=== PATIENT | female | born 1960 | race Caucasian/White ===

== ENCOUNTER 2018-08-12 13:17 | Inpatient (IN) | payer MEDICARE, MEDICAID, SELFPAY ==
[2018-08-12] VITALS (50 sets, daily range): BP systolic 110–150; BP diastolic 60–82; PULSE 66–74; RESP 9–27; TEMP 37.1–37.6; O2SAT 91–96
--- NOTE | 2018-08-12 13:58 | W.ED.GENAD ---
Discharge Plan Disposition Patient Disposition: [facility] INPATIENT Condition: Serious Discharge Details Chief Complaint: AMS/LOC Clinical Impression: Acute UTI, Acute confusion, Pneumonia Reason For Visit: NASIM Primary Care Provider: Shaunna Bonilla ED Provider: Garret Melendez Home Meds and New Rx's Prescriptions: No Action oxycodone 5 mg Tablet 5 - 10 mg PO Q4H PRNRF: 0 acetaminophen 500 mg Tablet 1,000 mg PO Q8H RF: 0 amlodipine 10 mg Tablet 10 mg PO DAILY RF: 0 aspirin [Aspir-81] 81 mg Tablet,Delayed Release (Dr/Ec) 81 mg PO DAILY RF: 0 atorvastatin 80 mg Tablet 80 mg PO HS RF: 0 bupropion HCl 150 mg Tablet Extended Release 24 Hr 150 mg PO DAILY RF: 0 carvedilol 25 mg Tablet 25 mg PO BID RF: 0 clopidogrel 75 mg Tablet 75 mg PO DAILY RF: 0 cyclobenzaprine 10 mg Tablet 10 mg PO Q8H RF: 0 bisacodyl [Dulcolax (bisacodyl)] 10 mg Suppository 10 mg SD PRN PRNRF: 0 fluticasone propionate 50 mcg/actuation [place],Suspension 1 spray Intranasal QAM RF: 0 furosemide 40 mg Tablet 40 mg PO BID RF: 0 insulin glargine 100 unit/mL (3 mL) Insulin Pen 35 unit subcut HS RF: 0 insulin lispro 100 unit/mL Insulin Pen 0 - 4 unit subcut DIRECTED RF: 0 levothyroxine 100 mcg Tablet 200 mcg PO DAILY RF: 0 Lyrica 200 mg Capsule 200 mg PO DAILY RF: 0 magnesium oxide 400 mg magnesium Tablet 400 mg PO QAM RF: 0 melatonin 10 mg Tablet 10 mg PO HS RF: 0 metformin 1,000 mg Tablet 2,000 mg PO QAM RF: 0 polyethylene glycol 3350 [Miralax] 17 gram/dose Powder 17 g PO Q12H PRNRF: 0 magnesium hydroxide [Milk of Magnesia] 400 mg/5 mL Suspension 30 ml PO HS PRNRF: 0 pramipexole [Mirapex] 0.5 mg Tablet 0.5 mg PO TID RF: 0 oxybutynin chloride 5 mg Tablet 5 mg PO BID RF: 0 paroxetine HCl 40 mg Tablet 40 mg PO DAILY RF: 0 potassium chloride 20 mEq Tablet Extended Release 20 meq PO QAM RF: 0 Medical Decision Making 14:00 --57-year-old female with multiple medical problems including recent cervical spine surgery, sent from nursing rehab facility with concern for altered mental status, increased confusion, abdominal distention and discomfort. Patient is altered. Unclear of baseline. Concern for delirium versus infectious etiology plan to perform screening labs as well as CT head, cxr and CT abdomen pelvis to assess for acute surgical pathology. -- I attempted to contact patient's daughter to establish baseline mentation and no one answer. --ECG reviewed and interpreted by me: Sinus rhythm 69 bpm, normal axis, T wave inversions are noted lead V1 to V4 (no old for comparison). --CT head interpreted by radiology: No acute intracranial hemorrhage. --Urinalysis reviewed and concerning for UTI: Positive nitrite and greater than [address] of the abdomen and pelvis interpreted by radiology: Consolidation of the left lower lobe may represent atelectasis or pneumonia. Broad-based X bulge at L4-L5 and L5-L1, recommend MRI if clinically indicated. Will give levauin 750mg IV. Labs reviewed and leukocytosis noted. Will add blood cultures and lactate. 16:50-- Spoke with Dr. Mendez who will admit the patient. Care transitioned to Dr. Mendez. Cxr interpretation pending at time of admission. HPI General Mode of arrival: ambulatory. Date/Time Provider Initiated Documentation: 08/12/18 13:58. Limitations to Documentation: no limitations. Information obtained by: patient. HPI Narrative: 57-year-old female with history of cervical myelopathy status post posterior cervical laminectomy and arthrodesis, 08/07/2018, coronary artery disease, CHF, COPD, diabetes type 2, presents today from nursing rehab facility with concern from skilled nursing that she has had increased confusion. History and review of systems limited secondary to altered mental status. Unclear baseline. [facility] is unclear of patient's baseline mentation. [facility] staff also concerned with abdominal distention. They note last bowel movement was on 08/07. Patient denies focal pain. Related Data Home Medications Medication Instructions Recorded Confirmed acetaminophen 1,000 mg PO Q8H 08/12/18 08/12/18 amlodipine 10 mg PO DAILY 08/12/18 08/12/18 aspirin [Aspir-81] 81 mg PO DAILY 08/12/18 08/12/18 atorvastatin 80 mg PO HS 08/12/18 08/12/18 bisacodyl [Dulcolax (bisacodyl)] 10 mg SD PRN PRN 08/12/18 08/12/18 bupropion HCl 150 mg PO DAILY 08/12/18 08/12/18 carvedilol 25 mg PO BID 08/12/18 08/12/18 clopidogrel 75 mg PO DAILY 08/12/18 08/12/18 cyclobenzaprine 10 mg PO Q8H 08/12/18 08/12/18 fluticasone propionate 1 spray INTRANASAL QAM 08/12/18 08/12/18 furosemide 40 mg PO BID 08/12/18 08/12/18 insulin glargine 35 unit SUBCUT HS 08/12/18 08/12/18 insulin lispro 0 - 4 unit SUBCUT DIRECTED 08/12/18 08/12/18 levothyroxine 200 mcg PO DAILY 08/12/18 08/12/18 magnesium hydroxide [Milk of 30 ml PO HS PRN 08/12/18 08/12/18 Magnesia] magnesium oxide 400 mg PO QAM 08/12/18 08/12/18 melatonin 10 mg PO HS 08/12/18 08/12/18 metformin 2,000 mg PO QAM 08/12/18 08/12/18 oxybutynin chloride 5 mg PO BID 08/12/18 08/12/18 oxycodone 5 - 10 mg PO Q4H PRN 08/12/18 08/12/18 paroxetine HCl 40 mg PO DAILY 08/12/18 08/12/18 polyethylene glycol 3350 [Miralax] 17 g PO Q12H PRN 08/12/18 08/12/18 potassium chloride 20 meq PO QAM 08/12/18 08/12/18 pramipexole [Mirapex] 0.5 mg PO TID 08/12/18 08/12/18 pregabalin [Lyrica] 200 mg PO DAILY 08/12/18 08/12/18 General Stated Complaint: AMS/LOC GABBY: 2 Review of Systems Review of Systems Unobtainable due to mental status PFSH Medical History Acute on chronic diastolic (congestive) heart failure (Acute) Acute pancreatitis (Acute) Adult hypothyroidism (Acute) Atherosclerotic heart disease of [place] coronary artery with angina pectoris (Acute) Benign neoplasm (Acute) History of non-ST elevation myocardial infarction (NSTEMI) (Acute) Hx of laminectomy (Acute) Localized edema (Acute) Mixed incontinence (Acute) Morbid obesity due to excess calories (Acute) Nicotine dependence (Acute) Spondylosis of cervical spine (Acute) Type 2 diabetes mellitus (Acute) Urinary tract infection (Acute) NSTEMI (non-ST elevated myocardial infarction) (Acute) CAD (coronary artery disease) (Chronic) COPD (chronic obstructive pulmonary disease) (Chronic) Social History Smoking/Tobacco Use Status: Current every day Tobacco Type: cigarettes Tobacco: How many years used: 48 Exam Const General: cooperative Nutritional Appearance: obese Orientation: awake and confused Limitations: altered mental status HENMT Head: normocephalic and atraumatic Mouth: moist mucous membranes Eyes Conjunctivae: normal conjunctivae Sclera: normal sclerae Pupils: PERRL and pupil size bilaterally 3 EOM: EOM intact bilaterally Neck Lymphatic: other (collar intact) Resp Auscultation: clear to auscultation bilaterally, no rales, no rhonchi and no wheezes Cardio Jugular venous pressure: no JVD Rate: regular rate and not tachycardic Rhythm: regular rhythm GI Palpation: soft, not firm, no guarding, no masses, not rigid and tender (diffuse) Neuro General: awake, oriented Patient Orientation: Person and Confused, tone normal and moves all extremities Extrem General: edema Laterality: bilateral Course Vital Signs Temperature 37.1 C 08/12/18 13:23 Pulse 68 08/12/18 13:23 Respiratory Rate 16 08/12/18 13:23 Blood Pressure 119/60 08/12/18 13:23 Temperature 37.1 C 08/12/18 13:23 Temperature Source Skin 08/12/18 13:23 Pulse 68 08/12/18 13:23 Respiratory Rate 18 08/12/18 13:33 Respiratory Effort 08/12/18 13:33 Respiratory Depth Normal 08/12/18 13:33 Blood Pressure 119/60 08/12/18 13:23 Blood Pressure Position Supine 08/12/18 13:23 Oxygen Delivery Method Room Air 08/12/18 13:23 Oxygen Flow Rate 0 08/12/18 13:23
--- NOTE | 2018-08-12 14:09 | ED.GENADUL_ITS ---
Discharge Plan Disposition Patient Disposition: [facility] INPATIENT Condition: Serious Discharge Details Chief Complaint: AMS/LOC Clinical Impression: Acute UTI, Acute confusion, Pneumonia Reason For Visit: NASIM Primary Care Provider: Shaunna Bonilla ED Provider: Garret Melendez Home Meds and New Rx's Prescriptions: No Action oxycodone 5 mg Tablet 5 - 10 mg PO Q4H PRNRF: 0 acetaminophen 500 mg Tablet 1,000 mg PO Q8H RF: 0 amlodipine 10 mg Tablet 10 mg PO DAILY RF: 0 aspirin [Aspir-81] 81 mg Tablet,Delayed Release (Dr/Ec) 81 mg PO DAILY RF: 0 atorvastatin 80 mg Tablet 80 mg PO HS RF: 0 bupropion HCl 150 mg Tablet Extended Release 24 Hr 150 mg PO DAILY RF: 0 carvedilol 25 mg Tablet 25 mg PO BID RF: 0 clopidogrel 75 mg Tablet 75 mg PO DAILY RF: 0 cyclobenzaprine 10 mg Tablet 10 mg PO Q8H RF: 0 bisacodyl [Dulcolax (bisacodyl)] 10 mg Suppository 10 mg MD PRN PRNRF: 0 fluticasone propionate 50 mcg/actuation [place],Suspension 1 spray Intranasal QAM RF: 0 furosemide 40 mg Tablet 40 mg PO BID RF: 0 insulin glargine 100 unit/mL (3 mL) Insulin Pen 35 unit subcut HS RF: 0 insulin lispro 100 unit/mL Insulin Pen 0 - 4 unit subcut DIRECTED RF: 0 levothyroxine 100 mcg Tablet 200 mcg PO DAILY RF: 0 Lyrica 200 mg Capsule 200 mg PO DAILY RF: 0 magnesium oxide 400 mg magnesium Tablet 400 mg PO QAM RF: 0 melatonin 10 mg Tablet 10 mg PO HS RF: 0 metformin 1,000 mg Tablet 2,000 mg PO QAM RF: 0 polyethylene glycol 3350 [Miralax] 17 gram/dose Powder 17 g PO Q12H PRNRF: 0 magnesium hydroxide [Milk of Magnesia] 400 mg/5 mL Suspension 30 ml PO HS PRNRF: 0 pramipexole [Mirapex] 0.5 mg Tablet 0.5 mg PO TID RF: 0 oxybutynin chloride 5 mg Tablet 5 mg PO BID RF: 0 paroxetine HCl 40 mg Tablet 40 mg PO DAILY RF: 0 potassium chloride 20 mEq Tablet Extended Release 20 meq PO QAM RF: 0 Medical Decision Making 14:00 --57-year-old female with multiple medical problems including recent cervical spine surgery, sent from nursing rehab facility with concern for altered mental status, increased confusion, abdominal distention and discomfort. Patient is altered. Unclear of baseline. Concern for delirium versus infectious etiology plan to perform screening labs as well as CT head, cxr and CT abdomen pelvis to assess for acute surgical pathology. -- I attempted to contact patient's daughter to establish baseline mentation and no one answer. --ECG reviewed and interpreted by me: Sinus rhythm 69 bpm, normal axis, T wave inversions are noted lead V1 to V4 (no old for comparison). --CT head interpreted by radiology: No acute intracranial hemorrhage. --Urinalysis reviewed and concerning for UTI: Positive nitrite and greater than [address] of the abdomen and pelvis interpreted by radiology: Consolidation of the left lower lobe may represent atelectasis or pneumonia. Broad-based X bulge at L4- L5 and L5-L1, recommend MRI if clinically indicated. Will give levauin 750mg IV. Labs reviewed and leukocytosis noted. Will add blood cultures and lactate. 16:50-- Spoke with Dr. Mendez who will admit the patient. Care transitioned to Dr. Mendez. Cxr interpretation pending at time of admission. HPI General Mode of arrival: ambulatory . Date/Time Provider Initiated Documentation: 08/12/18 13:58 . Limitations to Documentation: no limitations . Information obtained by: patient . HPI Narrative: 57-year-old female with history of cervical myelopathy status post posterior cervical laminectomy and arthrodesis, 08/07/2018, coronary artery disease, CHF, COPD, diabetes type 2, presents today from nursing rehab facility with concern from halfway that she has had increased confusion. History and review of systems limited secondary to altered mental status. Unclear baseline. [facility] is unclear of patient's baseline mentation. [facility] staff also concerned with abdominal distention. They note last bowel movement was on 08/07. Patient denies focal pain. Related Data Home Medications Medication Instructions Recorded Confirmed acetaminophen 1,000 mg PO Q8H 08/12/18 08/12/18 amlodipine 10 mg PO DAILY 08/12/18 08/12/18 aspirin [Aspir-81] 81 mg PO DAILY 08/12/18 08/12/18 atorvastatin 80 mg PO HS 08/12/18 08/12/18 bisacodyl [Dulcolax (bisacodyl)] 10 mg MD PRN PRN 08/12/18 08/12/18 bupropion HCl 150 mg PO DAILY 08/12/18 08/12/18 carvedilol 25 mg PO BID 08/12/18 08/12/18 clopidogrel 75 mg PO DAILY 08/12/18 08/12/18 cyclobenzaprine 10 mg PO Q8H 08/12/18 08/12/18 fluticasone propionate 1 spray INTRANASAL QAM 08/12/18 08/12/18 furosemide 40 mg PO BID 08/12/18 08/12/18 insulin glargine 35 unit SUBCUT HS 08/12/18 08/12/18 insulin lispro 0 - 4 unit SUBCUT DIRECTED 08/12/18 08/12/18 levothyroxine 200 mcg PO DAILY 08/12/18 08/12/18 magnesium hydroxide [Milk of 30 ml PO HS PRN 08/12/18 08/12/18 Magnesia] magnesium oxide 400 mg PO QAM 08/12/18 08/12/18 melatonin 10 mg PO HS 08/12/18 08/12/18 metformin 2,000 mg PO QAM 08/12/18 08/12/18 oxybutynin chloride 5 mg PO BID 08/12/18 08/12/18 oxycodone 5 - 10 mg PO Q4H PRN 08/12/18 08/12/18 paroxetine HCl 40 mg PO DAILY 08/12/18 08/12/18 polyethylene glycol 3350 [Miralax] 17 g PO Q12H PRN 08/12/18 08/12/18 potassium chloride 20 meq PO QAM 08/12/18 08/12/18 pramipexole [Mirapex] 0.5 mg PO TID 08/12/18 08/12/18 pregabalin [Lyrica] 200 mg PO DAILY 08/12/18 08/12/18 General Stated Complaint: AMS/LOC GABBY: 2 Review of Systems Review of Systems Unobtainable due to mental status PFSH Medical History Acute on chronic diastolic (congestive) heart failure (Acute) Acute pancreatitis (Acute) Adult hypothyroidism (Acute) Atherosclerotic heart disease of [place] coronary artery with angina pectoris (Acute) Benign neoplasm (Acute) History of non-ST elevation myocardial infarction (NSTEMI) (Acute) Hx of laminectomy (Acute) Localized edema (Acute) Mixed incontinence (Acute) Morbid obesity due to excess calories (Acute) Nicotine dependence (Acute) Spondylosis of cervical spine (Acute) Type 2 diabetes mellitus (Acute) Urinary tract infection (Acute) NSTEMI (non-ST elevated myocardial infarction) (Acute) CAD (coronary artery disease) (Chronic) COPD (chronic obstructive pulmonary disease) (Chronic) Social History Smoking/Tobacco Use Status: Current every day Tobacco Type: cigarettes Tobacco: How many years used: 48 Exam Const General: cooperative Nutritional Appearance: obese Orientation: awake and confused Limitations: altered mental status HENMT Head: normocephalic and atraumatic Mouth: moist mucous membranes Eyes Conjunctivae: normal conjunctivae Sclera: normal sclerae Pupils: PERRL and pupil size bilaterally 3 EOM: EOM intact bilaterally Neck Lymphatic: other (collar intact) Resp Auscultation: clear to auscultation bilaterally, no rales, no rhonchi and no wheezes Cardio Jugular venous pressure: no JVD Rate: regular rate and not tachycardic Rhythm: regular rhythm GI Palpation: soft, not firm, no guarding, no masses, not rigid and tender (diffuse) Neuro General: awake, oriented Patient Orientation: Person and Confused, tone normal and moves all extremities Extrem General: edema Laterality: bilateral Course Vital Signs Temperature 37.1 C 08/12/18 13:23 Pulse 68 08/12/18 13:23 Respiratory Rate 16 08/12/18 13:23 Blood Pressure 119/60 08/12/18 13:23 Temperature 37.1 C 08/12/18 13:23 Temperature Source Skin 08/12/18 13:23 Pulse 68 08/12/18 13:23 Respiratory Rate 18 08/12/18 13:33 Respiratory Effort 08/12/18 13:33 Respiratory Depth Normal 08/12/18 13:33 Blood Pressure 119/60 08/12/18 13:23 Blood Pressure Position Supine 08/12/18 13:23 Oxygen Delivery Method Room Air 08/12/18 13:23 Oxygen Flow Rate 0 08/12/18 13:23
[2018-08-12 14:13] LABS: Abs Immature Grans 0.03 k/cumm (0.0-0.09); Absolute Basophil Count 0.02 k/cumm (0.0-0.2); Absolute Eosinophil Count 0.01 k/cumm (0.0-0.7); Absolute Lymphocyte Count 0.88 k/cumm (1.2-3.4); Absolute Monocyte Count 1.11 k/cumm (0.11-0.7); Absolute Neutrophil Count 9.77 k/cumm (1.2-6.7); Basophils % 0.2; Eosinophils % 0.1; HCT 34.1 % (36.0-46.0); HGB 10.8 g/dL (12.0-15.5); Immature Grans % 0.3; Lymphocytes % 7.4; Mean Corp. HGB Concentration 31.7 g/dL (32.0-36.0); Mean Corpuscular Hemoglobin 25.2 pg (27.0-33.0); Mean Corpuscular Volume 79.5 fL (80-95); Mean Platelet Volume 9.5 fL (8.0-11.0); Monocytes % 9.4; Neutrophils % 82.6; RBC 4.29 m/cumm (4.00-5.20); RBC Distribution Width 18.7 % (11.7-14.6); White Blood Cell Count 11.83 k/cumm (4.4-10.8)
[2018-08-12 14:26] LABS: Platelet Count 269 x1000/uL (130-400)
[2018-08-12 14:27] LABS: Anisocytosis 2+; Diff Comment RBC Morph Reviewed; Microcytosis 1+; Polychromasia Present
[2018-08-12 14:28] LABS: Poikilocytes 1+
[2018-08-12 14:31] LABS: ALT 23 U/L (12-78); AST 26 U/L (15-37); Albumin 2.6 g/dL (3.4-5.0); Alkaline Phosphatase 87 U/L (46-116); Anion Gap 5.8 mmol/L (3-11); BUN 19 mg/dL (7-18); Bilirubin, Total 0.8 mg/dL (0.2-1.0); CO2 32.2 mmol/L (21.0-32.0); Calcium 9.2 mg/dL (8.5-10.1); Chloride 98 mmol/L (98-107); Glucose 144 mg/dL (70-100); Magnesium 1.9 mg/dL (1.8-2.4); Potassium 3.8 mmol/L (3.5-5.1); Sodium 136 mmol/L (136-145); Total Protein 7.8 g/dL (6.4-8.2)
[2018-08-12 14:34] LABS: Troponin I < 0.02 ng/mL (0.00-0.06)
[2018-08-12 14:43] LABS: Bilirubin Negative (Negative); Blood Trace-intact (Negative); Clarity Sl Cloudy; Glucose Negative (Negative); Ketones Negative (Negative); Leukocyte Esterase Moderate (Negative); Nitrite Positive (Negative); Urobilinogen 0.2 EU/dL (Up TO 0.2)
[2018-08-12 14:51] LABS: Bacteria Moderate HPF (Negative); C & S Indicated? Yes; Casts Negative LPF (Negative); Crystals Negative HPF (Negative); Epithelial Cells Moderate HPF (Negative); Mucus Negative (Negative); WBC >50 HPF (0-5)
[2018-08-12] MEDS: Omnipaque 350 MG/ML 100 ML BTL IJ (15:31)
[2018-08-12] MEDS: Normal Saline Flush 10 ML SYR IVP (15:33)
--- NOTE | 2018-08-12 15:33 | DI.CT_ITS ---
SYMPTOMS/DIAGNOSIS: DISTENDED ABDOMEN, ABDOMINAL PAIN; ALTERED MENTATION CT BRAIN, NONCONTRAST: No priors. The ventricles and sulci are consistent with the patient's age. No acute intracranial hemorrhage, infarct, midline shift or mass effect is identified. The ventricles are intact. The basilar cisterns are patent. The visualized paranasal sinuses are clear. The mastoid air cells appear well pneumatized. The calvarium is intact. IMPRESSION: No acute intracranial process. CT SCAN OF THE ABDOMEN AND PELVIS: CT scan of the abdomen and pelvis was performed following the uneventful administration of intravenous contrast material. There is patient motion artifact, which limits the evaluation of the examination. There is a large area of consolidation involving the left lower lobe. There is a small left pleural effusion present. The liver is normal in size. No suspicious hepatic mass is seen. The portal, superior mesenteric and splenic veins are patent. The patient is status post cholecystectomy. No biliary ductal dilatation is present. The pancreas, spleen and adrenal glands are unremarkable. The kidneys show normal and symmetric enhancement. No evidence of a solid renal mass or obstruction. The urinary bladder is intact. There is a Montgomery catheter in place. The reproductive organs are unremarkable. The bowel shows no evidence of obstruction or inflammation. No findings to suggest an acute appendicitis are present. There is a fat- containing anterior abdominal wall hernia. There is atherosclerosis of the abdominal aorta, but no significant aneurysmal dilatation is seen. No significant abdominal or pelvic adenopathy, ascites or pneumoperitoneum is present. Degenerative changes are seen throughout the spine. IMPRESSION: Left lower lobe infiltrate, which may represent atelectasis or pneumonia. Small left pleural effusion.
--- NOTE | 2018-08-12 15:43 | DI.VRAD_ITS ---
EXAM: CT Head Without Contrast EXAM DATE/TIME: 08/12/2018 2:01 PM CLINICAL HISTORY: 57 years old, female; Signs and symptoms; Altered mental status/memory loss; Confusion or disorientation; Patient HX: Altered mentation; Additional info: S/P spinal fusion. PT unable to hold still TECHNIQUE: Axial computed tomography images of the head/brain without contrast. All CT scans at this facility use at least one of these dose optimization techniques: automated exposure control; mA and/or kV adjustment per patient size (includes targeted exams where dose is matched to clinical indication); or iterative reconstruction. Coronal and sagittal reformatted images were created and reviewed. COMPARISON: No relevant prior studies available. FINDINGS: Brain: No acute intracranial hemorrhage. There is mild diffuse heterogeneity of the white matter attenuation, consistent with chronic white matter ischemic changes. Mild cerebral atrophy Ventricles: Normal. No ventriculomegaly. Bones/joints: Unremarkable. No acute fracture. Sinuses: Visualized sinuses are unremarkable. No acute sinusitis. Mastoid air cells: Visualized mastoid air cells are unremarkable. No mastoid effusion. Soft tissues: Unremarkable. IMPRESSION: No acute intracranial hemorrhage. Dictated and Authenticated by: Bruce Mitchell MD. Ordering:SHEILA Combs MD
--- NOTE | 2018-08-12 15:49 | DI.VRAD_ITS ---
EXAM: CT Abdomen and Pelvis With Contrast EXAM DATE/TIME: 08/12/2018 2:01 PM CLINICAL HISTORY: 57 years old, female; Pain and signs and symptoms; Other: Altered mentation; Abdominal pain; Generalized; Patient HX: Distended, abd pain, altered; Additional info: S/P spinal fusion. PT unable to hold still or hold breath TECHNIQUE: Axial computed tomography images of the abdomen and pelvis with intravenous contrast. All CT scans at this facility use at least one of these dose optimization techniques: automated exposure control; mA and/or kV adjustment per patient size (includes targeted exams where dose is matched to clinical indication); or iterative reconstruction. Coronal and sagittal reformatted images were created and reviewed. CONTRAST: Contrast Material: 100 ml of omni 350; Contrast Route: iv COMPARISON: No relevant prior studies available. FINDINGS: Lower thorax: Consolidation in the left lower lobe may represent atelectasis or pneumonia. Right basilar atelectasis Mild left pleural effusion. ABDOMEN: Liver: Normal. No mass. Gallbladder and bile ducts: Cholecystectomy Pancreas: Normal. No ductal dilation. Spleen: Normal. No splenomegaly. Adrenals: Normal. No mass. Kidneys and ureters: Mild left perirenal fluid. Unknown etiology . No hydronephrosis. No mass Stomach and bowel: Findings consistent with constipation. Appendix: No evidence of appendicitis. PELVIS: Bladder: Montgomery catheter in the bladder Reproductive: Unremarkable as visualized. ABDOMEN and PELVIS: Intraperitoneal space: Normal. No free air. No significant fluid collection. Bones/joints: Broad-based disc bulge at L4/L5 and L5/S1. Soft tissues: Umbilical hernia contains fat Vasculature: Normal. No abdominal aortic aneurysm. Lymph nodes: Normal. No enlarged lymph nodes. Other findings: Motion artifact degrades images IMPRESSION: 1. Consolidation in the left lower lobe may represent atelectasis or pneumonia. 2. Broad-based disc bulge at L4/L5 and L5/S1. Recommend MRI if clinically indicated Dictated and Authenticated by: Bruce Mitchell MD. Ordering:SHEILA Combs MD
--- NOTE | 2018-08-12 16:26 | DI.RAD_ITS ---
SYMPTOM/DIAGNOSIS: ALTERED MENTAL STATUS PORTABLE AP CHEST: There is cardiomegaly. Pulmonary vasculature is within normal limits. No definite focal consolidating infiltrate is seen on this chest xray. The left lower lobe infiltrate is best appreciated on the CT scan of the abdomen and pelvis. No gross effusions or pneumothoraces are identified. IMPRESSION: No acute pulmonary process. Please refer to the CT scan of the abdomen and pelvis from earlier in the day.
[2018-08-12 16:31] LABS: Lactate-non-spesis 0.7 mmol/l (0.6-1.4)
--- NOTE | 2018-08-12 16:54 | W.PM.HP.N ---
Date of service: 08/12/18 Time of Service: 17:22 Assessment and Plan (1) Altered mental status: Start date: 08/12/18 Start time: 17:06 Current visit: Yes Status: Acute Recent cervical spine surgery on 08/07 at [facility] [place], transferred to [facility], admitted for confusion that has been progressive over last couple days per daughter. Pt was on flexiril and oxycodone, which has been dcd at this time to r/o for confusion. Head CT with no abnormality, pt is AAO to time and place but not person. IV tylenol for pain (2) HCAP (healthcare-associated pneumonia): Start date: 08/12/18 Start time: 17:07 Current visit: Yes Status: Acute CT revealing for Consolidation in the left lower lobe may represent atelectasis or pneumonia. Right basilar atelectasis Mild left pleural effusion. Treatment for HCAP because she was hospitalized 3 days ago at [facility] following Cervical surgery. Will cover with Vanco and Cefepime. Updraft, patient does have COPD not in exacerbation at this time. (3) Diabetes: Start date: 08/12/18 Start time: 17:11 Current visit: Yes Status: Chronic Takes lantus and metformin at home. Metformin on hold while in the hospital on SSI with a decrease in Lantus until we know if she will tolerate PO intake (4) H/O cervical spine surgery: Start date: 08/12/18 Start time: 17:12 Current visit: Yes Status: Acute Recent Posterior cervical laminectomy and athrodesis. PERRLA, support services tech equal with +4 reflexes to bilateral upper and lower extremities. Surgery at [facility] and dcd to [facility]. Currently with [place] J cervical collar with instructions to wear at all times . PT/OT for rehab, (5) Urinary tract infection: Start date: 08/12/18 Start time: 17:15 Current visit: Yes Status: Acute Huang in place from rehab with positive nitrates and Leukos, current treatment for HCAP and will monitor C/S for sensitivity. (6) Leukocytosis: Start date: 08/12/18 Start time: 17:17 Current visit: Yes Status: Acute HCAP and UTI WBC 11.83 will continue to monitor. Afebrile at this time (7) CAD (coronary artery disease): Start date: 08/12/18 Start time: 17:17 Current visit: Yes Status: Chronic Hx of NSTEMI with Stent placement. Currently on atorvastatin 80 continue dose (8) Tobacco abuse: Start date: 08/12/18 Start time: 17:18 Current visit: Yes Status: Acute Hx smoking, unable to discuss cessation at this time as patient is Altered (9) DVT prophylaxis: Start date: 08/12/18 Start time: 17:18 Current visit: Yes Status: Acute Lovenox subcu (10) Spondylitis, cervical: Start date: 08/12/18 Start time: 17:19 Current visit: Yes Status: Acute surgical repair on 08/07 at [facility], see above (11) HTN (hypertension): Start date: 08/12/18 Start time: 17:21 Current visit: Yes Status: Chronic Controlled at this time. continue coreg, amlodipine. (12) Dehydration: Start date: 08/12/18 Start time: 17: Current visit: Yes Status: Acute Bun 19 with Carbon Dioxide 32.2 with a dry cracking tongue pt will receive hydration of NS @ 125 in presence of dehydration History of Present Illness Chief Complaint: Altered Mental Status, UTI, DM Narrative: Mrs. Cary is a 57 y.o F with Hx of Cervical Spine surgery on 08/07 at [facility] [place]. She was admitted to [facility]; she was brought to [facility] emergency Department today for AMS. She has been altered worsening over last three days. Our service has been asked to admit. She will be admitted to M/S. Mrs. Cary has a PMH of COPD, NSTEMI with Stent, DM, COPD, Spondylitis, HTN, CAD, sent here for AMS, increased confusion, abdominal discomfort and distention. Mrs. Cary is AAO x 2, oriented to time and date with periods of confusion. Per her daughter she has had increased confusion over the last couple of days. A CT was done in the emergency department showing no abnormalities. CT of abdomen revealing consolidation in LLL which could be atelectasis or pneumonia, Right basilar atelectasis with mild left pleural effusion. She will be treated for HCAP given recent [facility] hospitalization started on vanco and cefepime. Blood cultures pending. She does have a hx of COPD that is not exacerbated at this time. A [place] J collar is in place and will need to stay at all times from cervical surgery on 08/07, able to move all extremities, no numbness tingling, PERRLA, continue to monitor Neuros. She was on flexeril and oxycodone that have been discontinued to to r/o underlying cause of confusion. IV tylenol for pain. PT/OT ordered. Her urine was positive for leukocytes and nitrates. She is on coverage for HCAP that will cover urine, will monitor C/S for sensitivities. DM will be treated with SSI and lantus, a lower dose then her home dose until we are sure she is eating. HTn is controlled at this time continue home medications. Review of Systems Constitutional Reports as per HPI Eyes Reports system reviewed and no additional complaints, except as docu ENT Reports system reviewed and no additional complaints, except as docu Cardiovascular Reports system reviewed and no additional complaints, except as docu Respiratory Reports as per HPI Gastrointestinal Reports as per HPI Musculoskeletal Reports as per HPI Neurologic Reports as per HPI and Reports confusion Psychiatric Reports confusion Endocrine Reports as per HPI Hematologic/Lymphatic Reports system reviewed and no additional complaints, except as docu Allergic/Immunologic Reports system reviewed and no additional complaints, except as docu PFSH Medical History Acute on chronic diastolic (congestive) heart failure (Acute) Acute pancreatitis (Acute) Adult hypothyroidism (Acute) Atherosclerotic heart disease of [place] coronary artery with angina pectoris (Acute) Benign neoplasm (Acute) History of non-ST elevation myocardial infarction (NSTEMI) (Acute) Hx of laminectomy (Acute) Localized edema (Acute) Mixed incontinence (Acute) Morbid obesity due to excess calories (Acute) Nicotine dependence (Acute) Spondylosis of cervical spine (Acute) Type 2 diabetes mellitus (Acute) Urinary tract infection (Acute) NSTEMI (non-ST elevated myocardial infarction) (Acute) CAD (coronary artery disease) (Chronic) COPD (chronic obstructive pulmonary disease) (Chronic) Social History Smoking/Tobacco Use Status: Current every day Tobacco Type: cigarettes Tobacco: How many years used: 48 Meds Home Medications Medication Instructions Recorded Confirmed Type acetaminophen 1,000 mg PO Q8H 08/12/18 08/12/18 History amlodipine 10 mg PO DAILY 08/12/18 08/12/18 History aspirin [Aspir-81] 81 mg PO DAILY 08/12/18 08/12/18 History atorvastatin 80 mg PO HS 08/12/18 08/12/18 History bisacodyl [Dulcolax (bisacodyl)] 10 mg HI PRN PRN 08/12/18 08/12/18 History bupropion HCl 150 mg PO DAILY 08/12/18 08/12/18 History calcium carbonate [Tums E-X] 750 mg PO PRN PRN 08/12/18 08/12/18 History carvedilol 25 mg PO BID 08/12/18 08/12/18 History cholecalciferol (vitamin D3) 50,000 unit PO QAM 08/12/18 08/12/18 History clopidogrel 75 mg PO DAILY 08/12/18 08/12/18 History cyclobenzaprine 10 mg PO Q8H 08/12/18 08/12/18 History fluticasone propionate 1 spray INTRANASAL QAM 08/12/18 08/12/18 History furosemide 40 mg PO BID 08/12/18 08/12/18 History insulin glargine 35 unit SUBCUT HS 08/12/18 08/12/18 History insulin lispro 0 - 4 unit SUBCUT DIRECTED 08/12/18 08/12/18 History levothyroxine 200 mcg PO DAILY 08/12/18 08/12/18 History magnesium hydroxide [Milk of 30 ml PO HS PRN 08/12/18 08/12/18 History Magnesia] magnesium oxide 400 mg PO QAM 08/12/18 08/12/18 History melatonin 10 mg PO HS 08/12/18 08/12/18 History metformin 2,000 mg PO QAM 08/12/18 08/12/18 History oxybutynin chloride 5 mg PO BID 08/12/18 08/12/18 History oxycodone 5 - 10 mg PO Q4H PRN 08/12/18 08/12/18 History paroxetine HCl 40 mg PO DAILY 08/12/18 08/12/18 History polyethylene glycol 3350 [Miralax] 17 g PO Q12H PRN 08/12/18 08/12/18 History potassium chloride 20 meq PO QAM 08/12/18 08/12/18 History pramipexole [Mirapex] 0.5 mg PO TID 08/12/18 08/12/18 History pregabalin [Lyrica] 200 mg PO DAILY 08/12/18 08/12/18 History ropinirole 1 mg PO TID 08/12/18 08/12/18 History sennosides-docusate sodium [Senna 2 tab PO Q12H PRN 08/12/18 08/12/18 History Plus] sitagliptin 100 mg PO DAILY 08/12/18 08/12/18 History triamcinolone acetonide 1 applic TOPICAL TID 08/12/18 08/12/18 History Allergies Allergy/AdvReac Type Severity Reaction Status Date / Time bee venom protein (honey bee) AdvReac Unknown Unverified 08/12/18 17:40 celecoxib AdvReac Unknown Unverified 08/12/18 17:40 coconut AdvReac Unknown Unverified 08/12/18 17:40 latex AdvReac Unknown Unverified 08/12/18 17:40 Exam Const General: cooperative Nutritional Appearance: obese Orientation: alert, awake, oriented to person and oriented to time Limitations: altered mental status [facility] Head: normal to inspection Face and sinus: normal facial exam Eyes General: appearance normal, both eyes and all related structures Pupils: PERRL Neck Lymphatic: no lymphadenopathy noted and no lymphedema noted Other: [place] collar on and posterior cervical incision Chest Chest: normal inspection of the chest Resp Effort & Inspection: normal respiratory effort and able to speak in complete sentences Auscultation: diminished lung sounds Cardio Rate: regular rate Rhythm: regular rhythm Heart Sounds: S1 normal and S2 normal GI Inspection: distended Palpation: no hepatosplenomegaly and other Auscultation: hypoactive bowel sounds Other: huang Back/Spine/Pelvis Back: no CVA tenderness Cervical Spine: cervical ROM abnormal and other (in [place] collar following surgical procedure) Skin Other: surgical incision to posterior cervical spin Neuro General: alert, awake and oriented Patient Orientation: Person, Time and Confused DTR's: Rt Triceps: 4+, Lt Triceps: 4+, Rt Patellar: 4+ and Lt Patellar: 4+ Other: CMST+, PPPx2, denies numbness Extrem General: full ROM Left upper extremity: full ROM Right lower extremity: full ROM Left lower extremity: full ROM Results Labs : 08/12/18 13:25 08/12/18 13:25 Laboratory Results - last 24 hr 08/12/18 08/12/18 08/12/18 13:25 13:25 14:30 WBC 11.83 H RBC 4.29 Hgb 10.8 L Hct 34.1 L MCV 79.5 L MCH 25.2 L MCHC 31.7 L RDW 18.7 H Plt Count 269 MPV 9.5 Immature Gran % 0.3 Neutrophils % 82.6 Lymphocytes % 7.4 Monocytes % 9.4 Eosinophils % 0.1 Basophils % 0.2 Absolute Neutrophils 9.77 H Absolute Lymphocytes 0.88 L Absolute Monocytes 1.11 H Absolute Eosinophils 0.01 Absolute Basophils 0.02 Differential Comment Rbc morph reviewed RBC Morphology See below Polychromasia Present Poikilocytosis 1+ Anisocytosis 2+ Microcytosis 1+ Sodium 136 Potassium 3.8 Chloride 98 Carbon Dioxide 32.2 H Anion Gap 5.8 BUN 19 H Creatinine 0.80 Estimated GFR/1.73 m2 >= 60.00 Glucose 144 H Lactate Calcium 9.2 Magnesium 1.9 Total Bilirubin 0.8 AST 26 ALT 23 Alkaline Phosphatase 87 Troponin I < 0.02 Total Protein 7.8 Albumin 2.6 L Urine Color Yellow Urine Clarity Sl cloudy Urine pH 6.0 Ur Specific [place] 1.020 Urine Protein Negative Urine Ketones Negative Urine Blood Trace-intact H Urine Nitrite Positive H Urine Bilirubin Negative Urine Urobilinogen 0.2 Ur Leukocyte Esterase Moderate H Urine RBC 3-5 H Urine WBC >50 Ur Epithelial Cells Moderate Urine Crystals Negative Urine Bacteria Moderate Urine Casts Negative Urine Mucus Negative Ur Culture Indicated? Yes Urine Glucose Negative 08/12/18 16:25 WBC RBC Hgb Hct MCV MCH MCHC RDW Plt Count MPV Immature Gran % Neutrophils % Lymphocytes % Monocytes % Eosinophils % Basophils % Absolute Neutrophils Absolute Lymphocytes Absolute Monocytes Absolute Eosinophils Absolute Basophils Differential Comment RBC Morphology Polychromasia Poikilocytosis Anisocytosis Microcytosis Sodium Potassium Chloride Carbon Dioxide Anion Gap BUN Creatinine Estimated GFR/1.73 m2 Glucose Lactate 0.7 Calcium Magnesium Total Bilirubin AST ALT Alkaline Phosphatase Troponin I Total Protein Albumin Urine Color Urine Clarity Urine pH Ur Specific [place] Urine Protein Urine Ketones Urine Blood Urine Nitrite Urine Bilirubin Urine Urobilinogen Ur Leukocyte Esterase Urine RBC Urine WBC Ur Epithelial Cells Urine Crystals Urine Bacteria Urine Casts Urine Mucus Ur Culture Indicated? Urine Glucose Last Vital Signs Temp 37.3 C 08/12/18 16:11 Pulse 68 08/12/18 16:11 Resp 17 08/12/18 16:11 BP 138/76 08/12/18 16:11 Pulse Ox 93 L 08/12/18 16:11
--- NOTE | 2018-08-12 17:02 | DI.VRAD_ITS ---
EXAM: XR Chest, 1 View EXAM DATE/TIME: 08/12/2018 4:27 PM CLINICAL HISTORY: 57 years old, female; Signs and symptoms; Other: Altered TECHNIQUE: XR of the chest, 1 view. COMPARISON: No relevant prior studies available. FINDINGS: Lungs: No focal consolidation. Pleural space: Unremarkable. No pleural effusion. No pneumothorax. Heart/Mediastinum: Cardiomegaly Bones/joints: Internal fixation device in the cervical spine IMPRESSION: No focal consolidation. Dictated and Authenticated by: Bruce Mitchell MD. Ordering:SHEILA Combs MD
--- NOTE | 2018-08-12 17:22 | HPE_ITS ---
Date of service: 08/12/18 Time of Service: 17:22 Assessment and Plan (1) Altered mental status: Start date: 08/12/18 Start time: 17:06 Current visit: Yes Status: Acute Recent cervical spine surgery on 08/07 at [facility] [place], transferred to [facility], admitted for confusion that has been progressive over last couple days per daughter. Pt was on flexiril and oxycodone, which has been dcd at this time to r/o for confusion. Head CT with no abnormality, pt is AAO to time and place but not person. IV tylenol for pain (2) HCAP (healthcare-associated pneumonia): Start date: 08/12/18 Start time: 17:07 Current visit: Yes Status: Acute CT revealing for Consolidation in the left lower lobe may represent atelectasis or pneumonia. Right basilar atelectasis Mild left pleural effusion. Treatment for HCAP because she was hospitalized 3 days ago at [facility] following Cervical surgery. Will cover with Vanco and Cefepime. Updraft, patient does have COPD not in exacerbation at this time. (3) Diabetes: Start date: 08/12/18 Start time: 17:11 Current visit: Yes Status: Chronic Takes lantus and metformin at home. Metformin on hold while in the hospital on SSI with a decrease in Lantus until we know if she will tolerate PO intake (4) H/O cervical spine surgery: Start date: 08/12/18 Start time: 17:12 Current visit: Yes Status: Acute Recent Posterior cervical laminectomy and athrodesis. PERRLA, efficiency manager equal with +4 reflexes to bilateral upper and lower extremities. Surgery at [facility] and dcd to [facility]. Currently with [place] J cervical collar with instructions to wear at all times . PT/OT for rehab, (5) Urinary tract infection: Start date: 08/12/18 Start time: 17:15 Current visit: Yes Status: Acute Huang in place from rehab with positive nitrates and Leukos, current treatment for HCAP and will monitor C/S for sensitivity. (6) Leukocytosis: Start date: 08/12/18 Start time: 17:17 Current visit: Yes Status: Acute HCAP and UTI WBC 11.83 will continue to monitor. Afebrile at this time (7) CAD (coronary artery disease): Start date: 08/12/18 Start time: 17:17 Current visit: Yes Status: Chronic Hx of NSTEMI with Stent placement. Currently on atorvastatin 80 continue dose (8) Tobacco abuse: Start date: 08/12/18 Start time: 17:18 Current visit: Yes Status: Acute Hx smoking, unable to discuss cessation at this time as patient is Altered (9) DVT prophylaxis: Start date: 08/12/18 Start time: 17:18 Current visit: Yes Status: Acute Lovenox subcu (10) Spondylitis, cervical: Start date: 08/12/18 Start time: 17:19 Current visit: Yes Status: Acute surgical repair on 08/07 at [facility], see above (11) HTN (hypertension): Start date: 08/12/18 Start time: 17:21 Current visit: Yes Status: Chronic Controlled at this time. continue coreg, amlodipine. (12) Dehydration: Start date: 08/12/18 Start time: 17: Current visit: Yes Status: Acute Bun 19 with Carbon Dioxide 32.2 with a dry cracking tongue pt will receive hydration of NS @ 125 in presence of dehydration History of Present Illness Chief Complaint: Altered Mental Status, UTI, DM Narrative: Mrs. Cary is a 57 y.o F with Hx of Cervical Spine surgery on 08/07 at [facility] [place]. She was admitted to [facility]; she was brought to [facility] emergency Department today for AMS. She has been altered worsening over last three days. Our service has been asked to admit. She will be admitted to M/S. Mrs. Cary has a PMH of COPD, NSTEMI with Stent, DM, COPD, Spondylitis, HTN, CAD, sent here for AMS, increased confusion, abdominal discomfort and distention. Mrs. Cary is AAO x 2, oriented to time and date with periods of confusion. Per her daughter she has had increased confusion over the last couple of days. A CT was done in the emergency department showing no abnormalities. CT of abdomen revealing consolidation in LLL which could be atelectasis or pneumonia, Right basilar atelectasis with mild left pleural effusion. She will be treated for HCAP given recent [facility] hospitalization started on vanco and cefepime. Blood cultures pending. She does have a hx of COPD that is not exacerbated at this time. A confederated coos J collar is in place and will need to stay at all times from cervical surgery on 08/07, able to move all extremities, no numbness tingling, PERRLA, continue to monitor Neuros. She was on flexeril and oxycodone that have been discontinued to to r/o unde rlying cause of confusion. IV tylenol for pain. PT/OT ordered. Her urine was positive for leukocytes and nitrates. She is on coverage for HCAP that will cover urine, will monitor C/S for sensitivities. DM will be treated with SSI and lantus, a lower dose then her home dose until we are sure she is eating. HTn is controlled at this time continue home medications. Review of Systems Constitutional Reports as per HPI Eyes Reports system reviewed and no additional complaints, except as docu ENT Reports system reviewed and no additional complaints, except as docu Cardiovascular Reports system reviewed and no additional complaints, except as docu Respiratory Reports as per HPI Gastrointestinal Reports as per HPI Musculoskeletal Reports as per HPI Neurologic Reports as per HPI and Reports confusion Psychiatric Reports confusion Endocrine Reports as per HPI Hematologic/Lymphatic Reports system reviewed and no additional complaints, except as docu Allergic/Immunologic Reports system reviewed and no additional complaints, except as docu PFSH Medical History Acute on chronic diastolic (congestive) heart failure (Acute) Acute pancreatitis (Acute) Adult hypothyroidism (Acute) Atherosclerotic heart disease of [place] coronary artery with angina pectoris (Acute) Benign neoplasm (Acute) History of non-ST elevation myocardial infarction (NSTEMI) (Acute) Hx of laminectomy (Acute) Localized edema (Acute) Mixed incontinence (Acute) Morbid obesity due to excess calories (Acute) Nicotine dependence (Acute) Spondylosis of cervical spine (Acute) Type 2 diabetes mellitus (Acute) Urinary tract infection (Acute) NSTEMI (non-ST elevated myocardial infarction) (Acute) CAD (coronary artery disease) (Chronic) COPD (chronic obstructive pulmonary disease) (Chronic) Social History Smoking/Tobacco Use Status: Current every day Tobacco Type: cigarettes Tobacco: How many years used: 48 Meds Home Medications Medication Instructions Recorded Confirmed Type acetaminophen 1,000 mg PO Q8H 08/12/18 08/12/18 History amlodipine 10 mg PO DAILY 08/12/18 08/12/18 History aspirin [Aspir-81] 81 mg PO DAILY 08/12/18 08/12/18 History atorvastatin 80 mg PO HS 08/12/18 08/12/18 History bisacodyl [Dulcolax (bisacodyl)] 10 mg VA PRN PRN 08/12/18 08/12/18 History bupropion HCl 150 mg PO DAILY 08/12/18 08/12/18 History calcium carbonate [Tums E-X] 750 mg PO PRN PRN 08/12/18 08/12/18 History carvedilol 25 mg PO BID 08/12/18 08/12/18 History cholecalciferol (vitamin D3) 50,000 unit PO QAM 08/12/18 08/12/18 History clopidogrel 75 mg PO DAILY 08/12/18 08/12/18 History cyclobenzaprine 10 mg PO Q8H 08/12/18 08/12/18 History fluticasone propionate 1 spray INTRANASAL QAM 08/12/18 08/12/18 History furosemide 40 mg PO BID 08/12/18 08/12/18 History insulin glargine 35 unit SUBCUT HS 08/12/18 08/12/18 History insulin lispro 0 - 4 unit SUBCUT DIRECTED 08/12/18 08/12/18 History levothyroxine 200 mcg PO DAILY 08/12/18 08/12/18 History magnesium hydroxide [Milk of 30 ml PO HS PRN 08/12/18 08/12/18 History Magnesia] magnesium oxide 400 mg PO QAM 08/12/18 08/12/18 History melatonin 10 mg PO HS 08/12/18 08/12/18 History metformin 2,000 mg PO QAM 08/12/18 08/12/18 History oxybutynin chloride 5 mg PO BID 08/12/18 08/12/18 History oxycodone 5 - 10 mg PO Q4H PRN 08/12/18 08/12/18 History paroxetine HCl 40 mg PO DAILY 08/12/18 08/12/18 History polyethylene glycol 3350 [Miralax] 17 g PO Q12H PRN 08/12/18 08/12/18 History potassium chloride 20 meq PO QAM 08/12/18 08/12/18 History pramipexole [Mirapex] 0.5 mg PO TID 08/12/18 08/12/18 History pregabalin [Lyrica] 200 mg PO DAILY 08/12/18 08/12/18 History ropinirole 1 mg PO TID 08/12/18 08/12/18 History sennosides-docusate sodium [Senna 2 tab PO Q12H PRN 08/12/18 08/12/18 History Plus] sitagliptin 100 mg PO DAILY 08/12/18 08/12/18 History triamcinolone acetonide 1 applic TOPICAL TID 08/12/18 08/12/18 History Allergies Allergy/AdvReac Type Severity Reaction Status Date / Time bee venom protein (honey bee) AdvReac Unknown Unverified 08/12/18 17:40 celecoxib AdvReac Unknown Unverified 08/12/18 17:40 coconut AdvReac Unknown Unverified 08/12/18 17:40 latex AdvReac Unknown Unverified 08/12/18 17:40 Exam Const General: cooperative Nutritional Appearance: obese Orientation: alert, awake, oriented to person and oriented to time Limitations: altered mental status HENIL Head: normal to inspection Face and sinus: normal facial exam Eyes General: appearance normal, both eyes and all related structures Pupils: PERRL Neck Lymphatic: no lymphadenopathy noted and no lymphedema noted Other: confederated coos j collar on and posterior cervical incision Chest Chest: normal inspection of the chest Resp Effort & Inspection: normal respiratory effort and able to speak in complete sentences Auscultation: diminished lung sounds Cardio Rate: regular rate Rhythm: regular rhythm Heart Sounds: S1 normal and S2 normal GI Inspection: distended Palpation: no hepatosplenomegaly and other Auscultation: hypoactive bowel sounds Other: huang Back/Spine/Pelvis Back: no CVA tenderness Cervical Spine: cervical ROM abnormal and other (in confederated coos j collar following surgical procedure) Skin Other: surgical incision to posterior cervical spin Neuro General: alert, awake and oriented Patient Orientation: Person, Time and Confused DTR's: Rt Triceps: 4+, Lt Triceps: 4+, Rt Patellar: 4+ and Lt Patellar: 4+ Other: CMST+, PPPx2, denies numbness Extrem General: full ROM Left upper extremity: full ROM Right lower extremity: full ROM Left lower extremity: full ROM Results Labs : 08/12/18 13:25 08/12/18 13:25 Laboratory Results - last 24 hr 08/12/18 08/12/18 08/12/18 13:25 13:25 14:30 WBC 11.83 H RBC 4.29 Hgb 10.8 L Hct 34.1 L MCV 79.5 L MCH 25.2 L MCHC 31.7 L RDW 18.7 H Plt Count 269 MPV 9.5 Immature Gran % 0.3 Neutrophils % 82.6 Lymphocytes % 7.4 Monocytes % 9.4 Eosinophils % 0.1 Basophils % 0.2 Absolute Neutrophils 9.77 H Absolute Lymphocytes 0.88 L Absolute Monocytes 1.11 H Absolute Eosinophils 0.01 Absolute Basophils 0.02 Differential Comment Rbc morph reviewed RBC Morphology See below Polychromasia Present Poikilocytosis 1+ Anisocytosis 2+ Microcytosis 1+ Sodium 136 Potassium 3.8 Chloride 98 Carbon Dioxide 32.2 H Anion Gap 5.8 BUN 19 H Creatinine 0.80 Estimated GFR/1.73 m2 >= 60.00 Glucose 144 H Lactate Calcium 9.2 Magnesium 1.9 Total Bilirubin 0.8 AST 26 ALT 23 Alkaline Phosphatase 87 Troponin I < 0.02 Total Protein 7.8 Albumin 2.6 L Urine Color Yellow Urine Clarity Sl cloudy Urine pH 6.0 Ur Specific [place] 1.020 Urine Protein Negative Urine Ketones Negative Urine Blood Trace-intact H Urine Nitrite Positive H Urine Bilirubin Negative Urine Urobilinogen 0.2 Ur Leukocyte Esterase Moderate H Urine RBC 3-5 H Urine WBC >50 Ur Epithelial Cells Moderate Urine Crystals Negative Urine Bacteria Moderate Urine Casts Negative Urine Mucus Negative Ur Culture Indicated? Yes Urine Glucose Negative 08/12/18 16:25 WBC RBC Hgb Hct MCV MCH MCHC RDW Plt Count MPV Immature Gran % Neutrophils % Lymphocytes % Monocytes % Eosinophils % Basophils % Absolute Neutrophils Absolute Lymphocytes Absolute Monocytes Absolute Eosinophils Absolute Basophils Differential Comment RBC Morphology Polychromasia Poikilocytosis Anisocytosis Microcytosis Sodium Potassium Chloride Carbon Dioxide Anion Gap BUN Creatinine Estimated GFR/1.73 m2 Glucose Lactate 0.7 Calcium Magnesium Total Bilirubin AST ALT Alkaline Phosphatase Troponin I Total Protein Albumin Urine Color Urine Clarity Urine pH Ur Specific [place] Urine Protein Urine Ketones Urine Blood Urine Nitrite Urine Bilirubin Urine Urobilinogen Ur Leukocyte Esterase Urine RBC Urine WBC Ur Epithelial Cells Urine Crystals Urine Bacteria Urine Casts Urine Mucus Ur Culture Indicated? Urine Glucose Last Vital Signs Temp 37.3 C 08/12/18 16:11 Pulse 68 08/12/18 16:11 Resp 17 08/12/18 16:11 BP 138/76 08/12/18 16:11 Pulse Ox 93 L 08/12/18 16:11
[2018-08-12] MEDS: Normal Saline 1,000 ML 125 ML IV (18:25)
[2018-08-12] MEDS: ACETAMINOPHEN 1,000 MG/100 ML BTL 400 MG IVPB (20:24)
[2018-08-12 20:36] LABS: Troponin I < 0.02 ng/mL (0.00-0.06)
[2018-08-12] MEDS: LEVOFLOXACIN 750 MG/150 ML BAG 100 MG IVPB (20:59)
[2018-08-12] MEDS: CEFEPIME 2 GM in Normal Saline 100 ML IVPB (22:50)
[2018-08-12] MEDS: Insulin Glargine 300 UNITS/3 ML PEN 15 UNITS SC (22:55)
[2018-08-13 00:15] VITALS: BP 155/83; PULSE 66; RESP 18; TEMP 36.5; O2SAT 94
[2018-08-13] MEDS: ACETAMINOPHEN 1,000 MG/100 ML BTL 400 MG IVPB ×3 (03:29→19:59)
[2018-08-13] MEDS: CEFEPIME 2 GM in Normal Saline 100 ML IVPB ×3 (05:49→22:49)
[2018-08-13] MEDS: Normal Saline 1,000 ML 125 ML IV ×2 (07:02→16:58)
[2018-08-13 08:03] VITALS: BP 172/83; PULSE 58; RESP 22; TEMP 36.5; O2SAT 93
[2018-08-13 08:05] LABS: Abs Immature Grans 0.03 k/cumm (0.0-0.09); Absolute Basophil Count 0.01 k/cumm (0.0-0.2); Absolute Eosinophil Count 0.06 k/cumm (0.0-0.7); Absolute Lymphocyte Count 0.94 k/cumm (1.2-3.4); Absolute Monocyte Count 1.03 k/cumm (0.11-0.7); Basophils % 0.1; Eosinophils % 0.6; HCT 33.7 % (36.0-46.0); HGB 10.6 g/dL (12.0-15.5); Immature Grans % 0.3; Lymphocytes % 8.8; Mean Corp. HGB Concentration 31.5 g/dL (32.0-36.0); Mean Corpuscular Volume 79.5 fL (80-95); Mean Platelet Volume 9.6 fL (8.0-11.0); Monocytes % 9.7; Neutrophils % 80.5; Platelet Count 263 x1000/uL (130-400); RBC 4.24 m/cumm (4.00-5.20); RBC Distribution Width 18.7 % (11.7-14.6); White Blood Cell Count 10.67 k/cumm (4.4-10.8)
--- NOTE | 2018-08-13 08:09 | PDOC.CMIN ---
- If Service Date Differs Date of service: 08/13/18 Time of Service: 08:09 Care Management Initial Assess REASON FOR HOSPITALIZATION:: Altered mental status, HCAP PAST MEDICAL HISTORY/PAST SURGICAL HISTORY:: Acute on chronic diastolic (congestive) heart failure (Acute). Acute pancreatitis (Acute). Adult hypothyroidism (Acute). Atherosclerotic heart disease of [place] coronary artery with angina pectoris (Acute). Benign neoplasm (Acute). History of non-ST elevation myocardial infarction (NSTEMI) (Acute). Hx of laminectomy (Acute). Localized edema (Acute). Mixed incontinence (Acute). Morbid obesity due to excess calories (Acute). Nicotine dependence (Acute). Spondylosis of cervical spine (Acute). Type 2 diabetes mellitus (Acute). Urinary tract infection (Acute). NSTEMI (non-ST elevated myocardial infarction) (Acute). CAD (coronary artery disease) (Chronic). COPD (chronic obstructive pulmonary disease) (Chronic) PREVIOUS FUNCTIONAL STATUS/SOCIAL/FAMILY SUPPORTS:: Bailey is a resident at [facility]. She has two children, a daughter and son whom reside in [place]. CURRENT FUNCTIONAL STATUS:: Currently Bailey is lying in bed this morning. ADVANCE DIRECTIVES:: None on file Has patient been provided with information about the portal?: No Did the patient sign up for the portal?: No CODE STATUS:: Full Code INSURANCE COVERAGE / FINANCIAL ISSUES:: Medicare CURRENT HOME/COMMUNITY SERVICES/EQUIPMENT:: Currently Bailey receives all care and medical equipment needs through [facility] PRIMARY CARE PHYSICIAN:: Shaunna Bonilla POTENTIAL DISCHARGE NEEDS:: Return to [facility] PATIENT/FAMILY EDUCATION NEEDS:: Review DC instructions, any limitations, and ongoing DC planning discussion. Discuss 'Ask Me Three' ANTICIPATED BARRIERS TO DISCHARGE:: None identified at this time. TRANSPORTATION:: Via [facility] w/c [employer]. PLAN:: Bailey will return to [facility] when medically cleared. She will be transported via w/c van.
--- NOTE | 2018-08-13 08:12 | INITIAL_ITS ---
- If Service Date Differs Date of service: 08/13/18 Time of Service: 08:09 Care Management Initial Assess REASON FOR HOSPITALIZATION:: Altered mental status, HCAP PAST MEDICAL HISTORY/PAST SURGICAL HISTORY:: Acute on chronic diastolic (congestive) heart failure (Acute). Acute pancreatitis (Acute). Adult hypothyroidism (Acute). Atherosclerotic heart disease of [place] coronary artery with angina pectoris (Acute). Benign neoplasm (Acute). History of non-ST elevation myocardial infarction (NSTEMI) (Acute). Hx of laminectomy (Acute). Localized edema (Acute). Mixed incontinence (Acute). Morbid obesity due to excess calories (Acute). Nicotine dependence (Acute). Spondylosis of cervical spine (Acute). Type 2 diabetes mellitus (Acute). Urinary tract infection (Acute). NSTEMI (non-ST elevated myocardial infarction) (Acute). CAD (coronary artery disease) (Chronic). COPD (chronic obstructive pulmonary disease) (Chronic) PREVIOUS FUNCTIONAL STATUS/SOCIAL/FAMILY SUPPORTS:: Bailey is a resident at [facility]. She has two children, a daughter and son whom reside in [place]. CURRENT FUNCTIONAL STATUS:: Currently Bailey is lying in bed this morning. ADVANCE DIRECTIVES:: None on file Has patient been provided with information about the portal?: No Did the patient sign up for the portal?: No CODE STATUS:: Full Code INSURANCE COVERAGE / FINANCIAL ISSUES:: Medicare CURRENT HOME/COMMUNITY SERVICES/EQUIPMENT:: Currently Bailey receives all care and medical equipment needs through [facility] PRIMARY CARE PHYSICIAN:: Shaunna Bonilla POTENTIAL DISCHARGE NEEDS:: Return to [facility] PATIENT/FAMILY EDUCATION NEEDS:: Review DC instructions, any limitations, and ongoing DC planning discussion. Discuss 'Ask Me Three' ANTICIPATED BARRIERS TO DISCHARGE:: None identified at this time. TRANSPORTATION:: Via [facility] w/c [employer]. PLAN:: Bailey will return to [facility] when medically cleared. She will be transported via w/c van.
[2018-08-13 08:23] LABS: Anion Gap 8.6 mmol/L (3-11); BUN 19 mg/dL (7-18); CO2 29.4 mmol/L (21.0-32.0); CREATININE 0.74 mg/dL (0.55-1.02); Calcium 9.5 mg/dL (8.5-10.1); Chloride 101 mmol/L (98-107); Glucose 108 mg/dL (70-100); Potassium 3.7 mmol/L (3.5-5.1); Sodium 139 mmol/L (136-145)
[2018-08-13 08:29] LABS: Troponin I < 0.02 ng/mL (0.00-0.06)
[2018-08-13 08:32] LABS: Anisocytosis 2+; Diff Comment RBC Morph Reviewed
[2018-08-13 08:33] LABS: Hypochromasia 1+; Microcytosis 1+; Polychromasia Present
[2018-08-13] MEDS: Enoxaparin 40 MG/0.4 ML SYR SC (08:48)
[2018-08-13] MEDS: Pramipexole 0.5 MG TAB PO ×3 (08:49→20:00)
[2018-08-13] MEDS: Levothyroxine 100 MCG TAB 200 MCG PO (08:49)
[2018-08-13] MEDS: Omeprazole 20 MG CAPCR PO (08:49)
[2018-08-13] MEDS: Oxybutynin 5 MG TAB 10 MG PO ×2 (08:49→20:00)
[2018-08-13] MEDS: Pregabalin 100 MG CAP 200 MG PO ×2 (08:49→20:00)
[2018-08-13] MEDS: Aspirin E.C. 81 MG TABEC PO (08:50)
[2018-08-13] MEDS: Magnesium Oxide 400 MG TAB PO (08:50)
[2018-08-13] MEDS: Clopidogrel 75 MG TAB PO (08:50)
[2018-08-13] MEDS: Carvedilol 25 MG TAB PO ×2 (08:50→20:00)
[2018-08-13] MEDS: buPROPion-XL 150 MG TABCR PO (08:50)
[2018-08-13] MEDS: rOPINIRole 0.5 MG TAB 1 MG PO ×3 (08:50→20:00)
[2018-08-13] MEDS: Furosemide 40 MG TAB PO ×2 (08:50→16:58)
[2018-08-13] MEDS: PARoxetine 20 MG TAB 40 MG PO (08:50)
[2018-08-13] MEDS: amLODIPine 10 MG TAB PO (08:50)
[2018-08-13] MEDS: Fluticasone NASAL SPRAY 16 GM BTL NS (08:51)
[2018-08-13] MEDS: POTASSIUM CHLORIDE 20 MEQ, POTASSIUM CHLORIDE 10 MEQ 30 MEQ PO (10:04)
--- NOTE | 2018-08-13 10:21 | IN_ITS ---
Date of service: 08/13/18 Time of Service: 07:50 PT Notes Inpatient Physical Therapy Evaluation Date: 08/13/2018 Referring Doctor: Radhika Herrera NP PT Orders: PT CONSULT: deconditioning Precautions: fall, standard Patient Profile/Admitting Diagnosis: Patient admitted 08/12/2018 from [facility] and rehab due to altered mental status. She has been rehabilitating at [facility] re[facility] after undergoing cervical laminectomy and fusion 08/07/2018 at [facility]. She was admitted to [facility] with healthcare acquired pneumonia and UTI. PMHX: Acute on chronic diastolic (congestive) heart failure (Acute). Acute panc reatitis (Acute). Adult hypothyroidism (Acute). Atherosclerotic heart disease of [place] coronary artery with angina pectoris (Acute). Benign neoplasm (Acute). History of non-ST elevation myocardial infarction (NSTEMI) (Acute). Hx of laminectomy (Acute). Localized edema (Acute). Mixed incontinence (Acute). Morbid obesity due to excess calories (Acute). Nicotine dependence (Acute). Spondylosis of cervical spine (Acute). Type 2 diabetes mellitus (Acute). Urinary tract infection (Acute). NSTEMI (non-ST elevated myocardial infarction) (Acute). CAD (coronary artery disease) (Chronic). COPD (chronic obstructive pulmonary disease) (Chronic) Social History/Home Situation: Patient has resided at [facility] for the past 2 years. She hopes to return there once she is ambulatory. She plans to return to health and rehab following discharge from acute care. Current Functional Limitations: Patient reports that she utilizes a FW W at baseline. Reports that she has not walked since surgery. Equipment Owned/DME: [employer] W, resides in assisted living Subjective: Patient states that she is in a great deal of pain. She reports that she has been unable to eat due to being unable to sit up. She reports weakness in her right arm prior to surgery, and states that it continues to be painful and feel heavy currently. She is extremely nervous about getting up out of bed. Objective: General Observation: Patient resting in bed with Hud[place] J cervical collar in place. She has a Montgomery catheter, and a drain at the base of her surgical dressing. Her dressing extends to the mid thoracic spine. Mental Status: A&Ox3 Pain: Patient reports severe pain in neck and right shoulder, pain extending down right arm in non-specific pattern (all of it) ROM: Right Upper Extremity: PROM allows shoulder flexion to 90 degrees, limited by pain. Elbow and wrist motion full passively. Left Upper Extremity: PROM allows flexion to 100 degrees, limited by pain. Elbow and wrist motion full passively. Right Lower Extremity: WFL Left Lower Extremity: WFL Strength: Right Upper Extremity: Shoulder flexion 2/5. Biceps 2/5. Triceps 3/5. Clinical Pharmacy Specialist is full, but weak compared to left. Wrist extension 3-/5. No atrophy noted throughout the RUE, although this is difficulty to assess due to body habitus. Left Upper Extremity: Shoulder flexion 3-/5. Biceps 3/5. Triceps 3+/5. Wrist extension 3+/5. Right Lower Extremity: Functionally, patient is able to perform a limited SLR w ith slight extension lag. In seated position she demonstrates 3/5 quad strength. Ankle dorsiflexion is 3/5 or greater. Hamstrings 3/5. Hip abduction 2/5. Left Lower Extremity: Functionally, patient is able to perform a limited SLR with slight extension lag. In seated position she demonstrates 3/5 quad strength. Ankle dorsiflexion is 3/5 or greater. Hamstrings 3/5. Hip abduction 2/5. Sensation: intact distally Bed Mobility/Transfers: Supine to sit: Mod assist of 2 and significantly increased time to perform, with patient requiring max cues and encouragement throughout Sit to stand: Mod assist of 2 with bed elevated, and assistance to right upper extremity for placement to FW W Stand to sit mod assist of 2, with max cues Gait: Patient is able to take side steps with use of FW W and mod assist of 2 Balance: Static Sitting: Good Dynamic Sitting: Fair Static Standing: Poor Dynamic Standing: Poor Special Tests: Mobility Limitations Standardized Measure [facility] AM-PAC 6 clicks Basic Mobility Inpatient Short Form: Raw Score: 11 CMS Score: 73% Informed Consent/Education: Patient instructed in purpose of PT consult and plan of care. Today's session consisted of evaluation, followed by extensive transfer training and initiation of gait training. Patient requires significant cues and education regarding technique, as well as a great deal physical assistance with all mobilty. Assessment: Patient is a 57 year old female referred to physical therapy services with the diagnosis of deconditioning. Patient presents with clinical signs and symptoms consistent with diagnosis, with complicated medical history leading up to her admission. Patient has baseline mobility deficits, and resides in an assisted living facility. Her mobility has significantly declined after a recent cervical laminectomy and fusion, and she is extremely apprehensive about increasing her functional mobility. She has now been admitted in acute care due to health care acquired pneumonia and UTI, further impacting her mobility limitations. She was able to initiate sitting at edge of bed and even transitioning to standing for brief. Today, although requires significant cues and encouragement for completion. She requires skilled PT intervention to maximize her mobility and encourage activity to reduce risk for further decline. She currently demonstrates the following impairment level findings: 1. Decreased strength right upper extremity 2. Decreased range of motion bilateral upper extremities 3. Decreased activity tolerance 4. Poorly controlled pain 5. Decreased lower extremity strength 6. Decreased balance Impairments are contributing to the following functional limitations: 1. Unable to perform independent bed mobility 2. Unable to independently transfer 3. Unable to ambulate 4. High fall risk Patient is assessed as High [id number] complexity based on the following: History: 57-year-old female admitted from [facility] re[facility] with healthcare acquired pneumonia and UTI, 6 days status post cervical laminectomy and fusion. She is a complicated medical history, including Type 2 diabetes mellitus, h/o NSTEMI, CAD and COPD, all negatively impacting prognosis Examination: Functional limitations as noted above Presentation: Unstable Decision Making: high complexity Goals: Goals X1 week 1. Supine-Sit : mod A x 1 2. Sit-Supine: mod A x 1 3. Sit-Stand : mod A x 1 4. Stand-Sit : mod A x 1 5. Bed-Chair: mod A x 1 with FWW 6. Chair-Bed: mod A x 1 with FWW 7. Gait: mod A x 1 with FWW x 20' Plan of Care/Treatment Plan: 1-2x/day, 7 days/week x 1 week. Plan of care has been reviewed with the BUSINESS LAW TEACHER providing the service under Physical Therapy direction. Initiate Physical Therapy intervention for strengthening, bed mobility, transfers, gait, stairs, balance training, use of assistive device. DISCHARGE RECOMMENDATIONS: Return to [facility] & for ongoing rehabilitation. No equipment needs anticipated TREATMENT CODE/TIME: 7:50 - 9:00 ([id number]) Briana Loaiza, PT, DPT [facility]
--- NOTE | 2018-08-13 11:42 | OT.INIE ---
Occupational Therapy Notes Inpatient Occupational Therapy Evaluation Date: 08/13/18 Referring Doctor:Radhika Herrera NP OT Orders: Deconditioning Precautions: Fall, Standard PATIENT PROFILE/ADMITTING DIAGNOSIS: Pt is a 57 year old female admitted 08/12/18 from [facility] and rehab for altered mental status. He recently had a cervical fusion from C1-T1 and was at rehab for this condition. She was admitted to [facility] with HCAP and UTI. Past Medical History: Acute on chronic diastolic (congestive) heart failure (Acute). Acute pancreatitis (Acute). Adult hypothyroidism (Acute). Atherosclerotic heart disease of [place] coronary artery with angina pectoris (Acute). Benign neoplasm (Acute). History of non-ST elevation myocardial infarction (NSTEMI) (Acute). Hx of laminectomy (Acute). Localized edema (Acute). Mixed incontinence (Acute). Morbid obesity due to excess calories (Acute). Nicotine dependence (Acute). Spondylosis of cervical spine (Acute). Type 2 diabetes mellitus (Acute). Urinary tract infection (Acute). NSTEMI (non-ST elevated myocardial infarction) (Acute). CAD (coronary artery disease) (Chronic). COPD (chronic obstructive pulmonary disease) (Chronic) Social History/Home Situation: Pt reports that prior to stay at [facility] and rehab that she lived in [place] in a assisted home. She would like to return when medically cleared per MD. She reports that prior to admission she had numbness and tingling in (B) hands and feet [id number] and reports that for the most part she was (I) in her ADL/IADL routine. Equipment owned/DME: [facility], resides in assisted living SUBJECTIVE: Pt was lying in bed when OT arrived. She reports that she is taking Tylenol for pain and this is not helping. She states that her whole body is hurting that she has been moving around this morning which has caused her a great deal of pain. OBJECTIVE: General Observation: O2 nasal cannula, IV (R) UE Mental Status: Alert to name and place Pain: pt c/o 10/10 pain throughout full body ROM: RUE AROM shoulder to 30*, pt denies PROM stating her shoulders are too painful, hand able to flex and extend digits. L UE AROM shoulder to 30*, pt denies PROM stating her shoulders are too painful, hand able to flex and extend digits. STRENGTH: RUE Unable to test shoulder flexion d/t pain, elbow 2/5, [employer] is weak LUE shoulder flexion 3-/5, bicep 3/5, [employer] is weak but stronger than (R) SENSATION: Pt intact to sensation to (L) UE, she was unable to feel OT touching digits on (R) UE. FUNCTIONAL MOBILITY/ADLS: Unable to test due to pts pain and pt denied at todays session. BALANCE: Unable to test SPECIAL TESTS: Daily Activity Limitations Standardized Measure [facility] AM -PAC ?6 clicks? Daily Activity Inpatient Short Form: Raw score: 10 Standardized score: 27.31 CMS score: 74.70% INFORMED CONSENT/EDUCATION: Pt instructed in purpose of OT Consult and plan of care. ASSESSMENT: Patient is a 57-year-old female referred to occupational therapy services with diagnosis of HCAP and UTI s/p cervical fusion and short stay at [facility]. Patient presents with clinical signs and symptoms consistent with dx, as demonstrated by the following impairment level findings: Decreased functional use of (B) UE, decreased strength (B) UE, decreased functional activity tolerance, increased pain rating 10/10 at rest. Impairments are contributing to the following functional limitations: Decreased ability to perform functional mobility, decreased functional activity tolerance, decreased ability to use (R) UE for ADL routines, decreased ability to perform bed mobility. Pt is presenting in a great deal of pain during OT consult. She is not functionally able to perform ADls (I) at this time. OT recommends, based on pts level of function to return to [facility] for continued rehabilitation. AMPAC score 10, CMS score 74.70% Patient is assessed as a high [id number] complexity based on the following: History: See Above Examination: See Above Presentation: unstable Decision Making: AMPAC score 10, CMS score 74.70% GOALS Goals x1 week 1. Transfers Mod (A), FWW 2. Dressing Min (A) sitting in chair for UE/LE dressing routine. 3. Bathing Mod (A) sitting in chair for UE/LE bathing routine 4. Toileting Mod (A) toileting on toilet 5. Eating Min (A) eating sitting on side of bed 6. Sitting in chair with max (A) set up min (A) brushing teeth. PLAN OF CARE/TREATMENT PLAN: 1x/day, 5 days/ week x 1week Initiate Occupational Therapy Services for bathing, dressing, grooming, toileting, eating, transfer training. DISCHARGE RECOMMENDATIONS Return to [facility], no equipment needed. TREATMENT TIME/MINUTES/CODES 24972, 15 minutes (09:35) OSMIN Sheets/[facility]
--- NOTE | 2018-08-13 12:00 | OTIE_ITS ---
Occupational Therapy Notes Inpatient Occupational Therapy Evaluation Date: 08/13/18 Referring Doctor:Radhika Herrera NP OT Orders: Deconditioning Precautions: Fall, Standard PATIENT PROFILE/ADMITTING DIAGNOSIS: Pt is a 57 year old female admitted 08/12/18 from [facility] rehab for altered mental status. He recently had a cervical fusion from C1-T1 and was at rehab for this condition. She was admitted to [facility] with HCAP and UTI. Past Medical History: Acute on chronic diastolic (congestive) heart failure (Acute). Acute pancreatitis (Acute). Adult hypothyroidism (Acute). Atherosclerotic heart disease of [place] coronary artery with angina pectoris (Acute). Benign neoplasm (Acute). History of non-ST elevation myocardial infarction (NSTEMI) (Acute). Hx of laminectomy (Acute). Localized edema (Acute). Mixed incontinence (Acute). Morbid obesity due to excess calories (Acute). Nicotine dependence (Acute). Spondylosis of cervical spine (Acute). Type 2 diabetes mellitus (Acute). Urinary tract infection (Acute). NSTEMI (non-ST elevated myocardial infarction) (Acute). CAD (coronary artery disease) (Chronic). COPD (chronic obstructive pulmonary disease) (Chronic) Social History/Home Situation: Pt reports that prior to stay at [facility] rehab that she lived in [place] in a assisted home. She would like to return when medically cleared per MD. She reports that prior to admission she had numbness and tingling in (B) hands and feet [id number] and reports that for the most part she was (I) in her ADL/IADL routine. Equipment owned/DME: [facility], resides in assisted living SUBJECTIVE: Pt was lying in bed when OT arrived. She reports that she is taking Tylenol for pain and this is not helping. She states that her whole body is hurting that she has been moving around this morning which has caused her a great deal of pain. OBJECTIVE: General Observation: O2 nasal cannula, IV (R) UE Mental Status: Alert to name and place Pain: pt c/o 10/10 pain throughout full body ROM: RUE AROM shoulder to 30*, pt denies PROM stating her shoulders are too painful, hand able to flex and extend digits. L UE AROM shoulder to 30*, pt denies PROM stating her shoulders are too painful, hand able to flex and extend digits. STRENGTH: RUE Unable to test shoulder flexion d/t pain, elbow 2/5, fish drier is weak LUE shoulder flexion 3-/5, bicep 3/5, fish drier is weak but stronger than (R) SENSATION: Pt intact to sensation to (L) UE, she was unable to feel OT touching digits on (R) UE. FUNCTIONAL MOBILITY/ADLS: Unable to test due to pts pain and pt denied at todays session. BALANCE: Unable to test SPECIAL TESTS: Daily Activity Limitations Standardized Measure [facility] AM -PAC ?6 clicks? Daily Activity Inpatient Short Form: Raw score: 10 Standardized score: 27.31 CMS score: 74 .70% INFORMED CONSENT/EDUCATION: Pt instructed in purpose of OT Consult and plan of care. ASSESSMENT: Patient is a 57-year-old female referred to occupational therapy services with diagnosis of HCAP and UTI s/p cervical fusion and short stay at [facility]. Patient presents with clinical signs and symptoms consistent with dx, as demonstrated by the following impairment level findings: Decreased functional use of (B) UE, decreased strength (B) UE, decreased functional activity tolerance, increased pain rating 10/10 at rest. Impairments are contributing to the following functional limitations: Decreased ability to perform functional mobility, decreased functional activity tolerance, decreased ability to use (R) UE for ADL routines, decreased ability to perform bed mobility. Pt is presenting in a great deal of pain during OT consult. She is not functionally able to perform ADls (I) at this time. OT recommends, based on pts level of function to return to [facility] for continued rehabilitation. AMPAC score 10, CMS score 74.70% Patient is assessed as a high [id number] complexity based on the following: History: See Above Examination: See Above Presentation: unstable Decision Making: AMPAC score 10, CMS score 74.70% GOALS Goals x1 week 1. Transfers Mod (A), FWW 2. Dressing Min (A) sitting in chair for UE/LE dressing routine. 3. Bathing Mod (A) sitting in chair for UE/LE bathing routine 4. Toileting Mod (A) toileting on toilet 5. Eating Min (A) eating sitting on side of bed 6. Sitting in chair with max (A) set up min (A) brushing teeth. PLAN OF CARE/TREATMENT PLAN: 1x/day, 5 days/ week x 1week Initiate Occupational Therapy Services for bathing, dressing, grooming, toileting, eating, transfer training. DISCHARGE RECOMMENDATIONS Return to [facility], no equipment needed. TREATMENT TIME/MINUTES/CODES 11995, 15 minutes (09:35) OSMIN Sheets/[facility]
[2018-08-13] MEDS: Insulin Aspart 300 UNITS/3 ML PEN SC (12:14)
[2018-08-13] MEDS: VANCOMYCIN 2,000 MG in Normal Saline 500 ML 250 ML IV (12:40)
[2018-08-13 12:59] VITALS: BP 132/80; PULSE 63; RESP 20; TEMP 36.4; O2SAT 97
[2018-08-13 13:57] LABS: Troponin I < 0.02 ng/mL (0.00-0.06)
--- NOTE | 2018-08-13 14:16 | W.PM.PROGNOT ---
Date of Service Date of service: 08/13/18 Time of Service: 14:55 Assessment and Plan (1) Altered mental status: Start date: 08/13/18 Start time: 14:19 Current visit: Yes Status: Acute Recent cervical spine surgery on 08/07 at [facility], transferred to [facility] rehab, on flexiril with oxycodone dcd yesterday in setting of acute confusion. Today she is less confused, able to answer all questions appropriately. She does realize she has periods of confusion. She was also found to have a UTI with pneumonia; in which she is being treated for. (2) HCAP (healthcare-associated pneumonia): Start date: 08/13/18 Start time: 14:21 Current visit: Yes Status: Acute Day 2 of vanco and cefepime for HCAP, afebrile, continue to monitor (3) Spondylitis, cervical: Start date: 08/13/18 Start time: 14:18 Current visit: Yes Status: Acute surgical repair on 08/07 at [facility], ely shoshone J collar in place,with ASHLEIGH. Dressing changes per discharge orders (4) Diabetes: Start date: 08/13/18 Start time: 14:25 Current visit: Yes Status: Chronic continue SSI (5) H/O cervical spine surgery: Start date: 08/13/18 Start time: 14:29 Current visit: Yes Status: Acute Recent Posterior cervical laminectomy and athrodesis. PERRLA, rv body mechanic equal with +4 reflexes to bilateral upper and lower extremities. Numbness to right shoulder which has been present prior to surgery, that has not gotten any worse per patient and numbness to left arm that appeared post surgery, but is stable not worse, sensation in tact, rv body mechanic equal but weak. Currently with Daniels J cervical collar with instructions to wear at all times . PT/OT for rehab, (6) Urinary tract infection: Start date: 08/13/18 Start time: 14:41 Current visit: Yes Status: Acute [place] in place from rehab with positive nitrates and Leukos, day 2 of cefepime and vacno (7) Leukocytosis: Start date: 08/13/18 Start time: 14:42 Current visit: Yes Status: Acute resolved continue to monitor in setting of acute infection (8) Chest pain: Start date: 08/13/18 Start time: 14:42 Current visit: Yes Status: Acute When assessing patient she c/o CP with palpation that did not radiate, no rebound tenderness, this seems costochondritis, she does have an extensive Cardiac history with NSTEMI, CAD and stent placement, an EKG was ordered with troponins. EKG was nonischemic normal appearing regular rate and rhythm with a troponin of 0.02, likely costochondritis. (9) CAD (coronary artery disease): Current visit: Yes Status: Chronic Hx of NSTEMI with Stent placement. Currently on atorvastatin 80 continue dose (10) Tobacco abuse: Start date: 08/13/18 Start time: 15:21 Current visit: Yes Status: Acute nicotine replacement patch as needed (11) HTN (hypertension): Start date: 08/13/18 Start time: 15:21 Current visit: Yes Status: Chronic Controlled at this time. continue coreg, amlodipine. (12) Dehydration: Start date: 08/13/18 Start time: 15:22 Current visit: Yes Status: Acute resolving, continue NS@125, as she still appears a little dry her tongue is cracked, labs normalizing. (13) DVT prophylaxis: Start date: 08/13/18 Start time: 15:29 Current visit: Yes Status: Acute Lovenox subcu Subjective Patient reports: other Interval history since last seen: Mrs. Cary is more lucid today. She was able to answer all questions appropriately, AAOx 3 and recalls that she does have periods of confusion. Her flexiril and oxycodone were dcd yesterday in the setting of acute confusion. She was placed on IV tylenol for pain management and will monitor for pain. Giving that she is less confused today this could be from medication. She also has a UTI and pneumonia that has been treated the last 24 hours with cefepime and vanco. When assessing she did have chest pain that she said had been ongoing since last night. Pain was worse with palpation, no rebound tenderness and it did not radiate. Given her extensive cardiac history with NSTEMI, stent placement and CAD an EKG was ordered with serial troponins. Her EKG was nonischemic normal appearing, normal rate and rhythm with a troponin of less than 0.02. This appears to be more of costochondritis in nature. Continue to monitor. Exam Const General: cooperative Nutritional Appearance: obese Orientation: alert, awake, oriented x3 and confused (she does have periods of confusion) [facility] Head: normal to inspection Face and sinus: normal facial exam Eyes General: appearance normal, both eyes and all related structures Pupils: PERRL Neck Lymphatic: no lymphadenopathy noted and no lymphedema noted Chest Chest: normal inspection of the chest Resp Effort & Inspection: normal respiratory effort and able to speak in complete sentences Auscultation: diminished lung sounds Cardio Rate: regular rate Rhythm: regular rhythm Heart Sounds: S1 normal and S2 normal Other: CP to palpation GI Inspection: distended Palpation: no hepatosplenomegaly and other Auscultation: hypoactive bowel sounds Back/Spine/Pelvis Back: no CVA tenderness Cervical Spine: cervical ROM abnormal and other (in ely shoshone j collar following surgical procedure) Neuro General: alert, awake and oriented Patient Orientation: Person, Time and Confused DTR's: Rt Triceps: 4+, Lt Triceps: 4+, Rt Patellar: 4+ and Lt Patellar: 4+ Other: Daniels J collar on Extrem General: full ROM Left upper extremity: full ROM Right lower extremity: full ROM Left lower extremity: full ROM Other: numbness to left and right upper extremities, not new to patient, not worsening, rv body mechanic equal bilaterally but weak. Objective Objective Clinical Data: Abnormal lab results 08/12/18 08/12/18 08/12/18 Range/Units 13:25 13:25 14:30 WBC 11.83 H (4.4-10.8) k/cumm Hgb 10.8 L (12.0-15.5) g/dL Hct 34.1 L (36.0-46.0) % MCV 79.5 L (80-95) fL MCH 25.2 L (27.0-33.0) pg MCHC 31.7 L (32.0-36.0) g/dL RDW 18.7 H (11.7-14.6) % Absolute Neutrophils 9.77 H (1.2-6.7) k/cumm Absolute Lymphocytes 0.88 L (1.2-3.4) k/cumm Absolute Monocytes 1.11 H (0.11-0.7) k/cumm Carbon Dioxide 32.2 H (21.0-32.0) mmol/L BUN 19 H (7-18) mg/dL Glucose 144 H (70-100) mg/dL Albumin 2.6 L (3.4-5.0) g/dL Urine Blood Trace-intact H (Negative) Urine Nitrite Positive H (Negative) Ur Leukocyte Esterase Moderate H (Negative) Urine RBC 3-5 H (0-2) 08/13/18 08/13/18 Range/Units 07:13 07:13 WBC (4.4-10.8) k/cumm Hgb 10.6 L (12.0-15.5) g/dL Hct 33.7 L (36.0-46.0) % MCV 79.5 L (80-95) fL MCH 25.0 L (27.0-33.0) pg MCHC 31.5 L (32.0-36.0) g/dL RDW 18.7 H (11.7-14.6) % Absolute Neutrophils 8.60 H (1.2-6.7) k/cumm Absolute Lymphocytes 0.94 L (1.2-3.4) k/cumm Absolute Monocytes 1.03 H (0.11-0.7) k/cumm Carbon Dioxide (21.0-32.0) mmol/L BUN 19 H (7-18) mg/dL Glucose 108 H (70-100) mg/dL Albumin (3.4-5.0) g/dL Urine Blood (Negative) Urine Nitrite (Negative) Ur Leukocyte Esterase (Negative) Urine RBC (0-2) Vital Signs Temperature 36.4 C L 08/13/18 12:59 Temperature Source Tympanic 08/13/18 12:59 Pulse 63 08/13/18 12:59 Pulse Rhythm Regular 08/13/18 08:10 Pulse 71 08/12/18 17:40 Respiratory Rate 20 08/13/18 12:59 Respiratory Effort 08/13/18 08:10 Respiratory Depth Normal 08/13/18 08:10 Respiratory Pattern Normal 08/13/18 08:10 Blood Pressure 132/80 08/13/18 12:59 Blood Pressure Mean 92 08/12/18 17:30 Blood Pressure Position Supine 08/12/18 13:23 Pulse Oximetry 97 08/13/18 12:59 Oxygen Delivery Method Nasal Cannula 08/13/18 12:59 Oxygen Flow Rate 2 08/13/18 12:59 Pain Level 10 03/18/19 12:18 Intake & Output 08/12/18 08/13/18 08/13/18 23:59 11:59 23:59 Intake Total 200 / 200 1497.917 / 1497.917 Output Total 725 / 725 300 / 600 300 / 600 Balance -525 / -525 1197.917 / 897.917 -300 / 897.917 Weight 131.6 kg Intake: IV 200 / 200 1497.917 / 1497.917 Output: Urine 725 / 725 300 / 600 300 / 600 Other: Urine Color Light Sharon Light Sharon Light Sharon Urine Appearance Clear Clear Cloudy Laboratory Results WBC 10.67 k/cumm (4.4-10.8) 08/13/18 07:13 RBC 4.24 m/cumm (4.00-5.20) 08/13/18 07:13 Hgb 10.6 g/dL (12.0-15.5) L 08/13/18 07:13 Hct 33.7 % (36.0-46.0) L 08/13/18 07:13 MCV 79.5 fL (80-95) L 08/13/18 07:13 MCH 25.0 pg (27.0-33.0) L 08/13/18 07:13 MCHC 31.5 g/dL (32.0-36.0) L 08/13/18 07:13 RDW 18.7 % (11.7-14.6) H 08/13/18 07:13 Plt Count 263 x1000/uL (130-400) 08/13/18 07:13 MPV 9.6 fL (8.0-11.0) 08/13/18 07:13 Immature Gran % 0.3 08/13/18 07:13 Neutrophils % 80.5 08/13/18 07:13 Lymphocytes % 8.8 08/13/18 07:13 Monocytes % 9.7 08/13/18 07:13 Eosinophils % 0.6 08/13/18 07:13 Basophils % 0.1 08/13/18 07:13 Absolute Neutrophils 8.60 k/cumm (1.2-6.7) H 08/13/18 07:13 Absolute Lymphocytes 0.94 k/cumm (1.2-3.4) L 08/13/18 07:13 Absolute Monocytes 1.03 k/cumm (0.11-0.7) H 08/13/18 07:13 Absolute Eosinophils 0.06 k/cumm (0.0-0.7) 08/13/18 07:13 Absolute Basophils 0.01 k/cumm (0.0-0.2) 08/13/18 07:13 Differential Comment Rbc morph reviewed 08/13/18 07:13 RBC Morphology See below 08/13/18 07:13 Polychromasia Present 08/13/18 07:13 Hypochromasia 1+ 08/13/18 07:13 Poikilocytosis 1+ 08/12/18 13:25 Anisocytosis 2+ 08/13/18 07:13 Microcytosis 1+ 08/13/18 07:13 Sodium 139 mmol/L (136-145) 08/13/18 07:13 Potassium 3.7 mmol/L (3.5-5.1) 08/13/18 07:13 Chloride 101 mmol/L (98-107) 08/13/18 07:13 Carbon Dioxide 29.4 mmol/L (21.0-32.0) 08/13/18 07:13 Anion Gap 8.6 mmol/L (3-11) 08/13/18 07:13 BUN 19 mg/dL (7-18) H 08/13/18 07:13 Creatinine 0.74 mg/dL (0.55-1.02) 08/13/18 07:13 Estimated GFR/1.73 m2 >= 60.00 (mL/min/1.73m2) 08/13/18 07:13 Glucose 108 mg/dL (70-100) H 08/13/18 07:13 Lactate 0.7 mmol/l (0.6-1.4) 08/12/18 16:25 Calcium 9.5 mg/dL (8.5-10.1) 08/13/18 07:13 Magnesium 2.0 mg/dL (1.8-2.4) 08/13/18 07:13 Total Bilirubin 0.8 mg/dL (0.2-1.0) 08/12/18 13:25 AST 26 U/L (15-37) 08/12/18 13:25 ALT 23 U/L (12-78) 08/12/18 13:25 Alkaline Phosphatase 87 U/L (46-116) 08/12/18 13:25 Troponin I < 0.02 ng/mL (0.00-0.06) 08/13/18 13:30 Total Protein 7.8 g/dL (6.4-8.2) 08/12/18 13:25 Albumin 2.6 g/dL (3.4-5.0) L 08/12/18 13:25 Urine Color Yellow (Yellow) 08/12/18 14:30 Urine Clarity Sl cloudy 08/12/18 14:30 Urine pH 6.0 (5-8) 08/12/18 14:30 Ur Specific [place] 1.020 (1.005-1.025) 08/12/18 14:30 Urine Protein Negative mg/dL (Negative) 08/12/18 14:30 Urine Ketones Negative mg/dL (Negative) 08/12/18 14:30 Urine Blood Trace-intact (Negative) H 08/12/18 14:30 Urine Nitrite Positive (Negative) H 08/12/18 14:30 Urine Bilirubin Negative (Negative) 08/12/18 14:30 Urine Urobilinogen 0.2 EU/dL (Up TO 0.2) 08/12/18 14:30 Ur Leukocyte Esterase Moderate (Negative) H 08/12/18 14:30 Urine RBC 3-5 (0-2) H 08/12/18 14:30 Urine WBC >50 HPF (0-5) 08/12/18 14:30 Ur Epithelial Cells Moderate HPF (Negative) 08/12/18 14:30 Urine Crystals Negative HPF (Negative) 08/12/18 14:30 Urine Bacteria Moderate HPF (Negative) 08/12/18 14:30 Urine Casts Negative LPF (Negative) 08/12/18 14:30 Urine Mucus Negative (Negative) 08/12/18 14:30 Ur Culture Indicated? Yes 08/12/18 14:30 Urine Glucose Negative mg/dL (Negative) 08/12/18 14:30
--- NOTE | 2018-08-13 14:24 | PGE_ITS ---
Date of Service Date of service: 08/13/18 Time of Service: 14:55 Assessment and Plan (1) Altered mental status: Start date: 08/13/18 Start time: 14:19 Current visit: Yes Status: Acute Recent cervical spine surgery on 08/07 at [facility] [place], transferred to [facility] rehab, on flexiril with oxycodone dcd yesterday in setting of acute confusion. Today she is less confused, able to answer all questions appropriately. She does realize she has periods of confusion. She was also found to have a UTI with pneumonia; in which she is being treated for. (2) HCAP (healthcare-associated pneumonia): Start date: 08/13/18 Start time: 14:21 Current visit: Yes Status: Acute Day 2 of vanco and cefepime for HCAP, afebrile, continue to monitor (3) Spondylitis, cervical: Start date: 08/13/18 Start time: 14:18 Current visit: Yes Status: Acute surgical repair on 08/[address] [facility], circle J collar in place,with ASHLEIGH. Dressing changes per discharge orders (4) Diabetes: Start date: 08/13/18 Start time: 14:25 Current visit: Yes Status: Chronic continue SSI (5) H/O cervical spine surgery: Start date: 08/13/18 Start time: 14:29 Current visit: Yes Status: Acute Recent Posterior cervical laminectomy and athrodesis. PERRLA, product marketing consultant equal with +4 reflexes to bilateral upper and lower extremities. Numbness to right shoulder which has been present prior to surgery, that has not gotten any worse per patient and numbness to left arm that appeared post surgery, but is stable not worse, sensation in tact, product marketing consultant equal but weak. Currently with Denali J cervical collar with instructions to wear at all times . PT/OT for rehab, (6) Urinary tract infection: Start date: 08/13/18 Start time: 14:41 Current visit: Yes Status: Acute [place] in place from rehab with positive nitrates and Leukos, day 2 of cefepime and vacno (7) Leukocytosis: Start date: 08/13/18 Start time: 14:42 Current visit: Yes Status: Acute resolved continue to monitor in setting of acute infection (8) Chest pain: Start date: 08/13/18 Start time: 14:42 Current visit: Yes Status: Acute When assessing patient she c/o CP with palpation that did not radiate, no rebound tenderness, this seems costochondritis, she does have an extensive Cardiac history with NSTEMI, CAD and stent placement, an EKG was ordered with troponins. EKG was nonischemic normal appearing regular rate and rhythm with a troponin of 0.02, likely costochondritis. (9) CAD (coronary artery disease): Current visit: Yes Status: Chronic Hx of NSTEMI with Stent placement. Currently on atorvastatin 80 continue dose (10) Tobacco abuse: Start date: 08/13/18 Start time: 15:21 Current visit: Yes Status: Acute nicotine replacement patch as needed (11) HTN (hypertension): Start date: 08/13/18 Start time: 15:21 Current visit: Yes Status: Chronic Controlled at this time. continue coreg, amlodipine. (12) Dehydration: Start date: 08/13/18 Start time: 15:22 Current visit: Yes Status: Acute resolving, continue NS@125, as she still appears a little dry her tongue is cracked, labs normalizing. (13) DVT prophylaxis: Start date: 08/13/18 Start time: 15:29 Current visit: Yes Status: Acute Lovenox subcu Subjective Patient reports: other Interval history since last seen: Mrs. Cary is more lucid today. She was able to answer all questions appropriately, AAOx 3 and recalls that she does have periods of confusion. Her flexiril and oxycodone were dcd yesterday in the setting of acute confusion. She was placed on IV tylenol for pain management and will monitor for pain. Giving that she is less confused today this could be from medication. She also has a UTI and pneumonia that has been treated the last 24 hours with cefepime and vanco. When assessing she did have chest pain that she said had been ongoing since last night. Pain was worse with palpation, no rebound tenderness and it did not radiate. Given her extensive cardiac history with NSTEMI, stent placement and CAD an EKG was ordered with serial troponins. Her EKG was nonischemic normal appearing, normal rate and rhythm with a troponin of less than 0.02. This appears to be more of costochondritis in nature. Continue to monitor. Exam Const General: cooperative Nutritional Appearance: obese Orientation: alert, awake, oriented x3 and confused (she does have periods of confusion) [facility] Head: normal to inspection Face and sinus: normal facial exam Eyes General: appearance normal, both eyes and all related structures Pupils: PERRL Neck Lymphatic: no lymphadenopathy noted and no lymphedema noted Chest Chest: normal inspection of the chest Resp Effort & Inspection: normal respiratory effort and able to speak in complete sentences Auscultation: diminished lung sounds Cardio Rate: regular rate Rhythm: regular rhythm Heart Sounds: S1 normal and S2 normal Other: CP to palpation GI Inspection: distended Palpation: no hepatosplenomegaly and other Auscultation: hypoactive bowel sounds Back/Spine/Pelvis Back: no CVA tenderness Cervical Spine: cervical ROM abnormal and other (in circle j collar following surgical procedure) Neuro General: alert, awake and oriented Patient Orientation: Person, Time and Confused DTR's: Rt Triceps: 4+, Lt Triceps: 4+, Rt Patellar: 4+ and Lt Patellar: 4+ Other: Denali J collar on Extrem General: full ROM Left upper extremity: full ROM Right lower extremity: full ROM Left lower extremity: full ROM Other: numbness to left and right upper extremities, not new to patient, not worsening, product marketing consultant equal bilaterally but weak. Objective Objective Clinical Data: Abnormal lab results 08/12/18 08/12/18 08/12/18 Range/Units 13:25 13:25 14:30 WBC 11.83 H (4.4-10.8) k/cumm Hgb 10.8 L (12.0-15.5) g/dL Hct 34.1 L (36.0-46.0) % MCV 79.5 L (80-95) fL MCH 25.2 L (27.0-33.0) pg MCHC 31.7 L (32.0-36.0) g/dL RDW 18.7 H (11.7-14.6) % Absolute Neutrophils 9.77 H (1.2-6.7) k/cumm Absolute Lymphocytes 0.88 L (1.2-3.4) k/cumm Absolute Monocytes 1.11 H (0.11-0.7) k/cumm Carbon Dioxide 32.2 H (21.0-32.0) mmol/L BUN 19 H (7-18) mg/dL Glucose 144 H (70-100) mg/dL Albumin 2.6 L (3.4-5.0) g/dL Urine Blood Trace-intact H (Negative) Urine Nitrite Positive H (Negative) Ur Leukocyte Esterase Moderate H (Negative) Urine RBC 3-5 H (0-2) 08/13/18 08/13/18 Range/Units 07:13 07:13 WBC (4.4-10.8) k/cumm Hgb 10.6 L (12.0-15.5) g/dL Hct 33.7 L (36.0-46.0) % MCV 79.5 L (80-95) fL MCH 25.0 L (27.0-33.0) pg MCHC 31.5 L (32.0-36.0) g/dL RDW 18.7 H (11.7-14.6) % Absolute Neutrophils 8.60 H (1.2-6.7) k/cumm Absolute Lymphocytes 0.94 L (1.2-3.4) k/cumm Absolute Monocytes 1.03 H (0.11-0.7) k/cumm Carbon Dioxide (21.0-32.0) mmol/L BUN 19 H (7-18) mg/dL Glucose 108 H (70-100) mg/dL Albumin (3.4-5.0) g/dL Urine Blood (Negative) Urine Nitrite (Negative) Ur Leukocyte Esterase (Negative) Urine RBC (0-2) Vital Signs Temperature 36.4 C L 08/13/18 12:59 Temperature Source Tympanic 08/13/18 12:59 Pulse 63 08/13/18 12:59 Pulse Rhythm Regular 08/13/18 08:10 Pulse 71 08/12/18 17:40 Respiratory Rate 20 08/13/18 12:59 Respiratory Effort 08/13/18 08:10 Respiratory Depth Normal 08/13/18 08:10 Respiratory Pattern Normal 08/13/18 08:10 Blood Pressure 132/80 08/13/18 12:59 Blood Pressure Mean 92 08/12/18 17:30 Blood Pressure Position Supine 08/12/18 13:23 Pulse Oximetry 97 08/13/18 12:59 Oxygen Delivery Method Nasal Cannula 08/13/18 12:59 Oxygen Flow Rate 2 08/13/18 12:59 Pain Level 10 03/18/19 12:18 Intake & Output 08/12/18 08/13/18 08/13/18 23:59 11:59 23:59 Intake Total 200 / 200 1497.917 / 1497.917 Output Total 725 / 725 300 / 600 300 / 600 Balance -525 / -525 1197.917 / 897.917 -300 / 897.917 Weight 131.6 kg Intake: IV 200 / 200 1497.917 / 1497.917 Output: Urine 725 / 725 300 / 600 300 / 600 Other: Urine Color Light Sharon Light Sharon Light Sharon Urine Appearance Clear Clear Cloudy Laboratory Results WBC 10.67 k/cumm (4.4-10.8) 08/13/18 07:13 RBC 4.24 m/cumm (4.00-5.20) 08/13/18 07:13 Hgb 10.6 g/dL (12.0-15.5) L 08/13/18 07:13 Hct 33.7 % (36.0-46.0) L 08/13/18 07:13 MCV 79.5 fL (80-95) L 08/13/18 07:13 MCH 25.0 pg (27.0-33.0) L 08/13/18 07:13 MCHC 31.5 g/dL (32.0-36.0) L 08/13/18 07:13 RDW 18.7 % (11.7-14.6) H 08/13/18 07:13 Plt Count 263 x1000/uL (130-400) 08/13/18 07:13 MPV 9.6 fL (8.0-11.0) 08/13/18 07:13 Immature Gran % 0.3 08/13/18 07:13 Neutrophils % 80.5 08/13/18 07:13 Lymphocytes % 8.8 08/13/18 07:13 Monocytes % 9.7 08/13/18 07:13 Eosinophils % 0.6 08/13/18 07:13 Basophils % 0.1 08/13/18 07:13 Absolute Neutrophils 8.60 k/cumm (1.2-6.7) H 08/13/18 07:13 Absolute Lymphocytes 0.94 k/cumm (1.2-3.4) L 08/13/18 07:13 Absolute Monocytes 1.03 k/cumm (0.11-0.7) H 08/13/18 07:13 Absolute Eosinophils 0.06 k/cumm (0.0-0.7) 08/13/18 07:13 Absolute Basophils 0.01 k/cumm (0.0-0.2) 08/13/18 07:13 Differential Comment Rbc morph reviewed 08/13/18 07:13 RBC Morphology See below 08/13/18 07:13 Polychromasia Present 08/13/18 07:13 Hypochromasia 1+ 08/13/18 07:13 Poikilocytosis 1+ 08/12/18 13:25 Anisocytosis 2+ 08/13/18 07:13 Microcytosis 1+ 08/13/18 07:13 Sodium 139 mmol/L (136-145) 08/13/18 07:13 Potassium 3.7 mmol/L (3.5-5.1) 08/13/18 07:13 Chloride 101 mmol/L (98-107) 08/13/18 07:13 Carbon Dioxide 29.4 mmol/L (21.0-32.0) 08/13/18 07:13 Anion Gap 8.6 mmol/L (3-11) 08/13/18 07:13 BUN 19 mg/dL (7-18) H 08/13/18 07:13 Creatinine 0.74 mg/dL (0.55-1.02) 08/13/18 07:13 Estimated GFR/1.73 m2 >= 60.00 (mL/min/1.73m2) 08/13/18 07:13 Glucose 108 mg/dL (70-100) H 08/13/18 07:13 Lactate 0.7 mmol/l (0.6-1.4) 08/12/18 16:25 Calcium 9.5 mg/dL (8.5-10.1) 08/13/18 07:13 Magnesium 2.0 mg/dL (1.8-2.4) 08/13/18 07:13 Total Bilirubin 0.8 mg/dL (0.2-1.0) 08/12/18 13:25 AST 26 U/L (15-37) 08/12/18 13:25 ALT 23 U/L (12-78) 08/12/18 13:25 Alkaline Phosphatase 87 U/L (46-116) 08/12/18 13:25 Troponin I < 0.02 ng/mL (0.00-0.06) 08/13/18 13:30 Total Protein 7.8 g/dL (6.4-8.2) 08/12/18 13:25 Albumin 2.6 g/dL (3.4-5.0) L 08/12/18 13:25 Urine Color Yellow (Yellow) 08/12/18 14:30 Urine Clarity Sl cloudy 08/12/18 14:30 Urine pH 6.0 (5-8) 08/12/18 14:30 Ur Specific [place] 1.020 (1.005-1.025) 08/12/18 14:30 Urine Protein Negative mg/dL (Negative) 08/12/18 14:30 Urine Ketones Negative mg/dL (Negative) 08/12/18 14:30 Urine Blood Trace-intact (Negative) H 08/12/18 14:30 Urine Nitrite Positive (Negative) H 08/12/18 14:30 Urine Bilirubin Negative (Negative) 08/12/18 14:30 Urine Urobilinogen 0.2 EU/dL (Up TO 0.2) 08/12/18 14:30 Ur Leukocyte Esterase Moderate (Negative) H 08/12/18 14:30 Urine RBC 3-5 (0-2) H 08/12/18 14:30 Urine WBC >50 HPF (0-5) 08/12/18 14:30 Ur Epithelial Cells Moderate HPF (Negative) 08/12/18 14:30 Urine Crystals Negative HPF (Negative) 08/12/18 14:30 Urine Bacteria Moderate HPF (Negative) 08/12/18 14:30 Urine Casts Negative LPF (Negative) 08/12/18 14:30 Urine Mucus Negative (Negative) 08/12/18 14:30 Ur Culture Indicated? Yes 08/12/18 14:30 Urine Glucose Negative mg/dL (Negative) 08/12/18 14:30
--- NOTE | 2018-08-13 15:11 | PT.INTREAT ---
Date of service: 08/13/18 Time of Service: 15:11 PT Notes Inpatient Physical Therapy Treatment Note [facility] Date: 08/13/18 PRECAUTIONS: SUBJECTIVE: Bailey states that she is having pain in her neck with sitting at EOB and B shoulders to touch. OBJECTIVE: PAIN: Please see subjective portion of this note BED MOBILITY/TRANSFERS Sit-supine: Max A x2 Sit-stand: Mod A Stand-sit: Min A GAIT Assistive Device: FWW Weight bearing: Full Assist: CGA Distance: 2 sides steps to R Deviation: Cueing for movement initiation Static standing x3 minutes with CGA Static sitting at EOB x10 minutes ASSESSMENT: Patient tolerated session with c/o neck pain while seated at EOB and with c/o B shoulder pain to touch. She requires significant encouragement for participation. She would benefit from continued gait and transfer training for improved mobility and activity tolerance. PLAN: Continue with PT's POC TREATMENT CODE/TIME: 20 minutes; [id number]
[2018-08-13 16:24] VITALS: BP 156/87; PULSE 66; RESP 19; TEMP 36.5; O2SAT 94
[2018-08-13] MEDS: Acetaminophen 325 MG TAB PO (18:31)
[2018-08-13] MEDS: Atorvastatin 40 MG TAB 80 MG PO (20:00)
[2018-08-13] MEDS: Insulin Glargine 300 UNITS/3 ML PEN 15 UNITS SC (22:49)
[2018-08-13] MEDS: Melatonin 3 MG TAB 9 MG PO (22:49)
[2018-08-13 23:59] VITALS: BP 146/80; PULSE 57; RESP 19; TEMP 36.6; O2SAT 94
[2018-08-14] MEDS: Normal Saline 1,000 ML 125 ML IV ×2 (02:10→11:30)
[2018-08-14] MEDS: ACETAMINOPHEN 1,000 MG/100 ML BTL 400 MG IVPB ×2 (03:49→11:56)
[2018-08-14] MEDS: Levothyroxine 100 MCG TAB 200 MCG PO (05:36)
[2018-08-14] MEDS: CEFEPIME 2 GM in Normal Saline 100 ML IVPB (05:36)
[2018-08-14 07:52] LABS: Abs Immature Grans 0.03 k/cumm (0.0-0.09); Absolute Basophil Count 0.03 k/cumm (0.0-0.2); Absolute Lymphocyte Count 1.06 k/cumm (1.2-3.4); Absolute Neutrophil Count 6.55 k/cumm (1.2-6.7); Basophils % 0.4; Eosinophils % 1.2; HGB 9.9 g/dL (12.0-15.5); Immature Grans % 0.4; Lymphocytes % 12.4; Mean Corp. HGB Concentration 30.9 g/dL (32.0-36.0); Mean Corpuscular Hemoglobin 24.5 pg (27.0-33.0); Mean Corpuscular Volume 79.2 fL (80-95); Monocytes % 9.3; Neutrophils % 76.3; Platelet Count 294 x1000/uL (130-400); RBC 4.04 m/cumm (4.00-5.20); RBC Distribution Width 18.5 % (11.7-14.6); White Blood Cell Count 8.57 k/cumm (4.4-10.8)
[2018-08-14 07:55] VITALS: BP 152/83; PULSE 73; RESP 23; TEMP 36.4; O2SAT 94
[2018-08-14 07:59] LABS: Anion Gap 8.9 mmol/L (3-11); BUN 16 mg/dL (7-18); CO2 26.1 mmol/L (21.0-32.0); CREATININE 0.68 mg/dL (0.55-1.02); Calcium 8.7 mg/dL (8.5-10.1); Chloride 104 mmol/L (98-107); Glucose 133 mg/dL (70-100); Magnesium 1.9 mg/dL (1.8-2.4); Potassium 3.5 mmol/L (3.5-5.1); Sodium 139 mmol/L (136-145)
[2018-08-14] MEDS: PARoxetine 20 MG TAB 40 MG PO (09:10)
[2018-08-14] MEDS: Magnesium Oxide 400 MG TAB PO ×2 (09:10→11:11)
[2018-08-14] MEDS: rOPINIRole 0.5 MG TAB 1 MG PO ×2 (09:10→14:20)
[2018-08-14] MEDS: Clopidogrel 75 MG TAB PO (09:11)
[2018-08-14] MEDS: Pregabalin 100 MG CAP 200 MG PO (09:11)
[2018-08-14] MEDS: Oxybutynin 5 MG TAB 10 MG PO (09:11)
[2018-08-14] MEDS: amLODIPine 10 MG TAB PO (09:11)
[2018-08-14] MEDS: Pramipexole 0.5 MG TAB PO ×2 (09:11→14:20)
[2018-08-14] MEDS: Carvedilol 25 MG TAB PO (09:11)
[2018-08-14] MEDS: buPROPion-XL 150 MG TABCR PO (09:11)
[2018-08-14] MEDS: Aspirin E.C. 81 MG TABEC PO (09:11)
[2018-08-14] MEDS: Omeprazole 20 MG CAPCR PO (09:12)
[2018-08-14] MEDS: Furosemide 40 MG TAB PO ×2 (09:12→15:07)
[2018-08-14] MEDS: Enoxaparin 40 MG/0.4 ML SYR SC (09:12)
[2018-08-14] MEDS: Fluticasone NASAL SPRAY 16 GM BTL NS (09:13)
[2018-08-14] MEDS: Polyethylene Glycol 3350 17 GM PACKET PO (09:13)
[2018-08-14] MEDS: Insulin Aspart 300 UNITS/3 ML PEN SC ×3 (09:32→17:00)
--- NOTE | 2018-08-14 09:37 | CMPROGNOTE_ITS ---
- If Service Date Differs Date of service: 08/14/18 Time of Service: 09:37 Care Management Progress Note S/O: Bailey is lying in bed resting this morning. She has been accepted at [facility] and is awaiting bed availability. A: 57 y/o female admitted 08/12/18 for altered mental status. P: Bailey will transfer to [facility] once a bed becomes available. She will transport via EMS at time of DC.
--- NOTE | 2018-08-14 09:37 | PDOC.CMPRO ---
- If Service Date Differs Date of service: 08/14/18 Time of Service: 09:37 Care Management Progress Note S/O: Bailey is lying in bed resting this morning. She [place] been [place] [facility] and is [place] bed availability. A: 57 y/o female admitted 08/12/18 for altered mental status. P: Bailey will transfer to [facility] once a bed becomes [place]. She will transport via EMS at time of DC.
[2018-08-14 09:45] VITALS: O2SAT 94
[2018-08-14] MEDS: MEROPENEM 1 GM in Normal Saline 100 ML IVPB ×2 (11:00→18:15)
[2018-08-14] MEDS: Potassium Chloride 20 MEQ TABCR 40 MEQ PO (11:11)
[2018-08-14 11:55] LABS: Vancomycin, Trough 18.1 ug/mL (10.0-20.0)
--- NOTE | 2018-08-14 12:13 | PT.INTREAT ---
Date of service: 08/14/18 Time of Service: 12:13 PT Notes Inpatient Physical Therapy Treatment Note [facility] Date: 08/14/18 PRECAUTIONS: Spinal, BLT precautions SUBJECTIVE: Bailey states that she is feeling a little more comfortable today. She is agreeable to participating in PT. OBJECTIVE: PAIN: Patient complained of B shoulder pain with sitting at EOB BED MOBILITY/TRANSFERS Supine-sit: Mod A in a.m.; Min A in p.m. Sit-supine: Max A x2 Sit-stand: CGA x2 in a.m.; CGA in p.m. Stand-sit: CGA GAIT Assistive Device: FWW Weight bearing: Full Assist: CGA Distance: 5 sidesteps to R in a.m.; 5 steps x2 in p.m. Deviation: Patient refused any/backward walking in a.m. Static standing x2 minutes with CGA in both a.m. and p.m. Static sitting at EOB x10 minutes with SBA in a.m.; static sitting on commode x10 minutes with S in p.m. THEREX: Patient completed a lower extremity strengthening exercise program, in both seated and supine positions, as per flow sheet. TOILETING: Patient toileted with assist ASSESSMENT: Patient tolerated session with c/o B shoulder pain with sitting at EOB and standing with FWW. She was able to tolerate a progression in steps taken, as well as with level of assist required for transfers. She was also able to tolerate a progression in her ther ex program today. She would benefit from continued gait and transfer training as well as strengthening for improved mobility as well as activity tolerance. PLAN: Continue with PT's POC TREATMENT CODE/TIME: Session 1: 45 minutes; 82531 x2, [id number] Session 2: 40 minutes; [id number] x2, [id number]
[2018-08-14] MEDS: VANCOMYCIN 2,000 MG in Normal Saline 500 ML 250 ML IV ×2 (12:54)
[2018-08-14 15:56] VITALS: BP 131/75; PULSE 59; RESP 20; TEMP 37; O2SAT 91
--- NOTE | 2018-08-14 16:29 | W.INDIABCONS ---
Date of service: 08/14/18 Time of Service: 16:29 Diabetes Inpatient Consult DESCRIPTION/ASSESSMENT: Appreciate diabetes consult for Bailey Mandujano who is hospitalized with altered mentation secondary to medication and recent surgery. BMI 41 No current A1c available Ms. Mandujano has blood sugars 122-193 taking moderate insulin correction and 15u Lantus. She is eating 25% of her meals when she eats. Her usual medication regimen includes Lantus 35units, Lispro insulin correction, metformin and sitagliptin. INTERVENTION: Will follow blood sugars and assess her desire for more intensive glycemic management. A1c would be helpful in assessing her usual diabetes management. PLAN: Will follow up when she is able to eat better Suggest A1c Time Spent in Nutritional Counseling and Treatment: 0 minutes face to face inpatient
--- NOTE | 2018-08-14 16:51 | W.PM.DS.N ---
Date of service: 08/14/18 Time of Service: 16:52 DS: Diagnosis Discharge Diagnosis (1) Altered mental status: Status: Acute (2) HCAP (healthcare-associated pneumonia): Status: Acute (3) Spondylitis, cervical: Status: Acute (4) Diabetes: Status: Chronic (5) H/O cervical spine surgery: Status: Acute (6) Urinary tract infection: Status: Acute (7) Leukocytosis: Status: Acute (8) Chest pain: Status: Acute (9) CAD (coronary artery disease): Status: Chronic (10) Tobacco abuse: Status: Acute (11) HTN (hypertension): Status: Chronic (12) Dehydration: Status: Acute (13) DVT prophylaxis: Status: Acute Discharge Plan Disposition Patient Disposition: [facility] Condition: Serious Discharge Details Reason For Visit: ALTERED MENTAL STATUS,PNA,UTI Admit Date/Time: 08/12/18 16:42 Admit Provider: Ferny Mendez Attending Provider: Ferny Mendez Primary Care Provider: Shaunna Bonilla Hospital Course Hospital Course: Mrs. Cary is a 57 year old female with a past medical history significant for COPD, CAD, previous NSTEMI with Stent, DM, HTN and Spondylitis with [place] [facility] [place] from [facility] to rehab at [facility] and then transferred to the ED here at [facility] on 08/12/18 for altered mental status that was progressively worsening. In the ED, she had a CT head that did not show an acute process. CT abdomen and pelvis showed Left lower lobe infiltrate, possibly representing atelectasis or pneumonia and a small left pleural effusion. She was initiated on antibiotic for HCAP with Vancomycin and Cefepime. Flexeril and oxycodone were discontinued for concern that they could possibly be contributing to her confusion. Her urine was positive for leukocytes and nitrites, she was initially thought to be covered with Vanco and cefepime, however, her urine grew Enterobacter Cloacae Complex, multi-drug resistant. The Cefepime was changed to meropenem. Her mental status did not improve. She continued to be intermittently confused. She has intermittent dizziness and nausea. New catheter was placed in the ED. Her altered mental status appears to be out of proportion to her medical issues which is concerning in the setting of recent cervical spine surgery. She remains oriented x1-2 after 2 days of hospitalization. Unfortunately, we do not have access to MRI (as our machine is down), EEG or Neurologist to fully work her up. This prompted a call to [facility] neurology, who has accepted her back in transfer. She will transfer back to [facility] via ambulance today for a higher level of care where they have specialists including Neurology and imaging including MRI and EEG available. She has had a [place] J collar in place and it needs to remain in place at all times per Neurology. Home Meds and New Rx's Prescriptions: No Action oxycodone 5 mg Tablet 5 - 10 mg PO Q4H PRNRF: 0 acetaminophen 500 mg Tablet 1,000 mg PO Q8H RF: 0 amlodipine 10 mg Tablet 10 mg PO DAILY RF: 0 aspirin [Aspir-81] 81 mg Tablet,Delayed Release (Dr/Ec) 81 mg PO DAILY RF: 0 atorvastatin 80 mg Tablet 80 mg PO HS RF: 0 bupropion HCl 150 mg Tablet Extended Release 24 Hr 150 mg PO DAILY RF: 0 carvedilol 25 mg Tablet 25 mg PO BID RF: 0 clopidogrel 75 mg Tablet 75 mg PO DAILY RF: 0 cyclobenzaprine 10 mg Tablet 10 mg PO Q8H RF: 0 bisacodyl [Dulcolax (bisacodyl)] 10 mg Suppository 10 mg [place] PRN PRNRF: 0 fluticasone propionate 50 mcg/actuation [facility],Suspension 1 spray Intranasal QAM RF: 0 furosemide 40 mg Tablet 40 mg PO BID RF: 0 insulin glargine 100 unit/mL (3 mL) Insulin Pen 35 unit subcut HS RF: 0 insulin lispro 100 unit/mL Insulin Pen 0 - 4 unit subcut DIRECTED RF: 0 levothyroxine 100 mcg Tablet 200 mcg PO DAILY RF: 0 Lyrica 200 mg Capsule 200 mg PO DAILY RF: 0 magnesium oxide 400 mg magnesium Tablet 400 mg PO QAM RF: 0 melatonin 10 mg Tablet 10 mg PO HS RF: 0 metformin 1,000 mg Tablet 2,000 mg PO QAM RF: 0 polyethylene glycol 3350 [Miralax] 17 gram/dose Powder 17 g PO Q12H PRNRF: 0 magnesium hydroxide [Milk of Magnesia] 400 mg/5 mL Suspension 30 ml PO HS PRNRF: 0 pramipexole [Mirapex] 0.5 mg Tablet 0.5 mg PO TID RF: 0 oxybutynin chloride 5 mg Tablet 5 mg PO BID RF: 0 paroxetine HCl 40 mg Tablet 40 mg PO DAILY RF: 0 potassium chloride 20 mEq Tablet Extended Release 20 meq PO QAM RF: 0 ropinirole 1 mg Tablet 1 mg PO TID RF: 0 sennosides-docusate sodium [Senna Plus] 8.6-50 mg Tablet 2 tab PO Q12H PRNRF: 0 sitagliptin 100 mg Tablet 100 mg PO DAILY RF: 0 triamcinolone acetonide 0.5 % Ointment 1 applic topical TID RF: 0 calcium carbonate [Tums E-X] 300 mg (750 mg) Tablet,Chewable 750 mg PO PRN PRNRF: 0 cholecalciferol (vitamin D3) 50,000 unit Capsule 50,000 unit PO QAM RF: 0 Discharge Instructions Activity:: Per Neurology Diet:: Heart healthy Exam Narrative Exam Narrative: General: laying in bed with HOB elevated, [place] J collar in place, oriented to self and place, not time. HEENT: PERRLA, mucous membranes slightly dry. Neck: Collar in place at all times. Respiratory: respirations even and unlabored, lung sounds diminished throughout, no rales or wheezing. Cardiovascular: Heart has regular rate and rhythm, no murmur appreciated. GI: abdomen soft, nontender, normoactive bowel sounds. Extremities: right arm more weak than left, moves left arm freely. Right hand grasp weak. Moves bilateral lower extremities equally. Neurological: Intermittent confusion, Pupils equal round and reactive to light, tongue protrudes midline, right arm weak, right hand grasp weak as above (reports this is her baseline). Sensation intact. DS: Data Vitals/I&O Vitals and I&O: Vital Signs Temperature 37 C 08/14/18 15:56 Temperature Source Tympanic 08/14/18 15:56 Pulse 59 L 08/14/18 15:56 Pulse Rhythm Regular 08/14/18 08:00 Pulse 71 08/12/18 17:40 Respiratory Rate 20 08/14/18 15:56 Respiratory Effort 08/14/18 08:00 Respiratory Depth Normal 08/14/18 08:00 Respiratory Pattern Normal 08/14/18 08:00 Blood Pressure 131/75 08/14/18 15:56 Blood Pressure Mean 92 08/12/18 17:30 Blood Pressure Position Supine 08/12/18 13:23 Pulse Oximetry 91 L 08/14/18 15:56 Oxygen Delivery Method Room Air 08/14/18 15:56 Oxygen Flow Rate 0 08/14/18 15:56 Pain Level 8 08/14/18 11:56 Intake & Output 08/13/18 08/14/18 08/14/18 23:59 11:59 23:59 Intake Total 1704.167 / 3202.084 2740.833 / 3480.833 740 / 3480.833 Output Total 2100 / 2400 500 / 2200 1700 / 2200 Balance -395.833 / 351.916 6532.833 / 1280.833 -960 / 1280.833 Weight 129.6 kg Intake: IV 1704.167 / 3202.084 2620.833 / 3120.833 500 / 3120.833 Oral 120 / 360 240 / 360 Output: Urine 2100 / 2400 500 / 2200 1700 / 2200 Other: Urine Color Yellow Pale Yellow Straw Urine Appearance Clear Clear Clear Stool Size Large Stool Characteristics Soft Formed Completed studies during hospitalization [Text1]: 08/12/18: CT BRAIN, NONCONTRAST: No priors. The ventricles and sulci are consistent with the patient's age. No acute intracranial hemorrhage, infarct, midline shift or mass effect is identified. The ventricles are intact. The basilar cisterns are patent. The visualized paranasal sinuses are clear. The mastoid air cells appear well pneumatized. The calvarium is intact. IMPRESSION: No acute intracranial process. CT SCAN OF THE ABDOMEN AND PELVIS: CT scan of the abdomen and pelvis was performed following the uneventful administration of intravenous contrast material. There is patient motion artifact, which limits the evaluation of the examination. There is a large area of consolidation involving the left lower lobe. There is a small left pleural effusion present. The liver is normal in size. No suspicious hepatic mass is seen. The portal, superior mesenteric and splenic veins are patent. The patient is status post cholecystectomy. No biliary ductal dilatation is present. The pancreas, spleen and adrenal glands are unremarkable. The kidneys show normal and symmetric enhancement. No evidence of a solid renal mass or obstruction. The urinary bladder is intact. There is a Montgomery catheter in place. The reproductive organs are unremarkable. The bowel shows no evidence of obstruction or inflammation. No findings to suggest an acute appendicitis are present. There is a fat-containing anterior abdominal wall hernia. There is atherosclerosis of the abdominal aorta, but no significant aneurysmal dilatation is seen. No significant abdominal or pelvic adenopathy, ascites or pneumoperitoneum is present. Degenerative changes are seen throughout the spine. IMPRESSION: Left lower lobe infiltrate, which may represent atelectasis or pneumonia. Small left pleural effusion. PORTABLE AP CHEST: There is cardiomegaly. Pulmonary vasculature is within normal limits. No definite focal consolidating infiltrate is seen on this chest xray. The left lower lobe infiltrate is best appreciated on the CT scan of the abdomen and pelvis. No gross effusions or pneumothoraces are identified. IMPRESSION: No acute pulmonary process. Please refer to the CT scan of the abdomen and pelvis from earlier in the day. Labs on day of discharge: Labs from last 24 hours 08/14/18 08/14/18 08/14/18 10:55 07:30 07:30 WBC 8.57 RBC 4.04 Hgb 9.9 L Hct 32.0 L MCV 79.2 L MCH 24.5 L MCHC 30.9 L RDW 18.5 H Plt Count 294 MPV 9.0 Immature Gran % 0.4 Neutrophils % 76.3 Lymphocytes % 12.4 Monocytes % 9.3 Eosinophils % 1.2 Basophils % 0.4 Absolute Neutrophils 6.55 Absolute Lymphocytes 1.06 L Absolute Monocytes 0.80 H Absolute Eosinophils 0.10 Absolute Basophils 0.03 Sodium 139 Potassium 3.5 Chloride 104 Carbon Dioxide 26.1 Anion Gap 8.9 BUN 16 Creatinine 0.68 Estimated GFR/1.73 m2 >= 60.00 Glucose 133 H Calcium 8.7 Magnesium 1.9 Urine Color Urine Clarity Urine pH Ur Specific [place] Urine Protein Urine Ketones Urine Blood Urine Nitrite Urine Bilirubin Urine Urobilinogen Ur Leukocyte Esterase Urine RBC Urine WBC Ur Epithelial Cells Urine Crystals Urine Bacteria Urine Casts Urine Mucus Ur Culture Indicated? Urine Glucose Vancomycin Trough 18.1 08/12/18 14:30 WBC RBC Hgb Hct MCV MCH MCHC RDW Plt Count MPV Immature Gran % Neutrophils % Lymphocytes % Monocytes % Eosinophils % Basophils % Absolute Neutrophils Absolute Lymphocytes Absolute Monocytes Absolute Eosinophils Absolute Basophils Sodium Potassium Chloride Carbon Dioxide Anion Gap BUN Creatinine Estimated GFR/1.73 m2 Glucose Calcium Magnesium Urine Color Yellow Urine Clarity Sl cloudy Urine pH 6.0 Ur Specific [place] 1.020 Urine Protein Negative Urine Ketones Negative Urine Blood Trace-intact H Urine Nitrite Positive H Urine Bilirubin Negative Urine Urobilinogen 0.2 Ur Leukocyte Esterase Moderate H Urine RBC 3-5 H Urine WBC >50 Ur Epithelial Cells Moderate Urine Crystals Negative Urine Bacteria Moderate Urine Casts Negative Urine Mucus Negative Ur Culture Indicated? Yes Urine Glucose Negative Vancomycin Trough Preliminary micro results at discharge 08/12/18 16:35 Blood Culture - Preliminary Blood NO GROWTH 24 HOURS 08/12/18 16:25 Blood Culture - Preliminary Blood NO GROWTH 24 HOURS [facility] Medical History Acute on chronic diastolic (congestive) heart failure (Acute) Acute pancreatitis (Acute) Adult hypothyroidism (Acute) Atherosclerotic heart disease of [place] coronary artery with angina pectoris (Acute) Benign neoplasm (Acute) History of non-ST elevation myocardial infarction (NSTEMI) (Acute) Localized edema (Acute) Mixed incontinence (Acute) Morbid (severe) obesity due to excess calories (Acute) Nicotine dependence (Acute) Spondylosis of cervical spine (Acute) Type 2 diabetes mellitus (Acute) Urinary tract infection (Acute) NSTEMI (non-ST elevated myocardial infarction) (Acute) CAD (coronary artery disease) (Chronic) COPD (chronic obstructive pulmonary disease) (Chronic) Surgical History Hx of laminectomy (Acute) Social History Smoking/Tobacco Use Status: Current every day Tobacco Type: cigarettes Tobacco: How many years used: 48
--- NOTE | 2018-08-14 17:04 | DSE_ITS ---
Date of service: 08/14/18 Time of Service: 16:52 DS: Diagnosis Discharge Diagnosis (1) Altered mental status: Status: Acute (2) HCAP (healthcare-associated pneumonia): Status: Acute (3) Spondylitis, cervical: Status: Acute (4) Diabetes: Status: Chronic (5) H/O cervical spine surgery: Status: Acute (6) Urinary tract infection: Status: Acute (7) Leukocytosis: Status: Acute (8) Chest pain: Status: Acute (9) CAD (coronary artery disease): Status: Chronic (10) Tobacco abuse: Status: Acute (11) HTN (hypertension): Status: Chronic (12) Dehydration: Status: Acute (13) DVT prophylaxis: Status: Acute Discharge Plan Disposition Patient Disposition: [facility] Condition: Serious Discharge Details Reason For Visit: ALTERED MENTAL STATUS,PNA,UTI Admit Date/Time: 08/12/18 16:42 Admit Provider: Ferny Mendez Attending Provider: Ferny Mendez Primary Care Provider: Shaunna Bonilla Hospital Course Hospital Course: Mrs. Cary is a 57 year old female with a past medical history significant for COPD, CAD, previous NSTEMI with Stent, DM, HTN and Spondylitis with recent Cervical Spine surgery on 08/07 at [facility] [place] who [place] [facility] [place]hab at [facility] and then transferred to the ED here at [facility] on 08/12/18 for altered mental status that was progressively worsening. In the ED, she had a CT head that did not show an acute process. CT abdomen and pelvis showed Left lower lobe infiltrate, possibly representing atelectasis or pneumonia and a small left pleural effusion. She was initiated on antibiotic for HCAP with Vancomycin and Cefepime. Flexeril and oxycodone were discontinued for concern that they could possibly be contributing to her confusion. Her urine was positive for leukocytes and nitrites, she was initially thought to be covered with Vanco and cefepime, however, her urine grew Enterobacter Cloacae Complex, multi-drug resistant. The Cefepime was changed to meropenem. Her mental status did not improve. She continued to be intermittently confused. She has intermittent dizziness and nausea. New catheter was placed in the ED. Her altered mental status appears to be out of proportion to her medical issues which is concerning in the setting of recent cervical spine surgery. She remains oriented x1-2 after 2 days of hospitalization. Unfortunately, we do not have access to MRI (as our machine is down), EEG or Neurologist to fully work her up. This prompted a call to [facility] neurology, who has accepted her back in transfer. She will transfer back to [facility] via ambulance today for a higher level of care where they have specialists including Neurology and imaging including MRI and EEG available. She has had a [place] J collar in place and it needs to remain in place at all times per Neurology. Home Meds and New Rx's Prescriptions: No Action oxycodone 5 mg Tablet 5 - 10 mg PO Q4H PRNRF: 0 acetaminophen 500 mg Tablet 1,000 mg PO Q8H RF: 0 amlodipine 10 mg Tablet 10 mg PO DAILY RF: 0 aspirin [Aspir-81] 81 mg Tablet,Delayed Release (Dr/Ec) 81 mg PO DAILY RF: 0 atorvastatin 80 mg Tablet 80 mg PO HS RF: 0 bupropion HCl 150 mg Tablet Extended Release 24 Hr 150 mg PO DAILY RF: 0 carvedilol 25 mg Tablet 25 mg PO BID RF: 0 clopidogrel 75 mg Tablet 75 mg PO DAILY RF: 0 cyclobenzaprine 10 mg Tablet 10 mg PO Q8H RF: 0 bisacodyl [Dulcolax (bisacodyl)] 10 mg Suppository 10 mg [place] PRN PRNRF: 0 fluticasone propionate 50 mcg/actuation [place],Suspension 1 spray Intranasal QAM RF: 0 furosemide 40 mg Tablet 40 mg PO BID RF: 0 insulin glargine 100 unit/mL (3 mL) Insulin Pen 35 unit subcut HS RF: 0 insulin lispro 100 unit/mL Insulin Pen 0 - 4 unit subcut DIRECTED RF: 0 levothyroxine 100 mcg Tablet 200 mcg PO DAILY RF: 0 Lyrica 200 mg Capsule 200 mg PO DAILY RF: 0 magnesium oxide 400 mg magnesium Tablet 400 mg PO QAM RF: 0 melatonin 10 mg Tablet 10 mg PO HS RF: 0 metformin 1,000 mg Tablet 2,000 mg PO QAM RF: 0 polyethylene glycol 3350 [Miralax] 17 gram/dose Powder 17 g PO Q12H PRNRF: 0 magnesium hydroxide [Milk of Magnesia] 400 mg/5 mL Suspension 30 ml PO HS PRNRF: 0 pramipexole [Mirapex] 0.5 mg Tablet 0.5 mg PO TID RF: 0 oxybutynin chloride 5 mg Tablet 5 mg PO BID RF: 0 paroxetine HCl 40 mg Tablet 40 mg PO DAILY RF: 0 potassium chloride 20 mEq Tablet Extended Release 20 meq PO QAM RF: 0 ropinirole 1 mg Tablet 1 mg PO TID RF: 0 sennosides-docusate sodium [Senna Plus] 8.6-50 mg Tablet 2 tab PO Q12H PRNRF: 0 sitagliptin 100 mg Tablet 100 mg PO DAILY RF: 0 triamcinolone acetonide 0.5 % Ointment 1 applic topical TID RF: 0 calcium carbonate [Tums E-X] 300 mg (750 mg) Tablet,Chewable 750 mg PO PRN PRNRF: 0 cholecalciferol (vitamin D3) 50,000 unit Capsule 50,000 unit PO QAM RF: 0 Discharge Instructions Activity:: Per Neurology Diet:: Heart healthy Exam Narrative Exam Narrative: General: laying in bed with HOB elevated, [place] J collar in place, oriented to self and place, not time. HEENT: PERRLA, mucous membranes slightly dry. Neck: Collar in place at all times. Respiratory: respirations even and unlabored, lung sounds diminished throughout, no rales or wheezing. Cardiovascular: Heart has regular rate and rhythm, no murmur appreciated. GI: abdomen soft, nontender, normoactive bowel sounds. Extremities: right arm more weak than left, moves left arm freely. Right hand grasp weak. Moves bilateral lower extremities equally. Neurological: Intermittent confusion, Pupils equal round and reactive to light, tongue protrudes midline, right arm weak, right hand grasp weak as above (reports this is her baseline). Sensation intact. DS: Data Vitals/I&O Vitals and I&O: Vital Signs Temperature 37 C 08/14/18 15:56 Temperature Source Tympanic 08/14/18 15:56 Pulse 59 L 08/14/18 15:56 Pulse Rhythm Regular 08/14/18 08:00 Pulse 71 08/12/18 17:40 Respiratory Rate 20 08/14/18 15:56 Respiratory Effort 08/14/18 08:00 Respiratory Depth Normal 08/14/18 08:00 Respiratory Pattern Normal 08/14/18 08:00 Blood Pressure 131/75 08/14/18 15:56 Blood Pressure Mean 92 08/12/18 17:30 Blood Pressure Position Supine 08/12/18 13:23 Pulse Oximetry 91 L 08/14/18 15:56 Oxygen Delivery Method Room Air 08/14/18 15:56 Oxygen Flow Rate 0 08/14/18 15:56 Pain Level 8 08/14/18 11:56 Intake & Output 08/13/18 08/14/18 08/14/18 23:59 11:59 23:59 Intake Total 1704.167 / 3202.084 2740.833 / 3480.833 740 / 3480.833 Output Total 2100 / 2400 500 / 2200 1700 / 2200 Balance -395.833 / 862.797 6970.833 / 1280.833 -960 / 1280.833 Weight 129.6 kg Intake: IV 1704.167 / 3202.084 2620.833 / 3120.833 500 / 3120.833 Oral 120 / 360 240 / 360 Output: Urine 2100 / 2400 500 / 2200 1700 / 2200 Other: Urine Color Yellow Pale Yellow Straw Urine Appearance Clear Clear Clear Stool Size Large Stool Characteristics Soft Formed Completed studies during hospitalization [Text1]: 08/12/18: CT BRAIN, NONCONTRAST: No priors. The ventricles and sulci are consistent with the patient's age. No acute intracranial hemorrhage, infarct, midline shift or mass effect is identified. The ventricles are intact. The basilar cisterns are patent. The visualized paranasal sinuses are clear. The mastoid air cells appear well pneumatized. The calvarium is intact. IMPRESSION: No acute intracranial process. CT SCAN OF THE ABDOMEN AND PELVIS: CT scan of the abdomen and pelvis was performed following the uneventful administration of intravenous contrast material. There is patient motion artifact, which limits the evaluation of the examination. There is a large area of consolidation involving the left lower lobe. There is a small left pleural effusion present. The liver is normal in size. No suspicious hepatic mass is seen. The portal, superior mesenteric and splenic veins are patent. The patient is status post cholecystectomy. No biliary ductal dilatation is present. The pancreas, spleen and adrenal glands are unremarkable. The kidneys show normal and symmetric enhancement. No evidence of a solid renal mass or obstruction. The urinary bladder is intact. There is a [place] catheter in place. The reproductive organs are unremarkable. The bowel shows no evidence of obstruction or inflammation. No findings to suggest an acute appendicitis are present. There is a fat- containing anterior abdominal wall hernia. There is atherosclerosis of the abdominal aorta, but no significant aneurysmal dilatation is seen. No significant abdominal or pelvic adenopathy, ascites or pneumoperitoneum is present. Degenerative changes are seen throughout the spine. IMPRESSION: Left lower lobe infiltrate, which may represent atelectasis or pneumonia. Small left pleural effusion. PORTABLE AP CHEST: There is cardiomegaly. Pulmonary vasculature is within normal limits. No definite focal consolidating infiltrate is seen on this chest xray. The left lower lobe infiltrate is best appreciated on the CT scan of the abdomen and pelvis. No gross effusions or pneumothoraces are identified. IMPRESSION: No acute pulmonary process. Please refer to the CT scan of the abdomen and pelvis from earlier in the day. Labs on day of discharge: Labs from last 24 hours 08/14/18 08/14/18 08/14/18 10:55 07:30 07:30 WBC 8.57 RBC 4.04 Hgb 9.9 L Hct 32.0 L MCV 79.2 L MCH 24.5 L MCHC 30.9 L RDW 18.5 H Plt Count 294 MPV 9.0 Immature Gran % 0.4 Neutrophils % 76.3 Lymphocytes % 12.4 Monocytes % 9.3 Eosinophils % 1.2 Basophils % 0.4 Absolute Neutrophils 6.55 Absolute Lymphocytes 1.06 L Absolute Monocytes 0.80 H Absolute Eosinophils 0.10 Absolute Basophils 0.03 Sodium 139 Potassium 3.5 Chloride 104 Carbon Dioxide 26.1 Anion Gap 8.9 BUN 16 Creatinine 0.68 Estimated GFR/1.73 m2 >= 60.00 Glucose 133 H Calcium 8.7 Magnesium 1.9 Urine Color Urine Clarity Urine pH Ur Specific [place] Urine Protein Urine Ketones Urine Blood Urine Nitrite Urine Bilirubin Urine Urobilinogen Ur Leukocyte Esterase Urine RBC Urine WBC Ur Epithelial Cells Urine Crystals Urine Bacteria Urine Casts Urine Mucus Ur Culture Indicated? Urine Glucose Vancomycin Trough 18.1 08/12/18 14:30 WBC RBC Hgb Hct MCV MCH MCHC RDW Plt Count MPV Immature Gran % Neutrophils % Lymphocytes % Monocytes % Eosinophils % Basophils % Absolute Neutrophils Absolute Lymphocytes Absolute Monocytes Absolute Eosinophils Absolute Basophils Sodium Potassium Chloride Carbon Dioxide Anion Gap BUN Creatinine Estimated GFR/1.73 m2 Glucose Calcium Magnesium Urine Color Yellow Urine Clarity Sl cloudy Urine pH 6.0 Ur Specific [place] 1.020 Urine Protein Negative Urine Ketones Negative Urine Blood Trace-intact H Urine Nitrite Positive H Urine Bilirubin Negative Urine Urobilinogen 0.2 Ur Leukocyte Esterase Moderate H Urine RBC 3-5 H Urine WBC >50 Ur Epithelial Cells Moderate Urine Crystals Negative Urine Bacteria Moderate Urine Casts Negative Urine Mucus Negative Ur Culture Indicated? Yes Urine Glucose Negative Vancomycin Trough Preliminary micro results at discharge 08/12/18 16:35 Blood Culture - Preliminary Blood NO GROWTH 24 HOURS 08/12/18 16:25 Blood Culture - Preliminary Blood NO GROWTH 24 HOURS [facility] Medical History Acute on chronic diastolic (congestive) heart failure (Acute) Acute pancreatitis (Acute) Adult hypothyroidism (Acute) Atherosclerotic heart disease of [place] coronary artery with angina pectoris (Acute) Benign neoplasm (Acute) History of non-ST elevation myocardial infarction (NSTEMI) (Acute) Localized edema (Acute) Mixed incontinence (Acute) Morbid (severe) obesity due to excess calories (Acute) Nicotine dependence (Acute) Spondylosis of cervical spine (Acute) Type 2 diabetes mellitus (Acute) Urinary tract infection (Acute) NSTEMI (non-ST elevated myocardial infarction) (Acute) CAD (coronary artery disease) (Chronic) COPD (chronic obstructive pulmonary disease) (Chronic) Surgical History Hx of laminectomy (Acute) Social History Smoking/Tobacco Use Status: Current every day Tobacco Type: cigarettes Tobacco: How many years used: 48
--- NOTE | 2018-08-15 08:16 | OT.INDS ---
Date of service: 08/15/18 Time of Service: 08:16 Occupational Therapy Notes Occupational Therapy Inpatient Discharge Summary Dates of Service: 08/13/18-08/15/18 Date: 08/15/18 for 08/14/18 Referring Doctor:Radhika Herrera NP OT Orders: Deconditioning Precautions: Fall, Standard PATIENT PROFILE/ADMITTING DIAGNOSIS: Pt is a 57 year old female admitted 08/12/18 from [facility] and rehab for altered mental status. He recently had a cervical fusion from C1-T1 and was at rehab for this condition. She was admitted to [facility] with HCAP and UTI. Past Medical History: Acute on chronic diastolic (congestive) heart failure (Acute). Acute pancreatitis (Acute). Adult hypothyroidism (Acute). Atherosclerotic heart disease of [place] coronary artery with angina pectoris (Acute). Benign neoplasm (Acute). History of non-ST elevation myocardial infarction (NSTEMI) (Acute). Hx of laminectomy (Acute). Localized edema (Acute). Mixed incontinence (Acute). Morbid obesity due to excess calories (Acute). Nicotine dependence (Acute). Spondylosis of cervical spine (Acute). Type 2 diabetes mellitus (Acute). Urinary tract infection (Acute). NSTEMI (non-ST elevated myocardial infarction) (Acute). CAD (coronary artery disease) (Chronic). COPD (chronic obstructive pulmonary disease) (Chronic) Social History/Home Situation: Pt lived at [facility] prior to admission and in [place] in a assisted home prior to that. She would like to return when medically cleared per MD. Prior to admission she had numbness and tingling in (B) hands and feet [id number] and reports that for the most part she was (I) in her ADL/IADL routine. Equipment owned/DME: FWW, resides in assisted living THIS DOCUMENT SERVES A SUMMARY OF CARE NO SKILLED OT SERVICES PROVIDED FOR THIS DOCUMENTATION SUBJECTIVE: NT OBJECTIVE: General Observation: O2 nasal cannula, IV (R) UE Mental Status: Alert to name and place Pain: pt c/o 10/10 pain throughout full body at initial evaluation ROM: Taken at Initial Evaluation RUE AROM shoulder to 30*, pt denied PROM stating her shoulders are too painful, hand able to flex and extend digits. L UE AROM shoulder to 30*, pt denied PROM stating her shoulders are too painful, hand able to flex and extend digits. STRENGTH:Taken at initial evaluation RUE Unable to test shoulder flexion d/t pain, elbow 2/5, supervisor meter repair shop is weak LUE shoulder flexion 3-/5, bicep 3/5, supervisor meter repair shop is weak but stronger than (R) SENSATION: Pt intact to sensation to (L) UE, she was unable to feel OT touching digits on (R) UE. FUNCTIONAL MOBILITY/ADLS: NT BALANCE: Unable to test ASSESSMENT: Patient is a 57-year-old female referred to occupational therapy services with diagnosis of HCAP and UTI s/p cervical fusion and short stay at [facility]. Pt was seen for OT eval only. Due to this pt was unable to meet OT goals set for pt at initial evaluation. Pt was transferred on 08/14/18 to [facility] for increased medical needs. GOALS NOT MET, pt was seen for OT initial evaluation only. 1. Transfers Mod (A), FWW 2. Dressing Min (A) sitting in chair for UE/LE dressing routine. 3. Bathing Mod (A) sitting in chair for UE/LE bathing routine 4. Toileting Mod (A) toileting on toilet 5. Eating Min (A) eating sitting on side of bed 6. Sitting in chair with max (A) set up min (A) brushing teeth. PLAN OF CARE/TREATMENT PLAN: Pt was transferred to [facility] for continued care d/t increased medical needs. DISCHARGE RECOMMENDATIONS Transferred to [facility] for increased medical needs. TREATMENT TIME/MINUTES/CODES N/A Sarika Mendez, OTR/L [facility]
--- NOTE | 2018-08-15 11:28 | INDS_ITS ---
Date of service: 08/14/18 PT Notes Inpatient Physical Therapy Discharge Summary Dates: 08/14/18 Dates of Service: 08/13/18-08/14/18 Referring Doctor: Radhika Herrera NP PT Orders: PT CONSULT: deconditioning Precautions: fall, standard Patient Profile/Admitting Diagnosis: Patient admitted 08/12/2018 from [facility] and rehab due to altered mental status. She has been rehabilitating at [facility] after undergoing cervical laminectomy and fusion 08/07/2018 at [facility]. She was admitted to [facility] with healthcare acquired pneumonia and UTI. PMHX: Acute on chronic diastolic (congestive) heart failure (Acute). Acute pancreatitis (Acute). Adult hypothyroidism (Acute). Atherosclerotic heart disease of [place] coronary artery with angina pectoris (Acute). Benign neoplasm (Acute). History of non-ST elevation myocardial infarction (NSTEMI) (Acute). Hx of laminectomy (Acute). Localized edema (Acute). Mixed incontinence (Acute). Morbid obesity due to excess calories (Acute). Nicotine dependence (Acute). Spondylosis of cervical spine (Acute). Type 2 diabetes mellitus (Acute). Urinary tract infection (Acute). NSTEMI (non-ST elevated myocardial infarction) (Acute). CAD (coronary artery disease) (Chronic). COPD (chronic obstructive pulmonary disease) (Chronic) Social History/Home Situation: Patient has resided at [facility] for the past 2 years. She hopes to return there once she is ambulatory. She plans to return to health and rehab following discharge from acute care. Current Functional Limitations: Patient reports that she utilizes a FW W at baseline. Reports that she has not walked since surgery. Equipment Owned/DME: [employer], resides in assisted living Subjective: patient complains of B shoulder pain when sitting at EOB with her shoulders hanging and with palpation. Objective: General Observation: Patient resting in bed with [place] J cervical collar in place. She has a Montgomery catheter, and a drain at the base of her surgical dressing. Her dressing extends to the mid thoracic spine. Mental Status: A&Ox3 Pain: Patient reports severe pain in neck and right shoulder, pain extending down right arm in non-specific pattern (all of it) ROM: Right Upper Extremity: PROM allows shoulder flexion to 90 degrees, limited by pain. Elbow and wrist motion full passively. Left Upper Extremity: PROM allows flexion to 100 degrees, limited by pain. Elbow and wrist motion full passively. Right Lower Extremity: WFL Left Lower Extremity: WFL Strength: Right Upper Extremity: Shoulder flexion 2/5. Biceps 2/5. Triceps 3/5. Steam Clean Machine Operator is full, but weak compared to left. Wrist extension 3-/5. No atrophy noted throughout the RUE, although this is difficulty to assess due to body habitus. Left Upper Extremity: Shoulder flexion 3-/5. Biceps 3/5. Triceps 3+/5. Wrist extension 3+/5. Right Lower Extremity: Functionally, patient is able to perform a limited SLR w ith slight extension lag. In seated position she demonstrates 3/5 quad strength. Ankle dorsiflexion is 3/5 or greater. Hamstrings 3/5. Hip abduction 2/5. Left Lower Extremity: Functionally, patient is able to perform a limited SLR with slight extension lag. In seated position she demonstrates 3/5 quad strength. Ankle dorsiflexion is 3/5 or greater. Hamstrings 3/5. Hip abduction 2/5. Sensation: intact distally Bed Mobility/Transfers: Supine to sit: Mod assist of 2 and significantly increased time to perform, with patient requiring max cues and encouragement throughout Sit to stand: Mod assist of 2 with bed elevated, and assistance to right upper extremity for placement to FW W Stand to sit mod assist of 2, with max cues Gait: BUSINESS DEVELOPMENT AGENT documentation on 0n 08/14/18, patient is able to do 5 steps using FWW with CGA without compliants of pain. Balance: Static Sitting: Good Dynamic Sitting: Fair Static Standing: Fair Dynamic Standing: Fair Special Tests: Mobility Limitations Standardized Measure [facility] AM-PAC 6 clicks Basic Mobility Inpatient Short Form: Raw Score: 17 CMS Score: 51% deficit Assessment: Patient is a 57 year old female referred to physical therapy services with the diagnosis of deconditioning. Patient presents with clinical signs and symptoms consistent with diagnosis, with complicated medical history leading up to her admission. Patient has baseline mobility deficits, and resides in an assisted living facility. Her mobility has significantly declined after a recent cervical laminectomy and fusion, and she is extremely apprehensive about increasing her functional mobility. She has now been admitted in acute care due to health care acquired pneumonia and UTI, further impacting her mobility limitations. She requires skilled PT intervention to maximize her mobility and encourage activity to reduce risk for further decline. She currently demonstrates the following impairment level findings: 1. Decreased strength right upper extremity 2. Decreased range of motion bilateral upper extremities 3. Decreased activity tolerance 4. Poorly controlled pain 5. Decreased lower extremity strength 6. Decreased balance Impairments are contributing to the following functional limitations: 1. Unable to perform independent bed mobility 2. Unable to independently transfer 3. Unable to ambulate without assist 4. High fall risk Per MD notes, patient is discharged to [facility] via ambulance today for a higher level of care where they have specialists including Neurology and imaging including MRI and EEG available. Goals: Goals X1 week 1. Supine-Sit : mod A x 1 MET 2. Sit-Supine: mod A x 1 NOT MET 3. Sit-Stand : mod A x 1 MET 4. Stand-Sit : mod A x 1 MET 5. Bed-Chair: mod A x 1 with FWW MET 6. Chair-Bed: mod A x 1 with FWW MET 7. Gait: mod A x 1 with FWW x 20' NOT MET DISCHARGE RECOMMENDATIONS: Will return to [facility] once appropriate. Has a FWW. No other equipment needs anticipated. TREATMENT CODE/TIME: N/A Billie Pendleton, PT, DPT, CLT [facility]
== END 2018-08-14 18:59 | disposition short-term general hospital (02) | DRG 190 ==
LOC: ER 17:53 → MS 18:01
PROVIDERS: Nurse Practitioner Family; Admitting Provider Internal Medicine; Emergency Provider Student in an Organized Health Care Education/Training Program; Visit Provider Internal Medicine
DX: J18.9 Pneumonia, unspecified organism; N39.0 Urinary tract infection, site not specified; J98.11 Atelectasis; Y95 Nosocomial condition; B95.2 Enterococcus as the cause of diseases classified elsewhere; R11.0 Nausea; E86.0 Dehydration; M94.0 Chondrocostal junction syndrome [Tietze]; E11.9 Type 2 diabetes mellitus without complications; M46.92 Unspecified inflammatory spondylopathy, cervical region; A49.02 Methicillin resistant Staphylococcus aureus infection, unspecified site; I10 Essential (primary) hypertension; J44.0 Chronic obstructive pulmonary disease with (acute) lower respiratory infection; F17.210 Nicotine dependence, cigarettes, uncomplicated; Z71.3 Dietary counseling and surveillance; Z96.0 Presence of urogenital implants; Z79.4 Long term (current) use of insulin; Z95.5 Presence of coronary angioplasty implant and graft; Z98.890 Other specified postprocedural states
CPT/HCPCS: 36410; 36415; 51702; 80048; 80053; 87040; 87077; 87081; 93005; 97110; 97163; 97167; 97530; 99223; 99233; 99239; 99285; J1650; 70450; 71045; 74177; 80202; 81003; 81015; 83605; 83735; 84484; 85025; 87086; 87186; 93010; J0131; J1956; J3370; J3490

== ENCOUNTER 2019-11-22 20:17 | Inpatient (IN) | payer MEDICARE, MEDICAID, SELFPAY ==
[2019-11-22] VITALS (7 sets, daily range): BP systolic 125–152; BP diastolic 68–79; PULSE 0–101; RESP 14–35; TEMP 37.7–39.3; O2SAT 92–97
[2019-11-22] MEDS: Normal Saline 1,000 ML 1000 ML IV (20:30)
--- NOTE | 2019-11-22 20:37 | ED.GENADUL_ITS ---
Discharge Plan Disposition Patient Disposition: [facility] INPATIENT Condition: Stable Discharge Details Chief Complaint: Fever Clinical Impression: CAP (community acquired pneumonia) Primary Care Provider: Unknown,Unknown ED Provider: Jan Giraldo Medical Decision Making 59 yo female with hx of prior CAD per pt, emphysema with continued smoking, who comes in with shortness of breath starting tonight and had fever with ems and arrives still febrile. She arrives HD stable with RR of 22 on my exam with o2 saturation of 88%. She is able to speakin full sentences during exam, does note general weakness nothing focal on exam. She denies chest pain or travel. Did move here from [facility] July. She has diminished breath sound at the bases bilaterally otherwise no wheezing noted. Given her symptoms concern for pna vs possible covid19, will obtain lab work and also cxr and monitor. labs show creatinine of 1.2 unclear if this is new or not, mag 1.4, lactate mildly elevated at 1.8. HAd 1.2 liters in bladder with huang placed by nursing and has had retention issues in the past per pt. Xray shows likely infiltrate, denies admission to hospitals in the last 3 months so CAP coverage ordered. Given o2 requirement will admit, spoke with Dr. Nails who accepts Differential Diagnosis Differential Diagnosis: pna, covid19, uti Imaging Data Radiologic Study: Attestation: I personally reviewed and interpreted this imaging study as follows: Imaging: X-Ray Radiologist's impression: IMPRESSION: 1. Cardiomegaly and pulmonary vascular congestion. 2. Bibasilar atelectasis or infiltrate. Lab Data Lab results reviewed: Yes I reviewed the patient's lab results. ECG Data Attestation: I personally reviewed and interpreted this ECG (s) as follows: Prior ECG tracings: not available for review Interpretation: sinus rhythm, rate of 97, pr 162, qtc 450 HPI General Mode of arrival: EMS . Date/Time Provider Initiated Documentation: 11/22/19 20:18 . Limitations to Documentation: no limitations . Information obtained by: patient . History of Present Illness 59 year old F presents to the emergency department with the chief complaint of short of breath, described as moderate, and it has been constant. No relieving fac tors improve symptom(s), No exacerbating factors reported . Patient did receive the following treatments prior to arrival, none General Stated Complaint: Fever GABBY: 2 Review of Systems All systems reviewed & are unremarkable except as noted in HPI and below Constitutional Constitutional: Denies chills and Denies weakness Cardiovascular Cardiovascular: Denies chest pain Gastrointestinal Gastrointestinal: Denies abdominal pain, Denies nausea and Denies vomiting Genitourinary Genitourinary: Denies dysuria Integumentary/Breasts Skin/Breast: Denies rash Neurologic Neurologic: Denies weakness Psychiatric Psychiatric: Denies depression Endocrine Endocrine: Denies heat intolerance [facility] Social History Smoking/Tobacco Use Status: Current every day Tobacco Type: cigarettes Alcohol Intake: never Drug use: Occasionally Substance use type: marijuana Do you feel safe at home: Yes Do you feel safe in your relationship?: Yes Exam Const General: no acute distress Orientation: alert HENMT Head: normal to inspection Ears: external ears normal General nose exam: external nose normal Mouth: moist mucous membranes Eyes General: appearance normal, both eyes and all related structures Neck Neck: normal visual inspection Resp Effort & Inspection: normal respiratory effort Cardio Rate: regular rate Skin General skin exam: no rashes or lesions noted Neuro General: patient alert and patient oriented x3 Extrem General: normal to inspection Psych Mental Status: mental status grossly normal Course Vital Signs Vital signs: Vital Signs Temperature 39.3 C H 11/22/19 20:23 Pulse 97 H 11/22/19 20:23 Respiratory Rate 35 H 11/22/19 20:23 Blood Pressure 152/79 H 11/22/19 20:23 Pulse Oximetry 95 11/22/19 20:23 Temperature 39.3 C H 11/22/19 20:23 Temperature Source Oral 11/22/19 20:23 Pulse 97 H 11/22/19 20:23 Respiratory Rate 35 H 11/22/19 20:23 Respiratory Effort 11/22/19 20:27 Blood Pressure 152/79 H 11/22/19 20:23 Blood Pressure Position Supine 11/22/19 20:23 Pulse Oximetry 95 11/22/19 20:23 Oxygen Delivery Method Room Air 11/22/19 20:23 Oxygen Flow Rate 0 11/22/19 20:23 End Tidal Co2 86 11/22/19 20:23 Lab/Test Results Lab/Test Results: 11/22/19 20:19 Blood Blood Culture - Pending 11/22/19 20:19 Blood Blood Culture - Pending
[2019-11-22 20:49] LABS: BE (Venous) 4.5 mmol/L (-3-3); HCO3 (Venous) 29 mmol/L (22-28); O2 Sat (Venous) 55 % (70-80); TCO2 (Venous) 27 mmol/L (22-29); pCO2 (Venous) 48 mm/Hg (34-47); pH (Venous) 7.39 (7.35-7.45); pO2 (Venous) 29 mm/Hg (28-44)
[2019-11-22 20:50] LABS: Abs Immature Grans 0.01 k/cumm (0.0-0.09); Absolute Eosinophil Count 0.05 k/cumm (0.0-0.7); Absolute Lymphocyte Count 0.29 k/cumm (1.2-3.4); Absolute Monocyte Count 0.02 k/cumm (0.11-0.7); Absolute Neutrophil Count 3.96 k/cumm (1.2-6.7); Eosinophils % 1.2; HCT 41.3 % (36.0-46.0); HGB 13.1 g/dL (12.0-15.5); Immature Grans % 0.2 %; Lymphocytes % 6.7; Mean Corp. HGB Concentration 31.7 g/dL (32.0-36.0); Mean Corpuscular Hemoglobin 25.8 pg (27.0-33.0); Mean Corpuscular Volume 81.3 fL (80-95); Mean Platelet Volume 10.2 fL (8.0-11.0); Monocytes % 0.5; Neutrophils % 91.4; Platelet Count 185 x1000/uL (130-400); RBC 5.08 m/cumm (4.00-5.20); White Blood Cell Count 4.33 k/cumm (4.4-10.8)
--- NOTE | 2019-11-22 20:51 | DI.RAD_ITS ---
EXAM: XR PORTABLE CHEST AP CLINICAL HISTORY: short of breath, fever TECHNIQUE: 2D digital imaging was performed. COMPARISON: No exams were available for comparison FINDINGS: The heart is mildly enlarged. The pulmonary vasculature is mildly prominent. No focal consolidating infiltrates or effusions are seen. There is no pneumothorax. The bones are intact. Postsurgical c hanges are seen in the lower cervical spine. IMPRESSION: Mild cardiomegaly and pulmonary venous congestion. DATA REPOSITORY: RADIATION DOSE DELIVERED:
[2019-11-22 20:52] LABS: Lactate 2.1 mmol/L (0.6-1.4)
--- NOTE | 2019-11-22 21:12 | DI.VRAD_ITS ---
PROCEDURE INFORMATION: Exam: XR Chest, 1 View Exam date and time: 11/22/2019 8:52 PM Age: 59 years old Clinical indication: Fever and shortness of breath TECHNIQUE: Imaging protocol: XR of the chest Views: 1 view. COMPARISON: No relevant prior studies available. FINDINGS: Lungs: There is prominence of the interstitial markings. Mild bibasilar opacities. There is peribronchial thickening. Pleural space: No pleural effusion. No pneumothorax. Heart/Mediastinum: The heart is enlarged. Diaphragm: There is elevation of the right hemidiaphragm. Bones/joints: Postsurgical changes are seen within the cervical spine. IMPRESSION: 1. Cardiomegaly and pulmonary vascular congestion. 2. Bibasilar atelectasis or infiltrate. Dictated and Authenticated by: Oscar Burgos MD. Ordering:HUDSON Montoya MD
[2019-11-22 21:13] LABS: ALT 20 U/L (14-59); AST 20 U/L (15-37); Albumin 3.8 g/dL (3.4-5.0); Alkaline Phosphatase 96 U/L (46-116); Anion Gap 8.1 mmol/L (3-11); BUN 16 mg/dL (7-18); CO2 28.9 mmol/L (21.0-32.0); CREATININE 1.29 mg/dL (0.55-1.02); Calcium 9.4 mg/dL (8.5-10.1); Chloride 101 mmol/L (98-107); Glucose 128 mg/dL (74-106); INR 1.1 (0.9-1.1); Magnesium 1.4 mg/dL (1.8-2.4); PTT Activated 24.1 sec (21.0-31.4); Potassium 4.3 mmol/L (3.5-5.1); Sodium 138 mmol/L (136-145); Total Protein 8.8 g/dL (6.4-8.2)
[2019-11-22 21:31] LABS: Bilirubin Negative (Negative); Blood Small (Negative); Clarity Sl Cloudy (Clear); Glucose Negative (Negative); Ketones Negative (Negative); Leukocyte Esterase Small (Negative); Nitrite Positive (Negative); Urobilinogen 0.2 EU/dL (Up TO 0.2)
[2019-11-22 21:40] LABS: Bacteria Few HPF (Negative); C & S Indicated? C&S Done As Ordered; Casts Negative LPF (Negative); Crystals Negative HPF (Negative); Epithelial Cells Rare HPF (Negative); Mucus Negative (Negative); Other Cells Negative (Negative)
--- NOTE | 2019-11-22 21:48 | HPE_ITS ---
Date of service: 11/22/19 Time of Service: 21:48 Assessment and Plan Assessment and plan (1) CAP (community acquired pneumonia): Start date: 11/22/19 Status: Acute Assessment and plan: This is a 59-year-old lady with acute respiratory illness who is a smoker on no chronic respiratory treatments. She is acutely hypoxic with a cough and high fever. Chest x-ray does reveal possible bilateral lower lobe infiltrates. And also suggest possible pulmonary congestion and cardiomegaly with the patient appearing dry acutely with poor intake with her acute illness. We will start on IV antibiotic therapy for community acquired pneumonia with Rocephin and Zithromax along with O2 supplementation and IV steroid treatment because of her history of smoking and acute hypoxemia. She also will be gently IV hydrated with her Lasix and potassium being held. Steroids will cover probable COPD exacerbation and may also be beneficial if she does have COVID-19. We will need to manage steroid-induced hyperglycemia with a history of diabetes and medications being held with mealtime and at bedtime short acting insulin sliding scale coverage for now. Patient is a full code. Qualifiers: Laterality: unspecified laterality Qualified Code(s): J18.9 - Pneumonia, unspecified organism (2) Acute UTI: Start date: 11/22/19 Status: Acute Assessment and plan: Associated with urinary retention with patient not having a Montgomery catheter placed to drain her bladder and IV antibiotic therapy for her pneumonia will cover this with urine culture pending. She also had blood cultures which will be followed up. (3) Urinary retention: Start date: 11/22/19 Status: Acute Assessment and plan: Continue Montgomery catheter for decompression. This will be removed soon as possible with patient having a UTI. Temporarily the Montgomery will help monitor her intake and output while we gently IV hydrate with a question of whether she has cardiomyopathy chronically. Her Lasix is being held. (4) Diabetes type 2, controlled: Status: Chronic Assessment and plan: Watch for hyperglycemia with the patient on IV steroids and hold her usual diabetes treatment with sliding scale of short- acting insulin for mealtime and nighttime coverage at least during her first 24 to 40 hours of hospital care. 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 She does continue to smoke tobacco and on the day of admission presented to the ED with shortness of breath, hypoxemia and fever. She was transferred via EMS to the ED. She states that she has had no travel and no one has been visiting the facilities where she lives who has traveled. He has not been hospitalized recently. She is on no respiratory treatments and never has required oxygen. She does have a history of CAD status post PTCA and stenting but denies any history of CHF though she does have chronic Lasix therapy for peripheral edema. She is obese and quite sedentary. She is a poor historian and there were no documentation of medical care or history available when she was admitted through the ED. In the ED she responded to O2 supplementation and was found to have urinary retention with greater than 1000 cc in her bladder with a Montgomery catheter placed. Imaging did reveal probable bilateral infiltrates but a question of pulmonary congestion and cardiomegaly with patient not aware of overt CHF though she is on a medical regimen which would indicate cardiomyopathy. She also was found to have a UTI with her urinary retention. She was started on IV antibiotic therapy and continued on O2 supplementation with Montgomery catheter for bladder drainage with the patient possibly slightly dehydrated though her chest x-ray revealed pulmonary congestion. She was placed on IV hydration for that she had not been eating or drinking well for last couple days on her usual regimen of Lasix with potassium supplement. She was found to have a low magnesium and IV magnesium was given in the ED. When I visited the patient she was still slightly lethargic and dry appearing but able to have some conversation. She denies any chest pain and at the time I saw her she was not dyspneic at rest. She did have a cough which was slightly moist. She has PUI with her presentation of an upper respiratory infection with hypoxemia and infiltrates as well as fever but lab revealing a low procalcitonin and WBC. COVID-19 testing was performed upon admission. She will be an respiratory isolation until confirmation of this test is received. She was given IV steroids in the ED and this will be continued with bronchodilators be given with an HFA as needed. Review of Systems Narrative: 13 point review of systems otherwise unrevealing or unobtainable with the patient being a poor historian. [facility] Medical History (Updated 11/23/19 @ 02:19 by Marvin Rajan) Anemia (Chronic) CAD (coronary artery disease), [place] coronary artery (Acute) Depression (Chronic) Diabetes type 2, controlled (Chronic) Hyperlipidemia (Acute) Hypothyroidism (acquired) (Acute) Insomnia (Acute) Neuropathy (Acute) Restless leg syndrome (Acute) Tobacco dependence due to cigarettes (Acute) Surgical History (Updated 11/23/19 @ 01:57 by Marvin Rajan) History of (Chronic) S/P PTCA (percutaneous transluminal coronary angioplasty) (Acute) S/P spinal surgery (Acute) Social History Smoking/Tobacco Use Status: Current every day Tobacco Type: cigarettes Alcohol Intake: never Drug use: Occasionally Substance use type: marijuana Do you feel safe at home: Yes Do you feel safe in your relationship?: Yes Meds Home Medications and Allergies Home Medications Medication Instructions Recorded Confirmed Type acetaminophen [Tylenol] 650 mg PO TID 11/22/19 11/22/19 History amlodipine 10 mg PO DAILY 11/22/19 11/22/19 History aspirin 81 mg PO DAILY 11/22/19 11/22/19 History atorvastatin 80 mg PO DAILY 11/22/19 11/22/19 History bupropion HCl 150 mg PO BID 11/22/19 11/22/19 History carvedilol 25 mg PO BID 11/22/19 11/22/19 History cetirizine [Zyrtec] 10 mg PO DAILY 11/22/19 11/22/19 History cholecalciferol (vitamin D3) 50,000 mcg PO QWEEK 11/22/19 11/22/19 History [Vitamin D3] clopidogrel 75 mg PO DAILY 11/22/19 11/22/19 History ferrous sulfate 324 mg PO DAILY 11/22/19 11/22/19 History fluticasone propionate 2 spray INTRANASAL DAILY 11/22/19 11/22/19 History furosemide 40 mg PO BID 11/22/19 11/22/19 History insulin NPH isoph U-100 human See Protocol SUBCUT TID 11/22/19 11/22/19 History [Novolin N Flexpen] insulin glargine [Lantus U-100 20 unit SUBCUT HS 11/22/19 11/22/19 History Insulin] levothyroxine 225 mcg PO DAILY 11/22/19 11/22/19 History magnesium oxide 400 mg PO HS 11/22/19 11/22/19 History melatonin 10 mg PO HS 11/22/19 11/22/19 History metformin 1,000 mg PO BID 11/22/19 11/22/19 History nystatin 1 applic TOPICAL PRN PRN 11/22/19 11/22/19 History oxybutynin chloride 10 mg PO BID 11/22/19 11/22/19 History paroxetine HCl 60 mg PO DAILY 11/22/19 11/22/19 History potassium chloride 20 meq PO TID 11/22/19 11/22/19 History pregabalin 200 mg PO TID 11/22/19 11/22/19 History quetiapine 25 mg PO HS 11/22/19 11/22/19 History ropinirole 1 mg PO HS 11/22/19 11/22/19 History sitagliptin [Januvia] 100 mg PO DAILY 11/22/19 11/22/19 History Allergies Allergy/AdvReac Type Severity Reaction Status Date / Time bee pollen AdvReac Unverified 11/22/19 21:50 coconut AdvReac Unverified 11/22/19 21:50 latex AdvReac Unverified 11/22/19 21:50 Exam Narrative Exam Narrative: General: Patient appears older than stated age, morbidly obese and obtunded with flattened affect and poor eye contact. She has slowed speech and monotonous tone. There is little variation and affect. She is alert and oriented at least to person and place. He appears in moderate distress from her fever and cough. HEENT: Normocephalic with eyes revealing pupils equal and reactive light symmetrically, extraocular movement intact and sclera anicteric. External ears are normal. Oropharynx with dry oral mucosa. Neck: Supple without JVD. Lungs: Bronchovesicular breath sounds diffusely with decreased aeration at the bases especially on the right and better aeration when auscultated over the anterior chest, no focalizing rales or rhonchi with no expiratory wheeze or increased expiratory phase. Heart: Regular rate and rhythm with distant heart sounds and no appreciable murmur or gallop. Breast: Exam deferred. Back: Stooped posture with no CVA tenderness. Abdomen: Obese contour, soft and nontender to palpation with no palpable hepatosplenomegaly. No guarding. No tympany to percussion. Bowel sounds are positive but hypoactive in all quadrants. Genitalia/rectal: Exam deferred. Extremities: Moderate to severe nonpitting edema over both lower extremities with loss of hair, hyperpigmentation over the ankles with no ulceration but shiny atrophic skin. No cyanosis and no clubbing. Peripheral pulses are decreased with fair capillary refill. Skin: Hot and dry with chronic skin changes over lower extremities as mentioned otherwise no rashes noted. Patient does have actinic changes over sun exposed areas, decreased turgor and rough texture to skin. Neuro: Cranial nerves II through XII appear to be grossly intact, no focalizing motor deficits. Psych: Flattened affect with depressed mood patient obtunded from her acute illness. Remote and recent memory appear to be grossly intact with patient being a poor historian and acutely ill not able to give accurate history at times mostly because of obtundation with fever and cough. Results Imaging Imaging Studies: Exam: XR Chest, 1 View Exam date and time: 11/22/2019 8:52 PM Age: 59 years old Clinical indication: Fever and shortness of breath TECHNIQUE: Imaging protocol: XR of the chest Views: 1 view. COMPARISON: No relevant prior studies available. FINDINGS: Lungs: There is prominence of the interstitial markings. Mild bibasilar opacities. There is peribronchial thickening. Pleural space: No pleural effusion. No pneumothorax. Heart/Mediastinum: The heart is enlarged. Diaphragm: There is elevation of the right hemidiaphragm. Bones/joints: Postsurgical changes are seen within the cervical spine. IMPRESSION: 1. Cardiomegaly and pulmonary vascular congestion. 2. Bibasilar atelectasis or infiltrate. Dictated and Authenticated by: Oscar Burgos MD. Labs Result diagrams: 11/22/19 20:35 11/22/19 20:35 Labs: Laboratory Results - last 24 hr 11/22/19 11/22/19 11/22/19 20:35 20:35 20:35 WBC 4.33 L RBC 5.08 Hgb 13.1 Hct 41.3 MCV 81.3 MCH 25.8 L MCHC 31.7 L RDW 17.0 H Plt Count 185 MPV 10.2 Immature Gran % 0.2 Neutrophils % 91.4 Lymphocytes % 6.7 Monocytes % 0.5 Eosinophils % 1.2 Basophils % 0.0 Absolute Neutrophils 3.96 Absolute Lymphocytes 0.29 L Absolute Monocytes 0.02 L Absolute Eosinophils 0.05 Absolute Basophils 0.00 PT INR APTT VBG pH VBG pCO2 VBG pO2 VBG HCO3 VBG Total CO2 VBG O2 Saturation VBG Base Excess Sodium 138 Potassium 4.3 Chloride 101 Carbon Dioxide 28.9 Anion Gap 8.1 BUN 16 Creatinine 1.29 H Estimated GFR/1.73 m2 42.30 Glucose 128 H Lactate 2.1 H* Calcium 9.4 Magnesium 1.4 L Total Bilirubin 1.0 AST 20 ALT 20 Alkaline Phosphatase 96 Total Protein 8.8 H Albumin 3.8 Urine Color Urine Clarity Urine pH Ur Specific Half Way Urine Protein Urine Ketones Urine Blood Urine Nitrite Urine Bilirubin Urine Urobilinogen Ur Leukocyte Esterase Urine RBC Urine WBC Ur Epithelial Cells Urine Crystals Urine Bacteria Urine Casts Urine Mucus Urine Other Ur Culture Indicated? Urine Glucose 11/22/19 11/22/19 11/22/19 20:35 20:35 21:07 WBC RBC Hgb Hct MCV MCH MCHC RDW Plt Count MPV Immature Gran % Neutrophils % Lymphocytes % Monocytes % Eosinophils % Basophils % Absolute Neutrophils Absolute Lymphocytes Absolute Monocytes Absolute Eosinophils Absolute Basophils PT 11.0 INR 1.1 APTT 24.1 VBG pH 7.39 VBG pCO2 48 H VBG pO2 29 VBG HCO3 29 H VBG Total CO2 27 VBG O2 Saturation 55 L VBG Base Excess 4.5 H Sodium Potassium Chloride Carbon Dioxide Anion Gap BUN Creatinine Estimated GFR/1.73 m2 Glucose Lactate Calcium Magnesium Total Bilirubin AST ALT Alkaline Phosphatase Total Protein Albumin Urine Color Yellow Urine Clarity Sl cloudy Urine pH 7.[address] 1.020 Urine Protein 30 H Urine Ketones Negative Urine Blood Small H Urine Nitrite Positive H Urine Bilirubin Negative Urine Urobilinogen 0.2 Ur Leukocyte Esterase Small H Urine RBC 3-5 H Urine WBC 3-5 Ur Epithelial Cells Rare Urine Crystals Negative Urine Bacteria Few Urine Casts Negative Urine Mucus Negative Urine Other Negative Ur Culture Indicated? C&s done as ordered Urine Glucose Negative Last Vital Signs Temp 39.3 C H 11/22/19 20:23 Pulse 97 H 11/22/19 20:23 Resp 35 H 11/22/19 20:23 BP 152/79 H 11/22/19 20:23 Pulse Ox 95 11/22/19 20:23 COVID-19 Screening In the past 14 days, have you traveled outside of [place]?: NO Had IN PERSON contact w/suspected or confirmed C-19 person: No
[2019-11-22 21:49] LABS: Procalcitonin 0.1 ng/mL
[2019-11-22] MEDS: cefTRIAXone 2 GM/50 ML BAG IVPB (21:49)
[2019-11-22 22:10] LABS: TSH (W/Ref FT4) 3.62 uIU/mL (0.36-3.74)
[2019-11-22] MEDS: AZITHROMYCIN 500 MG in Normal Saline 250 ML 250 MG IVPB (22:10)
[2019-11-22] MEDS: Normal Saline 1,000 ML 125 ML IV (23:40)
[2019-11-23] MEDS: MAGNESIUM SULFATE 2 GM/50 ML BAG IVPB (00:13)
[2019-11-23] MEDS: Insulin Aspart 300 UNITS/3 ML PEN SC ×5 (00:14→22:15)
[2019-11-23] MEDS: Atorvastatin 40 MG TAB 80 MG PO ×2 (00:14→20:50)
[2019-11-23] MEDS: methylPREDNISolone SUCC 125 MG VIAL 80 MG IVP ×2 (00:15→08:56)
[2019-11-23] MEDS: Melatonin 3 MG TAB 9 MG PO ×3 (00:15→22:17)
[2019-11-23] MEDS: Magnesium Oxide 400 MG TAB PO ×2 (00:15→22:17)
[2019-11-23] MEDS: Acetaminophen 325 MG TAB PO ×4 (00:15→20:50)
[2019-11-23] MEDS: QUEtiapine 25 MG TAB PO ×2 (00:15→22:17)
[2019-11-23] MEDS: rOPINIRole 1 MG TAB PO ×2 (00:15→22:17)
[2019-11-23] MEDS: Heparin 5,000 UNITS/ML VIAL 5000 UNITS SC ×3 (00:15→17:25)
[2019-11-23 01:15] VITALS: TEMP 37
[2019-11-23 03:21] VITALS: BP 124/68; PULSE 74; RESP 20; TEMP 36.8; O2SAT 92
[2019-11-23] MEDS: Normal Saline 1,000 ML 125 ML IV ×2 (06:26→14:52)
[2019-11-23] MEDS: Levothyroxine 75 MCG TAB 225 MCG PO (06:26)
[2019-11-23 07:03] LABS: HCT 38.3 % (36.0-46.0); HGB 12.1 g/dL (12.0-15.5); Mean Corp. HGB Concentration 31.6 g/dL (32.0-36.0); Mean Corpuscular Hemoglobin 25.6 pg (27.0-33.0); Mean Corpuscular Volume 81.1 fL (80-95); Mean Platelet Volume 10.4 fL (8.0-11.0); Platelet Count 162 x1000/uL (130-400); RBC 4.72 m/cumm (4.00-5.20); RBC Distribution Width 17.2 % (11.7-14.6); White Blood Cell Count 14.24 k/cumm (4.4-10.8)
[2019-11-23 07:24] LABS: ALT 15 U/L (14-59); AST 18 U/L (15-37); Albumin 3.1 g/dL (3.4-5.0); Alkaline Phosphatase 67 U/L (46-116); Anion Gap 7.8 mmol/L (3-11); BUN 14 mg/dL (7-18); Bilirubin, Total 0.7 mg/dL (0.2-1.0); CO2 26.2 mmol/L (21.0-32.0); CREATININE 1.21 mg/dL (0.55-1.02); Calcium 8.7 mg/dL (8.5-10.1); Chloride 105 mmol/L (98-107); Estimated GFR 45.54 (mL/min/1.73m2); Glucose 244 mg/dL (74-106); Sodium 139 mmol/L (136-145); Total Protein 7.6 g/dL (6.4-8.2)
[2019-11-23 08:40] VITALS: BP 132/72; PULSE 76; RESP 22; TEMP 36.3; O2SAT 91
--- NOTE | 2019-11-23 08:42 | PDOC.CMIN ---
- If Service Date Differs Date of service: 11/23/19 Time of Service: 08:42 Care Management Initial Assess REASON FOR HOSPITALIZATION:: Pneumonia rule out COVID PAST MEDICAL HISTORY/PAST SURGICAL HISTORY:: Anemia (Chronic). CAD (coronary artery disease), [place] coronary artery (Acute). Depression (Chronic). Diabetes type 2, controlled (Chronic). Hyperlipidemia (Acute). Hypothyroidism (acquired) (Acute). Insomnia (Acute). Neuropathy (Acute). Restless leg syndrome (Acute). Tobacco dependence due to cigarettes (Acute). Surgical History (Updated 11/23/19 @ 01:57 by Marvin Rajan). History of (Chronic). S/P PTCA (percutaneous transluminal coronary angioplasty) (Acute). S/P spinal surgery (Acute) PREVIOUS FUNCTIONAL STATUS/SOCIAL/FAMILY SUPPORTS:: Bailey lives in an adult half-way through [facility] her rn intensive care unit is [facility]. She is disabled. She was discharged from the [facility] in [place] on 09/27/19 and now resides with Meri and [address] in [place]. She has two children one here in [place] and one in [place]. She does not have oxygen at home she does have a walker and cane. She states she does have a history of falls and uses the walker for safety most of the time. She is dependent for transportation on her home care providers. She does have a new pcp at [facility] she is unsure the name. She has not had an appointment yet. CURRENT FUNCTIONAL STATUS:: Bailey is engaged during assessment. Assessment completed over the phone. She states she is feeling better today and her breathing has improved she is still pending COVID rule out. She states she in new to her home and moved in on September 26. Bailey states she has several community programs in place including adult family care and [facility]. She states it is okay to communicate with them. CM will reach out to home provider to update. Meri's contact number is [phone] and her cell phone is [phone], Bailey gives permission to talk with her home care provider and [facility] as the manging agency. She also has a manager of community relations through [facility] Yolanda Gonzalez. JESSI did discuss the plan with homecare provider and she informed care management that Bailey needs to sleep with her head elevated due to previous neck surgery. CM will communicate this to staff. Verbal HIPPA completed over the phone. ADVANCE DIRECTIVES:: None on file would like to complete Has patient been provided with info about the portal/API?: Yes Did the patient sign up for the portal?: No CODE STATUS:: Full Code INSURANCE COVERAGE / FINANCIAL ISSUES:: Medicare and Medicaid CURRENT HOME/COMMUNITY SERVICES/EQUIPMENT:: snf Medicaid, [facility], Barb Foley, Adult family half-way, [facility] Oxana Gonzalez. DUNIA Gonzalez PRIMARY CARE PHYSICIAN:: None on file she has been referred to [facility] POTENTIAL DISCHARGE NEEDS:: Follow up appointment with [facility] post discharge, and resumption of support services through [facility] PATIENT/FAMILY EDUCATION NEEDS:: Discharge educations, limitations and follow up plan of care ANTICIPATED BARRIERS TO DISCHARGE:: No anticipated barriers TRANSPORTATION:: Via private car with adult care provider Maryann. PLAN:: Bailey will be discharged when medically ready. She will return home to her adult family half-way. Her home provider would like updates on changes and will need to be included in the discharge education. CM will continue to provide support and discharge coordination of services and planning.
[2019-11-23] MEDS: Normal Saline Flush 10 ML SYR IVP ×2 (08:58→17:22)
[2019-11-23] MEDS: Carvedilol 25 MG TAB PO ×2 (09:02→17:24)
[2019-11-23] MEDS: amLODIPine 10 MG TAB PO (09:02)
[2019-11-23] MEDS: Clopidogrel 75 MG TAB PO (09:02)
[2019-11-23] MEDS: Nicotine 21 MG/24 HR PATCH TD (09:02)
[2019-11-23] MEDS: PARoxetine 20 MG TAB 60 MG PO (09:02)
[2019-11-23] MEDS: Pregabalin 100 MG CAP 200 MG PO ×3 (09:02→20:50)
[2019-11-23] MEDS: Aspirin 81 MG CHEW PO (09:02)
[2019-11-23] MEDS: buPROPion-CR 150 MG TABCR PO ×2 (09:03→20:50)
[2019-11-23] MEDS: Ferrous Sulfate 325 MG TAB PO (09:03)
[2019-11-23] MEDS: Oxybutynin 5 MG TAB 10 MG PO ×2 (09:03→20:50)
[2019-11-23] MEDS: Cetirizine 10 MG TAB PO (09:03)
[2019-11-23 09:39] LABS: Lactate 1.7 mmol/L (0.6-1.4)
--- NOTE | 2019-11-23 11:05 | W.PM.PROGNOT ---
Date of Service Date of service: 11/23/19 Time of Service: 11:06 Assessment and Plan Assessment and plan (1) Tobacco dependence due to cigarettes: Status: Chronic Assessment and plan: Nicoderm patch Encourage ongoing cessation (2) Anemia: Status: Chronic Assessment and plan: Hgb 12.1. No records to indicate what her baseline is. No report of melena, hematochezia. (3) Restless leg syndrome: Status: Acute Assessment and plan: Cont Requip (4) Urinary retention: Status: Acute Assessment and plan: Secondary to UTI. [place] placed on admission. Voiding trial today. UTI tx. On Oxybutynin. If fails voiding trial, will hold Oxybutynin. (5) Diabetes type 2, controlled: Status: Chronic Assessment and plan: On basal/bolus insulin at home. AC/HS SS now. Cont home Lantus. Glucose elevations currently at least in part d/t IV steroid. Decreasing IV steroid dose and may be able to change to oral prednisone in AM. Consistent carb diet. 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 Denies h/o CHF. No CP/palpitations on presentation. (7) CAP (community acquired pneumonia): Status: Acute Assessment and plan: Possible bilateral lower lobe infiltrates on CXR. Started on CAP antibiotics on admission; Rocephin and Azithromycin. Supplemental O2 to maintain sats > 92%. IV solu-medrol initiated on admission; decrease dose to 40mg IV Q8H and possible change to oral prednisone in AM. Covid-19 testing pending. Steroid would be helpful in a + Covid situation. Qualifiers: Laterality: unspecified laterality Qualified Code(s): J18.9 - Pneumonia, unspecified organism (8) Acute UTI: Status: Acute Assessment and plan: + UA. On Rocephin. Cx pending. Subjective Subjective Patient reports: no new complaints and feels better Interval history since last seen: States she feels better than last PM. Feels tired. Appetite is good. No F/C since initial fever. Exam Narrative Exam Narrative: She is lying quietly in bed. Const General: cooperative and no acute distress Nutritional Appearance: obese Orientation: alert and oriented x3 Resp Effort & Inspection: normal respiratory effort Auscultation: bronchial breath sounds and diminished lung sounds Cardio Jugular venous pressure: no JVD Rate: regular rate Rhythm: regular rhythm GI Palpation: soft Auscultation: normal bowel sounds Skin Other: Erythema of bilateral ankles w/o drainage or lesions. Neuro General: patient alert and patient oriented x3 Cognition: normal cognition Speech: speech normal Extrem Other: Bilateral Tr pedal edema. Objective Objective Clinical Data: Abnormal lab results 11/22/19 11/22/19 11/22/19 Range/Units 20:35 20:35 20:35 WBC 4.33 L (4.4-10.8) k/cumm MCH 25.8 L (27.0-33.0) pg MCHC 31.7 L (32.0-36.0) g/dL RDW 17.0 H (11.7-14.6) % Absolute Lymphocytes 0.29 L (1.2-3.4) k/cumm Absolute Monocytes 0.02 L (0.11-0.7) k/cumm VBG pCO2 (34-47) mm/Hg VBG HCO3 (22-28) mmol/L VBG O2 Saturation (70-80) % VBG Base Excess (-3-3) mmol/L Creatinine 1.29 H (0.55-1.02) mg/dL Glucose 128 H (74-106) mg/dL Lactate 2.1 H* (0.6-1.4) mmol/L Magnesium 1.4 L (1.8-2.4) mg/dL Total Protein 8.8 H (6.4-8.2) g/dL Albumin (3.4-5.0) g/dL Urine Protein (Negative) mg/dL Urine Blood (Negative) Urine Nitrite (Negative) Ur Leukocyte Esterase (Negative) Urine RBC (0-2) HPF 11/22/19 11/22/19 11/23/19 Range/Units 20:35 21:07 06:50 WBC (4.4-10.8) k/cumm MCH (27.0-33.0) pg MCHC (32.0-36.0) g/dL RDW (11.7-14.6) % Absolute Lymphocytes (1.2-3.4) k/cumm Absolute Monocytes (0.11-0.7) k/cumm VBG pCO2 48 H (34-47) mm/Hg VBG HCO3 29 H (22-28) mmol/L VBG O2 Saturation 55 L (70-80) % VBG Base Excess 4.5 H (-3-3) mmol/L Creatinine 1.21 H (0.55-1.02) mg/dL Glucose 244 H D (74-106) mg/dL Lactate (0.6-1.4) mmol/L Magnesium (1.8-2.4) mg/dL Total Protein (6.4-8.2) g/dL Albumin 3.1 L (3.4-5.0) g/dL Urine Protein 30 H (Negative) mg/dL Urine Blood Small H (Negative) Urine Nitrite Positive H (Negative) Ur Leukocyte Esterase Small H (Negative) Urine RBC 3-5 H (0-2) HPF 11/23/19 11/23/19 Range/Units 06:50 09:30 WBC 14.24 H D (4.4-10.8) k/cumm MCH 25.6 L (27.0-33.0) pg MCHC 31.6 L (32.0-36.0) g/dL RDW 17.2 H (11.7-14.6) % Absolute Lymphocytes (1.2-3.4) k/cumm Absolute Monocytes (0.11-0.7) k/cumm VBG pCO2 (34-47) mm/Hg VBG HCO3 (22-28) mmol/L VBG O2 Saturation (70-80) % VBG Base Excess (-3-3) mmol/L Creatinine (0.55-1.02) mg/dL Glucose (74-106) mg/dL Lactate 1.7 H (0.6-1.4) mmol/L Magnesium (1.8-2.4) mg/dL Total Protein (6.4-8.2) g/dL Albumin (3.4-5.0) g/dL Urine Protein (Negative) mg/dL Urine Blood (Negative) Urine Nitrite (Negative) Ur Leukocyte Esterase (Negative) Urine RBC (0-2) HPF Vital Signs Temperature 36.3 C L 11/23/19 08:40 Temperature Source Tympanic 11/23/19 08:40 Pulse 76 11/23/19 08:40 Pulse Rhythm Regular 11/23/19 04:23 Pulse 84 11/22/19 21:40 Respiratory Rate 22 11/23/19 08:40 Respiratory Effort 11/23/19 04:23 Respiratory Depth Shallow 11/23/19 04:23 Respiratory Pattern Normal 11/23/19 04:23 Blood Pressure 132/72 11/23/19 08:40 Blood Pressure Mean 83 11/22/19 20:31 Blood Pressure Position Supine 11/22/19 20:23 Pulse Oximetry 91 L 11/23/19 08:40 Oxygen Delivery Method Nasal Cannula 11/23/19 08:40 Oxygen Flow Rate 2.5 11/23/19 08:40 End Tidal Co2 86 11/22/19 20:23 Pain Level 7 11/23/19 09:03 Intake & Output 11/22/19 11/22/19 11/23/19 11:59 23:59 11:59 Intake Total 1250 / 1250 895.833 / 895.833 Output Total 1350 / 1350 Balance 1250 / 1250 -454.167 / -454.167 Weight 131.8 kg Intake: IV 1250 / 1250 895.833 / 895.833 Output: Urine 1350 / 1350 Other: Urine Color Yellow Urine Appearance Clear Clear Laboratory Results WBC 14.24 k/cumm (4.4-10.8) H D 11/23/19 06:50 RBC 4.72 m/cumm (4.00-5.20) 11/23/19 06:50 Hgb 12.1 g/dL (12.0-15.5) 11/23/19 06:50 Hct 38.3 % (36.0-46.0) 11/23/19 06:50 MCV 81.1 fL (80-95) 11/23/19 06:50 MCH 25.6 pg (27.0-33.0) L 11/23/19 06:50 MCHC 31.6 g/dL (32.0-36.0) L 11/23/19 06:50 RDW 17.2 % (11.7-14.6) H 11/23/19 06:50 Plt Count 162 x1000/uL (130-400) 11/23/19 06:50 MPV 10.4 fL (8.0-11.0) 11/23/19 06:50 Immature Gran % 0.2 % 11/22/19 20:35 Neutrophils % 91.4 11/22/19 20:35 Lymphocytes % 6.7 11/22/19 20:35 Monocytes % 0.5 11/22/19 20:35 Eosinophils % 1.2 11/22/19 20:35 Basophils % 0.0 11/22/19 20:35 Absolute Neutrophils 3.96 k/cumm (1.2-6.7) 11/22/19 20:35 Absolute Lymphocytes 0.29 k/cumm (1.2-3.4) L 11/22/19 20:35 Absolute Monocytes 0.02 k/cumm (0.11-0.7) L 11/22/19 20:35 Absolute Eosinophils 0.05 k/cumm (0.0-0.7) 11/22/19 20:35 Absolute Basophils 0.00 k/cumm (0.0-0.2) 11/22/19 20:35 PT 11.0 sec (9.3-11.0) 11/22/19 20:35 INR 1.1 (0.9-1.1) 11/22/19 20:35 APTT 24.1 sec (21.0-31.4) 11/22/19 20:35 VBG pH 7.39 (7.35-7.45) 11/22/19 20:35 VBG pCO2 48 mm/Hg (34-47) H 11/22/19 20:35 VBG pO2 29 mm/Hg (28-44) 11/22/19 20:35 VBG HCO3 29 mmol/L (22-28) H 11/22/19 20:35 VBG Total CO2 27 mmol/L (22-29) 11/22/19 20:35 VBG O2 Saturation 55 % (70-80) L 11/22/19 20:35 VBG Base Excess 4.5 mmol/L (-3-3) H 11/22/19 20:35 Sodium 139 mmol/L (136-145) 11/23/19 06:50 Potassium 4.0 mmol/L (3.5-5.1) 11/23/19 06:50 Chloride 105 mmol/L (98-107) 11/23/19 06:50 Carbon Dioxide 26.2 mmol/L (21.0-32.0) 11/23/19 06:50 Anion Gap 7.8 mmol/L (3-11) 11/23/19 06:50 BUN 14 mg/dL (7-18) 11/23/19 06:50 Creatinine 1.21 mg/dL (0.55-1.02) H 11/23/19 06:50 Estimated GFR/1.73 m2 45.54 (mL/min/1.73m2) 11/23/19 06:50 Glucose 244 mg/dL (74-106) H D 11/23/19 06:50 Lactate 1.7 mmol/L (0.6-1.4) H 11/23/19 09:30 Calcium 8.7 mg/dL (8.5-10.1) 11/23/19 06:50 Magnesium 2.0 mg/dL (1.8-2.4) 11/23/19 06:50 Total Bilirubin 0.7 mg/dL (0.2-1.0) 11/23/19 06:50 AST 18 U/L (15-37) 11/23/19 06:50 ALT 15 U/L (14-59) 11/23/19 06:50 Alkaline Phosphatase 67 U/L (46-116) 11/23/19 06:50 Total Protein 7.6 g/dL (6.4-8.2) 11/23/19 06:50 Albumin 3.1 g/dL (3.4-5.0) L 11/23/19 06:50 Procalcitonin 0.1 ng/mL 11/22/19 20:35 TSH 3.62 uIU/mL (0.36-3.74) 11/22/19 21:29 Urine Color Yellow (Yellow) 11/22/19 21:07 Urine Clarity Sl cloudy (Clear) 11/22/19 21:07 Urine pH 7.0 (5-8) 11/22/19 21:07 Ur Specific [place] 1.020 (1.005-1.025) 11/22/19 21:07 Urine Protein 30 mg/dL (Negative) H 11/22/19 21:07 Urine Ketones Negative mg/dL (Negative) 11/22/19 21:07 Urine Blood Small (Negative) H 11/22/19 21:07 Urine Nitrite Positive (Negative) H 11/22/19 21:07 Urine Bilirubin Negative (Negative) 11/22/19 21:07 Urine Urobilinogen 0.2 EU/dL (Up TO 0.2) 11/22/19 21:07 Ur Leukocyte Esterase Small (Negative) H 11/22/19 21:07 Urine RBC 3-5 HPF (0-2) H 11/22/19 21:07 Urine WBC 3-5 HPF (0-5) 11/22/19 21:07 Ur Epithelial Cells Rare HPF (Negative) 11/22/19 21:07 Urine Crystals Negative HPF (Negative) 11/22/19 21:07 Urine Bacteria Few HPF (Negative) 11/22/19 21:07 Urine Casts Negative LPF (Negative) 11/22/19 21:07 Urine Mucus Negative (Negative) 11/22/19 21:07 Urine Other Negative (Negative) 11/22/19 21:07 Ur Culture Indicated? C&s done as ordered 11/22/19 21:07 Urine Glucose Negative mg/dL (Negative) 11/22/19 21:07
--- NOTE | 2019-11-23 11:24 | PHA.REVIEW ---
Pharmacy Admission Review - Admission Clinical Review (Last Updated 11/23/19 @ 01:58 by Marvin Rajan) Urinary retention (Acute) CAP (community acquired pneumonia) (Acute) Acute UTI (Acute) bee pollen Adverse Reaction (Unverified 11/22/19 21:50) coconut Adverse Reaction (Unverified 11/22/19 21:50) latex Adverse Reaction (Unverified 11/22/19 21:50) Height 5 ft 9 in Weight 131.8 kg - Comments Comments/Follow Ups: PATIENT IS NW TO THE AREA. SHE IS A SMOKER WITH Hx OF COPD & CAD-(with stents). On AZITHROMYCIN IV & ROCEPHIN for CAP and UTI. also on IV Solu-Medrol - Renal Dosing Renal Dosing: BUN 14 mg/dL (7-18) 11/23/19 06:50 Creatinine 1.21 mg/dL (0.55-1.02) H 11/23/19 06:50 Medications needing adjustments: Reviewed (est CrCl~ 52.3 mL/min Meds-OK) - Anticoagulation Anticoagulation: Hgb 12.1 g/dL (12.0-15.5) 11/23/19 06:50 Hct 38.3 % (36.0-46.0) 11/23/19 06:50 Plt Count 162 x1000/uL (130-400) 11/23/19 06:50 INR 1.1 (0.9-1.1) 11/22/19 20:35 Creatinine 1.21 mg/dL (0.55-1.02) H 11/23/19 06:50 Medications: Heparin Therapeutic Anticoagulation: Reviewed (On PLAVIX) - Opiate Usage Evaluate Pain Scale/Pains Meds: N/A Scheduled Bowel Reg ordered if on Opiates?: Yes - Relevant Labs Sodium 139 mmol/L (136-145) 11/23/19 06:50 Potassium 4.0 mmol/L (3.5-5.1) 11/23/19 06:50 Chloride 105 mmol/L (98-107) 11/23/19 06:50 Magnesium 2.0 mg/dL (1.8-2.4) 11/23/19 06:50 - DM Control DM Control: Glucose 244 mg/dL (74-106) H D 11/23/19 06:50 Finger Stick Blood Glucose 229 Finger Stick Blood Glucose 229 Insulin Dosing: Reviewed (On ASPART & GLARGINE) - Heart Failure/AR EF%, ELAINE's, B-Blockers, Diuretics: Reviewed (YVONNE AND JOSEY) - BP Control BP Control: Blood Pressure 132/72 Blood Pressure 124/68 If elevated: Reviewed - Qtc Review If Elevated: N/A (NNE CURRENT) - IV to PO Switch IV Medications: Reviewed (IV ABX & IV FLUIDS (Dry) NS @125mL/hr) - Home Meds Home Med List reviewed: Reviewed (Home Seroquel, Sertraline, Wellbutrin-SR, Paxil, Lyrica, Requip, Oxybutinin) - Current meds Current Medication Order Review: Reviewed
[2019-11-23 12:46] VITALS: BP 136/74; PULSE 75; RESP 20; TEMP 36.2; O2SAT 93
[2019-11-23] MEDS: methylPREDNISolone SUCC 40 MG VIAL IVP (17:20)
[2019-11-23 20:05] VITALS: BP 158/79; PULSE 72; RESP 19; TEMP 36.4; O2SAT 92
[2019-11-23] MEDS: AZITHROMYCIN 500 MG in Normal Saline 250 ML 250 MG IVPB (20:52)
[2019-11-23] MEDS: Insulin Glargine 300 UNITS/3 ML PEN 20 UNITS SC (22:16)
[2019-11-23] MEDS: LORazepam 0.5 MG TAB PO (22:17)
[2019-11-23] MEDS: cefTRIAXone 2 GM/50 ML BAG IVPB (22:22)
[2019-11-23 23:07] VITALS: BP 147/71; PULSE 74; RESP 19; TEMP 36.8; O2SAT 92
[2019-11-24] MEDS: Normal Saline 1,000 ML 125 ML IV (00:49)
[2019-11-24] MEDS: Heparin 5,000 UNITS/ML VIAL 5000 UNITS SC ×4 (00:50→23:35)
[2019-11-24] MEDS: Acetaminophen 325 MG TAB PO ×4 (00:50→18:19)
[2019-11-24] MEDS: methylPREDNISolone SUCC 40 MG VIAL IVP (00:50)
[2019-11-24 03:10] VITALS: BP 137/75; PULSE 65; RESP 19; TEMP 36.8; O2SAT 92
[2019-11-24] MEDS: Levothyroxine 75 MCG TAB 225 MCG PO (06:27)
[2019-11-24] MEDS: Insulin Aspart 300 UNITS/3 ML PEN SC ×4 (08:34→21:34)
[2019-11-24] MEDS: Oxybutynin 5 MG TAB 10 MG PO ×2 (08:39→19:52)
[2019-11-24] MEDS: PARoxetine 20 MG TAB 60 MG PO (08:39)
[2019-11-24] MEDS: LORazepam 0.5 MG TAB PO ×2 (08:39→21:25)
[2019-11-24] MEDS: Pregabalin 100 MG CAP 200 MG PO ×3 (08:39→19:51)
[2019-11-24] MEDS: amLODIPine 10 MG TAB PO (08:39)
[2019-11-24] MEDS: Aspirin 81 MG CHEW PO (08:39)
[2019-11-24] MEDS: Ferrous Sulfate 325 MG TAB PO (08:40)
[2019-11-24] MEDS: Cetirizine 10 MG TAB PO (08:40)
[2019-11-24] MEDS: Carvedilol 25 MG TAB PO ×2 (08:40→16:56)
[2019-11-24] MEDS: buPROPion-CR 150 MG TABCR PO ×2 (08:40→19:52)
[2019-11-24] MEDS: Clopidogrel 75 MG TAB PO (08:40)
[2019-11-24 08:41] VITALS: BP 144/87; PULSE 71; RESP 20; TEMP 36; O2SAT 90
[2019-11-24] MEDS: Nicotine 21 MG/24 HR PATCH TD (08:43)
[2019-11-24 08:57] LABS: Abs Immature Grans 0.05 k/cumm (0.0-0.09); Absolute Lymphocyte Count 0.51 k/cumm (1.2-3.4); Absolute Monocyte Count 0.44 k/cumm (0.11-0.7); Absolute Neutrophil Count 12.05 k/cumm (1.2-6.7); HCT 38.8 % (36.0-46.0); HGB 12.3 g/dL (12.0-15.5); Immature Grans % 0.4 %; Lymphocytes % 3.9; Mean Corp. HGB Concentration 31.7 g/dL (32.0-36.0); Mean Corpuscular Hemoglobin 25.5 pg (27.0-33.0); Mean Corpuscular Volume 80.3 fL (80-95); Mean Platelet Volume 10.1 fL (8.0-11.0); Monocytes % 3.4; Neutrophils % 92.3; Platelet Count 195 x1000/uL (130-400); RBC 4.83 m/cumm (4.00-5.20); RBC Distribution Width 17.3 % (11.7-14.6); White Blood Cell Count 13.06 k/cumm (4.4-10.8)
--- NOTE | 2019-11-24 09:19 | CMPROGNOTE_ITS ---
- If Service Date Differs Date of service: 11/24/19 Time of Service: 09:19 Care Management Progress Note S/O: Bailey remains inpatient at this time, she continues to receive IV abx, blood cultures are positive for gram neg rods. WBC is improving today. Length of abx to be determined she will return home to her [facility] home when she is medically ready. A:Bailey is a 59 year old admitted with fever, pneumonia, COVID pending. She is disabled, lives in a family retirement here in [facility] and has supports through [facility] and [facility] who provides case management. P:Bailey will be discharged home when medically ready to her adult family retirement. Meri (home care provider) will provide her transportation home at time of discharge. Bailey has a referral to [facility] for new primary care she will need a scheduled appointment prior to discharge. CM to continue to assess for ongoing discharge needs.
[2019-11-24] MEDS: Nicotine 14 MG/24 HR PATCH TD (11:03)
[2019-11-24] MEDS: Polyethylene Glycol 3350 17 GM PACKET PO (11:42)
[2019-11-24] MEDS: Dexamethasone 4 MG TAB 6 MG PO (11:42)
[2019-11-24 12:08] VITALS: BP 140/81; PULSE 65; RESP 18; TEMP 36.1; O2SAT 91
[2019-11-24 12:11] LABS: COVID-19 RT-PCR UVMMC Result Negative (Negative)
--- NOTE | 2019-11-24 12:54 | PGE_ITS ---
Date of Service Date of service: 11/24/19 Time of Service: 13:11 Assessment and Plan Assessment and plan (1) Tobacco dependence due to cigarettes: Status: Chronic Assessment and plan: Nicoderm patch Encourage ongoing cessation (2) Anemia: Status: Chronic Assessment and plan: Hgb 12.3. No records to indicate what her baseline is. No report of melena, hematochezia. (3) Restless leg syndrome: Status: Acute Assessment and plan: Cont Requip (4) Urinary retention: Status: Acute Assessment and plan: Secondary to UTI. Huang placed on admission. Left huang in yesterday. Voiding trial today. UTI tx. On Oxybutynin. If fails voiding trial, will hold Oxybutynin. (5) Diabetes type 2, controlled: Status: Chronic Assessment and plan: On basal/bolus insulin at home. AC/HS SS now / increase level of SS insuline. Cont Lantus; increase dosage. Glucose elevations currently at least in part d/t IV steroid. Stop IV steroid and give one dose of dexamethasone then d/c steroids. Consistent carb diet. 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 Denies h/o CHF. No CP/palpitations on presentation. (7) CAP (community acquired pneumonia): Status: Acute Assessment and plan: Possible bilateral lower lobe infiltrates on CXR. Started on CAP antibiotics on admission; Rocephin and Azithromycin. Supplemental O2 to maintain sats > 92%. IV solu-medrol initiated on admission; decreased dose to 40mg IV Q8H and will now stop. Dexamethasone po x 1. Covid-19 testing negative. Qualifiers: Laterality: unspecified laterality Qualified Code(s): J18.9 - Pneumonia, unspecified organism (8) Acute UTI: Status: Acute Assessment and plan: + UA. On Rocephin. Cx growing gram neg rods. (9) Bacteremia due to Gram-negative bacteria: Status: Acute Assessment and plan: One blood cx bottle growing gram neg rods / urine also growing gram neg rods. Anaerobic bottle growing gram + cocci as well. Cont Rocephin. Give dose of Vanc. Await final cx results to possibly adjust antibiotics and to decide on length of treatment Subjective Subjective Patient reports: no new complaints and feels better Interval history since last seen: States she feels better than last PM. Feels tired. Appetite is good. No F/C since initial fever. Exam Narrative Exam Narrative: Pt states she is feeling much better today. No F/C. Minimal cough Const General: cooperative and no acute distress Nutritional Appearance: obese Orientation: alert and oriented x3 Resp Effort & Inspection: normal respiratory effort Auscultation: bronchial breath sounds and diminished lung sounds Cardio Jugular venous pressure: no JVD Rate: regular rate Rhythm: regular rhythm GI Palpation: soft Auscultation: normal bowel sounds Neuro General: patient alert and patient oriented x3 Cognition: normal cognition Speech: speech normal Objective Objective Clinical Data: Abnormal lab results 11/24/19 Range/Units 08:30 WBC 13.06 H (4.4-10.8) k/cumm MCH 25.5 L (27.0-33.0) pg MCHC 31.7 L (32.0-36.0) g/dL RDW 17.3 H (11.7-14.6) % Absolute Neutrophils 12.05 H (1.2-6.7) k/cumm Absolute Lymphocytes 0.51 L (1.2-3.4) k/cumm Vital Signs Temperature 36.1 C L 11/24/19 12:08 Temperature Source Tympanic 11/24/19 12:08 Pulse 65 11/24/19 12:08 Pulse Rhythm Regular 11/24/19 11:21 Pulse 84 11/22/19 21:40 Respiratory Rate 18 11/24/19 12:08 Respiratory Effort 11/24/19 11:21 Respiratory Depth Shallow 11/24/19 11:21 Respiratory Pattern Tachypnea 11/24/19 11:21 Blood Pressure 140/81 11/24/19 12:08 Blood Pressure Mean 83 11/22/19 20:31 Blood Pressure Position Supine 11/22/19 20:23 Pulse Oximetry 91 L 11/24/19 12:08 Oxygen Delivery Method Nasal Cannula 11/24/19 12:08 Oxygen Flow Rate 1.5 11/24/19 12:08 End Tidal Co2 86 11/22/19 20:23 Pain Level 0 11/24/19 12:08 Intake & Output 11/23/19 11/24/19 11/24/19 23:59 11:59 23:59 Intake Total 3055.833 / 4431.666 1204.167 / 1204.167 Output Total 2150 / 3500 1000 / 1000 Balance 905.833 / 931.666 204.167 / 204.167 Intake: IV 2095.833 / 2991.666 1204.167 / 1204.167 Oral 960 / 1440 Output: Urine 2150 / 3500 1000 / 1000 Other: Urine Color Yellow Yellow Urine Appearance Clear Clear Urine Odor None Voiding Methods Indwelling Catheter Laboratory Results WBC 13.06 k/cumm (4.4-10.8) H 11/24/19 08:30 RBC 4.83 m/cumm (4.00-5.20) 11/24/19 08:30 Hgb 12.3 g/dL (12.0-15.5) 11/24/19 08:30 Hct 38.8 % (36.0-46.0) 11/24/19 08:30 MCV 80.3 fL (80-95) 11/24/19 08:30 MCH 25.5 pg (27.0-33.0) L 11/24/19 08:30 MCHC 31.7 g/dL (32.0-36.0) L 11/24/19 08:30 RDW 17.3 % (11.7-14.6) H 11/24/19 08:30 Plt Count 195 x1000/uL (130-400) 11/24/19 08:30 MPV 10.1 fL (8.0-11.0) 11/24/19 08:30 Immature Gran % 0.4 % 11/24/19 08:30 Neutrophils % 92.3 11/24/19 08:30 Lymphocytes % 3.9 11/24/19 08:30 Monocytes % 3.4 11/24/19 08:30 Eosinophils % 0.0 11/24/19 08:30 Basophils % 0.0 11/24/19 08:30 Absolute Neutrophils 12.05 k/cumm (1.2-6.7) H 11/24/19 08:30 Absolute Lymphocytes 0.51 k/cumm (1.2-3.4) L 11/24/19 08:30 Absolute Monocytes 0.44 k/cumm (0.11-0.7) 11/24/19 08:30 Absolute Eosinophils 0.00 k/cumm (0.0-0.7) 11/24/19 08:30 Absolute Basophils 0.00 k/cumm (0.0-0.2) 11/24/19 08:30 PT 11.0 sec (9.3-11.0) 11/22/19 20:35 INR 1.1 (0.9-1.1) 11/22/19 20:35 APTT 24.1 sec (21.0-31.4) 11/22/19 20:35 VBG pH 7.39 (7.35-7.45) 11/22/19 20:35 VBG pCO2 48 mm/Hg (34-47) H 11/22/19 20:35 VBG pO2 29 mm/Hg (28-44) 11/22/19 20:35 VBG HCO3 29 mmol/L (22-28) H 11/22/19 20:35 VBG Total CO2 27 mmol/L (22-29) 11/22/19 20:35 VBG O2 Saturation 55 % (70-80) L 11/22/19 20:35 VBG Base Excess 4.5 mmol/L (-3-3) H 11/22/19 20:35 Sodium 139 mmol/L (136-145) 11/23/19 06:50 Potassium 4.0 mmol/L (3.5-5.1) 11/23/19 06:50 Chloride 105 mmol/L (98-107) 11/23/19 06:50 Carbon Dioxide 26.2 mmol/L (21.0-32.0) 11/23/19 06:50 Anion Gap 7.8 mmol/L (3-11) 11/23/19 06:50 BUN 14 mg/dL (7-18) 11/23/19 06:50 Creatinine 1.21 mg/dL (0.55-1.02) H 11/23/19 06:50 Estimated GFR/1.73 m2 45.54 (mL/min/1.73m2) 11/23/19 06:50 Glucose 244 mg/dL (74-106) H D 11/23/19 06:50 Lactate 1.7 mmol/L (0.6-1.4) H 11/23/19 09:30 Calcium 8.7 mg/dL (8.5-10.1) 11/23/19 06:50 Magnesium 2.0 mg/dL (1.8-2.4) 11/23/19 06:50 Total Bilirubin 0.7 mg/dL (0.2-1.0) 11/23/19 06:50 AST 18 U/L (15-37) 11/23/19 06:50 ALT 15 U/L (14-59) 11/23/19 06:50 Alkaline Phosphatase 67 U/L (46-116) 11/23/19 06:50 Total Protein 7.6 g/dL (6.4-8.2) 11/23/19 06:50 Albumin 3.1 g/dL (3.4-5.0) L 11/23/19 06:50 Procalcitonin 0.1 ng/mL 11/22/19 20:35 TSH 3.62 uIU/mL (0.36-3.74) 11/22/19 21:29 Urine Color Yellow (Yellow) 11/22/19 21:07 Urine Clarity Sl cloudy (Clear) 11/22/19 21:07 Urine pH 7.0 (5-8) 11/22/19 21:07 Ur Specific [place] 1.020 (1.005-1.025) 11/22/19 21:07 Urine Protein 30 mg/dL (Negative) H 11/22/19 21:07 Urine Ketones Negative mg/dL (Negative) 11/22/19 21:07 Urine Blood Small (Negative) H 11/22/19 21:07 Urine Nitrite Positive (Negative) H 11/22/19 21:07 Urine Bilirubin Negative (Negative) 11/22/19 21:07 Urine Urobilinogen 0.2 EU/dL (Up TO 0.2) 11/22/19 21:07 Ur Leukocyte Esterase Small (Negative) H 11/22/19 21:07 Urine RBC 3-5 HPF (0-2) H 11/22/19 21:07 Urine WBC 3-5 HPF (0-5) 11/22/19 21:07 Ur Epithelial Cells Rare HPF (Negative) 11/22/19 21:07 Urine Crystals Negative HPF (Negative) 11/22/19 21:07 Urine Bacteria Few HPF (Negative) 11/22/19 21:07 Urine Casts Negative LPF (Negative) 11/22/19 21:07 Urine Mucus Negative (Negative) 11/22/19 21:07 Urine Other Negative (Negative) 11/22/19 21:07 Ur Culture Indicated? C&s done as ordered 11/22/19 21:07 Urine Glucose Negative mg/dL (Negative) 11/22/19 21:07 COVID-19 PCR Cancelled 11/24/19 10:30 Nasopharyn COVID-19 PCR Cancelled 11/24/19 10:30 Ref Test Perform Site Cancelled 11/24/19 10:30
[2019-11-24 15:25] VITALS: BP 176/73; PULSE 76; RESP 21; TEMP 36.7; O2SAT 94
[2019-11-24] MEDS: Atorvastatin 40 MG TAB 80 MG PO (19:52)
[2019-11-24] MEDS: AZITHROMYCIN 500 MG in Normal Saline 250 ML 250 MG IVPB (19:52)
[2019-11-24 20:01] VITALS: BP 151/89; PULSE 70; RESP 19; TEMP 36.9; O2SAT 94
[2019-11-24] MEDS: Docusate Sodium 100 MG CAP PO (21:24)
[2019-11-24] MEDS: Magnesium Oxide 400 MG TAB PO (21:24)
[2019-11-24] MEDS: rOPINIRole 1 MG TAB PO (21:25)
[2019-11-24] MEDS: QUEtiapine 25 MG TAB PO (21:25)
[2019-11-24] MEDS: Melatonin 3 MG TAB 9 MG PO (21:25)
[2019-11-24] MEDS: Triamcinolone 0.1% CR 15 GM TUBE TP (21:29)
[2019-11-24] MEDS: cefTRIAXone 2 GM/50 ML BAG IVPB (21:29)
[2019-11-24] MEDS: Insulin Glargine 300 UNITS/3 ML PEN 30 UNITS SC (21:35)
[2019-11-24] MEDS: Normal Saline Flush 10 ML SYR IVP (23:34)
[2019-11-25] VITALS (18 sets, daily range): BP systolic 132–159; BP diastolic 67–95; PULSE 53–68; RESP 2–20; TEMP 36.1–36.9; O2SAT 87–99
[2019-11-25] MEDS: Levothyroxine 75 MCG TAB 225 MCG PO (05:52)
[2019-11-25 06:52] LABS: Abs Immature Grans 0.06 k/cumm (0.0-0.09); Absolute Monocyte Count 0.75 k/cumm (0.11-0.7); Absolute Neutrophil Count 13.09 k/cumm (1.2-6.7); HCT 38.2 % (36.0-46.0); HGB 12.3 g/dL (12.0-15.5); Immature Grans % 0.4 %; Lymphocytes % 4.9; Mean Corp. HGB Concentration 32.2 g/dL (32.0-36.0); Mean Corpuscular Hemoglobin 25.7 pg (27.0-33.0); Mean Corpuscular Volume 79.9 fL (80-95); Mean Platelet Volume 9.9 fL (8.0-11.0); Monocytes % 5.1; Neutrophils % 89.6; Platelet Count 208 x1000/uL (130-400); RBC 4.78 m/cumm (4.00-5.20); White Blood Cell Count 14.61 k/cumm (4.4-10.8)
[2019-11-25 06:58] LABS: Absolute Lymphocyte Count 0.72 k/cumm (1.2-3.4)
[2019-11-25 06:59] LABS: Anion Gap 7.6 mmol/L (3-11); BUN 22 mg/dL (7-18); CO2 24.4 mmol/L (21.0-32.0); Calcium 8.8 mg/dL (8.5-10.1); Chloride 104 mmol/L (98-107); Estimated GFR 50.84 (mL/min/1.73m2); Glucose 202 mg/dL (74-106); Potassium 4.3 mmol/L (3.5-5.1); Sodium 136 mmol/L (136-145)
[2019-11-25] MEDS: Polyethylene Glycol 3350 17 GM PACKET PO (08:12)
[2019-11-25] MEDS: Heparin 5,000 UNITS/ML VIAL 5000 UNITS SC ×3 (08:13→23:34)
[2019-11-25] MEDS: Pregabalin 100 MG CAP 200 MG PO ×3 (08:13→20:09)
[2019-11-25] MEDS: buPROPion-CR 150 MG TABCR PO ×2 (08:14→20:09)
[2019-11-25] MEDS: Cetirizine 10 MG TAB PO (08:14)
[2019-11-25] MEDS: Clopidogrel 75 MG TAB PO (08:14)
[2019-11-25] MEDS: Docusate Sodium 100 MG CAP PO (08:14)
[2019-11-25] MEDS: Aspirin 81 MG CHEW PO (08:14)
[2019-11-25] MEDS: LORazepam 0.5 MG TAB PO (08:14)
[2019-11-25] MEDS: Carvedilol 25 MG TAB PO ×2 (08:14→17:07)
[2019-11-25] MEDS: Oxybutynin 5 MG TAB 10 MG PO ×2 (08:14→20:09)
[2019-11-25] MEDS: PARoxetine 20 MG TAB 60 MG PO (08:14)
[2019-11-25] MEDS: amLODIPine 10 MG TAB PO (08:14)
[2019-11-25] MEDS: Ferrous Sulfate 325 MG TAB PO (08:14)
[2019-11-25] MEDS: Insulin Aspart 300 UNITS/3 ML PEN SC ×4 (08:16→22:11)
[2019-11-25] MEDS: Nicotine 14 MG/24 HR PATCH TD (08:27)
--- NOTE | 2019-11-25 09:03 | PT.INIE ---
Date of service: 11/25/19 Time of Service: 09:03 PT Notes Visit Reasons: PNEUMONIA, COPD EXACERBATION Physical Therapy Inpatient Initial Evaluation Date: 11/25/2019 Referring Doctor: Cayden Chaidez MD PT Orders: PT CONSULT: Limited ability Precautions: Fall. Standard. Activity as tolerated. On 2.5 L of continuous oxygen per RT today. Patient Profile/Admitting Diagnosis: Bailey is a 59-year-old female who presented to the ED on 11/22/2019 with chief complaints of shortness of breath accompanied by fever. Patient is diagnosed with pneumonia, acute urinary tract infection, urinary retention, tobacco dependence, this leg syndrome, and bacteremia due to gram negative bacteria with referral to skilled physical therapy services to address resulting impairments and mobility ADL performance and tolerance. PMHX: Medical History (Updated 11/23/19 @ 02:19 by Marvin Rajan) Anemia (Chronic) CAD (coronary artery disease), [place] coronary artery (Acute) Depression (Chronic) Diabetes type 2, controlled (Chronic) Hyperlipidemia (Acute) Hypothyroidism (acquired) (Acute) Insomnia (Acute) Neuropathy (Acute) Restless leg syndrome (Acute) Tobacco dependence due to cigarettes (Acute) Surgical History (Updated 11/23/19 @ 01:57 by Marvin Rajan) History of (Chronic) S/P PTCA (percutaneous transluminal coronary angioplasty) (Acute) S/P spinal surgery (Acute) Social History/Home Situation: Patient lives in a custodial with 1 step to enter without rails, with 4 steps climb to get into the kitchen with rails on both sides and another 1 step to the living room without rails. She previously came from [facility] and transferred into this custodial on July 28, 2019. She reports that she is able to manage all self-care tasks except for donning her bra. She was independent with all ambulation activities using a front wheeled walker. Milo at the custodial medications and prepares meals for her. She has a daughter and a son were both aware of how she is been doing. 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 Equipment Owned/DME: Front wheeled walker Subjective: Patient is agreeable to PT consult. She reports that she has fallen 4 times since July 27 of this year. She complains of 8/10 pain on her right hallux area with weight bearing which she states she endured during her fall back in July. She states that she has cellulitis but has not received any treatment for it. Objective: General Observation: On telemetry. On 2.5 L of oxygen via NC. Erythema noted to bilateral distal third of legs and on dorsal and ventral aspects of the right hallux. Mental Status: Alert and oriented x4 Pain: 8/10 on the right hallux weight bearing Vital Signs: Oxygen saturation ranged from 93% through 96% on 3 L of oxygen during ambulation activity. ROM: Right Upper Extremity: Shoulder Flexion allows 30 degrees. Shoulder abduction allows 20 degrees. Elbow flexion allows 60 degrees. Wrist flexion WFL. Opening and closing of hand WFL. Left Upper Extremity: Shoulder Flexion WFL. Shoulder abduction WFL. Elbow flexion WFL. Wrist flexion WFL. Opening and closing of hand WFL. Right Lower Extremity: Hip flexion WFL. Hip abduction WFL. Knee flexion WFL. Ankle dorsiflexion WFL. Ankle plantarflexion WFL. Left Lower Extremity: Hip flexion WFL. Hip abduction WFL. Knee flexion WFL. Ankle dorsiflexion WFL. Ankle plantarflexion WFL. Strength: Right Upper Extremity: Shoulder flexors 3-/5. Shoulder abductors 3-/5. Elbow flexors 3-/5. Elbow extensors 3-/5. Success Coach weak but functional. Left Upper Extremity: Shoulder flexors 4-/5. Shoulder abductors 4-/5. Elbow flexors 4-/5. Elbow extensors 4-/5. Success Coach strong. Right Lower Extremity: Hip flexors 4-/5. Hip abductors 4-/5. Knee flexors 4-/5. Knee extensors 4-/5. Ankle dorsiflexors 4-/5. Ankle plantarflexors 4-/5. Left Lower Extremity: Hip flexors 4/5. Hip abductors 4/5. Knee flexors 4/5. Knee extensors 4/5. Ankle dorsiflexors 4/5. Ankle plantarflexors 4/5. Sensation: Intact as to pain and pressure on bilateral lower extremities. Bed Mobility/Transfers: Sit to stand contact-guard assist using both hands for support, needs FWW Stand to sit contact-guard assist using both hands for support, needs FWW Bed to chair contact-guard assist using both hands for support, needs FWW Chair to bed contact-guard assist using both hands for support, needs FWW Gait: 260 feet on level surface walker with oxygen saturation between 93% to 96% on continuous 3 L via NC, contact-guard assist provided with wheelchair follow of nurse Lamonte. Step through gait pattern. Lauryn decreased. Trunk forward flexion increased. Balance: Static Sitting: Normal Dynamic Sitting: Normal Static Standing: Fair Dynamic Standing: Fair Special Tests: Mobility Limitations Standardized Measure [facility] AM-PAC 6 clicks Basic Mobility Inpatient Short Form: Raw Score: 1847% deficit CMS Score: Informed Consent/Education: Patient instructed in purpose of PT consult and plan of care. Assessment: Bailey continues to complain of right hallux pain from the time she fell back in July up to today with 8/10 pain level. She states that that right forefoot/toe have not been x-rayed. Bailey demonstrates functional mobility decline requiring the use of front wheeled for all mobility ADL performance, impairment in strength, limitation in activity tolerance and balance, and difficulty with walking due to pain and shortness of breath resulting from admitting diagnoses. Bailey is a 59-year-old female who presented to the ED on 11/22/2019 with chief complaints of shortness of breath accompanied by fever. Patient is diagnosed with pneumonia, acute urinary tract infection, urinary retention, tobacco dependence, this leg syndrome, and bacteremia due to gram negative bacteria with referral to skilled physical therapy services to address resulting impairments and mobility ADL performance and tolerance. Patient presents with clinical signs and symptoms consistent with current/admitting diagnoses that have resulted to mobility limitations, gait instability, generalized weakness, and impairment of motor control as demonstrated by the following impairment level findings: 1. Decreased strength to B UE/LE major muscle groups 2. Impaired sitting/standing balance 3. Impaired activity tolerance 4. Limitation of joint range of motion in right UE Impairments are contributing to the following functional limitations: 1. Dependent bed mobility skills 2. Increased dependence with transfers 3. Inability to safely ambulate without assistive device and physical assistance 4. Increase completion time for mobility ADL performance 5. Increased fall risk 6. Inability to negotiate steps alone safely Patient is assessed as a 74801 moderate complexity based on the following: History: 59-year-old female with impairment level findings, functional limitations, and past medical history as indicated above Examination: Demonstrable impairment in strength, balance, and mobility level with underlying impairments and functional limitations as documented above Presentation:Evolving Decision Makin moderate complexity Goals: Goals X1 week 1. Supine-Sit independent 2. Sit-Supine independent 3. Sit-Stand independent 4. Stand-Sit independent 5. Bed-Chair independent 6. Chair-Bed independent 7. Independent gait on level surface with use of least restrictive device for at least 300 feet without report of pain nor dyspnea 8. Independent stair negotiation while holding onto bilateral rails for at least 10 steps without report of pain nor dyspnea 9. Independent with home exercise program 10. Good static and dynamic standing balance/tolerance Plan of Care/Treatment Plan: 1-2x/day, 7 days/week x 1 week. Plan of care has been reviewed with the [facility] providing the service under Physical Therapy direction. Initiate Physical Therapy intervention for strengthening, bed mobility, transfers, gait, stairs, balance training, use of assistive device. PT Intervention: Session today consisted of initial physical therapy evaluation as well as education and training on functional mobility performance using a front wheeled walker. DISCHARGE RECOMMENDATIONS: Patient will benefit from home health PT services in order to progress mobility level using least restrictive assistive ambulatory device, assess home safety, identify additional equipment needs, and establish a functional maintenance program that will increase ability of patient to remain at home. TREATMENT CODE/TIME: 36360 x 25 minutes, 98612 x 17 minutes beginning at 9:03 AM. Thank you very much for this referral. Billie Pendleton PT, DPT, CLT [facility] [place], [place]
[2019-11-25] MEDS: Albuterol 2.5 MG/3 ML INH SOLN VIAL UPD (09:50)
--- NOTE | 2019-11-25 12:01 | W.PM.PROGNOT ---
Date of Service Date of service: 11/25/19 Time of Service: 12:07 Assessment and Plan Assessment and plan (1) Tobacco dependence due to cigarettes: Status: Chronic Assessment and plan: Nicoderm patch Encourage ongoing cessation She endorses smoking only 2 cigarettes daily. (2) Anemia: Status: Chronic Assessment and plan: Hgb 12.3. No records to indicate what her baseline is. No report of melena, hematochezia. (3) Restless leg syndrome: Status: Acute Assessment and plan: Cont Requip (4) Urinary retention: Status: Acute Assessment and plan: Secondary to UTI. Montgomery placed on admission. Montgomery now discontinued. (5) Diabetes type 2, controlled: Status: Chronic Assessment and plan: On basal/bolus insulin at home. AC/HS SS now / increase level of SS insuline. Cont Lantus; increased dosage. Now with improved control. Glucose elevations currently at least in part d/t IV steroid. Stop IV steroid and give one dose of dexamethasone then d/c steroids. Consistent carb diet. Monitor Qualifiers: Diabetes mellitus penitentiary insulin use: with intermediate accountant use Diabetes mellitus complication status: with other specified complication Qualified Code(s): E11.69 - Type 2 diabetes mellitus with other specified complication; Z79.4 - correction (current) use of insulin (6) CAD (coronary artery disease), [place] coronary artery: Status: Acute Assessment and plan: H/O stent. Denies h/o CHF. No CP/palpitations on presentation. (7) CAP (community acquired pneumonia): Status: Acute Assessment and plan: Possible bilateral lower lobe infiltrates on CXR. Started on CAP antibiotics on admission; Rocephin and Azithromycin. Supplemental O2 to maintain sats > 92%. IV solu-medrol initiated on admission; decreased dose to 40mg IV Q8H and will now stop. Dexamethasone po x 1. Covid-19 testing negative. Likely componenet of undiagnosed COPD Duonebs [id number] and prn albuterol nebs. Qualifiers: Laterality: unspecified laterality Qualified Code(s): J18.9 - Pneumonia, unspecified organism (8) Acute UTI: Status: Acute Assessment and plan: + UA. On Rocephin. Cx growing pansensitive E.Coli. Change to oral Levaquin in AM (9) Bacteremia due to Gram-negative bacteria: Status: Acute Assessment and plan: Pansensitive E. Coli. On Rocephin. Planning oral Levaquin to begin in AM Subjective Subjective Patient reports: no new complaints and feels better Interval history since last seen: States she feels better than last PM. Feels tired. Appetite is good. No F/C since initial fever. Exam Narrative Exam Narrative: Improved ease of breathing after initiating Duonebs. No F/C. Minimal cough No dysuria. Const General: cooperative and no acute distress Nutritional Appearance: obese Orientation: alert and oriented x3 Resp Effort & Inspection: normal respiratory effort Auscultation: diminished lung sounds Cardio Jugular venous pressure: no JVD Rate: regular rate Rhythm: regular rhythm GI Palpation: soft Auscultation: normal bowel sounds Neuro General: patient alert and patient oriented x3 Cognition: normal cognition Speech: speech normal Objective Objective Clinical Data: Abnormal lab results 11/25/19 11/25/19 Range/Units 06:30 06:30 WBC 14.61 H (4.4-10.8) k/cumm MCV 79.9 L (80-95) fL MCH 25.7 L (27.0-33.0) pg RDW 17.0 H (11.7-14.6) % Absolute Neutrophils 13.09 H (1.2-6.7) k/cumm Absolute Lymphocytes 0.72 L (1.2-3.4) k/cumm Absolute Monocytes 0.75 H (0.11-0.7) k/cumm BUN 22 H D (7-18) mg/dL Creatinine 1.10 H (0.55-1.02) mg/dL Glucose 202 H (74-106) mg/dL Vital Signs Temperature 36.6 C 11/25/19 11:56 Temperature Source Tympanic 11/25/19 11:56 Pulse 53 L 11/25/19 11:56 Pulse Rhythm Regular 11/25/19 04:05 Pulse 84 11/22/19 21:40 Respiratory Rate 19 11/25/19 11:56 Respiratory Effort Incrsd Work of Breathing 11/25/19 08:20 Respiratory Depth Shallow 11/25/19 08:20 Respiratory Pattern Normal 11/25/19 08:20 Blood Pressure 132/76 11/25/19 11:56 Blood Pressure Mean 83 11/22/19 20:31 Blood Pressure Position Supine 11/22/19 20:23 Pulse Oximetry 94 L 11/25/19 11:56 Oxygen Delivery Method Nasal Cannula 11/25/19 11:56 Oxygen Flow Rate 1 11/25/19 11:56 End Tidal Co2 86 11/22/19 20:23 Pain Level 2 11/25/19 11:56 Intake & Output 11/24/19 11/25/19 11/25/19 23:59 11:59 23:59 Intake Total / 2003.167 790 / 790 Output Total 1100 / 2099 1800 / 1800 Balance -300 / -95.833 -1010 / -1010 Weight 131.4 kg Intake: IV 800 / 2003.167 250 / 250 Oral 540 / 540 Output: Urine 1100 / 2099 1800 / 1800 Other: Urine Color Yellow Yellow Urine Appearance Clear Clear Urine Odor None Voiding Methods Indwelling Catheter Toilet Laboratory Results WBC 14.61 k/cumm (4.4-10.8) H 11/25/19 06:30 RBC 4.78 m/cumm (4.00-5.20) 11/25/19 06:30 Hgb 12.3 g/dL (12.0-15.5) 11/25/19 06:30 Hct 38.2 % (36.0-46.0) 11/25/19 06:30 MCV 79.9 fL (80-95) L 11/25/19 06:30 MCH 25.7 pg (27.0-33.0) L 11/25/19 06:30 MCHC 32.2 g/dL (32.0-36.0) 11/25/19 06:30 RDW 17.0 % (11.7-14.6) H 11/25/19 06:30 Plt Count 208 x1000/uL (130-400) 11/25/19 06:30 MPV 9.9 fL (8.0-11.0) 11/25/19 06:30 Immature Gran % 0.4 % 11/25/19 06:30 Neutrophils % 89.6 11/25/19 06:30 Lymphocytes % 4.9 11/25/19 06:30 Monocytes % 5.1 11/25/19 06:30 Eosinophils % 0.0 11/25/19 06:30 Basophils % 0.0 11/25/19 06:30 Absolute Neutrophils 13.09 k/cumm (1.2-6.7) H 11/25/19 06:30 Absolute Lymphocytes 0.72 k/cumm (1.2-3.4) L 11/25/19 06:30 Absolute Monocytes 0.75 k/cumm (0.11-0.7) H 11/25/19 06:30 Absolute Eosinophils 0.00 k/cumm (0.0-0.7) 11/25/19 06:30 Absolute Basophils 0.00 k/cumm (0.0-0.2) 11/25/19 06:30 PT 11.0 sec (9.3-11.0) 11/22/19 20:35 INR 1.1 (0.9-1.1) 11/22/19 20:35 APTT 24.1 sec (21.0-31.4) 11/22/19 20:35 VBG pH 7.39 (7.35-7.45) 11/22/19 20:35 VBG pCO2 48 mm/Hg (34-47) H 11/22/19 20:35 VBG pO2 29 mm/Hg (28-44) 11/22/19 20:35 VBG HCO3 29 mmol/L (22-28) H 11/22/19 20:35 VBG Total CO2 27 mmol/L (22-29) 11/22/19 20:35 VBG O2 Saturation 55 % (70-80) L 11/22/19 20:35 VBG Base Excess 4.5 mmol/L (-3-3) H 11/22/19 20:35 Sodium 136 mmol/L (136-145) 11/25/19 06:30 Potassium 4.3 mmol/L (3.5-5.1) 11/25/19 06:30 Chloride 104 mmol/L (98-107) 11/25/19 06:30 Carbon Dioxide 24.4 mmol/L (21.0-32.0) 11/25/19 06:30 Anion Gap 7.6 mmol/L (3-11) 11/25/19 06:30 BUN 22 mg/dL (7-18) H D 11/25/19 06:30 Creatinine 1.10 mg/dL (0.55-1.02) H 11/25/19 06:30 Estimated GFR/1.73 m2 50.84 (mL/min/1.73m2) 11/25/19 06:30 Glucose 202 mg/dL (74-106) H 11/25/19 06:30 Lactate 1.7 mmol/L (0.6-1.4) H 11/23/19 09:30 Calcium 8.8 mg/dL (8.5-10.1) 11/25/19 06:30 Magnesium 2.0 mg/dL (1.8-2.4) 11/23/19 06:50 Total Bilirubin 0.7 mg/dL (0.2-1.0) 11/23/19 06:50 AST 18 U/L (15-37) 11/23/19 06:50 ALT 15 U/L (14-59) 11/23/19 06:50 Alkaline Phosphatase 67 U/L (46-116) 11/23/19 06:50 Total Protein 7.6 g/dL (6.4-8.2) 11/23/19 06:50 Albumin 3.1 g/dL (3.4-5.0) L 11/23/19 06:50 Procalcitonin 0.1 ng/mL 11/22/19 20:35 TSH 3.62 uIU/mL (0.36-3.74) 11/22/19 21:29 Urine Color Yellow (Yellow) 11/22/19 21:07 Urine Clarity Sl cloudy (Clear) 11/22/19 21:07 Urine pH 7.0 (5-8) 11/22/19 21:07 Ur Specific [place] 1.020 (1.005-1.025) 11/22/19 21:07 Urine Protein 30 mg/dL (Negative) H 11/22/19 21:07 Urine Ketones Negative mg/dL (Negative) 11/22/19 21:07 Urine Blood Small (Negative) H 11/22/19 21:07 Urine Nitrite Positive (Negative) H 11/22/19 21:07 Urine Bilirubin Negative (Negative) 11/22/19 21:07 Urine Urobilinogen 0.2 EU/dL (Up TO 0.2) 11/22/19 21:07 Ur Leukocyte Esterase Small (Negative) H 11/22/19 21:07 Urine RBC 3-5 HPF (0-2) H 11/22/19 21:07 Urine WBC 3-5 HPF (0-5) 11/22/19 21:07 Ur Epithelial Cells Rare HPF (Negative) 11/22/19 21:07 Urine Crystals Negative HPF (Negative) 11/22/19 21:07 Urine Bacteria Few HPF (Negative) 11/22/19 21:07 Urine Casts Negative LPF (Negative) 11/22/19 21:07 Urine Mucus Negative (Negative) 11/22/19 21:07 Urine Other Negative (Negative) 11/22/19 21:07 Ur Culture Indicated? C&s done as ordered 11/22/19 21:07 Urine Glucose Negative mg/dL (Negative) 11/22/19 21:07 COVID-19 PCR Cancelled 11/24/19 10:30 Nasopharyn COVID-19 PCR Cancelled 11/24/19 10:30 Ref Test Perform Site Cancelled 11/24/19 10:30
--- NOTE | 2019-11-25 12:23 | W.INDIABCONS ---
Date of service: 11/25/19 Time of Service: 12:23 Diabetes Inpatient Consult DESCRIPTION/ASSESSMENT: Received Pediatric Speech Language Pathologist Consult for Bailey. Met with Bailey today. She is a 59 year old female admitted with CAP, UTI. PMH: DM 2, hyperlipidemia, anemia, depression. Morbid obesity with BMI 42, lives in assisted living, recently moved from LTC to home share with providers. She is toothless but can tolerate regular texture as long as vegetables are well cooked. She manages her diabetes on her own. She reports taking lantus 20 u HS, novolog SSI, she checks her sugars 3-4 times daily. She reports that her post prandial and fasting sugars are < 150 mg/dl. She has basic diabetes and diet understanding and eats 3 meals daily. She reports limiting her simple carbs. Her ability to exercise is compromised due to poor balance. She does get PT regularly. Overall, Bailey is doing a good job managing her IDDM, would like to see Hem A1C at next blood draw. INTERVENTION: Provided education on DM including Hyper/hypoglycemia s/s with action plan for each scenario. Definition and types of CHO with examples, CHO counting, DASH diet materials, DM meal planning and label reading literature. Provided a blood sugar and food record chart and materials to reiterate CHO counting techniques. Reviewed desirable BG levels with patient with food choices and portions for optimal outcomes. Provided contact information for this RD and encouraged to call with any f/u questions r/t to DM self management. CDM from kitchen has been helping to count CHO's and achieve intake of ~65g/CHO per meal period. PLAN: conitnue diabetic diet follow up with writer editor once discharged if has concerns/questions re: diabetes management Time Spent in Nutritional Counseling and Treatment: 15 min
[2019-11-25] MEDS: Albuterol/Ipratropium 3 ML UPD VIAL UPD ×3 (12:52→23:35)
--- NOTE | 2019-11-25 15:04 | CMPROGNOTE_ITS ---
- If Service Date Differs Date of service: 11/25/19 Time of Service: 15:04 Care Management Progress Note S/O: Bailey was sitting up in her chair when CM met with her. She reported that she was feeling better today than when she arrived. She mentioned that she has a FWW and a 4WW, but they are not in good condition and they are very old. She stated that she has a leather case finisher, Barb at [facility]. Per Bailey's [facility] home care provider, Jazzmine Mazariegos, she has [facility] needs. CM called and left a message for Barb at [facility] regarding Bailey's DME. CM will continue to follow. A: Bailey is a 59 year old admitted with fever, pneumonia, COVID negative. She is disabled, lives in a family senior living here in [facility] and has supports through [facility] and [facility] who provides case management. P:Bailey will be discharged home when medically ready to her adult family senior living. Meri (home care provider) will provide her transportation home at time of discharge. Bailey has a referral to [facility] for new primary care she will need a scheduled appointment prior to discharge. CM to continue to assess for ongoing discharge needs.
--- NOTE | 2019-11-25 15:04 | PDOC.CMPRO ---
- If Service Date Differs Date of service: 11/25/19 Time of Service: 15:04 Care Management Progress Note S/O: Bailey was sitting up in her chair when CM met with her. She reported that she was feeling better today than when she arrived. She mentioned that she has a FWW and a 4WW, but they are not in good condition and they are very old. She stated that she has a disease case manager, Barb at [facility]. Per Bailey's [facility] home care provider, Jazzmine Mazariegos, she has [facility] needs. CM called and left a message for Barb at [facility] regarding Bailey's DME. CM will continue to follow. A: Bailey is a 59 year old admitted with fever, pneumonia, COVID negative. She is disabled, lives in a family longterm here in [facility] and has supports through [facility] and [facility] who provides case management. P:Bailey will be discharged home when medically ready to her adult family longterm. Meri (home care provider) will provide her transportation home at time of discharge. Bailey has a referral to [facility] for new primary care she will need a scheduled appointment prior to discharge. CM to continue to assess for ongoing discharge needs.
--- NOTE | 2019-11-25 16:00 | CHAPLAIN ---
Bailey was sitting up in a chair when I visited. She told me about being admitted this weekend and said she is starting to feel better. We shared some general information. I will continue to visit.
[2019-11-25] MEDS: Normal Saline Flush 10 ML SYR IVP ×2 (20:08→23:35)
[2019-11-25] MEDS: Atorvastatin 40 MG TAB 80 MG PO (20:09)
[2019-11-25] MEDS: AZITHROMYCIN 500 MG in Normal Saline 250 ML 250 MG IVPB (20:10)
[2019-11-25] MEDS: cefTRIAXone 2 GM/50 ML BAG IVPB (22:07)
[2019-11-25] MEDS: rOPINIRole 1 MG TAB PO (22:08)
[2019-11-25] MEDS: Melatonin 3 MG TAB 9 MG PO (22:08)
[2019-11-25] MEDS: QUEtiapine 25 MG TAB PO (22:08)
[2019-11-25] MEDS: Magnesium Oxide 400 MG TAB PO (22:08)
[2019-11-25] MEDS: Insulin Glargine 300 UNITS/3 ML PEN 30 UNITS SC (22:12)
[2019-11-26] VITALS (7 sets, daily range): BP systolic 130–158; BP diastolic 78–85; PULSE 51–62; RESP 8–22; TEMP 36.2–36.6; O2SAT 94–99
[2019-11-26] MEDS: Normal Saline Flush 10 ML SYR IVP (01:53)
[2019-11-26] MEDS: Albuterol/Ipratropium 3 ML UPD VIAL UPD ×2 (06:23→11:41)
[2019-11-26] MEDS: Levothyroxine 75 MCG TAB 225 MCG PO (06:23)
[2019-11-26] MEDS: Nicotine 14 MG/24 HR PATCH TD (07:49)
[2019-11-26] MEDS: PARoxetine 20 MG TAB 60 MG PO (07:50)
[2019-11-26] MEDS: Pregabalin 100 MG CAP 200 MG PO (07:50)
[2019-11-26] MEDS: buPROPion-CR 150 MG TABCR PO (07:55)
[2019-11-26] MEDS: Cetirizine 10 MG TAB PO (07:55)
[2019-11-26] MEDS: Aspirin 81 MG CHEW PO (07:56)
[2019-11-26] MEDS: Oxybutynin 5 MG TAB 10 MG PO (07:56)
[2019-11-26] MEDS: amLODIPine 10 MG TAB PO (07:57)
[2019-11-26] MEDS: Clopidogrel 75 MG TAB PO (07:57)
[2019-11-26] MEDS: Ferrous Sulfate 325 MG TAB PO (07:57)
[2019-11-26] MEDS: Heparin 5,000 UNITS/ML VIAL 5000 UNITS SC (08:01)
[2019-11-26] MEDS: Polyethylene Glycol 3350 17 GM PACKET PO (08:02)
[2019-11-26] MEDS: LORazepam 0.5 MG TAB PO (08:06)
[2019-11-26] MEDS: Insulin Aspart 300 UNITS/3 ML PEN SC ×2 (08:08→12:01)
--- NOTE | 2019-11-26 09:29 | W.PM.DS.N ---
Date of service: 11/26/19 Time of Service: 09:29 DS: Diagnosis Discharge Diagnosis (1) Tobacco dependence due to cigarettes: Status: Chronic (2) Anemia: Status: Chronic (3) Restless leg syndrome: Status: Acute (4) Urinary retention: Status: Acute (5) Diabetes type 2, controlled: Status: Chronic (6) CAD (coronary artery disease), [place] coronary artery: Status: Acute (7) CAP (community acquired pneumonia): Status: Acute (8) Acute UTI: Status: Acute (9) Bacteremia due to Gram-negative bacteria: Status: Acute Discharge Plan Disposition Condition: Stable Discharge Details Chief Complaint: Fever Clinical Impression: CAP (community acquired pneumonia), Acute UTI Reason For Visit: PNEUMONIA, COPD EXACERBATION Admit Date/Time: 11/22/19 21:34 Admit Provider: Marvin Rajan Attending Provider: Marvin Rajan Primary Care Provider: Unknown,Unknown ED Provider: Jan Giraldo Hospital Course Hospital Course: This is a 59 yo female that presented to the ED with c/o cough and fever. Noted to be hypoxic and supplemental oxygen initiated. CXR showed possible bilateral lower lobe infiltrates and/or pulmonary congestion. WBC count was normal. UA was positive. Rocephin and Azithromycin IV were initiated. Her urine and blood cultures grew pansensitive E. Coli. Initially placed on IV solu-medrol with a quick taper off, then a dose of dexamethasone. Her COVID-19 was negative. She continued on Rocephin until the day of discharge, then changed to Cephalexin 750mg TID for 10 days. Her respiratory status, including CARTY, improved with Duonebs. She will d/c on Symbicort and prn albuterol. She smokes 2 cigarettes daily and she was encouraged to stop any smoking. Her HR was consistently in the 50-60's. Consideration was given to changing her carvedilol from 25mg BID to 12.5 mg BID, given her BP was not as controlled as desired on the carvedilol, Amlodipine 10mg daily and lasix. Adding another BP agent to her already lengthy list of medications would not be ideal though an ACEI or an ARB would be beneficial given her DM2. This issue should be monitored and addressed routinely as an outpt. She has her first visit, via telehealth, with a new PCP on 12/20/2019. Home Meds and New Rx's Prescriptions: New cephalexin 750 mg capsule 750 mg PO TID Qty: 30 RF: 0 No Action quetiapine 25 mg Tablet 25 mg PO HS RF: 0 furosemide 40 mg Tablet 40 mg PO BID RF: 0 bupropion HCl 150 mg Tablet Sustained-Release 12 Hr 150 mg PO BID RF: 0 atorvastatin 80 mg Tablet 80 mg PO DAILY RF: 0 carvedilol 25 mg Tablet 25 mg PO BID RF: 0 acetaminophen [Tylenol] 325 mg Tablet 650 mg PO TID RF: 0 ropinirole 1 mg Tablet 1 mg PO HS RF: 0 Lantus U-100 Insulin 100 unit/mL Solution 20 unit SUBCUT HS RF: 0 cetirizine [Zyrtec] 10 mg Tablet 10 mg PO DAILY RF: 0 clopidogrel 75 mg Tablet 75 mg PO DAILY RF: 0 levothyroxine 75 mcg Tablet 225 mcg PO DAILY RF: 0 amlodipine 10 mg Tablet 10 mg PO DAILY RF: 0 paroxetine HCl 20 mg Tablet 60 mg PO DAILY RF: 0 metformin 1,000 mg Tablet 1,000 mg PO BID RF: 0 nystatin 100,000 unit/gram Cream 1 applic TOPICAL PRN PRNRF: 0 aspirin 81 mg Tablet,Chewable 81 mg PO DAILY RF: 0 oxybutynin chloride 5 mg Tablet 10 mg PO BID RF: 0 fluticasone propionate 50 mcg/actuation Ashley,Suspension 2 spray INTRANASAL DAILY RF: 0 Novolin N Flexpen 100 unit/mL (3 mL) Insulin Pen See Protocol unit SUBCUT TID RF: 0 pregabalin 200 mg Capsule 200 mg PO TID RF: 0 Januvia 100 mg Tablet 100 mg PO DAILY RF: 0 ferrous sulfate 324 mg (65 mg iron) Tablet,Delayed Release (Dr/Ec) 324 mg PO DAILY RF: 0 cholecalciferol (vitamin D3) [Vitamin D3] 125 mcg (5,000 unit) Tablet 50,000 mcg PO QWEEK RF: 0 melatonin 10 mg Tablet 10 mg PO HS RF: 0 potassium chloride 20 mEq Tablet Extended Release 20 meq PO TID RF: 0 magnesium oxide 400 mg magnesium Tablet 400 mg PO HS RF: 0 Discharge Instructions Activity:: Activity as Tolerated Activity:: Activity as Tolerated Equipment/Supplies:: No Equipment Needed Diet:: 75 gram carbohydrate Discharge Orders Other Ambulatory Orders: PFT (Jamari/DLCO/Volumes) (Outpt) (ONCE) Location: None Selected Ordered By: Cayden Chaidez DS: Summary Status at Discharge Functional status at discharge: uses cane/walker Overall status at discharge: patient is progressing back to baseline Mental Status: mental status grossly normal Speech and Movement: speech and movement normal Mood: congruent mood Affect: normal affect Exam Const General: cooperative Nutritional Appearance: obese Orientation: alert and oriented x3 Resp Effort & Inspection: normal respiratory effort Auscultation: clear to auscultation bilaterally and diminished lung sounds Cardio Rate: regular rate Rhythm: regular rhythm Heart Sounds: S1 normal and S2 normal Skin General skin exam: no rashes or lesions noted Extrem General: normal to inspection and no pedal edema Psych Appearance: grossly normal Mental Status: mental status grossly normal Speech and Movement: speech and movement normal Mood: congruent mood Affect: normal affect Thought Process: normal Thought Content: normal DS: Data Vitals/I&O Vitals and I&O: Vital Signs Temperature 36.6 C 11/26/19 08:06 Temperature Source Tympanic 11/26/19 08:06 Pulse 56 L 11/26/19 08:06 Pulse Rhythm Regular 11/25/19 23:50 Pulse 84 11/22/19 21:40 Respiratory Rate 19 11/26/19 08:06 Respiratory Effort Non-Labored 11/25/19 23:50 Respiratory Depth Normal 11/25/19 23:50 Respiratory Pattern Normal 11/25/19 23:50 Blood Pressure 157/85 H 11/26/19 08:06 Blood Pressure Mean 83 11/22/19 20:31 Blood Pressure Position Supine 11/22/19 20:23 Pulse Oximetry 95 11/26/19 08:06 Oxygen Delivery Method Room Air 11/26/19 08:06 Oxygen Flow Rate 0 11/26/19 08:06 End Tidal Co2 86 11/22/19 20:23 Pain Level 0 11/26/19 08:06 Comment 11/26/19 01:30 Intake & Output 11/25/19 11/25/19 11/26/19 11:59 23:59 11:59 Intake Total 790 / 2360 1570 / 2360 520 / 520 Output Total 1800 / 2500 700 / 2500 400 / 400 Balance -1010 / -140 870 / -140 120 / 120 Weight 131.4 kg 132.3 kg Intake: IV 250 / 1100 850 / 1100 320 / 320 Oral 540 / 1260 720 / 1260 200 / 200 Output: Urine 1800 / 2500 700 / 2500 400 / 400 Other: Urine Color Yellow Yellow Yellow Urine Appearance Clear Clear Clear Urine Odor Normal Normal Comment pt voided directly in toilet, missing measuring hat. Voiding Methods Toilet Incontinent Toilet Data Completed and Pending Labs on day of discharge: Labs from last 24 hours 11/26/19 11:00 Vancomycin Trough Cancelled Preliminary micro results at discharge 11/22/19 21:29 Blood Culture - Preliminary Blood Escherichia coli [facility] Medical History Anemia (Chronic) CAD (coronary artery disease), [place] coronary artery (Acute) Depression (Chronic) Diabetes type 2, controlled (Chronic) Hyperlipidemia (Acute) Hypothyroidism (acquired) (Acute) Insomnia (Acute) Neuropathy (Acute) Restless leg syndrome (Acute) Tobacco dependence due to cigarettes (Chronic) Surgical History History of (Chronic) S/P PTCA (percutaneous transluminal coronary angioplasty) (Acute) S/P spinal surgery (Acute) Social History Smoking/Tobacco Use Status: Current every day Tobacco Type: cigarettes Alcohol Intake: never Drug use: Occasionally Substance use type: marijuana Do you feel safe at home: Yes Do you feel safe in your relationship?: Yes
[2019-11-26] MEDS: Budesonide/Formoterol 160/4.5 6 GM 60 PUFF INH IH (10:21)
--- NOTE | 2019-11-26 10:51 | PDOC.HHF2F_ITS ---
Home Health Certification Home Health Certification: 1. Encounter Date and Reason I certify that THALIA VILLA was seen by Cayden Chaidez MD on 11/26/19 and that I had a [id number] encounter with this patient that meets the physician face to face encounter requirements. 2. Clinical Findings Supporting Skilled Need and Homebound Status I certify that home health services are medically necessary, include either intermittent correction and/or physical/speech therapy, and that this patie nt is homebound in that absences from the home require considerable and taxing effort and are infrequent or of short duration, or are attributable to the need to receive medical care. [X] (a) Attached documentation from encounter provides clinical findings supporting skilled need and homebound status (including what assistance patient requires to leave the home). The encounter with the patient was in whole, or in part, for the following medical condition, which is the primary reason for home health care: PNEUMONIA, COPD EXACERBATION Mcc: Physical Therapy:PT for strengthening, conditioning and safe ambulation. Speech Therapy: Homebound: 3. Certification and Authentication I certify that I composed the above information based on my clinical judgement relating to this patient's medical condition and, if applicable, clinical findings communicated to me by the NPP or inpatient physician who performed the Home Health Referral. All further orders will be obtained through (Community Based Physician - PCP)
--- NOTE | 2019-11-26 12:43 | PT.INTREAT ---
Date of service: 11/26/19 Time of Service: 12:43 PT Notes Visit Reasons: PNEUMONIA, COPD EXACERBATION Inpatient Physical Therapy Treatment Note [facility] Date: 11/26/19 PRECAUTIONS: Activity as tolerated SUBJECTIVE: Bailey reports that she is feeling well today, she also reports that she is at her functional baseline. She is looking forward to going home later today. OBJECTIVE: PAIN: No complaints of pain BED MOBILITY/TRANSFERS Supine-sit: I with HOB flat Sit-supine: I with HOB flat Sit-stand: S Stand-sit: S Bed-Chair: S Chair-bed: S GAIT Assistive Device: FWW Weight bearing: Full Assist: SBA-S Distance: 100' x2 Deviation: Seated rest x1, no SOB, decreased nathaniel STAIRS: Up/down 3?4 using B rails and a step-over pattern with supervision ASSESSMENT: Patient tolerated session well without complaint. Patient was able to tolerate the addition of stair training today without demonstrating signs or c/o SOB. Patient would benefit from continued gait training for improved activity tolerance, as well as global strengthening. PLAN: As per primary PT TREATMENT CODE/TIME: 25 minutes; [id number] x2
--- NOTE | 2019-11-26 14:32 | PDOC.CMDIS ---
- If Service Date Differs Date of service: 11/26/19 Time of Service: 14:32 LACE Index Scoring Tool - Questions: Length of Stay (in days): 4 - 6 Acuity (Admit via E.D.?): Yes Comorbidities: Diabetes w/o Complication E.D. Visits: 1 - Answers: Total Score: 9 Risk of Readmission: Low Risk Care Management Discharge Reason for Hospitalization: Pneumonia rule out COVID Discharge Plan: Bailey will return home with new orders for HH PT. CM called [facility] to confirm that they will continue to write the orders for HH, as she is just now establishing with them as a pt. CM discussed this with Bailey and Jazzmine, who understand that there may be a gap of services until [facility] agrees to follow. Jazzmine, Bailey's caregiver, was present for discharge instructions and will drive her home via private vehicle. She will follow up with her new PCP and discharge plan of care. CM provided a FWW, as recommended by PT. Patient/Family Education Needs: Review discharge instructions regarding activity levels and medications, discussion of self care needs including ask me three. Services Needed at Discharge: Home Health Care Services ([facility] PT)
--- NOTE | 2019-11-27 08:40 | INDS_ITS ---
Date of service: 11/27/19 PT Notes Visit Reasons: PNEUMONIA, COPD EXACERBATION Inpatient Physical Therapy Discharge Summary Dates: 11/27/2019 Dates of Service: 11/25/2019 through 11/26/2019 Referring Doctor: Cayden Chaidez MD PT Orders: PT CONSULT: Limited ability Precautions: Fall. Standard. Activity as tolerated. On 2.5 L of continuous oxygen per RT today. Patient Profile/Admitting Diagnosis: Bailey is a 59-year-old female who presented to the ED on 11/22/2019 with chief complaints of shortness of breath accompanied by fever. Patient is diagnosed with pneumonia, acute urinary tract infection, urinary retention, tobacco dependence, this leg syndrome, and bacteremia due to gram negative bacteria with referral to skilled physical therapy services to address resulting impairments and mobility ADL performance and tolerance. PMHX: Medical History (Updated 11/23/19 @ 02:19 by Marvin Rajan) Anemia (Chronic) CAD (coronary artery disease), [place] coronary artery (Acute) Depression (Chronic) Diabetes type 2, controlled (Chronic) Hyperlipidemia (Acute) Hypothyroidism (acquired) (Acute) Insomnia (Acute) Neuropathy (Acute) Restless leg syndrome (Acute) Tobacco dependence due to cigarettes (Acute) Surgical History (Updated 11/23/19 @ 01:57 by Marvin Rajan) History of (Chronic) S/P PTCA (percutaneous transluminal coronary angioplasty) (Acute) S/P spinal surgery (Acute) Social History/Home Situation: Patient lives in a snf with 1 step to enter without rails, with 4 steps climb to get into the kitchen with rails on both sides and another 1 step to the living room without rails. She previously came from [facility] and transferred into this snf on July 28, 2019. She reports that she is able to manage all self-care tasks except for donning her bra. She was independent with all ambulation activities using a front wheeled walker. Milo at the snf medications and prepares meals for her. She has a daughter and a son were both aware of how she is been doing. 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 Equipment Owned/DME: Front-wheeled walker Subjective: NT Objective: General Observation: NT Mental Status: NT Pain: NT Vital Signs: NT ROM: Right Upper Extremity: Shoulder Flexion allows 30 degrees. Shoulder abduction allows 20 degrees. Elbow flexion allows 60 degrees. Wrist flexion WFL. Opening and closing of hand WFL. Left Upper Extremity: Shoulder Flexion WFL. Shoulder abduction WFL. Elbow flexion WFL. Wrist flexion WFL. Opening and closing of hand WFL. Right Lower Extremity: Hip flexion WFL. Hip abduction WFL. Knee flexion WFL. Ankle dorsiflexion WFL. Ankle plantarflexion WFL. Left Lower Extremity: Hip flexion WFL. Hip abduction WFL. Knee flexion WFL. Ankle dorsiflexion WFL. Ankle plantarflexion WFL. Strength: Right Upper Extremity: Shoulder flexors 3-/5. Shoulder abductors 3-/5. Elbow flexors 3-/5. Elbow extensors 3-/5. Automatic Presser weak but functional. Left Upper Extremity: Shoulder flexors 4-/5. Shoulder abductors 4-/5. Elbow flexors 4-/5. Elbow extensors 4-/5. Automatic Presser strong. Right Lower Extremity: Hip flexors 4-/5. Hip abductors 4-/5. Knee flexors 4-/5. Knee extensors 4-/5. Ankle dorsiflexors 4-/5. Ankle plantarflexors 4-/5. Left Lower Extremity: Hip flexors 4/5. Hip abductors 4/5. Knee flexors 4/5. Knee extensors 4/5. Ankle dorsiflexors 4/5. Ankle plantarflexors 4/5. Sensation: Intact as to pain and pressure on bilateral lower extremities. Bed Mobility/Transfers: Sit to stand independent with FWW Stand to sit supervision with FWW Bed to chair supervision with FWW Chair to bed supervision with FWW Gait: 100 feet x 2 with 1 seated rest, no SOB. Decreased nathaniel. UP and down three 4-inch steps while holding onto B rails with [id number] pattern with supervision. Balance: Static Sitting: Normal Dynamic Sitting: Normal Static Standing: Fair Dynamic Standing: Fair Assessment: Patient discharged to snf on 11/26/2019 with FWW. Recommendation for PT services given in order to regain prior level of function. Goals: Goals X1 week 1. Supine-Sit independent MET 2. Sit-Supine independent MET 3. Sit-Stand independent MET 4. Stand-Sit independent NOT MET 5. Bed-Chair independent NOT MET 6. Chair-Bed independent NOT MET 7. Independent gait on level surface with use of least restrictive device for at least 300 feet without report of pain nor dyspnea NOT MET 8. Independent stair negotiation while holding onto bilateral rails for at least 10 steps without report of pain nor dyspnea NOT MET 9. Independent with home exercise program NOT MET 10. Good static and dynamic standing balance/tolerance NOT MET DISCHARGE RECOMMENDATIONS: Patient will benefit from home health PT services in order to progress mobility level using least restrictive assistive ambulatory device, assess home safety, identify additional equipment needs, and establish a functional maintenance program that will increase ability of patient to remain at home. TREATMENT CODE/TIME: NC. Thank you very much for this referral. Billie Pendleton PT, DPT, CLT [facility] [place], [place]
== END 2019-11-26 13:18 | disposition home or self-care (01) | DRG 194 ==
LOC: ER 22:21 → MS 22:23
PROVIDERS: Nurse Practitioner Family; Admitting Provider Family Medicine; Emergency Provider Emergency Medicine; Visit Provider Family Medicine
DX: J18.9 Pneumonia, unspecified organism (principal); N39.0 Urinary tract infection, site not specified; R78.81 Bacteremia; Z68.41 Body mass index [BMI] 40.0-44.9, adult; R09.02 Hypoxemia; B96.20 Unspecified Escherichia coli [E. coli] as the cause of diseases classified elsewhere; Z03.818 Encounter for observation for suspected exposure to other biological agents ruled out; Z72.0 Tobacco use; I10 Essential (primary) hypertension; I25.10 Atherosclerotic heart disease of native coronary artery without angina pectoris; E11.42 Type 2 diabetes mellitus with diabetic polyneuropathy; G25.81 Restless legs syndrome; D64.9 Anemia, unspecified; R33.9 Retention of urine, unspecified; R60.0 Localized edema; E66.9 Obesity, unspecified; E83.42 Hypomagnesemia; E03.9 Hypothyroidism, unspecified; E78.5 Hyperlipidemia, unspecified
CPT/HCPCS: 36415; 80048; 80053; 82805; 84145; 85027; 87040; 87077; 87449; 93005; 94640; 96361; 96365; 96375; 97162; 97530; 99223; 99232; 99233; 99239; 99285; U0003; 71045; 80202; 81003; 81015; 83605; 83735; 84443; 85025; 85610; 85730; 87086; 87186; 93010; J0456; J1644; J2930; J3370; J7613; J7620; J8540

== ENCOUNTER 2020-03-20 13:26 | Outpatient (REF) | payer MEDICARE, MEDICAID, SELFPAY ==
[2020-03-20 18:59] LABS: HCT 41.4 % (36.0-46.0); HGB 12.7 g/dL (11.2-15.7); MCHC 30.7 % (32.0-36.0); MCV 84.8 fL (80-95); MPV 11.7 fL (8.0-11.0); Platelet Count 172 10^3/uL (130-400); RBC 4.88 10^6/uL (3.93-5.22); RDW 16.1 % (11.7-14.6); RDW-SD 49.9 fL
[2020-03-20 19:26] LABS: Iron 47 ug/dL (50-170); Total Iron Binding Capacity 358 ug/dL (250-450); Transferrin Sat 13 % (15-50)
[2020-03-20 19:35] LABS: ALT 29 U/L (14-59); AST 27 U/L (15-37); Albumin 3.8 g/dL (3.4-5.0); Alkaline Phosphatase 84 U/L (46-116); Anion Gap 6.6 mmol/L (3-11); BUN 24 mg/dL (7-18); Bilirubin, Total 0.6 mg/dL (0.2-1.0); CO2 29.4 mmol/L (21.0-32.0); CREATININE 1.34 mg/dL (0.55-1.02); Calcium 9.4 mg/dL (8.5-10.1); Calculated LDL 34 mg/dL (<100); Chloride 103 mmol/L (98-107); Cholesterol 97 mg/dL (<200); Estimated GFR 40.48 (mL/min/1.73m2); Ferritin 17 ng/mL (8-252); Glucose 177 mg/dL (74-106); HDL Cholesterol 32 mg/dL (40-60); Potassium 4.3 mmol/L (3.5-5.1); Sodium 139 mmol/L (136-145); TSH (W/Ref FT4) 4.68 uIU/mL (0.36-3.74); Total Protein 8.1 g/dL (6.4-8.2); Triglyceride 157 mg/dL (<150)
[2020-03-20 19:53] LABS: FREE T4 1.19 ng/dL (0.76-1.46)
== END 2020-03-20 13:46 ==
LOC: NCHCN 13:26
PROVIDERS: PCP Nurse Practitioner Family; Visit Provider Nurse Practitioner Family
DX: D50.9 Iron deficiency anemia, unspecified (principal); E03.9 Hypothyroidism, unspecified; E11.9 Type 2 diabetes mellitus without complications; I25.110 Atherosclerotic heart disease of native coronary artery with unstable angina pectoris
CPT/HCPCS: 80053; 80061; 85027; 82728; 83540; 83550; 84439; 84443

== ENCOUNTER 2020-03-30 02:06 | Outpatient (CLI) | payer MEDICARE, MEDICAID, SELFPAY ==
--- NOTE | 2020-03-30 | DI.CT_ITS ---
EXAM: CT ABDOMEN W CLINICAL HISTORY: PANCREATIC CYST,K86.2 TECHNIQUE: Imaging Protocol: Axial computed tomography images with coronal and sagittal reformatted images were created and reviewed CONTRAST MATERIAL: Intravenous: Omnipaque 350 Contrast volume:100 mL Oral: Yes COMPARISON: CT CT PELVIS W/ CNTRST from 02/16/[address] ABDOMEN W/ CNTRST from 10/11/[address] ABD AND PELVIS WITH CONTRAS from 09/22/[address] ABDOMEN PELVIS W from 08/12/2018 FINDINGS: ABDOMEN: Lung Bases: Stable basilar pulmonary nodules. Liver: Diffuse decreased attenuation of the liver consistent with fatty infiltration. The very cauda l tip of the liver is not included on the examination. No measurable mass. Portal, Superior Mesenteric, and Splenic Veins: Unremarkable. Gallbladder and Biliary Tract: Status post cholecystectomy. No biliary ductal dilatation. Pancreas: Normal density, no abnormal calcifications or inflammatory process. No evidence of a pancre atic cystic or solid mass. Spleen: Normal. Adrenals: No masses seen. Kidneys: Normal size, contour and axis. No radiodense stones or obstructive uropathy. Tiny hypodensit ies seen in the right kidney. They are too small for further characterization but likely reflect sma ll cysts. Abdominal Aorta: Abdominal portion non-dilated. Atherosclerosis. Bowel: No obstruction or bowel wall thickening. Appendix is unremarkable. Peritoneal Cavity: No ascites, collection or mesenteric inflammatory response. Lymph Nodes: Within normal limits. Bones: Degenerative changes. Soft Tissues: Unremarkable. IMPRESSION: 1. No CT evidence of a pancreatic mass. 2. Hepatic steatosis. 3. Status post cholecystectomy. No biliary ductal dilatation. RADIATION DOSE DELIVERED: 1,074.91mGy.cm Total DLP DATA REPOSITORY: All CT scans at this facility are submitted to the National Radiology Data Registry (NRDR) Dose Index Registry (DIR) with the [employer] (ACR). RADIATION OPTIMIZATION: All CT scans at this facility use at least one of these dose optimization te chniques: automated exposure control; mA and/or kV adjustment per patient size (includes targeted exa ms where dose is matched to clinical indication); or iterative reconstruction.
[2020-03-30] MEDS: Omnipaque 350 MG/ML 100 ML BTL IJ (11:40)
[2020-03-30] MEDS: Breeza Beverage 473 ML BTL PO (11:40)
[2020-03-30] MEDS: Normal Saline - Diluent 50 ML VIAL IV (11:40)
== END 2020-03-30 02:26 ==
PROVIDERS: PCP Nurse Practitioner Family; Visit Provider Nurse Practitioner Family
DX: K76.0 Fatty (change of) liver, not elsewhere classified
CPT/HCPCS: 74160; J3490

== ENCOUNTER 2020-06-26 14:22 | Emergency (ER) | payer MEDICARE, MEDICAID, SELFPAY ==
[2020-06-26] VITALS (43 sets, daily range): BP systolic 97–150; BP diastolic 44–113; PULSE 69–80; RESP 15–30; TEMP 36.6–36.8; O2SAT 91–97
--- NOTE | 2020-06-26 14:45 | RT.EKG_ITS ---
APPROVED REPORT Exam: Resting ECG Patient Location: E HR:71 bpm ECG Measurements Heart Rate 71 AXIS WV 196 P 47 QRSd 100 QRS -15 QT 410 T 103 QTc 445 Conclusion Sinus rhythm...normal P axis, V-rate 60- 99 I have reviewed and interpreted ECG and agree with software generated interpretation.
--- NOTE | 2020-06-26 14:45 | ED.GENADUL_ITS ---
Discharge Plan Disposition Patient Disposition: HOME Condition: Stable Discharge Details Clinical Impression: Diarrhea, Shortness of breath Primary Care Provider: Radha Fonseca ED Provider: Vel Brock Home Meds and New Rx's Prescriptions: Continued pregabalin [Lyrica] 200 mg Capsule 200 mg PO TID RF: 0 potassium chloride 20 mEq Tablet Extended Release 20 meq PO QAM RF: 0 sitagliptin 100 mg Tablet 100 mg PO DAILY RF: 0 triamcinolone acetonide 0.5 % Ointment 1 applic topical TID RF: 0 cholecalciferol (vitamin D3) 50,000 unit Capsule 50,000 unit PO QAM RF: 0 quetiapine 25 mg Tablet 25 mg PO HS RF: 0 furosemide 40 mg Tablet 40 mg PO BID RF: 0 bupropion HCl 150 mg Tablet Sustained-Release 12 Hr 150 mg PO BID RF: 0 atorvastatin 80 mg Tablet 80 mg PO DAILY RF: 0 carvedilol 25 mg Tablet 25 mg PO BID RF: 0 acetaminophen [Tylenol] 325 mg Tablet 650 mg PO TID RF: 0 ropinirole 1 mg Tablet 1 mg PO HS RF: 0 Lantus U-100 Insulin 100 unit/mL Solution 30 unit SUBCUT HS RF: 0 cetirizine [Zyrtec] 10 mg Tablet 10 mg PO DAILY RF: 0 clopidogrel 75 mg Tablet 75 mg PO DAILY RF: 0 levothyroxine 75 mcg Tablet 225 mcg PO DAILY RF: 0 amlodipine 10 mg Tablet 10 mg PO DAILY RF: 0 paroxetine HCl 20 mg Tablet 60 mg PO DAILY RF: 0 metformin 1,000 mg Tablet 1,000 mg PO BID RF: 0 nystatin 100,000 unit/gram Cream 1 applic TOPICAL PRN PRNRF: 0 aspirin 81 mg Tablet,Chewable 81 mg PO DAILY RF: 0 oxybutynin chloride 5 mg Tablet 10 mg PO BID RF: 0 fluticasone propionate 50 mcg/actuation [place],Suspension 2 spray INTRANASAL DAILY RF: 0 Novolin N Flexpen 100 unit/mL (3 mL) Insulin Pen See Protocol unit SUBCUT TID RF: 0 ferrous sulfate 324 mg (65 mg iron) Tablet,Delayed Release (Dr/Ec) 324 mg PO DAILY RF: 0 cholecalciferol (vitamin D3) [Vitamin D3] 125 mcg (5,000 unit) Tablet 50,000 mcg PO QWEEK RF: 0 melatonin 10 mg Tablet 10 mg PO HS RF: 0 magnesium oxide 400 mg magnesium Tablet 400 mg PO HS RF: 0 omeprazole 40 mg capsule,delayed release(DR/EC) 40 mg PO DAILY RF: 0 budesonide-formoterol [Symbicort] 160-4.5 mcg/actuation HFA aerosol inhaler 1 puff inhalation BID RF: 0 albuterol sulfate 90 mcg/actuation HFA aerosol inhaler 2 puff INHALATION PRN PRNRF: 0 Discharge Instructions Instructions: Acute Diarrhea (ED), Dyspnea (ED) Additional Instructions: At this time your evaluation in the ER does not reveal any obvious emergent process. I recommend [id number] medication for symptomatic control for your diarrhea. Plenty of fluids to avoid dehydration. Please watch for new or worsening symptoms and return to the ER for any concerns. I would like you to contact your primary care provider on Monday for prompt outpatient reevaluation. Repeat laboratory values to assess your renal function will likely be in dicated. Discharge Data Discharge Date/Time-TO BE ENTERED AT DEPARTURE: 06/26/20 17:50 Medical Decision Making <KEREN Martinez - Last Filed: 06/29/20 20:07> Patient is a pleasant 59-year-old female presenting today with chief complaint of chills, diarrhea, cough and shortness of breath. She reports that symptoms began approximately 3 days ago. Reports that initial symptoms were diarrhea and chills. She also reports 1 loose bowel movement today. No blood noted in her stool. She denies any abdominal pain. Is not currently endorsing nausea. Has not had any episodes of vomiting. No abdominal pain. States that she is also been having a cough has been nonproductive. States that she had been short of breath, particular with any type of movement. Patient lives with a home care provider. She does have good support at home. Patient's primary concern at this time, while lying the stretcher, is exacerbation of her restless leg syndrome. On exam, patient appears acute on chronically ill. She is notably morbidly obese. She is slightly tachypneic but otherwise, respiratory exam is normal with clear lung [place]. Normal cardiac exam. Patient is afebrile. Oxygen saturation is normal. Abdomen is benign. She has excoriated, dry skin on her lower extremities but no calf tenderness. Skin color changes consistent with chronic peripheral vascular disease but no evidence of acute DVT. Pulses are equal bilaterally. Oropharynx is very dry with a cracked tongue. Past medical history includes CAD, hypothyroidism, type 2 diabetes, RLS, neuropathy, hyperlipidemia, anemia, NSTEMI, hypertension. History of smoking. I am concerned that the patient may have contracted COVID-19. Based on her comorbidities and acute appearance, if she is Covid positive, I wonder she would benefit from IV therapy with remdesivir.. Plan to run rapid in-house Covid testing. We will also obtain baseline labs, chest x-ray Plan to hydrate patient as she appears quite dehydrated today. Will obtain baseline labs, chest x-ray. Consider potential pulmonary embolism as a source of her shortness of breath and will obtain a D-dimer for further evaluation. At the end of my shift, care transition to Pedro Brock PA-C with labs and imaging pending. <KEREN Kendall - Last Filed: 06/26/20 19:18> This is a 59-year-old female who I assumed care of at shift change from my colleague KEREN Lind. Please see her initial HPI and examination. In short she presented to the ER for chills, diarrhea, cough, shortness of breath. Symptoms been present for 3 days. Past medical history includes CAD, hypothyroidism, diabetes, RLS, neuropathy, hyperlipidemia, anemia, NSTEMI, hypertension. High concern for potential Covid, work-up has been initiated but the complete work-up has not resulted. Upon my evaluation of the patient, she reports that she is feeling improvement symptoms with IV fluid and feels much better than her initial evaluation. Her laboratory values reveal a white blood cell count of 8.01 hemoglobin 12.3 hematocrit 39.0 platelet count 142. D-dimer 873, sodium of 129 however when corrected is either 133 or 135 depending on the equation use. Potassium 4.2, creatinine 1.6 with estimated GFR of 32.99. Her GFR has been decreased since October of last year, today does not look terribly worse than her baseline. She is receiving a liter of IV fluid. Glucose 343. BNP 597, albumin 3. Covid negative, flu negative, RSV negative. Chest x-ray no acute pulmonary findings per radiology. Given the elevated D-dimer, will obtain chest CTA for further evaluation. Patient does meet criteria to be given IV contrast. She is receiving a full liter of IV fluid. Chest CTA read by radiology as no evidence for pulmonary embolism. Repeat glucose of 238. Discussed work-up with patient. She reports feeling dramatically better when compared to her initial presentation. She has remained hemodynamically stable while under my care. After discussing her work-up, we discussed options. Patient reports that she feels well enough to go home with her for that. Clinically she appears well, nontoxic and I believe this to be reasonable but I also believe that she should be evaluated early next week as an outpatient, colten brower repeat laboratory values indicated. Otherwise she was encouraged to return to the ER for new or worsening symptoms. We discussed the importance of adequate hydration. HPI <KEREN Martinez - Last Filed: 06/29/20 20:07> General Mode of arrival: EMS . Date/Time Provider Initiated Documentation: 06/26/20 14:32 . Limitations to Documentation: no limitations . Information obtained by: patient, EMS, RN notes reviewed and old records reviewed . History of Present Illness 59 year old F presents to the emergency department with the chief complaint of general feeling of being unwell, headache, nausea, diarrhea, cough, described as severe, Quality is described as aching, and is localized to the head. Patient reports no radiation. Patient started experiencing this day(s) (3) and it has been constant. No relieving factors improve symptom(s), No exacerbating factors reported . Patient notes cough, headaches, loss of appetite, nausea/vomiting (nausea, no vomiting) and shortness of breath; denies confusion, chest pain, diaphoresis, fever/chills, rash and weakness. Patient did receive the following treatments prior to arrival, none Related Data Home Medications Medication Instructions Recorded Confirmed cholecalciferol (vitamin D3) 50,000 unit PO QAM 08/12/18 08/12/18 potassium chloride 20 meq PO QAM 08/12/18 06/26/20 pregabalin [Lyrica] 200 mg PO TID 08/12/18 06/26/20 sitagliptin 100 mg PO DAILY 08/12/18 06/26/20 triamcinolone acetonide 1 applic TOPICAL TID 08/12/18 06/26/20 Lantus U-100 Insulin 30 unit SUBCUT HS 11/22/19 06/26/20 Novolin N Flexpen See Protocol SUBCUT TID 11/22/19 06/26/20 acetaminophen [Tylenol] 650 mg PO TID 11/22/19 06/26/20 amlodipine 10 mg PO DAILY 11/22/19 06/26/20 aspirin 81 mg PO DAILY 11/22/19 06/26/20 atorvastatin 80 mg PO DAILY 11/22/19 06/26/20 bupropion HCl 150 mg PO BID 11/22/19 06/26/20 carvedilol 25 mg PO BID 11/22/19 06/26/20 cetirizine [Zyrtec] 10 mg PO DAILY 11/22/19 06/26/20 cholecalciferol (vitamin D3) 50,000 mcg PO QWEEK 11/22/19 11/22/19 [Vitamin D3] clopidogrel 75 mg PO DAILY 11/22/19 06/26/20 ferrous sulfate 324 mg PO DAILY 11/22/19 06/26/20 fluticasone propionate 2 spray INTRANASAL DAILY 11/22/19 06/26/20 furosemide 40 mg PO BID 11/22/19 06/26/20 levothyroxine 225 mcg PO DAILY 11/22/19 06/26/20 magnesium oxide 400 mg PO HS 11/22/19 06/26/20 melatonin 10 mg PO HS 11/22/19 06/26/20 metformin 1,000 mg PO BID 11/22/19 06/26/20 nystatin 1 applic TOPICAL PRN PRN 11/22/19 06/26/20 oxybutynin chloride 10 mg PO BID 11/22/19 06/26/20 paroxetine HCl 60 mg PO DAILY 11/22/19 06/26/20 quetiapine 25 mg PO HS 11/22/19 06/26/20 ropinirole 1 mg PO HS 11/22/19 06/26/20 albuterol sulfate 2 puff INHALATION PRN PRN 06/26/20 06/26/20 budesonide-formoterol [Symbicort] 1 puff INHALATION BID 06/26/20 06/26/20 omeprazole 40 mg PO DAILY 06/26/20 06/26/20 Allergies Allergy/AdvReac Type Severity Reaction Status Date / Time bee venom protein (honey bee) AdvReac Unknown Unverified 06/26/20 14:34 celecoxib AdvReac Unknown Unverified 06/26/20 14:34 coconut AdvReac Unknown Unverified 06/26/20 14:34 latex AdvReac Unknown Unverified 06/26/20 14:34 bee pollen AdvReac Unverified 06/26/20 14:34 General Stated Complaint: RespSymp GABBY: 3 Review of Systems <KEREN Martinez - Last Filed: 06/29/20 20:07> Constitutional Constitutional: Reports as per HPI and Denies headache(s) Eyes Eyes: Reports as per HPI, Denies eye discharge and Denies irritation ENT Ears, Nose, Mouth, and Throat: Reports as per HPI and Denies headache(s) Cardiovascular Cardiovascular: Reports as per HPI, Denies chest pain and Denies dyspnea Respiratory Respiratory: Reports as per HPI and Denies dyspnea Gastrointestinal Gastrointestinal: Reports as per HPI, Denies abdominal pain, Denies melena, Denies hematochezia, Reports change in bowel habits, Reports diarrhea (1 loose BM today), Reports nausea and Denies vomiting Genitourinary Genitourinary: Reports system reviewed and no additional complaints, except as documented Integumentary/Breasts Skin/Breast: Reports as per HPI and Denies rash Neurologic Neurologic: Reports as per HPI and Denies headache(s) PFSH <KEREN Martinez - Last Filed: 06/29/20 20:07> Medical History Acute on chronic diastolic (congestive) heart failure Acute pancreatitis Adult hypothyroidism Anemia Atherosclerotic heart disease of [place] coronary artery with angina pectoris Benign neoplasm CAD (coronary artery disease) CAD (coronary artery disease), [place] coronary artery COPD (chronic obstructive pulmonary disease) Depression Diabetes type 2, controlled History of non-ST elevation myocardial infarction (NSTEMI) Hyperlipidemia Hypothyroidism (acquired) Insomnia Localized edema Mixed incontinence Morbid (severe) obesity due to excess calories Neuropathy Nicotine dependence NSTEMI (non-ST elevated myocardial infarction) Restless leg syndrome Spondylosis of cervical spine Tobacco dependence due to cigarettes Type 2 diabetes mellitus Urinary tract infection Surgical History History of Hx of laminectomy S/P PTCA (percutaneous transluminal coronary angioplasty) S/P spinal surgery Social History Smoking/Tobacco Use Status: Current every day Tobacco Type: cigarettes Tobacco: How many years used: 48 Smoking risk assessment performed?: Yes Alcohol Intake: never Drug use: Occasionally Substance use type: marijuana Do you feel safe at home: Yes Do you feel safe in your relationship?: Yes Exam <KEREN Martinez - Last Filed: 06/29/20 20:07> Const General: cooperative, comfortable, no acute distress, well developed, well groomed and ill appearing chronically Nutritional Appearance: well nourished, obese and other (appears dry) Orientation: alert and awake [facility] Head: normal to inspection, normocephalic and atraumatic Ears: hearing grossly normal bilaterally, external ears normal and TM's normal bilaterally General nose exam: external nose normal and nares normal Face and sinus: normal facial exam, sinuses nontender and face symmetric Mouth: oral mucosae normal, lip normal, abnormal tongue (tongue is dry and cracked), oropharynx normal and mucous membranes dry Teeth and gingiva: dentition normal Throat: posterior oropharynx normal, tonsils normal and uvula midline Eyes General: appearance normal, both eyes and all related structures Neck Neck: normal visual inspection, full ROM, no lymphadenopathy and no meningeal signs Resp Effort & Inspection: normal respiratory effort, able to speak in complete sentences and no respiratory distress Auscultation: clear to auscultation bilaterally, no rales, no rhonchi and no wheezes Cardio Rate: regular rate Rhythm: regular rhythm Heart Sounds: S1 normal and S2 normal GI Inspection: obesity Palpation: soft and nontender Percussion: normal to percussion Auscultation: normal bowel sounds Skin General skin exam: no rashes or lesions noted Neuro General: patient alert and patient awake Cognition: normal cognition Speech: speech normal Gait: normal gait Extrem General: normal to inspection, no pedal edema, no calf tenderness and normal gait Psych Appearance: grossly normal and well kempt Mental Status: mental status grossly normal Speech and Movement: speech and movement normal Course <KEREN Martinez - Last Filed: 06/29/20 20:07> Vital Signs Vital signs: Vital Signs Temperature 36.6 C 06/26/20 14:24 Pulse 72 06/26/20 14:24 Respiratory Rate 20 06/26/20 14:24 Blood Pressure 138/113 H 06/26/20 14:24 Pulse Oximetry 96 06/26/20 14:24 Temperature 36.6 C 06/26/20 14:24 Temperature Source Skin 06/26/20 14:24 Pulse 72 06/26/20 14:24 Respiratory Rate 20 06/26/20 14:24 Respiratory Effort 06/26/20 14:36 Respiratory Depth Normal 06/26/20 14:36 Blood Pressure 135/72 06/26/20 14:36 Blood Pressure Position Sitting 06/26/20 14:24 Pulse Oximetry 96 06/26/20 14:24 Oxygen Delivery Method Room Air 06/26/20 14:24 Oxygen Flow Rate 0 06/26/20 14:24 Pain Level 9 06/26/20 14:24 Sign Out <KEREN Martinez - Last Filed: 06/29/20 20:07> Sign Out Data: Sign Out Comment: Care transitioned to Pedro Brock PA-C, with labs pending. Patient is weak, fatigued, has had diarrhea, SOB. Hemodynamically stable. Last updated by Shante Lind PA at 06/26/20 16:43
[2020-06-26 15:32] LABS: Source Nasopharynx
--- NOTE | 2020-06-26 15:34 | DI.RAD_ITS ---
EXAM: XR PORTABLE CHEST AP CLINICAL HISTORY: cough. TECHNIQUE: 2D digital imaging was performed. COMPARISON: Chest x-ray October 1999 FINDINGS: Cardiomegaly noted. The mediastinum is not widened. Lungs are clear. No infiltrates nor obvious pleural effusions. Fusion hardware in the cervical spine noted. IMPRESSION: No acute pulmonary findings on this single AP portable view of the chest.Cardiomegaly again noted, un changed. DATA REPOSITORY: RADIATION DOSE DELIVERED:
[2020-06-26 15:52] LABS: NT-proBNP 597 pg/mL (<300); Troponin I < 0.05 ng/mL (<0.06)
--- NOTE | 2020-06-26 16:11 | NUR.NOTE ---
Nursing Note: Pt presents to the Emergency Room without a current medication list, pt states she is not sure what she takes and requests we get her list from PCP. Medications were reconciled using PCP mediation list @ [facility].
[2020-06-26 16:12] LABS: COVID-19 PCR Negative (Negative); Influenza A PCR Negative (Negative); Influenza B PCR Negative (Negative); RSV PCR Negative (Negative)
[2020-06-26 16:17] LABS: ALT 27 U/L (14-59); AST 25 U/L (15-37); Alkaline Phosphatase 71 U/L (46-116); Anion Gap 11.1 mmol/L (3-11); BUN 18 mg/dL (7-18); CO2 22.9 mmol/L (21.0-32.0); CREATININE 1.6 mg/dL (0.55-1.02); Calcium 9.1 mg/dL (8.5-10.1); Chloride 95 mmol/L (98-107); Estimated GFR 32.99 (mL/min/1.73m2); Glucose 343 mg/dL (74-106); Potassium 4.2 mmol/L (3.5-5.1); Sodium 129 mmol/L (136-145); Total Protein 8.2 g/dL (6.4-8.2)
[2020-06-26 16:31] LABS: Abs Immature Grans 0.05 10^3/uL (0.0-0.06); Absolute Basophil Count 0.02 10^3/uL (0.0-0.2); Absolute Lymphocyte Count 0.83 10^3/uL (1.2-3.4); Absolute Monocyte Count 0.83 10^3/uL (0.1-0.8); Absolute Neutrophil Count 6.28 10^3/uL (1.2-6.7); Basophils % 0.2; HGB 12.3 g/dL (11.2-15.7); Immature Grans % 0.6; Lymphocytes % 10.4; MCH 26.2 pg (27.0-33.0); MCHC 31.5 % (32.0-36.0); Monocytes % 10.4; Neutrophils % 78.4; Nucleated RBC 0 %; Platelet Count 142 10^3/uL (130-400); RDW 15.7 % (11.7-14.6); RDW-SD 47.6 fL; WBC 8.01 10^3/uL (4.4-10.8)
--- NOTE | 2020-06-26 16:45 | DI.CT_ITS ---
EXAM: CT CHEST PE CTA CLINICAL HISTORY: sob, elevated dimer. TECHNIQUE: Imaging Protocol: Axial CT angiography was performed with multi-slice acquisition and mu lti-planar and/or 3D reconstructions. CONTRAST MATERIAL: Intravenous: Omnipaque 350 Contrast volume:100 COMPARISON: CT CT ABDOMEN W from 03/30/2020 CR XR PORTABLE CHEST AP from 06/26/2020 CR XR PORTABLE CHEST AP from 06/26/2020 FINDINGS: The exam is limited by patient motion. Pulmonary Arteries: No evidence of filling defect to suggest pulmonary emboli. Tracheobronchial tree: Patent where visualized. Mediastinum and Yoana: No dominant adenopathy or fluid collection. Pulmonary parenchyma: Not optimally evaluated due to respiratory motion. No consolidation or dominan t measurable mass. Minimal basilar atelectasis.. Pleura: No effusion or pneumothorax. Heart: The heart is not dilated. Moderate coronary artery calcifications are seen. Aorta: Thoracic aorta non-dilated. Minimal calcification. Upper abdomen: Enlarged fatty liver. Status post cholecystectomy. Bones: Degenerative disc changes. No compression fractures. IMPRESSION: No evidence of pulmonary embolism or other acute abnormality.. RADIATION DOSE DELIVERED: 615.73mGy.cm Total DLP DATA REPOSITORY: All CT scans at this facility are submitted to the National Radiology Data Registry (NRDR) Dose Index Registry (DIR) with the [employer] (ACR). RADIATION OPTIMIZATION: All CT scans at this facility use at least one of these dose optimization te chniques: automated exposure control; mA and/or kV adjustment per patient size (includes targeted exa ms where dose is matched to clinical indication); or iterative reconstruction.
[2020-06-26 16:47] LABS: D-Dimer 873 ng/mlFEU (<500)
[2020-06-26] MEDS: Normal Saline 1,000 ML 500 ML IV (16:50)
[2020-06-26] MEDS: Omnipaque 350 MG/ML 100 ML BTL IJ (18:00)
--- NOTE | 2020-06-26 18:19 | DI.VRAD_ITS ---
PROCEDURE INFORMATION: Exam: CT Angiography Chest With Contrast Exam date and time: 06/26/2020 5:43 PM Age: 59 years old Clinical indication: Shortness of breath TECHNIQUE: Imaging protocol: Computed tomographic angiography of the chest with contrast. 3D rendering (Not supervised by radiologist): MIP and/or 3D reconstructed images were created by the technologist. Contrast material: OMNIPAQUE 350; Contrast volume: 100 ml; Contrast route: IV; COMPARISON: CR XR PORTABLE CHEST AP 06/26/2020 3:17 PM FINDINGS: Pulmonary arteries: Normal. No pulmonary emboli. Aorta: Unremarkable. No aortic aneurysm. No aortic dissection. Lungs: Minimal left lower lobe atelectasis. Pleural spaces: Unremarkable. No pneumothorax. No pleural effusion. Heart: Coronary artery calcifications/stents noted. Lymph nodes: Unremarkable. No enlarged lymph nodes. Liver: Fatty liver. Gallbladder and bile ducts: Status post cholecystectomy. Bones/joints: Status post lower cervical fusion. Moderate thoracic spondylosis. Soft tissues: Unremarkable. Other findings: Respiratory motion present. IMPRESSION: No evidence for pulmonary embolus. Dictated and Authenticated by: Marsha Chow MD. Ordering:MAURICE Crowder MD
[2020-06-26] MEDS: Normal Saline Flush 10 ML SYR IVP (20:17)
== END 2020-06-26 17:50 | disposition home or self-care (01) ==
PROVIDERS: Physician Assistant; Emergency Provider Physician Assistant; PCP Nurse Practitioner Family
DX: R06.02 Shortness of breath (principal); R19.7 Diarrhea, unspecified; E86.0 Dehydration; R79.1 Abnormal coagulation profile; F17.210 Nicotine dependence, cigarettes, uncomplicated; J44.9 Chronic obstructive pulmonary disease, unspecified; Z03.818 Encounter for observation for suspected exposure to other biological agents ruled out
CPT/HCPCS: 36415; 36416; 71275; 80053; 82962; 93005; 96360; 96361; 99285; 71045; 83880; 84484; 85025; 85379; 93010; J3490

== ENCOUNTER 2020-07-09 01:39 | Outpatient (CLI) | payer MEDICARE, MEDICAID, SELFPAY ==
--- NOTE | 2020-07-09 | DI.RAD_ITS ---
EXAM: XR TOE LT GREAT CLINICAL HISTORY: LT TOE PAIN, M79.675. TECHNIQUE: 2D digital imaging was performed. COMPARISON: No exams were available for comparison FINDINGS: There is a fracture at the base of the distal phalanx of the great toe medially. There is a question of an underlying area of lucency at the fracture site. There is surrounding soft tissue swelling. No foreign body is seen. There is mild periarticular spurring. The into the joint spaces are well m aintained. There is a rounded area of a lucency at in the distal aspect of the proximal phalanx in a subchondral location. The bones appear osteopenic. IMPRESSION: Intra-articular fracture at the base of the distal phalanx of the great toe. Question of underlying lucent lesion. Clinical correlation is recommended for signs of infection. DATA REPOSITORY: RADIATION DOSE DELIVERED:
== END 2020-07-09 01:40 ==
LOC: DI 01:39
PROVIDERS: PCP Nurse Practitioner Family; Visit Provider Nurse Practitioner Family
DX: S92.422A Displaced fracture of distal phalanx of left great toe, initial encounter for closed fracture (principal)
CPT/HCPCS: 73660

== ENCOUNTER 2020-07-09 02:57 | Outpatient (CLI) | payer MEDICARE, MEDICAID, SELFPAY ==
[2020-07-09 15:30] LABS: Anion Gap 11.3 mmol/L (3-11); BUN 22 mg/dL (7-18); CO2 28.7 mmol/L (21.0-32.0); CREATININE 1.3 mg/dL (0.55-1.02); Calcium 9.8 mg/dL (8.5-10.1); Chloride 100 mmol/L (98-107); Estimated GFR 41.92 (mL/min/1.73m2); Glucose 214 mg/dL (74-106); Potassium 4.5 mmol/L (3.5-5.1); Sodium 140 mmol/L (136-145)
== END 2020-07-09 02:58 | disposition home or self-care (01) ==
LOC: LBO 02:57
PROVIDERS: PCP Nurse Practitioner Family; Visit Provider Nurse Practitioner Family
DX: E11.9 Type 2 diabetes mellitus without complications (principal); S92.422A Displaced fracture of distal phalanx of left great toe, initial encounter for closed fracture
CPT/HCPCS: 36415; 80048; 73660

== ENCOUNTER → 2020-10-12 12:52 | Outpatient (BNVA) | payer MEDICARE, MEDICAID, SELFPAY | PROVIDERS: PCP Nurse Practitioner Family; Referring Provider Nurse Practitioner Family; Visit Provider Nurse Practitioner Gerontology | DX: N39.0 Urinary tract infection, site not specified (principal); N39.46 Mixed incontinence; R30.0 Dysuria | CPT/HCPCS: 81003; 87077; 99215; 87086; 87186 ==

== ENCOUNTER 2020-10-12 15:57 | Outpatient (REF) | payer MEDICARE, MEDICAID, SELFPAY | END 2020-10-12 15:58 | disposition home or self-care (01) | LOC: OP 15:57 | PROVIDERS: PCP Nurse Practitioner Family; Visit Provider Nurse Practitioner Gerontology | DX: N39.0 Urinary tract infection, site not specified (principal) | CPT/HCPCS: 87077; 87086; 87186 ==

== ENCOUNTER → 2021-01-19 15:31 | Outpatient (BNVA) | payer MEDICARE, MEDICAID, SELFPAY | PROVIDERS: PCP Nurse Practitioner Family; Referring Provider Nurse Practitioner Family; Visit Provider Nurse Practitioner Gerontology | DX: R30.0 Dysuria (principal); N39.0 Urinary tract infection, site not specified; E11.9 Type 2 diabetes mellitus without complications | CPT/HCPCS: 81003; 99214 ==

== ENCOUNTER 2021-01-19 19:16 | Outpatient (REF) | payer MEDICARE, MEDICAID, SELFPAY | END 2021-01-19 19:17 | disposition home or self-care (01) | LOC: LBN 19:16 | PROVIDERS: PCP Nurse Practitioner Family; Visit Provider Nurse Practitioner Gerontology | DX: N39.0 Urinary tract infection, site not specified (principal) | CPT/HCPCS: 87077; 87086; 87186 ==

== ENCOUNTER → 2021-03-02 08:25 | Outpatient (BNVA) | payer MEDICARE, MEDICAID, SELFPAY | PROVIDERS: PCP Nurse Practitioner Family; Referring Provider Nurse Practitioner Family; Visit Provider Nurse Practitioner Gerontology | DX: N39.46 Mixed incontinence (principal); N39.0 Urinary tract infection, site not specified; R30.0 Dysuria | CPT/HCPCS: 99214 ==

== ENCOUNTER 2021-03-02 10:14 | Outpatient (REF) | payer MEDICARE, MEDICAID, SELFPAY | END 2021-03-02 10:15 | disposition home or self-care (01) | LOC: LBN 10:14 | PROVIDERS: PCP Nurse Practitioner Family; Visit Provider Nurse Practitioner Gerontology | DX: N39.0 Urinary tract infection, site not specified (principal) | CPT/HCPCS: 87077; 87086; 87186 ==

== ENCOUNTER → 2021-03-22 13:11 | Outpatient (BNVA) | payer MEDICARE, MEDICAID, SELFPAY | PROVIDERS: PCP Nurse Practitioner Family; Referring Provider Nurse Practitioner Family; Visit Provider Nurse Practitioner Gerontology | DX: N39.0 Urinary tract infection, site not specified (principal); R30.0 Dysuria; N39.46 Mixed incontinence; Z79.899 Other long term (current) drug therapy | CPT/HCPCS: 81003; 99214 ==

== ENCOUNTER 2021-03-22 18:15 | Outpatient (REF) | payer MEDICARE, MEDICAID, SELFPAY | END 2021-03-22 18:16 | disposition home or self-care (01) | LOC: LBN 18:15 | PROVIDERS: PCP Nurse Practitioner Family; Visit Provider Nurse Practitioner Gerontology | DX: N39.0 Urinary tract infection, site not specified (principal) | CPT/HCPCS: 87077; 87086; 87186 ==

== ENCOUNTER → 2021-06-23 10:23 | Outpatient (BNVA) | payer MEDICARE, MEDICAID, SELFPAY | PROVIDERS: PCP Nurse Practitioner Family; Visit Provider Nurse Practitioner Gerontology | DX: N39.46 Mixed incontinence (principal); N39.0 Urinary tract infection, site not specified | CPT/HCPCS: 81003; 99214 ==

== ENCOUNTER 2021-06-23 16:30 | Outpatient (REF) | payer MEDICARE, MEDICAID, SELFPAY | END 2021-06-23 16:31 | disposition home or self-care (01) | LOC: LBN 16:30 | PROVIDERS: PCP Nurse Practitioner Family; Visit Provider Nurse Practitioner Gerontology | DX: N39.0 Urinary tract infection, site not specified (principal) | CPT/HCPCS: 87077; 87086; 87186 ==

== ENCOUNTER 2021-07-30 13:50 | Outpatient (REF) | payer MEDICARE, MEDICAID, SELFPAY ==
[2021-07-30 13:33] LABS: Bilirubin Negative (Negative); Blood Trace-lysed (Negative); Clarity Sl Cloudy (Clear); Glucose 250 mg/dL (Negative); Ketones Negative (Negative); Leukocyte Esterase Small (Negative); Nitrite Negative (Negative); Specific Gravity 1.025 (1.005-1.025); Urobilinogen 0.2 EU/dL (Up TO 0.2); pH 5.5 (5-8)
[2021-07-30 14:07] LABS: Bacteria Few HPF (Negative); C & S Indicated? Yes; Casts 3-5 Hyaline LPF (Negative); Crystals Negative HPF (Negative); Epithelial Cells Few HPF (Negative); Mucus Negative (Negative); RBC 0-2 HPF (0-2)
== END 2021-07-30 13:51 | disposition home or self-care (01) ==
LOC: NCHCN 13:50
PROVIDERS: PCP Nurse Practitioner Family; Visit Provider Nurse Practitioner Family
DX: R35.0 Frequency of micturition (principal)
CPT/HCPCS: 87077; 81003; 81015; 87086; 87186

== ENCOUNTER 2021-08-26 16:20 | Outpatient (REF) | payer MEDICARE, MEDICAID, SELFPAY ==
[2021-08-26 15:59] LABS: HCT 40.1 % (36.0-46.0); HGB 12.5 g/dL (11.2-15.7); MCH 26.1 pg (27.0-33.0); MCHC 31.2 % (32.0-36.0); MCV 83.7 fL (80-95); MPV 10.9 fL (8.0-11.0); Platelet Count 215 10^3/uL (130-400); RBC 4.79 10^6/uL (3.93-5.22); RDW 14.7 % (11.7-14.6); RDW-SD 44.7 fL; WBC 6.94 10^3/uL (4.4-10.8)
[2021-08-26 16:19] LABS: Iron 36 ug/dL (50-170); Total Iron Binding Capacity 367 ug/dL (250-450); Transferrin Sat 10 % (15-50)
[2021-08-26 16:25] LABS: Anion Gap 10.6 mmol/L (3-11); BUN 24 mg/dL (7-18); CO2 25.4 mmol/L (21.0-32.0); CREATININE 1.2 mg/dL (0.55-1.02); Calcium 9.2 mg/dL (8.5-10.1); Calculated LDL 17 mg/dL (<100); Chloride 101 mmol/L (98-107); Cholesterol 95 mg/dL (<200); Estimated GFR 45.83 (mL/min/1.73m2); Ferritin 19 ng/mL (8-252); Glucose 191 mg/dL (74-106); HDL Cholesterol 32 mg/dL (40-60); Potassium 4.8 mmol/L (3.5-5.1); Sodium 137 mmol/L (136-145); Triglyceride 230 mg/dL (<150)
== END 2021-08-26 16:21 | disposition home or self-care (01) ==
LOC: NCHCN 16:20
PROVIDERS: PCP Nurse Practitioner Family; Visit Provider Nurse Practitioner Family
DX: N39.0 Urinary tract infection, site not specified (principal); E11.9 Type 2 diabetes mellitus without complications; N18.32 Chronic kidney disease, stage 3b; E03.9 Hypothyroidism, unspecified; I25.110 Atherosclerotic heart disease of native coronary artery with unstable angina pectoris; D50.9 Iron deficiency anemia, unspecified
CPT/HCPCS: 80048; 80061; 85027; 87077; 82728; 83540; 83550; 84443; 87086; 87186

== ENCOUNTER 2021-10-06 14:46 | Emergency (ER) | payer MEDICARE, MEDICAID, SELFPAY ==
[2021-10-06 14:47] VITALS: BP 135/69; PULSE 66; RESP 18; TEMP 36.8; O2SAT 93
--- NOTE | 2021-10-06 15:00 | DI.CT_ITS ---
Exam(s) CT ABDOMEN PELVIS WO EXAM: CT ABDOMEN PELVIS WO CLINICAL HISTORY: RLQ and R hip pain after fall. Lateral hip tender. TECHNIQUE: Imaging Protocol: Axial computed tomography images with coronal and sagittal reformatted images were created and reviewed. Oral: / no COMPARISON: CT CT ABDOMEN W from 03/30/[address] CHEST PE CTA from 06/26/2020 FINDINGS: ABDOMEN: Lung Bases: Mild dependent atelectasis. Heart is enlarged. Coronary artery calcifications seen Liver: Enlarged with severe elongation of the right lobe. With fatty infiltration. No measurable ma ss. Gallbladder and biliary tract: Status post cholecystectomy. No biliary dilatation. Pancreas: Normal density, no abnormal calcifications or inflammatory process. Spleen: Normal. Kidneys: Normal size, contour and axis. No radiodense stones or obstructive uropathy. No masses seen. Adrenal glands: No masses seen. Lymph nodes: Within normal limits. Abdominal Aorta: Abdominal portion non-dilated. Moderate calcification. Soft tissue: Dehiscence of the abdominal wall near the umbilicus with fat fatty hernia at the level of the umbilicus and extending inferiorly. PELVIS: Bladder: Symmetric distention, no gross wall thickening. Bowel: No obstruction or bowel wall thickening. Appendix normal. Peritoneal cavity: No ascites, collection or mesenteric inflammatory response. Reproductive organs: Within normal limits. Bones: Within normal limits. IMPRESSION: Enlarged fatty liver. No acute abnormality. No evidence of hip fracture. Results of this exam have been verbally communicated with emergency department provider. RADIATION DOSE DELIVERED: 1,490.24mGy.cm Total DLP DATA REPOSITORY: All CT scans at this facility are submitted to the National Radiology Data Registry (NRDR) Dose Index Registry (DIR) with the [employer] (ACR). RADIATION OPTIMIZATION: All CT scans at this facility use at least one of these dose optimization te chniques: automated exposure control; mA and/or kV adjustment per patient size (includes targeted exa ms where dose is matched to clinical indication); or iterative reconstruction.
--- NOTE | 2021-10-06 15:16 | W.ED.GENAD ---
Discharge Plan Disposition Patient Disposition: HOME Condition: Improving Discharge Details Clinical Impression: Contusion of hip, right Primary Care Provider: Radha Fonseca ED Provider: Toney Roa Home Meds and New Rx's Prescriptions: New hydrocodone-acetaminophen 5-325 mg tablet 1 tab PO Q6H PRN (Reason: pain) Qty: 7 0RF Continued estradiol 0.01 % (0.1 mg/gram) cream 1 g vaginal DIRECTED Qty: 60 3RF Rx Instructions: Insert a pea sized amount vaginally for 2 weeks, then reduce to 2 times per week omeprazole 40 mg capsule,delayed release(DR/EC) 40 mg PO DAILY 0RF pregabalin 100 mg capsule 100 mg PO TID 0RF Januvia 100 mg tablet 100 mg PO DAILY 0RF potassium chloride 20 mEq Tablet Extended Release 20 meq PO QAM 0RF sitagliptin 100 mg Tablet 100 mg PO DAILY 0RF triamcinolone acetonide 0.5 % Ointment 1 applic topical TID 0RF cholecalciferol (vitamin D3) 50,000 unit Capsule 50,000 unit PO QAM 0RF quetiapine 25 mg Tablet 25 mg PO HS 0RF furosemide 40 mg Tablet 40 mg PO BID 0RF bupropion HCl 150 mg Tablet Sustained-Release 12 Hr 150 mg PO BID 0RF atorvastatin 80 mg Tablet 80 mg PO DAILY 0RF carvedilol 25 mg Tablet 25 mg PO BID 0RF ropinirole 1 mg Tablet 1 mg PO HS 0RF Lantus U-100 Insulin 100 unit/mL Solution 30 unit SUBCUT HS 0RF cetirizine [Zyrtec] 10 mg Tablet 10 mg PO DAILY 0RF levothyroxine 75 mcg Tablet 225 mcg PO DAILY 0RF amlodipine 10 mg Tablet 10 mg PO DAILY 0RF paroxetine HCl 20 mg Tablet 60 mg PO DAILY 0RF metformin 1,000 mg Tablet 1,000 mg PO BID 0RF nystatin 100,000 unit/gram Cream 1 applic TOPICAL PRN PRN0RF aspirin 81 mg Tablet,Chewable 81 mg PO DAILY 0RF oxybutynin chloride 5 mg Tablet 10 mg PO BID 0RF fluticasone propionate 50 mcg/actuation [place] [facility],Suspension 2 spray INTRANASAL DAILY 0RF Novolin N Flexpen 100 unit/mL (3 mL) Insulin Pen See Protocol unit SUBCUT TID 0RF Protocol: Insulin Infusion Condition: Hyperglycemia Protocol Text: a. Independent double checks of all calculations, solution preparations, and pump rates are required. b. Discontinue subcutaneous insulin and any oral anti-hyperglycemic agents while on insulin infusion. c. Use low sorbing tubing (Nitroglycerin tubing) and flush with 20ml insulin infusion solution. d. Inline filters should NOT be used. e. Change insulin infusion bag every 24 hours. Rx Instructions: SLIDING SCALE ferrous sulfate 324 mg (65 mg iron) Tablet,Delayed Release (Dr/Ec) 324 mg PO DAILY 0RF cholecalciferol (vitamin D3) [Vitamin D3] 125 mcg (5,000 unit) Tablet 50,000 mcg PO QWEEK 0RF melatonin 10 mg Tablet 10 mg PO HS 0RF magnesium oxide 400 mg magnesium Tablet 400 mg PO HS 0RF budesonide-formoterol [Symbicort] 160-4.5 mcg/actuation HFA aerosol inhaler 1 puff inhalation BID 0RF albuterol sulfate 90 mcg/actuation HFA aerosol inhaler 2 puff INHALATION PRN PRN0RF Label Comments: INHALE 1 TO 2 PUFFS BY MOUTH EVERY 4 TO 6 HOURS NEEDED FOR WHEEZING OR SHORTNESS OF BREATH Held acetaminophen [Tylenol] 325 mg Tablet 650 mg PO TID 0RF Hold Instructions: Resume on 10/10/21. Hold while taking hydrocodone with acetaminophen Discharge Instructions Instructions: Contusion in Adults (ED) Additional Instructions: May use the provided hydrocodone as needed for pain or severe pain. No Tylenol while taking this medication See enclosed referral for physical therapy. Apply ice to the right hip to reduce discomfort. Continue to use your walker. Return for any acute concerns Stand Alone Forms: Physical Therapy Referral Medical Decision Making 61-year-old female brought by EMS after she had fallen at home 3 days ago. She typically uses a walker and has been able to get in and out of her recliner and use of a walker. The pain is increased and its worse with movement and attempts at weightbearing. She denies other injury. She did not injure her head/neck/chest or back. She is tender in the right lower quadrant but without rebound. Predominant tenderness around the right iliac crest and right hip. Screening labs obtained, patient given parenteral analgesia and referred for imaging. The patient's laboratories: Reassuring CBC. Chemistries with mild chronic elevation of BUN and creatinine CT reveals fatty liver, no bony injury. Patient is improved following analgesia. He consented for the use of a small number of oral analgesics at home. She will continue to use her walker, I will prescribe some physical therapy, and she will be discharged in the company of her caregiver. HPI General Mode of arrival: ambulatory. Date/Time Provider Initiated Documentation: 10/06/21 14:53. Limitations to Documentation: no limitations. Information obtained by: patient and EMS. History of Present Illness 61 year old F presents to the emergency department with the chief complaint of R hip pain after fall, Quality is described as dull, and is localized to the abdomen, right and lower extremity. Patient reports no radiation and abdomen. Patient started experiencing this day(s) and it has been intermittent. improves with Rest improves symptom(s), Movement worsens symptoms . Patient notes denies chest pain, cough, fever/chills, headaches, seizure, shortness of breath, syncope and weakness. Patient did receive the following treatments prior to arrival, none Related Data Home Medications Medication Instructions Recorded Confirmed cholecalciferol (vitamin D3) 1,250 50,000 unit PO QAM 08/12/18 03/22/21 mcg (50,000 unit) capsule potassium chloride 20 mEq 20 meq PO QAM 08/12/18 03/22/21 tablet,extended release sitagliptin 100 mg tablet 100 mg PO DAILY 08/12/18 03/22/21 triamcinolone acetonide 0.5 % 1 applic TOPICAL TID 08/12/18 03/22/21 topical ointment acetaminophen 325 mg tablet 650 mg PO TID 11/22/19 03/22/21 (Tylenol) amlodipine 10 mg tablet 10 mg PO DAILY 11/22/19 03/22/21 aspirin 81 mg chewable tablet 81 mg PO DAILY 11/22/19 03/22/21 atorvastatin 80 mg tablet 80 mg PO DAILY 11/22/19 03/22/21 bupropion HCl 150 mg tablet,12 hr 150 mg PO BID 11/22/19 03/22/21 sustained-release carvedilol 25 mg tablet 25 mg PO BID 11/22/19 03/22/21 cetirizine 10 mg tablet (Zyrtec) 10 mg PO DAILY 11/22/19 03/22/21 cholecalciferol (vitamin D3) 125 50,000 mcg PO QWEEK 11/22/19 03/22/21 mcg (5,000 unit) tablet (Vitamin D3) ferrous sulfate 324 mg (65 mg 324 mg PO DAILY 11/22/19 03/22/21 iron) tablet,delayed release fluticasone propionate 50 2 spray INTRANASAL DAILY 11/22/19 03/22/21 mcg/actuation nasal spray,suspension furosemide 40 mg tablet 40 mg PO BID 11/22/19 03/22/21 insulin NPH isoph U-100 human 100 See Protocol SUBCUT TID 11/22/19 03/22/21 unit/mL (3 mL) subcutaneous pen (Novolin N Flexpen) insulin glargine 100 unit/mL 30 unit SUBCUT HS 11/22/19 03/22/21 subcutaneous solution (Lantus U-100 Insulin) levothyroxine 75 mcg tablet 225 mcg PO DAILY 11/22/19 03/22/21 magnesium oxide 400 mg PO HS 11/22/19 03/22/21 melatonin 10 mg tablet 10 mg PO HS 11/22/19 03/22/21 metformin 1,000 mg tablet 1,000 mg PO BID 11/22/19 03/22/21 nystatin 100,000 unit/gram topical 1 applic TOPICAL PRN PRN 11/22/19 03/22/21 cream oxybutynin chloride 5 mg tablet 10 mg PO BID 11/22/19 03/22/21 paroxetine HCl 20 mg tablet 60 mg PO DAILY 11/22/19 03/22/21 quetiapine 25 mg tablet 25 mg PO HS 11/22/19 03/22/21 ropinirole 1 mg tablet 1 mg PO HS 11/22/19 03/22/21 albuterol sulfate 90 mcg/actuation 2 puff INHALATION PRN PRN 06/26/20 03/22/21 aerosol inhaler budesonide-formoterol HFA 160 1 puff INHALATION BID 06/26/20 03/22/21 mcg-4.5 mcg/actuation aerosol inhaler (Symbicort) estradiol 1 g VAGINAL DIRECTED #60 g 03/02/21 06/23/21 omeprazole 40 mg capsule,delayed 40 mg PO DAILY 09/01/21 release pregabalin 100 mg capsule 100 mg PO TID 09/01/21 sitagliptin 100 mg tablet (Januvia) 100 mg PO DAILY 09/01/21 hydrocodone 5 mg-acetaminophen 325 1 tab PO Q6H PRN #7 tab 10/06/21 mg tablet Previous Rx's Medication Instructions Recorded estradiol 1 g VAGINAL DIRECTED #60 g 03/02/21 hydrocodone 5 mg-acetaminophen 325 1 tab PO Q6H PRN #7 tab 10/06/21 mg tablet Allergies Allergy/AdvReac Type Severity Reaction Status Date / Time bee venom protein (honey bee) AdvReac Unknown Unverified 10/06/21 14:55 celecoxib AdvReac Unknown Unverified 10/06/21 14:55 coconut AdvReac Unknown Unverified 10/06/21 14:55 latex AdvReac Unknown Unverified 10/06/21 14:55 bee pollen AdvReac Unverified 10/06/21 14:55 General Stated Complaint: Orthopedic GABBY: 4 Review of Systems Narrative: uses walker at home w caregiver. No recent illness. immunized against COVID. 8 systems were reviewed and otherwise negative. Pain has been worse with walking but she is unable to use her walker as per routine and get in and out of bed and to the toilet. PFSH All Active Problems (Updated 10/06/21 @ 16:48 by Toney Roa MD) Contusion of hip, right (Acute) Mixed incontinence (Acute) CAP (community acquired pneumonia) (Acute) Acute UTI (Acute) CAD (coronary artery disease), [place] coronary artery (Acute) Hypothyroidism (acquired) (Acute) Diabetes type 2, controlled (Chronic) Urinary retention (Acute) Restless leg syndrome (Acute) Neuropathy (Acute) Depression (Chronic) Hyperlipidemia (Acute) Anemia (Chronic) Insomnia (Acute) Tobacco dependence due to cigarettes (Chronic) Bacteremia due to Gram-negative bacteria (Acute) Chest pain (Acute) Altered mental status (Acute) Diabetes (Chronic) HCAP (healthcare-associated pneumonia) (Acute) H/O cervical spine surgery (Acute) Urinary tract infection (Acute) Leukocytosis (Acute) CAD (coronary artery disease) (Chronic) Tobacco abuse (Acute) DVT prophylaxis (Acute) COPD exacerbation (Acute) Spondylitis, cervical (Acute) NSTEMI (non-ST elevated myocardial infarction) (Acute) Dehydration (Acute) HTN (hypertension) (Chronic) Medical History (Updated 10/06/21 @ 16:48 by Toney Roa MD) Acute on chronic diastolic (congestive) heart failure Acute pancreatitis Adult hypothyroidism Atherosclerotic heart disease of [place] coronary artery with angina pectoris Benign neoplasm CAD (coronary artery disease) COPD (chronic obstructive pulmonary disease) History of non-ST elevation myocardial infarction (NSTEMI) Localized edema Morbid (severe) obesity due to excess calories Nicotine dependence NSTEMI (non-ST elevated myocardial infarction) Spondylosis of cervical spine Type 2 diabetes mellitus Urinary tract infection Surgical History History of Hx of laminectomy S/P PTCA (percutaneous transluminal coronary angioplasty) S/P spinal surgery Social History Smoking/Tobacco Use Status: Current every day Tobacco Type: cigarettes Tobacco: How many years used: 48 Smoking risk assessment performed?: Yes Alcohol Intake: never Drug use: Occasionally Substance use type: marijuana Do you feel safe at home: Yes Do you feel safe in your relationship?: Yes Exam Narrative Exam Narrative: GEN: awake, alert, oriented 3. Pleasant, well groomed, interactive. HEAD: Normocephalic, atraumatic ENT: Mucous membranes moist, oropharynx unremarkable, External ear exam unremarkable EYES: PERRL, EOMI NECK: Full ROM, no KIMBERLI, no menigismus CHEST/RESP: Nontender, clear to auscultation bilateral, no wheeze/rhonchi/rales CARDIOVASCULAR: RRR, no murmur, rub tri. 2+ Rad pulse bilateral ABDOMEN: Soft, right lower quadrant tenderness to palpation but no rebound, no mass. +Bowel sounds EXT: Full ROM, but limited by pain right leg. Distal sensation intact. Palpable pulses. The right hip and pelvis are tender to palpation and with rotation of the joint. Neuro: Grossly normal neurologic exam, conversant, interactive. Psych: Speech fluent, thoughts congruent, affect normal Course Vital Signs Vital signs: Vital Signs Temperature 36.8 C 10/06/21 14:47 Pulse 66 10/06/21 14:47 Respiratory Rate 18 10/06/21 14:47 Blood Pressure 135/69 10/06/21 14:47 Pulse Oximetry 93 10/06/21 14:47 Temperature 36.8 C 10/06/21 14:47 Temperature Source Temporal Artery Scan 10/06/21 14:47 Pulse 66 10/06/21 14:47 Respiratory Rate 18 10/06/21 14:47 Respiratory Effort Non-Labored 10/06/21 14:54 Blood Pressure 135/69 10/06/21 14:47 Blood Pressure Position Sitting 10/06/21 14:47 Pulse Oximetry 93 10/06/21 14:47 Oxygen Delivery Method Room Air 10/06/21 14:47 Oxygen Flow Rate 0 10/06/21 14:47 Pain Level 10 10/06/21 14:47
[2021-10-06] MEDS: HYDROmorphone 2 MG/ML VIAL 0.5 MG IVP (15:30)
[2021-10-06] MEDS: Ondansetron 4 MG/2 ML VIAL IVP (15:31)
[2021-10-06 16:15] LABS: HCT 37.3 % (36.0-46.0); HGB 11.6 g/dL (11.2-15.7); MCH 25.6 pg (27.0-33.0); MCHC 31.1 % (32.0-36.0); MCV 82 fL (80-95); MPV 9.8 fL (8.0-11.0); Platelet Count 209 10^3/uL (130-400); RBC 4.54 10^6/uL (3.93-5.22); RDW 14.5 % (11.7-14.6); RDW-SD 43.3 fL; WBC 6.79 10^3/uL (4.4-10.8)
[2021-10-06 16:26] LABS: Anion Gap 6.8 mmol/L (3-11); BUN 21 mg/dL (7-18); CO2 30.2 mmol/L (21.0-32.0); CREATININE 1.3 mg/dL (0.55-1.02); Calcium 8.6 mg/dL (8.5-10.1); Chloride 99 mmol/L (98-107); Estimated GFR 41.64 (mL/min/1.73m2); Glucose 186 mg/dL (74-106); Potassium 4.5 mmol/L (3.5-5.1); Sodium 136 mmol/L (136-145)
[2021-10-06 17:02] VITALS: BP 120/56; PULSE 63; RESP 18; TEMP 37.1; O2SAT 94
== END 2021-10-06 17:17 | disposition home or self-care (01) ==
LOC: ER 17:10
PROVIDERS: Emergency Provider Emergency Medicine; PCP Nurse Practitioner Family
DX: S70.01XA Contusion of right hip, initial encounter (principal); W18.39XA Other fall on same level, initial encounter; R10.31 Right lower quadrant pain
CPT/HCPCS: 80048; 85027; 96374; 96375; 99284; 74176; J2405

== ENCOUNTER 2021-10-28 08:50 | Outpatient (CLI) | payer MEDICARE, MEDICAID, SELFPAY ==
--- NOTE | 2021-10-28 08:45 | RT.EKG_ITS ---
APPROVED REPORT Exam: Resting ECG Reason for Exam: [place] Patient Location: O HR:51 bpm ECG Measurements Heart Rate 51 AXIS FL 168 P 5 QRSd 109 QRS -19 QT 466 T 57 QTc 430 Conclusion Sinus rhythm...normal P axis, V-rate 50- 99 Borderline left axis deviation...QRS axis (-15,-29) Borderline T abnormalities, anterior leads...T flat or neg, V2-V4 Poor R wave progression
== END 2021-10-28 08:51 | disposition home or self-care (01) ==
LOC: DI.CARD 08:52
PROVIDERS: PCP Nurse Practitioner Family; Visit Provider Internal Medicine Cardiovascular Disease
DX: I21.4 Non-ST elevation (NSTEMI) myocardial infarction (principal); I25.10 Atherosclerotic heart disease of native coronary artery without angina pectoris
CPT/HCPCS: 93010

== ENCOUNTER → 2021-10-28 09:27 | Outpatient (BNVA) | payer MEDICARE, MEDICAID, SELFPAY | PROVIDERS: PCP Nurse Practitioner Family; Referring Provider Nurse Practitioner Family; Visit Provider Internal Medicine Cardiovascular Disease | DX: I25.2 Old myocardial infarction (principal); I25.10 Atherosclerotic heart disease of native coronary artery without angina pectoris; R07.9 Chest pain, unspecified; I10 Essential (primary) hypertension | CPT/HCPCS: 93005; 99203; 99214 ==

== ENCOUNTER → 2021-11-11 01:59 | Outpatient (CLI) | payer MEDICARE, MEDICAID, SELFPAY ==
--- NOTE | 2021-11-11 06:30 | DI.NM_ITS ---
APPROVED REPORT Exam: Pharmacologic Patient Location: Out-Patient Room/Bed: Stress Nurse: Queenie Faulkner RN Ordering Provider:GILBERT ANAYA, Contact Number: BMI: 41.34 Baseline Rhythm: Sinus Bradycardia Indications: Artherosclerotic heart disease of [place] coronary artery without angina pectoris. Medical History Medical History: CAD, Hypothryoidism, DM II, Neuropathy, Depression, HLD, Tobacco abuse, AMS, COPD ex acerbation, NSTEMI, HTN, Acute on chronic CHF, Fibriomyalgia Cardiac Medications: Sitagliptin, Potassium chloride, Omeprazole, Metformin, Carvedilol, Symbicort, A torvastatin, ASA, Amlodipine, Albuterol sulfate, Novolin, Lantus Allergies: Bee venum, coconut, latex, celocoxib Cardiac Risk Factors: CVD, COPD, HTN, Diabetes, Current smoker, HLD, Obesity Pretest Chest Pain Characteristics: none Exercise History: Sedentary Stress Test Details Test: Pharmacologic stress testing performed using 0.4 mg of regadenoson per 5 mL given IV over 10 s econds. Reason for pharmacologic stress test: physical limitation. Nuclear Acquisition: Rest Tc-99m/Stress Tc-99m 1 day Rest Isotope: Tc-99m Sestamibi. Dose: 14.7 Date: 11/11/2021 Injection Time: 0945 Stress Isotope: Tc-99m Sestamibi. Dose: 45.0 Date: 11/11/2021 Injection Time: 1126 HR Resting HR Supine: 53 bpm Max Heart Rate (APMHR): 159.319371 bpm Target HR (85% APMHR): 135.159881 bpm Max HR Achieved: 61 bpm % of APMHR: 38.36 Recovery HR: 61 bpm BP Resting BP Supine: 114/64 mmHg Max BP: 114/64 mmHg Recovery BP: 108/58 mmHg ECG Resting ECG: Sinus Bradycardia Stress ECG: Sinus Rhythm ST Change: No significant ST segment changes noted Arrhythmia: None Recovery ECG: Sinus Rhythm Recovery ST Change: No significant ST segment changes noted Recovery Arrhythmia: None Clinical Stress Symptoms: Dyspnea Rate Pressure Product: [id number] Stress ECG Conclusion 1. Resting electrocardiogram showed sinus rhythm, diffuse nondiagnostic ST-T abnormalities 2. The patient underwent pharmacologic stress with regadenoson 3. Peak heart rate achieved was 47% of predicted 4. Electrocardiographic portion of the test was nondiagnostic due to inadequate heart rate 5. See MPI report Stress Test Summary STAGE HR BP Symptoms NOTES Supine 53 114/64 1 min post Lexiscan injection 61 110/56 3 min post Lexiscan injection 61 106/62 6 min post Lexiscan injection 61 108/58 MPI Conclusion Technically suboptimal Within the limits of the study there is no evidence of myocardial ischemia or prior infarction EF 48%, wall motion appears normal Radiologist Interpretation Radiologist agrees with Grapple Crew Leader's Interpretation. Radiologist Interpretation by: Toney Morocho MD Interpretation Date/Time: 11/12/2021 08:44:58
[2021-11-11] MEDS: Regadenoson 0.4 MG/5 ML SYR IVP (11:22)
== END ==
PROVIDERS: PCP Nurse Practitioner Family; Visit Provider Internal Medicine Cardiovascular Disease
DX: I25.10 Atherosclerotic heart disease of native coronary artery without angina pectoris (principal)
CPT/HCPCS: 78452; 93016; 93018; 93017; J2785

== ENCOUNTER → 2021-12-16 00:21 | Outpatient (CLI) | payer MEDICARE, MEDICAID, SELFPAY ==
--- OUTSIDE RECORDS SUMMARY | 2021-12-16 00:23 | XMS_ITS | Encounter Summary ---
:1960 Author Organization [facility] Address [address] [place] [address] Care Team Providers Name Role Phone Unknown, Provider Primary Care Provider Encounter Details Date Type Department Care Team Description 03/22/2013 Results Only [facility] Igor Dennison, Laboratory Services - [address] [place] [address] [address] [place] [address] [phone] Social History Tobacco Use Types Packs/Day Years Used Date Never Assessed Sex Assigned at Date Recorded Not on file documented as of this encounter Plan of Treatment Not on filedocumented as of this encounter Procedures Procedure Name Priority Date/Time Associated Diagnosis Comme [facility] SURGICAL PATHOLOGY Routine 03/22/2013 9:50 EDT Re sults for this procedure are i n the results section. documented in this encounter Results SURGICAL PATHOLOGY (03/22/2013 9:50 EDT) Pathologist [facility] Pathology SURGICAL PATHOLOGY REPORT MODESTO WONG Report: Reports generated via electronic interface contain mimi ginal data; LAB however they are lacking the format of the original re port. Caution should be taken when reading/interpreting unfo rmatted reports. Name: ? BAILEY CARY ? Accession #: ? [id number] ? : ? 1960 (Age: 52) ??F ? Collect Date: ? 03/22/2013 ? Location: ? [facility] ? Receive Date: ? 03/25/20 13 ? Provider: IGOR DENNISON DO Copy to: REGINA RUBIO DO ? Final Pathologic Diagnosis: A. STOMACH, ANTRUM, BIOPSY: - ??Gastric antral mucosa with reactive gastropathy. S ee comment. - ??Immunostaining for Helicobacter pylori-like organi sms is negative. B. ESOPHAGUS, 45 CM, BIOPSY: - ??Gastric type mucosa with chronic gastritis. See co mment. - ??Immunostaining for Helicobacter pylori-like organi sms is negative. - ??Negative for intestinal metaplasia, negative for d ysplasia. Comment: Immunohistochemical stains were performe d on this case to further characterize the lesion. ANTIBODY(CLONE)(BLOCK):RESULT H pylori (Rabbit Monoclonal (SP48), [place]) (A1): neg ative H pylori (Rabbit Monoclonal (SP48), [place]) (B1): neg ative NOTE: ??One or more of the reagents used in immunohistochemical testing in this case may not have been cleared or approved by the U.S. Food and Drug Administration (FDA). ??The FDA has determined that such clearance or approval is not necessary. ??These tests are used for clinical purposes. ??They should not be regarded as investigational or for research. ??These r eagents' performance characteristics have been determined by [facility]. ??The positive and negative controls worked appropriately. T his laboratory is certified under the Clinical Laboratory Improvement Amendments of 1988 (CLIA-88) as qualified to perform high complexity clinical labor atory testing. Dr. Sutton 03/27/2013 10:03 AM ?? Document reviewed and electronically signed by: DENAE DEL TORO MD Report ??Date: 03/28/2013 11:56 By the signature above, the attending physician certif ies that he/she has personally conducted a gross and/or microscopic examin ation of the described specimens and rendered or confirmed the above diagnosi s. Specimen(s) Received: A. ?Antrum B. ? Esophageal junction 45 cm Clinical History: R/O H. pylori Gross Description: A. ?Received in formalin labelled with proper p atient identification (initials L, T) and antrum is a single pink-solis tissue fragment (0.3 x 0.2 x 0.2 cm). ??Submitted intact in A1. B. ?Received in formalin labelled with proper p atient identification (initials L, T) and esophag eal junction 45 cm are two pink-solis tissues (0.1 x 0.1 x 0.1 cm and 0.2 x 0.2 x 0.2 cm). ??Entirely submi tted in B1. Shae Flores 03/25/2013 10:01 AM End of Report Specimen Performing Organization Address City/State/ZIP Code Phon e Number [facility] [address] [place] [address] SERVICES [facility] [address] [place] [address] documented in this encounter Visit Diagnoses Not on filedocumented in this encounter Care Teams Healthcare Facility Administrator Relationship Specialty Start Date End Date Unknown, Provider, PCP - General 03/25/13 03/28/13 documented as of this encounter
--- OUTSIDE RECORDS SUMMARY | 2021-12-16 00:23 | XMS_ITS | Encounter Summary ---
:[address] [facility] Address [address] [place] [address] Care Team Providers Name Role Phone Shaunna Bonilla MD Primary Care Provider Encounter Details Date Type Department Care Team Description 11/24/2019 Lab Requisition [facility] Outr Resulting Lab, Pathology & Laboratory Provider [facility] [address] [place] [address] Social History Tobacco Use Types Packs/Day Years Used Date Never Assessed Sex Assigned at Date Recorded Not on file documented as of this encounter Plan of Treatment Not on filedocumented as of this encounter Visit Diagnoses Not on filedocumented in this encounter Care Teams Sports Bookmaker Relationship Specialty Start Date End Date Shaunna Bonilla MD PCP - General 03/29/13 [address],[facility] [address] [place] [address] documented as of this encounter
--- OUTSIDE RECORDS SUMMARY | 2021-12-16 00:23 | XMS_ITS | Encounter Summary ---
:1960 Author Organization [facility] Address [address] [place] [address] Care Team Providers Name Role Phone Shaunna Bonilla MD Primary Care Provider Encounter Details Date Type Department Care Team Description 09/26/2016 [facility], [facility] [phone] [place] [address] (Work) [place] [address] Social History Tobacco Use Types Packs/Day Years Used Date Never Assessed Sex Assigned at Date Recorded Not on file documented as of this encounter Discharge Disposition Disposition Code Departure Means Destination Home or Self Longterm documented in this encounter Plan of Treatment Not on filedocumented as of this encounter Visit Diagnoses Not on filedocumented in this encounter Care Teams Peripheral Vascular Tech Relationship Specialty Start Date End Date Shaunna Bonilla MD PCP - General 03/29/13 [facility] [address] [place] [address] documented as of this encounter
--- OUTSIDE RECORDS SUMMARY | 2021-12-16 00:23 | XMS_ITS | Encounter Summary ---
:1960 Author Organization [facility] Address [address] [place] [address] Care Team Providers Name Role Phone Shaunna Bonilla MD Primary Care Provider Encounter Details Date Type Department Care Team Description 09/26/2016 Results Only [facility] Gayatri Ramey MD [phone] [place] [address] [id number] (Wo rk) Social History Tobacco Use Types Packs/Day Years Used Date Never Assessed Sex Assigned at Date Recorded Not on file documented as of this encounter Plan of Treatment Not on filedocumented as of this encounter Procedures Procedure Name Priority Date/Time Associated Diagnosis Comme [facility] SURGICAL PATHOLOGY Routine 09/26/2016 9:18 EDT Re sults for this procedure are i n the results section. documented in this encounter Results SURGICAL PATHOLOGY (09/26/2016 9:18 EDT) Pathology Report: SURGICAL PATHOLOGY REPORT [facility] Reports generated via electronic interface contain mimi ginal data; LABORATORY however they are lacking the format of the original re port. SERVICES Caution should be taken when reading/interpreting unfo rmatted reports. Name: ? BAILEY CARY ? Accession #: ? [id number] ? : ? 1960 (Age: [age]) ??F ? Collect Date: ? 09/26/2016 ? Location: ? [facility] ? Receive Date: ? 09/27/2016 ? Provider: GAYATRI RAMEY MD Copy to: ? Final Pathologic Diagnosis: Anus, wart, excisionAL BIOPSY: - Condyloma acuminatum (AIN I). - Lateral (mucosal) margins negative for dysplasia. Document reviewed and electronically signed by: AUDREY BRITO MD Report ??Date: 09/29/2016 10:50 By the signature above, the attending physician certif ies that he/she has personally conducted a gross and/or microscopic examin ation of the described specimens and rendered or confirmed the above diagnosi s. Specimen(s) Received: Anal wart Clinical History: Not listed Gross Description: ? Received in formalin labelled with proper patient identification (initials L, T) and anal wart is a s ad[place] solis-galan polypoid tissue (1.2 x 0.9 x 0.6 cm). The margin is inked black, the specimen is serially se ctioned and entirely submitted in 1 and 2. KEREN Savage (ASCP) 09/27/2016 9:47 AM End of Report Specimen Performing Organization Address City/State/ZIP Code Phon e Number [facility] [address] [place] [address] SERVICES documented in this encounter Visit Diagnoses Not on filedocumented in this encounter Care Teams Roads Superintendent Relationship Specialty Start Date End Date Shaunna Bonilla MD PCP - General 03/29/13 [address] [place] [address] documented as of this encounter
--- OUTSIDE RECORDS SUMMARY | 2021-12-16 00:23 | XMS_ITS | Encounter Summary ---
:1960 Author Organization [facility] Address [address] [place] [address] Care Team Providers Name Role Phone Shaunna Bonilla MD Primary Care Provider Encounter Details Date Type Department Care Team Description 11/22/2019 Lab Requisition [facility] Outr Resulting Lab, Pathology & Laboratory Provider [facility] [address], [place] [id number] Social History Tobacco Use Types Packs/Day Years Used Date Never Assessed Sex Assigned at Date Recorded Not on file documented as of this encounter Plan of Treatment Not on filedocumented as of this encounter Procedures Procedure Name Priority Date/Time Associated Diagnosis Comme nts COVID-19 TEST [facility] Today 11/22/2019 20:55 LAB PCR EDT COVID-19 TESTING Routine 11/22/2019 20:55 Results for this EDT procedure are i n the results section. documented in this encounter Results COVID-19 TEST [facility] PCR (11/22/2019 20:55 EDT) Specimen Swab - Entire nasopharynx (body structur e) Performing Organization Address City/State/ZIP Code Phon e Number [facility] [address] [place] [address] SERVICES COVID-19 TESTING (11/22/2019 20:55 EDT) COVID-19 rt-PCR Negative Negative [facility] Result Comment: [facility] This test has not been FDA c leared or approved. This test has been authorized by FDA under an EUA for use by authorized laboratories. This test has been authorized only for detection of nucleic acid fro SERVICES m 2018-nCo, not for any oth er viruses or pathogens. This test is only authorized for the duration of the declaration that circumstances exist justifying the authorization of emergency use of in vitro d iagnostic tests for detectio n and/or diagnosis of 2019-nCoV under section 564(b)(1) of Act, 21 U.S.C ?? 360bbb-3(b) (1), unless the authorization is terminated or revoked sooner. Negative results do not prec lude 2019-nCoV infection and should not be used as the sole basis for treatment or other patient management decisions. Negative results must be combined with clinical observa tions, patient history, and epidemiological informatio n. Performed on the COMS Interactive[employer] Fusion instrument Performing Lab [place] [facility] SERVICES Specimen Swab Performing Organization Address City/State/ZIP Code Phon e Number [facility] [address] [place] [address] SERVICES documented in this encounter Visit Diagnoses Not on filedocumented in this encounter Care Teams Vp & General Counsel Relationship Specialty Start Date End Date Shaunna Bonilla MD PCP - General 03/29/13 [address] [place] [address] documented as of this encounter
--- OUTSIDE RECORDS SUMMARY | 2021-12-16 00:23 | XMS_ITS | Encounter Summary ---
:1960 Author Organization [facility] Address [address] [place] [address] Care Team Providers Name Role Phone Unavailable Primary Care Provider Unavailable Encounter Details Date Type Department Care Team Description 03/22/2013 Hospital Encounter [facility] - S Unknown, Pro Estefania parson MD [address] [facility] [phone] [place] [address] (Work) [phone] Social History Tobacco Use Types Packs/Day Years Used Date Never Assessed Sex Assigned at Date Recorded Not on file documented as of this encounter Discharge Disposition Disposition Code Departure Means Destination Home or Self Shelter documented in this encounter Plan of Treatment Not on filedocumented as of this encounter Visit Diagnoses Not on filedocumented in this encounter
== END ==
PROVIDERS: PCP Nurse Practitioner Family; Visit Provider Internal Medicine Cardiovascular Disease

== ENCOUNTER 2022-02-24 20:38 | Outpatient (REF) | payer MEDICARE, MEDICAID, SELFPAY | END 2022-02-24 20:39 | disposition home or self-care (01) | LOC: NCHCN 20:38 | PROVIDERS: PCP Nurse Practitioner Family; Visit Provider Nurse Practitioner Family | DX: R30.0 Dysuria (principal) | CPT/HCPCS: 87077; 87086; 87186 ==

== ENCOUNTER 2022-03-28 15:12 | Outpatient (REF) | payer MEDICARE, MEDICAID, SELFPAY ==
[2022-03-28 15:38] LABS: Abs Immature Grans 0.02 10^3/uL (0.0-0.06); Absolute Basophil Count 0.04 10^3/uL (0.0-0.2); Absolute Eosinophil Count 0.12 10^3/uL (0.0-0.7); Absolute Lymphocyte Count 1.47 10^3/uL (1.2-3.4); Absolute Neutrophil Count 4.97 10^3/uL (1.2-6.7); Basophils % 0.6; Eosinophils % 1.7; HCT 38.1 % (36.0-46.0); HGB 11.6 g/dL (11.2-15.7); Immature Grans % 0.3; Lymphocytes % 20.6; MCH 24.6 pg (27.0-33.0); MCHC 30.4 % (32.0-36.0); MCV 81 fL (80-95); MPV 10.3 fL (8.0-11.0); Neutrophils % 69.8; Platelet Count 215 10^3/uL (130-400); RBC 4.71 10^6/uL (3.93-5.22); RDW 16.2 % (11.7-14.6); WBC 7.12 10^3/uL (4.4-10.8)
[2022-03-28 16:09] LABS: ALT 30 U/L (14-59); AST 33 U/L (15-37); Albumin 3.6 g/dL (3.4-5.0); Alkaline Phosphatase 92 U/L (46-116); Anion Gap 8.1 mmol/L (3-11); BUN 23 mg/dL (7-18); Bilirubin, Total 0.6 mg/dL (0.2-1.0); CO2 26.9 mmol/L (21.0-32.0); CREATININE 1.1 mg/dL (0.55-1.02); Calcium 9.3 mg/dL (8.5-10.1); Chloride 104 mmol/L (98-107); Estimated GFR 57.17 (mL/min/1.73m2); Glucose 186 mg/dL (74-106); Potassium 4.6 mmol/L (3.5-5.1); Sodium 139 mmol/L (136-145); Total Protein 8.1 g/dL (6.4-8.2)
== END 2022-03-28 15:13 | disposition home or self-care (01) ==
LOC: NCHCN 15:12
PROVIDERS: PCP Nurse Practitioner Family; Visit Provider Nurse Practitioner Family
DX: R10.30 Lower abdominal pain, unspecified (principal); E11.9 Type 2 diabetes mellitus without complications; R30.0 Dysuria; R35.0 Frequency of micturition
CPT/HCPCS: 80053; 87077; 85025; 87086; 87186

== ENCOUNTER 2022-04-07 15:59 | Outpatient (REF) | payer MEDICARE, MEDICAID, SELFPAY | END 2022-04-07 16:00 | disposition home or self-care (01) | LOC: NCHCN 15:59 | PROVIDERS: PCP Nurse Practitioner Family; Visit Provider Nurse Practitioner Family | DX: N39.0 Urinary tract infection, site not specified (principal) | CPT/HCPCS: 87077; 87086; 87186 ==

== ENCOUNTER → 2022-04-13 09:26 | Outpatient (BNVA) | payer MEDICARE, MEDICAID, SELFPAY | PROVIDERS: PCP Nurse Practitioner Family; Referring Provider Nurse Practitioner Family; Visit Provider Nurse Practitioner Gerontology | DX: R30.0 Dysuria (principal); N39.46 Mixed incontinence; N39.0 Urinary tract infection, site not specified | CPT/HCPCS: 99214 ==

== ENCOUNTER 2022-06-03 14:17 | Outpatient (REF) | payer MEDICARE, MEDICAID, SELFPAY | END 2022-06-03 14:18 | disposition home or self-care (01) | LOC: NCHCN 14:17 | PROVIDERS: PCP Nurse Practitioner Family; Visit Provider Nurse Practitioner Family | DX: N39.0 Urinary tract infection, site not specified (principal) | CPT/HCPCS: 87077; 87086; 87186 ==

== ENCOUNTER 2022-07-07 13:09 | Outpatient (REF) | payer MEDICARE, MEDICAID, SELFPAY ==
[2022-07-07 10:48] LABS: Bilirubin Negative (Negative); Blood Small (Negative); Clarity Sl Cloudy (Clear); Glucose Negative (Negative); Ketones Negative (Negative); Leukocyte Esterase Large (Negative); Nitrite Positive (Negative); Specific Gravity 1.015 (1.005-1.025); Urobilinogen 0.2 EU/dL (Up TO 0.2)
[2022-07-07 11:07] LABS: Bacteria Many HPF (Negative); C & S Indicated? Yes; Casts Negative LPF (Negative); Crystals Negative HPF (Negative); Epithelial Cells Rare HPF (Negative); Mucus Negative (Negative); WBC >50 HPF (0-5)
== END 2022-07-07 13:10 | disposition home or self-care (01) ==
LOC: NCHCN 13:09
PROVIDERS: PCP Nurse Practitioner Family; Visit Provider Nurse Practitioner Family
DX: R30.0 Dysuria (principal)
CPT/HCPCS: 87077; 81003; 81015; 87086; 87186

== ENCOUNTER 2022-08-12 19:07 | Outpatient (REF) | payer MEDICARE, MEDICAID, SELFPAY ==
[2022-08-12 17:01] LABS: HCT 36.3 % (36.0-46.0); HGB 11.4 g/dL (11.2-15.7); MCH 24.4 pg (27.0-33.0); MCHC 31.4 % (32.0-36.0); MCV 78 fL (80-95); MPV 10.6 fL (8.0-11.0); Platelet Count 244 10^3/uL (130-400); RBC 4.68 10^6/uL (3.93-5.22); WBC 8.66 10^3/uL (4.4-10.8)
[2022-08-12 18:12] LABS: Anion Gap 8.5 mmol/L (3-11); BUN 19 mg/dL (7-18); CO2 27.5 mmol/L (21.0-32.0); CREATININE 1.2 mg/dL (0.55-1.02); Calcium 9.1 mg/dL (8.5-10.1); Chloride 102 mmol/L (98-107); Glucose 203 mg/dL (74-106); Potassium 4.3 mmol/L (3.5-5.1); Sodium 138 mmol/L (136-145)
[2022-08-12 18:17] LABS: Iron 24 ug/dL (50-170); Total Iron Binding Capacity 376 ug/dL (250-450); Transferrin Sat 6 % (15-50)
== END 2022-08-12 19:08 | disposition home or self-care (01) ==
LOC: NCHCN 19:07
PROVIDERS: PCP Nurse Practitioner Family; Visit Provider Nurse Practitioner Family
DX: N18.32 Chronic kidney disease, stage 3b (principal); N39.0 Urinary tract infection, site not specified; R10.30 Lower abdominal pain, unspecified; D50.9 Iron deficiency anemia, unspecified
CPT/HCPCS: 80048; 85027; 87077; 87186; 83540; 83550; 87086

== ENCOUNTER → 2022-10-12 08:38 | Outpatient (BNVA) | payer MEDICARE, MEDICAID, SELFPAY | PROVIDERS: PCP Nurse Practitioner Family; Referring Provider Nurse Practitioner Family; Visit Provider Nurse Practitioner Gerontology | DX: R30.0 Dysuria (principal); N39.46 Mixed incontinence; Z87.440 Personal history of urinary (tract) infections | CPT/HCPCS: 81003; 99214 ==

== ENCOUNTER 2022-10-12 10:49 | Outpatient (REF) | payer MEDICARE, MEDICAID, SELFPAY | END 2022-10-12 10:50 | disposition home or self-care (01) | LOC: LBN 10:49 | PROVIDERS: PCP Nurse Practitioner Family; Visit Provider Nurse Practitioner Gerontology | DX: N39.0 Urinary tract infection, site not specified (principal) | CPT/HCPCS: 87077; 87086; 87186 ==

== ENCOUNTER 2023-03-07 19:29 | Outpatient (REF) | payer MEDICARE, MEDICAID, SELFPAY ==
[2023-03-07 18:51] LABS: HCT 40.5 % (36.0-46.0); HGB 12.8 g/dL (11.2-15.7); MCH 25.5 pg (27.0-33.0); MCHC 31.6 % (32.0-36.0); MCV 81 fL (80-95); MPV 10.7 fL (8.0-11.0); Platelet Count 218 10^3/uL (130-400); RBC 5.02 10^6/uL (3.93-5.22); RDW-SD 46.5 fL; WBC 7.02 10^3/uL (4.4-10.8)
[2023-03-07 19:04] LABS: Iron 39 ug/dL (50-170); Total Iron Binding Capacity 336 ug/dL (250-450); Transferrin Sat 12 % (15-50)
[2023-03-07 19:24] LABS: Hemoglobin A1C 6.2 % (<5.7)
[2023-03-07 19:26] LABS: ALT 23 U/L (14-59); AST 22 U/L (15-37); Albumin 3.4 g/dL (3.4-5.0); Alkaline Phosphatase 84 U/L (46-116); BUN 24 mg/dL (7-18); Bilirubin, Total 0.7 mg/dL (0.2-1.0); CREATININE 1.4 mg/dL (0.55-1.02); Calcium 9.5 mg/dL (8.5-10.1); Chloride 102 mmol/L (98-107); Estimated GFR 42.54 (mL/min/1.73m2); Glucose 103 mg/dL (74-106); Potassium 3.9 mmol/L (3.5-5.1); Sodium 139 mmol/L (136-145); TSH 0.11 uIU/mL (0.36-3.74); Total Protein 7.9 g/dL (6.4-8.2); Vitamin B12 255 pg/mL (193-986)
== END 2023-03-07 19:30 | disposition home or self-care (01) ==
LOC: NCHCN 19:29
PROVIDERS: PCP Nurse Practitioner Family; Visit Provider Nurse Practitioner Family
DX: E11.9 Type 2 diabetes mellitus without complications (principal); D50.9 Iron deficiency anemia, unspecified; K14.8 Other diseases of tongue; E03.9 Hypothyroidism, unspecified
CPT/HCPCS: 80053; 85027; 82607; 83036; 83540; 83550; 84443

== ENCOUNTER 2023-06-07 15:50 | Outpatient (REF) | payer MEDICARE, MEDICAID, SELFPAY | END 2023-06-07 15:51 | disposition home or self-care (01) | LOC: NCHCN 15:50 | PROVIDERS: PCP Nurse Practitioner Family; Visit Provider Nurse Practitioner Family | DX: R30.0 Dysuria (principal); R82.998 Other abnormal findings in urine | CPT/HCPCS: 87077; 87086; 87186 ==

== ENCOUNTER → 2023-07-17 02:16 | Outpatient (CLI) | payer MEDICARE, MEDICAID, SELFPAY ==
--- NOTE | 2023-07-17 14:29 | DI.US_ITS ---
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 Technically limited study due to body habitus. Conclusion Normal left ventricular wall thickness and chamber size. Ejection fraction is 50-55%. Wall motion i s normal Normal right ventricular size and systolic function Both atria are normal in size There is no structural or hemodynamically significant valvular disease Dilated ascending aorta measuring 4.06 cm Wall motion Left Ventricle The left ventricle is normal size. The left ventricular systolic function is normal. The left ventric ular ejection fraction is within the normal range. There is normal left ventricular wall thickness. T here is normal LV segmental wall motion. There is no ventricular septal defect visualized. LVEF is 50 -55%. Right Ventricle The right ventricle is normal size. The right ventricular systolic function is normal. Atria The left atrium size is normal. The right atrium size is normal. The interatrial septum is intact wit h no evidence for an atrial septal defect. Aortic Valve Aortic valve is grossly normal in structure. There is no aortic valvular stenosis. Trace aortic reg urgitation. Mitral Valve The mitral valve is normal in structure. No evidence of mitral valve stenosis. Trace mitral regurgit ation. Tricuspid Valve The tricuspid valve is normal in structure. There is no tricuspid valve stenosis. Trace tricuspid reg urgitation. Unable to assess PA pressure. Pulmonic Valve Pulmonic valve is not well visualized. There is no pulmonic valvular stenosis. There is no pulmonic v alvular regurgitation. Great Vessels The aortic root is normal in size. The ascending aorta is moderately dilated. Aortic arch is normal i n caliber. IVC is normal in size and collapses >50% with inspiration. Pericardium There is no pericardial effusion. 2D Dimensions IVSD d PLAX 0.95 cm F: 0.6-1.0 Ao Root d 3.16 cm F: 2.7 - 3.3 LVPW d PLAX 0.89 cm F: 0.6 - 1.0 Ao Asc Diam d 4.06 cm F: 2.3 - 3.1 LVID d PLAX 6.08 cm F: 3.8 - 5.2 LVDs 4.52 cm F: 2.2 - 3.5 LV EF Teichholz 49.7 % FS 25.66 % LV EDV (Teich) 185.8 mL LV ESV (Teich) 93.5 mL Auto EF LV EDV A4C 128.6 mL LV EDV A2C 130.3 mL LV EDV BP 128.4 mL LV ESV A4C 60.9 mL LV ESV A2C 64.8 mL LV ESV BP 63.2 mL LVEF(%) A4C 52.6 % LVEF(%) A2C 50.3 % LVEF(%) BP 50.8 % LV SV A4C 67.7 ml LV SV A2C 65.6 ml LV SV BP 65.2 ml LV CO A4C 3.3 L/min LV CO A2C 3.3 L/min LV CO BP 3.3 L/min HR A4C 48.45 BPM HR A2C 49.79 BPM LV EDV Index (BP) LV Strain Long Pk Overal Avg (s) 13.79 LA Volume LA Length A4C 4.6 cm LA Length A2C 5.4 cm LA Area A4C s 15.12 cm2 LA Area A2C s 17.83 cm2 LA Vol A4C A-L 42.15 mL LA Vol A2C A-L 50.43 mL LA Vol Biplane A-L 49.7 mL LA Vol/BSA A4C A-L LA Vol/BSA A2C A-L LA Vol/BSA BP A-L 21.1 mL/m2 LA Vol A4C MOD 35.6 mL LA Vol A2C MOD 46.5 mL LA Vol BP MOD 43.5 mL RA Volume RA Area A4C 12.6 cm2 RA ESV A4C (A-L) 29.0mL RA Vol/BSA A4C A-L RA Length A4C 4.7 cm RA ESV A4C (MOD) 27.7mL LV Diastology MV E' medial 0.049 (>0.07 m/s) MV E Vmax 0.61 (0.4-1.3 m/s) MV E/E' MED 12.47 (<14) MV A Vmax 0.85 (0.4-1.3 m/s) MV E' lateral 0.066 (>0.1 m/s) E/A Ratio 0.7 MV E/E' LAT 9.22 (<14) MV E' Average 0.057 m/s MV E/E'(average) 10.60 Aortic Valve AoV Vmax 1.31 m/s LVOT Vmax 1.13 m/s AoV Peak Grad 6.8 mmHg LVOT Peak Grad 5.1 mmHg AoV Area (Vmax) 2.83 cm2 LVOT VTI 0.301 m AoV VTI 0.355 m LVOT Mean Grad 2.8 mmHg AoV Mean Mushtaq. 0.91 m/s LVOT SV 98.82 mL AoV Mean Grad 3.8 mmHg LVOT Diam s 2.00 cm AoV Area (VTI) 2.79 cm2 Velocity Ratio 0.86 Mitral Valve MV DT 286 (160-240 msec) MV Vmax TIPS 0.81 m/s MV Mean Grad 1.0 (<2mmHg) MV VTI 0.317 m Pulmonary Valve PV Vmax 0.93 (0.5-1.5 m/s) RVOT Vmax 0.67 m/s PV Peak Grad 3.5 mmHg RVOT Peak Gr. 1.8 mmHg PV Mean Mushtaq 0.68 m/s RVOT VTI 0.213 m PV Mean Grad 2.0 mmHg RVOT Mean Gr. 1.3 mmHg Tricuspid Valve RA Pressure 3.00 mmHg TV S' 0.12 m/s
== END ==
PROVIDERS: PCP Nurse Practitioner Family; Visit Provider Nurse Practitioner Family
DX: I25.10 Atherosclerotic heart disease of native coronary artery without angina pectoris (principal)
CPT/HCPCS: 93306

== ENCOUNTER 2023-07-18 14:16 | Outpatient (REF) | payer MEDICARE, MEDICAID, SELFPAY | END 2023-07-18 14:17 | disposition home or self-care (01) | LOC: NCHCN 14:16 | PROVIDERS: PCP Nurse Practitioner Family; Visit Provider Nurse Practitioner Family | DX: R30.0 Dysuria (principal) | CPT/HCPCS: 87086 ==

== ENCOUNTER 2023-09-08 10:36 | Day surgery (SDC) | payer MEDICARE, MEDICAID, SELFPAY ==
--- NOTE | 2023-09-07 20:53 | HPE_ITS ---
Assessment and Plan Assessment and plan (1) Posterior subcapsular age-related cataract of left eye: Status: Acute Assessment and plan: Assessment: Visually significant cataract, left eye. Plan: Cataract extraction with intraocular lens implant, left eye (2) Cortical age-related cataract, left eye: Status: Acute Assessment and plan: Assessment: Visually significant cataract, left eye. Plan: Cataract extraction with intraocular lens implant, left eye (3) Nuclear age-related cataract, left eye: Status: Acute Assessment and plan: Assessment: Visually significant cataract, left eye. Plan: Cataract extraction with intraocular lens implant, left eye History of Present Illness History of Present Illness Chief Complaint: Progressive decreased vision left eye Narrative: The patient is a 62-year-old lady with history of progressive decreased vision in both eyes, left eye worse than right. She notes significant difficulty with seeing distance and near, particularly her left eye. She has severe glare around lights at night. On examination she was noted to have a mature white cataract in the left eye with hand motions vision. The option of cataract surgery was offered to the patient and she wished to proceed. Review of Systems All systems reviewed & are unremarkable except as noted in HPI and below PFSH All Active Problems Hernia of anterior abdominal wall (Acute) Posterior subcapsular age-related cataract of left eye (Acute) Cortical age-related cataract, left eye (Acute) Nuclear age-related cataract, left eye (Acute) Recurrent UTI (Acute) Mixed incontinence (Acute) CAD (coronary artery disease), [place] coronary artery (Acute) Hypothyroidism (acquired) (Acute) Diabetes type 2, controlled (Chronic) Urinary retention (Acute) Restless leg syndrome (Acute) Neuropathy (Acute) Depression (Chronic) Hyperlipidemia (Acute) Insomnia (Acute) Tobacco dependence due to cigarettes (Chronic) Chest pain (Acute) Altered mental status (Acute) Diabetes (Chronic) H/O cervical spine surgery (Acute) Urinary tract infection (Acute) Leukocytosis (Acute) CAD (coronary artery disease) (Chronic) Tobacco abuse (Acute) DVT prophylaxis (Acute) COPD exacerbation (Acute) Spondylitis, cervical (Acute) NSTEMI (non-ST elevated myocardial infarction) (Acute) HTN (hypertension) (Chronic) Medical History Dysuria Balance problem Tongue discoloration Diarrhea Anemia Bacteremia due to Gram-negative bacteria Acute UTI CAP (community acquired pneumonia) Morbid (severe) obesity due to excess calories Dehydration HCAP (healthcare-associated pneumonia) History of non-ST elevation myocardial infarction (NSTEMI) Nicotine dependence Urinary tract infection Acute pancreatitis Type 2 diabetes mellitus Adult hypothyroidism Benign neoplasm Acute on chronic diastolic (congestive) heart failure Localized edema Atherosclerotic heart disease of [place] coronary artery with angina pectoris Spondylosis of cervical spine COPD (chronic obstructive pulmonary disease) NSTEMI (non-ST elevated myocardial infarction) CAD (coronary artery disease) Surgical History S/P spinal surgery S/P PTCA (percutaneous transluminal coronary angioplasty) History of Hx of laminectomy Social History Smoking/Tobacco Use Status: Current every day Tobacco Type: cigarettes Tobacco: How many years used: 48 Smoking risk assessment performed?: Yes Alcohol Intake: never Drug use: Occasionally Substance use type: marijuana Housing: house Do you feel safe at home: Yes Do you feel safe in your relationship?: Yes Meds Allergies and Home Medications Allergies Allergy/AdvReac Type Severity Reaction Status Date / Time latex Allergy Severe rash Verified 09/08/23 11:53 venom-wasp Allergy Severe Anaphylaxis Verified 09/08/23 11:53 coconut Allergy Unknown facial Verified 09/08/23 11:53 swelling bee pollen Allergy . Verified 09/08/23 11:53 bee venom protein (honey bee) AdvReac Unknown . Verified 09/08/23 11:53 celecoxib AdvReac Unknown suicidal Verified 09/08/23 11:53 ideation Home Medications Medication Instructions Recorded Confirmed Type cholecalciferol (vitamin D3) 1,250 50,000 unit PO QAM 08/12/18 09/08/23 History mcg (50,000 unit) capsule potassium chloride 20 mEq 20 meq PO QAM 08/12/18 09/08/23 History tablet,extended release sitagliptin phosphate 100 mg tablet 100 mg PO DAILY 08/12/18 09/08/23 History triamcinolone acetonide 0.5 % 1 applic topical TID 08/12/18 09/08/23 History topical ointment acetaminophen 325 mg tablet 650 mg PO TID 11/22/19 09/08/23 History (Tylenol) aspirin 81 mg chewable tablet 81 mg PO DAILY 11/22/19 09/08/23 History atorvastatin 80 mg tablet 80 mg PO DAILY 11/22/19 09/08/23 History bupropion HCl 150 mg tablet,12 hr 150 mg PO BID 11/22/19 09/08/23 History sustained-release carvedilol 25 mg tablet 25 mg PO BID 11/22/19 09/08/23 History cetirizine 10 mg tablet (Zyrtec) 10 mg PO DAILY 11/22/19 09/08/23 History ferrous sulfate 324 mg (65 mg 324 mg PO DAILY 11/22/19 09/08/23 History iron) tablet,delayed release fluticasone propionate 50 2 spray intranasal DAILY 11/22/19 09/08/23 History mcg/actuation nasal spray,suspension insulin NPH isoph U-100 human 100 See Protocol subcut TID 11/22/19 09/08/23 History unit/mL (3 mL) subcutaneous pen (Novolin N FlexPen) magnesium oxide 400 mg PO HS 11/22/19 09/08/23 History melatonin 10 mg tablet 10 mg PO HS 11/22/19 09/08/23 History metformin 1,000 mg tablet 500 mg PO BID 11/22/19 09/08/23 History nystatin 100,000 unit/gram topical 1 applic topical PRN PRN 11/22/19 09/08/23 History cream oxybutynin chloride 5 mg tablet 10 mg PO BID 11/22/19 09/08/23 History paroxetine HCl 20 mg tablet 60 mg PO DAILY 11/22/19 09/08/23 History quetiapine 25 mg tablet 25 mg PO HS 11/22/19 09/08/23 History ropinirole 1 mg tablet 2 mg PO HS 11/22/19 09/08/23 History albuterol sulfate 90 mcg/actuation 2 puff inhalation PRN PRN 06/26/20 09/08/23 History aerosol inhaler budesonide-formoterol HFA 160 1 puff inhalation BID 06/26/20 09/08/23 History mcg-4.5 mcg/actuation aerosol inhaler (Symbicort) omeprazole 40 mg capsule,delayed 40 mg PO DAILY 09/01/21 09/08/23 History release pregabalin 100 mg capsule 100 mg PO TID 09/01/21 09/08/23 History acetaminophen 500 mg tablet 1,000 mg PO TID 05/09/23 09/08/23 History amlodipine 5 mg tablet 5 mg PO DAILY 08/16/23 09/08/23 History fluticasone furoate 100 1 inh inhalation DAILY 08/16/23 09/08/23 History mcg-vilanterol 25 mcg/dose inhalation powder (Breo Ellipta) furosemide 80 mg tablet 80 mg PO DAILY 08/16/23 09/08/23 History insulin glargine 100 unit/mL 48 unit subcut HS 08/16/23 09/08/23 History subcutaneous solution (Lantus U-100 Insulin) levothyroxine 175 mcg capsule 175 mcg PO DAILY 08/16/23 09/08/23 History semaglutide 1 mg/dose (4 mg/3 mL) 1 mg subcut QWEEK 08/16/23 09/08/23 History subcutaneous pen injector (Ozempic) Exam Eyes Other: Most recent ocular examination revealed uncorrected vision of 20/60 right eye, hand motions left eye. Extraocular motility is normal. Intraocular pressure is 11 OD, 12 OS. Slightly examination reveals pupils dilating only to 4 mm. In the right eye there is a moderate nuclear and posterior subcapsular cataract. In the left eye there is a mature white cataract with no view of the posterior pole. Funduscopic examination is unable to be performed in the left eye due to the density of the cataract. In the right eye there is disc cupping of 0.35 with normal vessels, macula, peripheral retina and vitreous. Resp Auscultation: clear to auscultation bilaterally Cardio Rate: regular rate Rhythm: regular rhythm
[2023-09-08 11:20] VITALS: BP 171/90; PULSE 59; RESP 16; TEMP 36.3; O2SAT 97
--- NOTE | 2023-09-08 12:32 | W.ANESPRE ---
General Info Height: 5 ft 9 in Weight: 119.6 kg Body Mass Index (BMI): 38.9 Surgical Procedure: Operation Date: 09/08/23 14:40 Proposed Procedure Side Surgeon p Cataract Extraction with IOL Implant Left Cayden Snow MD Meds Allergies and Home Medications Allergies Allergy/AdvReac Type Severity Reaction Status Date / Time latex Allergy Severe rash Verified 09/08/23 11:53 venom-wasp Allergy Severe Anaphylaxis Verified 09/08/23 11:53 coconut Allergy Unknown facial Verified 09/08/23 11:53 swelling bee pollen Allergy . Verified 09/08/23 11:53 bee venom protein (honey bee) AdvReac Unknown . Verified 09/08/23 11:53 celecoxib AdvReac Unknown suicidal Verified 09/08/23 11:53 ideation Home Medication Medication Instructions Recorded cholecalciferol (vitamin D3) 1,250 50,000 unit PO QAM 08/12/18 mcg (50,000 unit) capsule potassium chloride 20 mEq 20 meq PO QAM 08/12/18 tablet,extended release sitagliptin phosphate 100 mg tablet 100 mg PO DAILY 08/12/18 triamcinolone acetonide 0.5 % 1 applic topical TID 08/12/18 topical ointment acetaminophen 325 mg tablet 650 mg PO TID 11/22/19 (Tylenol) aspirin 81 mg chewable tablet 81 mg PO DAILY 11/22/19 atorvastatin 80 mg tablet 80 mg PO DAILY 11/22/19 bupropion HCl 150 mg tablet,12 hr 150 mg PO BID 11/22/19 sustained-release carvedilol 25 mg tablet 25 mg PO BID 11/22/19 cetirizine 10 mg tablet (Zyrtec) 10 mg PO DAILY 11/22/19 ferrous sulfate 324 mg (65 mg 324 mg PO DAILY 11/22/19 iron) tablet,delayed release fluticasone propionate 50 2 spray intranasal DAILY 11/22/19 mcg/actuation nasal spray,suspension insulin NPH isoph U-100 human 100 See Protocol subcut TID 11/22/19 unit/mL (3 mL) subcutaneous pen (Novolin N FlexPen) magnesium oxide 400 mg PO HS 11/22/19 melatonin 10 mg tablet 10 mg PO HS 11/22/19 metformin 1,000 mg tablet 500 mg PO BID 11/22/19 nystatin 100,000 unit/gram topical 1 applic topical PRN PRN 11/22/19 cream oxybutynin chloride 5 mg tablet 10 mg PO BID 11/22/19 paroxetine HCl 20 mg tablet 60 mg PO DAILY 11/22/19 quetiapine 25 mg tablet 25 mg PO HS 11/22/19 ropinirole 1 mg tablet 2 mg PO HS 11/22/19 albuterol sulfate 90 mcg/actuation 2 puff inhalation PRN PRN 06/26/20 aerosol inhaler budesonide-formoterol HFA 160 1 puff inhalation BID 06/26/20 mcg-4.5 mcg/actuation aerosol inhaler (Symbicort) omeprazole 40 mg capsule,delayed 40 mg PO DAILY 09/01/21 release pregabalin 100 mg capsule 100 mg PO TID 09/01/21 acetaminophen 500 mg tablet 1,000 mg PO TID 05/09/23 amlodipine 5 mg tablet 5 mg PO DAILY 08/16/23 fluticasone furoate 100 1 inh inhalation DAILY 08/16/23 mcg-vilanterol 25 mcg/dose inhalation powder (Breo Ellipta) furosemide 80 mg tablet 80 mg PO DAILY 08/16/23 insulin glargine 100 unit/mL 48 unit subcut HS 08/16/23 subcutaneous solution (Lantus U-100 Insulin) levothyroxine 175 mcg capsule 175 mcg PO DAILY 08/16/23 semaglutide 1 mg/dose (4 mg/3 mL) 1 mg subcut QWEEK 08/16/23 subcutaneous pen injector (Ozempic) Current Visit Medications: Current Medications Generic Name Dose Route Start Last Admin Trade Name Freq PRN Reason Stop Dose Admin Acetaminophen 1,000 mg 09/08/23 06:00 Acetaminophen 500 Mg Tab PO 10/08/23 05:59 Q4H PRN PRN Balanced Salt Solution 500 ml 09/08/23 06:00 Balanced Salt Soln.-Plus 500 Ml Bag OP 10/08/23 05:59 DIRECTED MADELEINE Miscellaneous Medication 0 ml 09/08/23 06:00 Prednisolone 1%, Moxifloxacin 0.5%, Bromfenac 0.09% 5ml Btl OS 10/08/23 05:59 DIRECTED MADELEINE Miscellaneous Medication 0 ml 09/08/23 06:00 09/08/23 12:24 Tropicam./Phenyleph. (1/2.5%) 10 Ml Btl OS 10/08/23 05:59 1 drp DIRECTED MADELEINE Administration Tetracaine HCl 0 ml 09/08/23 06:00 Tetracaine 0.5% 4 Ml Btl OS 10/08/23 05:59 DIRECTED MADELEINE PFSH Active Problems Active Problems: Problem Status Onset Code Hernia of anterior abdominal wall K43.9 Posterior subcapsular age-related cataract of left eye H25.042 Cortical age-related cataract, left eye H25.012 Nuclear age-related cataract, left eye H25.12 Recurrent UTI N39.0 Mixed incontinence N39.46 CAD (coronary artery disease), pamunkey coronary artery I25.10 Hypothyroidism (acquired) E03.9 Diabetes type 2, controlled E11.9 Urinary retention R33.9 Restless leg syndrome G25.81 Neuropathy G62.9 Depression F32.9 Hyperlipidemia E78.5 Insomnia G47.00 Tobacco dependence due to cigarettes F17.210 Chest pain R07.9 Altered mental status R41.82 Diabetes E11.9 H/O cervical spine surgery Z98.890 Urinary tract infection N39.0 Leukocytosis D72.829 CAD (coronary artery disease) I25.10 Tobacco abuse Z72.0 DVT prophylaxis COPD exacerbation J44.1 Spondylitis, cervical M46.92 NSTEMI (non-ST elevated myocardial infarction) I21.4 HTN (hypertension) I10 Medical History Medical History Dysuria Balance problem Tongue discoloration Diarrhea Anemia Bacteremia due to Gram-negative bacteria Acute UTI CAP (community acquired pneumonia) Morbid (severe) obesity due to excess calories Dehydration HCAP (healthcare-associated pneumonia) History of non-ST elevation myocardial infarction (NSTEMI) Nicotine dependence Urinary tract infection Acute pancreatitis Type 2 diabetes mellitus Adult hypothyroidism Benign neoplasm Acute on chronic diastolic (congestive) heart failure Localized edema 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 states she gets off the wall, thought I could fly Surgical History Surgical History S/P spinal surgery S/P PTCA (percutaneous transluminal coronary angioplasty) History of Hx of laminectomy Tobacco Smoking/Tobacco Use Status: Current every day Tobacco Type: cigarettes Smoking cigarettes per day: 2 Alcohol Alcohol Intake: never Substance Use Substance use: Occasionally Substance use type: marijuana Vital Signs and Lab Results Vital Signs Most Recent Vital Signs in EMR: Most Recent Vital Signs Temp Pulse Resp BP Pulse Ox 36.3 C L 59 L 16 171/90 H 97 09/08/23 11:20 09/08/23 11:20 09/08/23 11:20 09/08/23 11:20 09/08/23 11:20 Point of Care Results Point of Care Results: Finger Stick Blood Glucose 179 09/08/23 12:21 Lab Results Blood Type / Crossmatch: No Data to Display Complete Blood Count: No Data to Display Complete Metabolic Panel: No Data to Display Liver Function Panel: No Data to Display Coagulation Panel: No Data to Display Cardiac Panel: No Data to Display Arterial Blood Gas: No Data to Display Venous Blood Gas: No Data to Display Pancreas Panel: No Data to Display Thyroid Panel: No Data to Display Infectious Disease: No Data to Display Blood Cultures: No Data to Display Toxicology Panel: No Data to Display Imaging and Studies Imaging and Studies Study information below may be from another EMR and interpreted by another provider. Please see original notes in EMR for more complete details. EKG Summary: EKG PATIENT NAME: Bailey Cary UNIT #: [id number] ORDERING PROVIDER: Gilbert Chavira M.D. PRIMARY CARE PROVIDER: TITA FONSECA NP DATE/TIME OF SERVICE: 10/28/21844 : 1960 PERFORMING LOCATION: .[facility] APPROVED REPORT Exam: Resting ECG Reason for Exam: GA Patient Location: O HR:51 bpm ECG Measurements Heart Rate 51 AXIS WV 168 P 5 QRSd 109 QRS -19 QT 466 T57 QTc 430 Conclusion Sinus rhythm...normal P axis, V-rate 50- 99 Borderline left axis deviation...QRS axis (-15,-29) Borderline T abnormalities, anterior leads...T flat or neg, V2-V4 Poor R wave progression <Electronically signed by GILBERT CHAVIRA MD in OV> E-Sign Date: 10/28/21 E-Sign Time: 0950 Stress Test Summary: Bailey Cary 62 F 1960 Allergy/Adv: latex, venom-wasp, coconut, bee pollen, bee venom protein (honey bee), celecoxib Patient Name: Bailey Cary Unit #: [id number] Loc: Ordering Provider: Gilbert Chavira M.D. Status: [facility] Primary Care Provider: Tita Fonseca Date of Exam: 11/11/21 Sex: F Admission Date: 11/11/21 : 1960 Age: 61 APPROVED REPORT Exam: Pharmacologic Patient Location: Out-Patient Room/Bed: Stress Nurse: Queenie Faulkner RN Ordering Provider:GILBERT CHAVIRA, Contact Number: BMI: 41.34 Baseline Rhythm: Sinus Bradycardia Indications: Artherosclerotic heart disease of pamunkey coronary artery without angina pectoris. Medical History Medical History: CAD, Hypothryoidism, DM II, Neuropathy, Depression, HLD, Tobacco abuse, AMS, COPD exacerbation, NSTEMI, HTN, Acute on chronic CHF, Fibriomyalgia Cardiac Medications: Sitagliptin, Potassium chloride, Omeprazole, Metformin, Carvedilol, Symbicort, Atorvastatin, ASA, Amlodipine, Albuterol sulfate, Novolin, Lantus Allergies: Bee venum, coconut, latex, celocoxib Cardiac Risk Factors: CVD, COPD, HTN, Diabetes, Current smoker, HLD, Obesity Pretest Chest Pain Characteristics: none Exercise History: Sedentary Stress Test Details Test: Pharmacologic stress testing performed using 0.4 mg of regadenoson per 5 mL given IV over 10 seconds. Reason for pharmacologic stress test: physical limitation. Nuclear Acquisition: Rest Tc-99m/Stress Tc-99m 1 day Rest Isotope: Tc-99m Sestamibi. Dose: 14.7 Date: 11/11/2021 Injection Time: 0945 Stress Isotope: Tc-99m Sestamibi. Dose: 45.0 Date: 11/11/2021 Injection Time: 1126 HR Resting HR Supine: 53 bpmMax Heart Rate (APMHR): 159.166579 bpm Target HR (85% APMHR): 135.661333 bpm Max HR Achieved: 61 bpm % of APMHR: 38.36 Recovery HR: 61 bpm BP Resting BP Supine: 114/64 mmHg Max BP: 114/64 mmHg Recovery BP: 108/58 mmHg ECG Resting ECG: Sinus Bradycardia Stress ECG: Sinus Rhythm ST Change: No significant ST segment changes noted Arrhythmia: None Recovery ECG: Sinus Rhythm Recovery ST Change: No significant ST segment changes noted Recovery Arrhythmia: None Clinical Stress Symptoms: Dyspnea Rate Pressure Product: 6954 Stress ECG Conclusion 1. Resting electrocardiogram showed sinus rhythm, diffuse nondiagnostic ST-T abnormalities 2. The patient underwent pharmacologic stress with regadenoson 3. Peak heart rate achieved was 47% of predicted 4. Electrocardiographic portion of the test was nondiagnostic due to inadequate heart rate 5. See MPI report Stress Test Summary STAGEHRBPSymptomsNOTES [id number]/64 1 min post Lexiscan edaguchtf51090/56 3 min post Lexiscan [id number]/62 6 min post Lexiscan [id number]/58 MPI Conclusion Technically suboptimal Within the limits of the study there is no evidence of myocardial ischemia or prior infarction EF 48%, wall motion appears normal Radiologist Interpretation Radiologist agrees with [employer]'s Interpretation. Radiologist Interpretation by: Toney Morocho MD Interpretation Date/Time: 11/12/2021 08:44:58 Ordered By: Gilbert Chavira M.D. CC: Dictated By: Gilbert Chavira M.D. 11/11/21 1155 <Electronically signed by Gilbert Chavira M.D. in OV> 11/12/21 3053 Transcribed By: Gilbert Chavira MD This is privileged, confidential information intended only for the provider named. Any use or distribution by any person other than this provider is strictly prohibited. If you receive this report in error, please notify us immediately at [phone] and return the original report to us at the address above. Thank-you. Echocardiogram Summary: Patient Name: Bailey Cary Unit #: [id number] Loc: DI Ordering Provider: Barb Whiting Status: REG CLI Primary Care Provider: Tita Fonseca Date of Exam: 07/17/23 Sex: F Admission Date: 07/17/23 : 1960 Age: 62 APPROVED REPORT EXAM: Comprehensive 2D, Doppler, and color-flow Echocardiogram Patient Location: Out-Patient Support Services Rep: Ro Og RDCS (AE) Indications: Unstable angina dut to coronary arteriosclerosis, Pre operative exam, HTN, Smoker Other Information Study Quality: Fair. Technically limited study due to body habitus. Conclusion Normal left ventricular wall thickness and chamber size. Ejection fraction is 50-55%. Wall motion is normal Normal right ventricular size and systolic function Both atria are normal in size There is no structural or hemodynamically significant valvular disease Dilated ascending aorta measuring 4.06 cm Wall motion Left Ventricle The left ventricle is normal size. The left ventricular systolic function is normal. The left ventricular ejection fraction is within the normal range. There is normal left ventricular wall thickness. There is normal LV segmental wall motion. There is no ventricular septal defect visualized. LVEF is 50-55%. Right Ventricle The right ventricle is normal size. The right ventricular systolic function is normal. Atria The left atrium size is normal. The right atrium size is normal. The interatrial septum is intact with no evidence for an atrial septal defect. Aortic Valve Aortic valve is grossly normal in structure. There is no aortic valvular stenosis. Trace aortic regurgitation. Mitral Valve The mitral valve is normal in structure. No evidence of mitral valve stenosis. Trace mitral regurgitation. Tricuspid Valve The tricuspid valve is normal in structure. There is no tricuspid valve stenosis. Trace tricuspid regurgitation. Unable to assess PA pressure. Pulmonic Valve Pulmonic valve is not well visualized. There is no pulmonic valvular stenosis. There is no pulmonic valvular regurgitation. Great Vessels The aortic root is normal in size. The ascending aorta is moderately dilated. Aortic arch is normal in caliber. IVC is normal in size and collapses >50% with inspiration. Pericardium There is no pericardial effusion. 2D Dimensions IVSD d PLAX 0.95 cm F: 0.6-1.0Ao Root d 3.16 cm F: 2.7 - 3.3 LVPW d PLAX 0.89 cm F: 0.6 - 1.0Ao Asc Diam d 4.06 cm F: 2.3 - 3.1 LVID d PLAX 6.08 cm F: 3.8 - 5.2 LVDs 4.52 cm F: 2.2 - 3.5 LV EF Teichholz 49.7 % FS25.66 % LV EDV (Teich)185.8 mL LV ESV (Teich)93.5 mL Auto EF LV EDV U4C566.6 mLLV EDV K4F565.3 mLLV EDV BP128.4 mL LV ESV A4C60.9 mLLV ESV A2C64.8 mLLV ESV BP63.2 mL LVEF(%) A4C52.6 %LVEF(%) A2C50.3 %LVEF(%) BP50.8 % LV SV A4C67.7 mlLV SV A2C65.6 mlLV SV BP65.2 ml LV CO A4C3.3 L/minLV CO A2C3.3 L/minLV CO BP3.3 L/min HR A4C48.45 BPMHR A2C49.79 BPMLV EDV Index (BP) LV Strain Long Pk Overal Avg (s) 13.79 LA Volume LA Length A4C4.6 cmLA Length A2C5.4 cm LA Area A4C s 15.12 cm2LA Area A2C s 17.83 cm2 LA Vol A4C A-L42.15 mLLA Vol A2C A-L50.43 mLLA Vol Biplane A-L49.7 mL LA Vol/BSA A4C A-LLA Vol/BSA A2C A-LLA Vol/BSA BP A-L 21.1 mL/m2 LA Vol A4C MOD35.6 mLLA Vol A2C MOD46.5 mLLA Vol BP MOD43.5 mL RA Volume RA Area A4C12.6 cm2RA ESV A4C (A-L)29.0mLRA Vol/BSA A4C A-L RA Length A4C4.7 cmRA ESV A4C (MOD)27.7mL LV Diastology MV E' medial0.049 (>0.07 m/s)MV E Vmax 0.61 (0.4-1.3 m/s) MV E/E' MED12.47 (<14)MV A Vmax 0.85 (0.4-1.3 m/s) MV E' lateral0.066 (>0.1 m/s)E/A Ratio 0.7 MV E/E' LAT9.22 (<14) MV E' Average0.057 m/s MV E/E'(average)10.60 Aortic Valve AoV Vmax1.31 m/sLVOT Vmax 1.13 m/s AoV Peak Grad6.8 mmHgLVOT Peak Grad 5.1 mmHg AoV Area (Vmax)2.83 [id number] VTI0.301 m AoV VTI0.355 mLVOT Mean Grad 2.8 mmHg AoV Mean Mushtaq.0.91 m/sLVOT SV 98.82 mL AoV Mean Grad3.8 mmHgLVOT Diam s 2.00 cm AoV Area (VTI)2.79 cm2 Velocity Ratio 0.86 Mitral Valve MV DT 286 (160-240 msec) MV Vmax TIPS 0.81 m/s MV Mean Grad 1.0 (<2mmHg) MV VTI 0.317 m Pulmonary Valve PV Vmax 0.93 (0.5-1.5 m/s)RVOT Vmax 0.67 m/s PV Peak Grad 3.5 mmHgRVOT Peak Gr.1.8 mmHg PV Mean Vel0.68 m/sRVOT VTI0.213 m PV Mean Grad 2.0 mmHgRVOT Mean Gr.1.3 mmHg Tricuspid Valve RA Pressure 3.00 mmHg TV S'0.12 m/s Ordered By: Barb Whiting CC: Dictated By: Gilbert Chavira M.D. 07/17/231741 <Electronically signed by Gilbert Chavira M.D. in OV> 07/18/23 0829 Transcribed By: Gilbert Chavira MD 07/17/231741 This is privileged, confidential information intended only for the provider named. Any use or distribution by any person other than this provider is strictly prohibited. If you receive this report in error, please notify us immediately at [phone] and return the original report to us at the address above. Thank-you. Anesthesia Assessment and Plan Anesthesia History Personal History: Other Family History: No Family History of Anesthesia Complications Implantable Cardiac Device Does patient have a Pacemaker or an ICD?: No
--- NOTE | 2023-09-08 12:46 | W.ANESPRE ---
General Info Date of Service Date Performed: 09/08/23 Height: 5 ft 9 in Weight: 119.6 kg Body Mass Index (BMI): 38.9 Surgical Procedure: Operation Date: 09/08/23 14:40 Proposed Procedure Side Surgeon p Cataract Extraction with IOL Implant Left Cayden Snow MD Meds Allergies and Home Medications Allergies Allergy/AdvReac Type Severity Reaction Status Date / Time latex Allergy Severe rash Verified 09/08/23 11:53 venom-wasp Allergy Severe Anaphylaxis Verified 09/08/23 11:53 coconut Allergy Unknown facial Verified 09/08/23 11:53 swelling bee pollen Allergy . Verified 09/08/23 11:53 bee venom protein (honey bee) AdvReac Unknown . Verified 09/08/23 11:53 celecoxib AdvReac Unknown suicidal Verified 09/08/23 11:53 ideation Home Medication Medication Instructions Recorded cholecalciferol (vitamin D3) 1,250 50,000 unit PO QAM 08/12/18 mcg (50,000 unit) capsule potassium chloride 20 mEq 20 meq PO QAM 08/12/18 tablet,extended release sitagliptin phosphate 100 mg tablet 100 mg PO DAILY 08/12/18 triamcinolone acetonide 0.5 % 1 applic topical TID 08/12/18 topical ointment acetaminophen 325 mg tablet 650 mg PO TID 11/22/19 (Tylenol) aspirin 81 mg chewable tablet 81 mg PO DAILY 11/22/19 atorvastatin 80 mg tablet 80 mg PO DAILY 11/22/19 bupropion HCl 150 mg tablet,12 hr 150 mg PO BID 11/22/19 sustained-release carvedilol 25 mg tablet 25 mg PO BID 11/22/19 cetirizine 10 mg tablet (Zyrtec) 10 mg PO DAILY 11/22/19 ferrous sulfate 324 mg (65 mg 324 mg PO DAILY 11/22/19 iron) tablet,delayed release fluticasone propionate 50 2 spray intranasal DAILY 11/22/19 mcg/actuation nasal spray,suspension insulin NPH isoph U-100 human 100 See Protocol subcut TID 11/22/19 unit/mL (3 mL) subcutaneous pen (Novolin N FlexPen) magnesium oxide 400 mg PO HS 11/22/19 melatonin 10 mg tablet 10 mg PO HS 11/22/19 metformin 1,000 mg tablet 500 mg PO BID 11/22/19 nystatin 100,000 unit/gram topical 1 applic topical PRN PRN 11/22/19 cream oxybutynin chloride 5 mg tablet 10 mg PO BID 11/22/19 paroxetine HCl 20 mg tablet 60 mg PO DAILY 11/22/19 quetiapine 25 mg tablet 25 mg PO HS 11/22/19 ropinirole 1 mg tablet 2 mg PO HS 11/22/19 albuterol sulfate 90 mcg/actuation 2 puff inhalation PRN PRN 06/26/20 aerosol inhaler budesonide-formoterol HFA 160 1 puff inhalation BID 06/26/20 mcg-4.5 mcg/actuation aerosol inhaler (Symbicort) omeprazole 40 mg capsule,delayed 40 mg PO DAILY 09/01/21 release pregabalin 100 mg capsule 100 mg PO TID 09/01/21 acetaminophen 500 mg tablet 1,000 mg PO TID 05/09/23 amlodipine 5 mg tablet 5 mg PO DAILY 08/16/23 fluticasone furoate 100 1 inh inhalation DAILY 08/16/23 mcg-vilanterol 25 mcg/dose inhalation powder (Breo Ellipta) furosemide 80 mg tablet 80 mg PO DAILY 08/16/23 insulin glargine 100 unit/mL 48 unit subcut HS 08/16/23 subcutaneous solution (Lantus U-100 Insulin) levothyroxine 175 mcg capsule 175 mcg PO DAILY 08/16/23 semaglutide 1 mg/dose (4 mg/3 mL) 1 mg subcut QWEEK 08/16/23 subcutaneous pen injector (Ozempic) Current Visit Medications: Current Medications Generic Name Dose Route Start Last Admin Trade Name Freq PRN Reason Stop Dose Admin Acetaminophen 1,000 mg 09/08/23 06:00 Acetaminophen 500 Mg Tab PO 10/08/23 05:59 Q4H PRN PRN Balanced Salt Solution 500 ml 09/08/23 06:00 Balanced Salt Soln.-Plus 500 Ml Bag OP 10/08/23 05:59 DIRECTED MADELEINE Miscellaneous Medication 0 ml 09/08/23 06:00 Prednisolone 1%, Moxifloxacin 0.5%, Bromfenac 0.09% 5ml Btl OS 10/08/23 05:59 DIRECTED MADELEINE Miscellaneous Medication 0 ml 09/08/23 06:00 09/08/23 12:34 Tropicam./Phenyleph. (1/2.5%) 10 Ml Btl OS 10/08/23 05:59 1 drp DIRECTED MADELEINE Administration Tetracaine HCl 0 ml 09/08/23 06:00 Tetracaine 0.5% 4 Ml Btl OS 10/08/23 05:59 DIRECTED MADELEINE PFSH Active Problems Active Problems: Problem Status Onset Code Hernia of anterior abdominal wall K43.9 Posterior subcapsular age-related cataract of left eye H25.042 Cortical age-related cataract, left eye H25.012 Nuclear age-related cataract, left eye H25.12 Recurrent UTI N39.0 Mixed incontinence N39.46 CAD (coronary artery disease), [place] coronary artery I25.10 Hypothyroidism (acquired) E03.9 Diabetes type 2, controlled E11.9 Urinary retention R33.9 Restless leg syndrome G25.81 Neuropathy G62.9 Depression F32.9 Hyperlipidemia E78.5 Insomnia G47.00 Tobacco dependence due to cigarettes F17.210 Chest pain R07.9 Altered mental status R41.82 Diabetes E11.9 H/O cervical spine surgery Z98.890 Urinary tract infection N39.0 Leukocytosis D72.829 CAD (coronary artery disease) I25.10 Tobacco abuse Z72.0 DVT prophylaxis COPD exacerbation J44.1 Spondylitis, cervical M46.92 NSTEMI (non-ST elevated myocardial infarction) I21.4 HTN (hypertension) I10 Medical History Medical History Dysuria Balance problem Tongue discoloration Diarrhea Anemia Bacteremia due to Gram-negative bacteria Acute UTI CAP (community acquired pneumonia) Morbid (severe) obesity due to excess calories Dehydration HCAP (healthcare-associated pneumonia) History of non-ST elevation myocardial infarction (NSTEMI) Nicotine dependence Urinary tract infection Acute pancreatitis Type 2 diabetes mellitus Adult hypothyroidism Benign neoplasm Acute on chronic diastolic (congestive) heart failure Localized edema 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 states she gets off the wall, thought I could fly Surgical History Surgical History S/P spinal surgery S/P PTCA (percutaneous transluminal coronary angioplasty) History of Hx of laminectomy Tobacco Smoking/Tobacco Use Status: Current every day Tobacco Type: cigarettes Smoking cigarettes per day: 2 Alcohol Alcohol Intake: never Substance Use Substance use: Occasionally Substance use type: marijuana Vital Signs and Lab Results Vital Signs Most Recent Vital Signs in EMR: Most Recent Vital Signs Temp Pulse Resp BP Pulse Ox 36.3 C L 59 L 16 171/90 H 97 09/08/23 11:20 09/08/23 11:20 09/08/23 11:20 09/08/23 11:20 09/08/23 11:20 Point of Care Results Point of Care Results: Finger Stick Blood Glucose 179 09/08/23 12:21 Lab Results Blood Type / Crossmatch: No Data to Display Complete Blood Count: No Data to Display Complete Metabolic Panel: No Data to Display Liver Function Panel: No Data to Display Coagulation Panel: No Data to Display Cardiac Panel: No Data to Display Arterial Blood Gas: No Data to Display Venous Blood Gas: No Data to Display Pancreas Panel: No Data to Display Thyroid Panel: No Data to Display Infectious Disease: No Data to Display Blood Cultures: No Data to Display Toxicology Panel: No Data to Display Imaging and Studies Imaging and Studies Study information below may be from another EMR and interpreted by another provider. Please see original notes in EMR for more complete details. EKG Summary: EKG PATIENT NAME: Bailey Cary UNIT #: [id number] ORDERING PROVIDER: Gilbert Chavira M.D. PRIMARY CARE PROVIDER: TITA FONSECA NP DATE/TIME OF SERVICE: 10/28/21844 : 1960 PERFORMING LOCATION: .CARD APPROVED REPORT Exam: Resting ECG Reason for Exam: [place] Patient Location: O HR:51 bpm ECG Measurements Heart Rate 51 AXIS [place] 168 P 5 QRSd 109 QRS -19 QT 466 T57 QTc 430 Conclusion Sinus rhythm...normal P axis, V-rate 50- 99 Borderline left axis deviation...QRS axis (-15,-29) Borderline T abnormalities, anterior leads...T flat or neg, V2-V4 Poor R wave progression <Electronically signed by GILBERT CHAVIRA MD in OV> E-Sign Date: 10/28/21 E-Sign Time: 0950 Stress Test Summary: Bailey Cary 62 F 1960 Allergy/Adv: latex, venom-wasp, coconut, bee pollen, bee venom protein (honey bee), celecoxib Patient Name: Bailey Cary Unit #: [id number] Loc: Ordering Provider: Gilbert Chavira M.D. Status: [facility] Primary Care Provider: Tita Fonseca Date of Exam: 11/11/21 Sex: F Admission Date: 11/11/21 : 1960 Age: 61 APPROVED REPORT Exam: Pharmacologic Patient Location: Out-Patient Room/Bed: Stress Nurse: Queenie Faulkner RN Ordering Provider:GILBERT CHAVIRA, Contact Number: BMI: 41.34 Baseline Rhythm: Sinus Bradycardia Indications: Artherosclerotic heart disease of [place] coronary artery without angina pectoris. Medical History Medical History: CAD, Hypothryoidism, DM II, Neuropathy, Depression, HLD, Tobacco abuse, AMS, COPD exacerbation, NSTEMI, HTN, Acute on chronic CHF, Fibriomyalgia Cardiac Medications: Sitagliptin, Potassium chloride, Omeprazole, Metformin, Carvedilol, Symbicort, Atorvastatin, ASA, Amlodipine, Albuterol sulfate, Novolin, Lantus Allergies: Bee venum, coconut, latex, celocoxib Cardiac Risk Factors: CVD, COPD, HTN, Diabetes, Current smoker, HLD, Obesity Pretest Chest Pain Characteristics: none Exercise History: Sedentary Stress Test Details Test: Pharmacologic stress testing performed using 0.4 mg of regadenoson per 5 mL given IV over 10 seconds. Reason for pharmacologic stress test: physical limitation. Nuclear Acquisition: Rest Tc-99m/Stress Tc-99m 1 day Rest Isotope: Tc-99m Sestamibi. Dose: 14.7 Date: 11/11/2021 Injection Time: 0945 Stress Isotope: Tc-99m Sestamibi. Dose: 45.0 Date: 11/11/2021 Injection Time: 1126 HR Resting HR Supine: 53 bpmMax Heart Rate (APMHR): 159.958688 bpm Target HR (85% APMHR): 135.546123 bpm Max HR Achieved: 61 bpm % of APMHR: 38.36 Recovery HR: 61 bpm BP Resting BP Supine: 114/64 mmHg Max BP: 114/64 mmHg Recovery BP: 108/58 mmHg ECG Resting ECG: Sinus Bradycardia Stress ECG: Sinus Rhythm ST Change: No significant ST segment changes noted Arrhythmia: None Recovery ECG: Sinus Rhythm Recovery ST Change: No significant ST segment changes noted Recovery Arrhythmia: None Clinical Stress Symptoms: Dyspnea Rate Pressure Product: 6954 Stress ECG Conclusion 1. Resting electrocardiogram showed sinus rhythm, diffuse nondiagnostic ST-T abnormalities 2. The patient underwent pharmacologic stress with regadenoson 3. Peak heart rate achieved was 47% of predicted 4. Electrocardiographic portion of the test was nondiagnostic due to inadequate heart rate 5. See MPI report Stress Test Summary STAGEHRBPSymptomsNOTES Misrae21061/64 1 min post Lexiscan [id number]/56 3 min post Lexiscan djjgkzpfq14221/62 6 min post Lexiscan [id number]/58 MPI Conclusion Technically suboptimal Within the limits of the study there is no evidence of myocardial ischemia or prior infarction EF 48%, wall motion appears normal Radiologist Interpretation Radiologist agrees with Concrete Puddler's Interpretation. Radiologist Interpretation by: Toney Morocho MD Interpretation Date/Time: 11/12/2021 08:44:58 Ordered By: Gilbert Chavira M.D. CC: Dictated By: Gilbert Chavira M.D. 11/11/21 1155 <Electronically signed by Gilbert Chavira M.D. in OV> 11/12/21 7540 Transcribed By: Gilbert Chavira MD This is privileged, confidential information intended only for the provider named. Any use or distribution by any person other than this provider is strictly prohibited. If you receive this report in error, please notify us immediately at [phone] and return the original report to us at the address above. Thank-you. Echocardiogram Summary: Patient Name: Bailey Cary Unit #: [id number] Loc: DI Ordering Provider: Barb Whiting Status: REG CLI Primary Care Provider: Tita Fonseca Date of Exam: 07/17/23 Sex: F Admission Date: 07/17/23 : 1960 Age: 62 APPROVED REPORT EXAM: Comprehensive 2D, Doppler, and color-flow Echocardiogram Patient Location: Out-Patient Electronic Technologist: Ro Og RDCS (AE) Indications: Unstable angina dut to coronary arteriosclerosis, Pre operative exam, HTN, Smoker Other Information Study Quality: Fair. Technically limited study due to body habitus. Conclusion Normal left ventricular wall thickness and chamber size. Ejection fraction is 50-55%. Wall motion is normal Normal right ventricular size and systolic function Both atria are normal in size There is no structural or hemodynamically significant valvular disease Dilated ascending aorta measuring 4.06 cm Wall motion Left Ventricle The left ventricle is normal size. The left ventricular systolic function is normal. The left ventricular ejection fraction is within the normal range. There is normal left ventricular wall thickness. There is normal LV segmental wall motion. There is no ventricular septal defect visualized. LVEF is 50-55%. Right Ventricle The right ventricle is normal size. The right ventricular systolic function is normal. Atria The left atrium size is normal. The right atrium size is normal. The interatrial septum is intact with no evidence for an atrial septal defect. Aortic Valve Aortic valve is grossly normal in structure. There is no aortic valvular stenosis. Trace aortic regurgitation. Mitral Valve The mitral valve is normal in structure. No evidence of mitral valve stenosis. Trace mitral regurgitation. Tricuspid Valve The tricuspid valve is normal in structure. There is no tricuspid valve stenosis. Trace tricuspid regurgitation. Unable to assess PA pressure. Pulmonic Valve Pulmonic valve is not well visualized. There is no pulmonic valvular stenosis. There is no pulmonic valvular regurgitation. Great Vessels The aortic root is normal in size. The ascending aorta is moderately dilated. Aortic arch is normal in caliber. IVC is normal in size and collapses >50% with inspiration. Pericardium There is no pericardial effusion. 2D Dimensions IVSD d PLAX 0.95 cm F: 0.6-1.0Ao Root d 3.16 cm F: 2.7 - 3.3 LVPW d PLAX 0.89 cm F: 0.6 - 1.0Ao Asc Diam d 4.06 cm F: 2.3 - 3.1 LVID d PLAX 6.08 cm F: 3.8 - 5.2 LVDs 4.52 cm F: 2.2 - 3.5 LV EF Teichholz 49.7 % FS25.66 % LV EDV (Teich)185.8 mL LV ESV (Teich)93.5 mL Auto EF LV EDV B1Y198.6 mLLV EDV T1M200.3 mLLV EDV BP128.4 mL LV ESV A4C60.9 mLLV ESV A2C64.8 mLLV ESV BP63.2 mL LVEF(%) A4C52.6 %LVEF(%) A2C50.3 %LVEF(%) BP50.8 % LV SV A4C67.7 mlLV SV A2C65.6 mlLV SV BP65.2 ml LV CO A4C3.3 L/minLV CO A2C3.3 L/minLV CO BP3.3 L/min HR A4C48.45 BPMHR A2C49.79 BPMLV EDV Index (BP) LV Strain Long Pk Overal Avg (s) 13.79 LA Volume LA Length A4C4.6 cmLA Length A2C5.4 cm LA Area A4C s 15.12 cm2LA Area A2C s 17.83 cm2 LA Vol A4C A-L42.15 mLLA Vol A2C A-L50.43 mLLA Vol Biplane A-L49.7 mL LA Vol/BSA A4C A-LLA Vol/BSA A2C A-LLA Vol/BSA BP A-L 21.1 mL/m2 LA Vol A4C MOD35.6 mLLA Vol A2C MOD46.5 mLLA Vol BP MOD43.5 mL RA Volume RA Area A4C12.6 cm2RA ESV A4C (A-L)29.0mLRA Vol/BSA A4C A-L RA Length A4C4.7 cmRA ESV A4C (MOD)27.7mL LV Diastology MV E' medial0.049 (>0.07 m/s)MV E Vmax 0.61 (0.4-1.3 m/s) MV E/E' MED12.47 (<14)MV A Vmax 0.85 (0.4-1.3 m/s) MV E' lateral0.066 (>0.1 m/s)E/A Ratio 0.7 MV E/E' LAT9.22 (<14) MV E' Average0.057 m/s MV E/E'(average)10.60 Aortic Valve AoV Vmax1.31 m/sLVOT Vmax 1.13 m/s AoV Peak Grad6.8 mmHgLVOT Peak Grad 5.1 mmHg AoV Area (Vmax)2.83 ot4QNXP VTI0.301 m AoV VTI0.355 mLVOT Mean Grad 2.8 mmHg AoV Mean Mushtaq.0.91 m/sLVOT SV 98.82 mL AoV Mean Grad3.8 mmHgLVOT Diam s 2.00 cm AoV Area (VTI)2.79 cm2 Velocity Ratio 0.86 Mitral Valve MV DT 286 (160-240 msec) MV Vmax TIPS 0.81 m/s MV Mean Grad 1.0 (<2mmHg) MV VTI 0.317 m Pulmonary Valve PV Vmax 0.93 (0.5-1.5 m/s)RVOT Vmax 0.67 m/s PV Peak Grad 3.5 mmHgRVOT Peak Gr.1.8 mmHg PV Mean Vel0.68 m/sRVOT VTI0.213 m PV Mean Grad 2.0 mmHgRVOT Mean Gr.1.3 mmHg Tricuspid Valve RA Pressure 3.00 mmHg TV S'0.12 m/s Ordered By: Barb Whiting CC: Dictated By: Gilbert Chavira M.D. 07/17/231741 <Electronically signed by Gilbert Chavira M.D. in OV> 07/18/23 0829 Transcribed By: Gilbert Chavira MD 07/17/231741 This is privileged, confidential information intended only for the provider named. Any use or distribution by any person other than this provider is strictly prohibited. If you receive this report in error, please notify us immediately at [phone] and return the original report to us at the address above. Thank-you. Anesthesia Assessment and Plan Anesthesia History Personal History: Other Family History: No Family History of Anesthesia Complications Exercise Tolerance Exercise Tolerance: Metabolic Equivalents>4 Pertinent Negatives Pertinent Negatives: No Symptoms of GERD Cardiac & Pulmonary Exam Cardiac Exam: Normal S1/S2 Heart Sounds Pulmonary Exam: Clear Bilateral Breath Sounds Implantable Cardiac Device Does patient have a Pacemaker or an ICD?: No Airway Exam Known Difficult Airway: No Mallampati Class: 2 Mouth Opening: Normal (> 3cm) Thyromental Distance: Greater than 3 cm Neck Range of Motion: Full ROM Neck Circumference: Thick Teeth Condition: Generalized Poor Dentition ASA Classification ASA Score: ASA 3 Emergency Case?: No NPO Status NPO Status: NPO Clears >2 hours, Solids >8 hours Anesthesia Plan Resuscitation Status: Full Code Anesthesia Technique: MAC Anesthesia Airway Planned: Natural Airway Monitors Used: Standard Monitors
[2023-09-08 12:47] VITALS: BMI 38.9
[2023-09-08] MEDS: Balanced Salt Soln.-PLUS 500 ML BAG OP (13:02)
[2023-09-08] MEDS: Tetracaine 0.5% 4 ML BTL OS (13:04)
[2023-09-08] MEDS: Duovisc Viscoelastic System EACH 1 EACH (13:04)
[2023-09-08] MEDS: Povidone-Iodine Ophth 30 ML BTL (13:05)
[2023-09-08] MEDS: Trypan Blue 0.06% 0.5 ML SYR (13:06)
[2023-09-08] MEDS: Lidocaine 1% Pres-Free 5 ML VIAL (13:06)
[2023-09-08 13:38] VITALS: BP 155/78; PULSE 70; RESP 18; TEMP 36.4; O2SAT 97
--- NOTE | 2023-09-08 13:38 | W.PM.DSUDISC ---
Date of service: 09/08/23 Time of Service: 13:38 Discharge Plan Disposition Patient Disposition: Home Discharge Details Attending Provider: Cayden Snow Primary Care Provider: Barb Whiting Home Meds and New Rx's Prescriptions: No Action omeprazole 40 mg capsule,delayed release(DR/EC) 40 mg PO DAILY pregabalin 100 mg capsule 100 mg PO TID acetaminophen 500 mg tablet 1,000 mg PO TID amlodipine 5 mg tablet 5 mg PO DAILY furosemide 80 mg tablet 80 mg PO DAILY fluticasone furoate-vilanterol [Breo Ellipta] 100-25 mcg/dose blister with device 1 inh inhalation DAILY insulin glargine [Lantus U-100 Insulin] 100 unit/mL solution 48 unit SUBCUT HS Patient Comments: 36units HS 09/07/23 levothyroxine 175 mcg capsule 175 mcg PO DAILY Ozempic 1 mg/dose (4 mg/3 mL) pen injector 1 mg subcut QWEEK potassium chloride 20 mEq Tablet Extended Release 20 meq PO QAM sitagliptin phosphate 100 mg Tablet 100 mg PO DAILY triamcinolone acetonide 0.5 % Ointment 1 applic topical TID cholecalciferol (vitamin D3) 50,000 unit Capsule 50,000 unit PO QAM quetiapine 25 mg Tablet 25 mg PO HS bupropion HCl 150 mg Tablet Sustained-Release 12 Hr 150 mg PO BID atorvastatin 80 mg Tablet 80 mg PO DAILY carvedilol 25 mg Tablet 25 mg PO BID acetaminophen [Tylenol] 325 mg Tablet 650 mg PO TID Hold Instructions: Resume on 10/10/21. Hold while taking hydrocodone with acetaminophen ropinirole 1 mg Tablet 2 mg PO HS cetirizine [Zyrtec] 10 mg Tablet 10 mg PO DAILY paroxetine HCl 20 mg Tablet 60 mg PO DAILY metformin 1,000 mg Tablet 500 mg PO BID nystatin 100,000 unit/gram Cream 1 applic TOPICAL PRN PRN aspirin 81 mg Tablet,Chewable 81 mg PO DAILY oxybutynin chloride 5 mg Tablet 10 mg PO BID fluticasone propionate 50 mcg/actuation [place],Suspension 2 spray INTRANASAL DAILY Novolin N FlexPen 100 unit/mL (3 mL) Insulin Pen See Protocol SUBCUT TID Protocol: Custom Insulin Infusion Condition: Hyperglycemia Protocol Text: a. Independent double checks of all calculations, solution preparations, and pump rates are required. b. Discontinue subcutaneous insulin and any oral anti-hyperglycemic agents while on insulin infusion. c. Use low sorbing tubing (Nitroglycerin tubing) and flush with 20ml insulin infusion solution. d. Inline filters should NOT be used. e. Change insulin infusion bag every 24 hours. Rx Instructions: SLIDING SCALE ferrous sulfate 324 mg (65 mg iron) Tablet,Delayed Release (Dr/Ec) 324 mg PO DAILY melatonin 10 mg Tablet 10 mg PO HS magnesium oxide 400 mg magnesium Tablet 400 mg PO HS budesonide-formoterol [Symbicort] 160-4.5 mcg/actuation HFA aerosol inhaler 1 puff inhalation BID albuterol sulfate 90 mcg/actuation HFA aerosol inhaler 2 puff INHALATION PRN PRN Patient Comments: INHALE 1 TO 2 PUFFS BY MOUTH EVERY 4 TO 6 HOURS NEEDED FOR WHEEZING OR SHORTNESS OF BREATH Discharge Instructions Stand Alone Forms: DSU Post-Op CataractDanial (DSU) Discharge Orders Discharge Orders: Discharge Order (Routine); Ordered 09/08/23 Ordered By: Cayden Snow DS: Diagnosis Discharge Diagnosis (1) Posterior subcapsular age-related cataract of left eye: Status: Resolved (2) Cortical age-related cataract, left eye: Status: Resolved (3) Nuclear age-related cataract, left eye: Status: Resolved
--- NOTE | 2023-09-08 13:39 | ROE_ITS ---
Date of service: 09/08/23 Time of Service: 13:39 Operative Note Operative Note DATE OF PROCEDURE: 09/08/23 PRE-OP DIAGNOSIS: Nuclear/cortical/posterior subcapsular cataract/mature white cataract, left eye Poorly dilating pupil, left eye Absent red reflex, left eye, secondary to white cataract POST-OP DIAGNOSIS: same PROCEDURE: Cataract extraction using phacoemulsification with intraocular lens implant, left eye Pupillary dilation and iris stabilization with pupillary expansion device Capsular staining with VisionBlue SURGEON: Cayden Snow ANESTHESIA TYPE: Local By Surgeon and MAC Refer to Anesthesia Record PATHOLOGY: none sent COMPLICATIONS: None Patient was transported to: same day Patient's condition: stable Implants: Aristides Clareon [id number] Indications: Progressive decreased vision due to cataract, left eye Procedure Description: CATARACT SURGERY OPERATIVE REPORT PREOPERATIVE DIAGNOSIS: Nuclear/cortical/posterior subcapsular/mature white cataract, left eye Poorly dilating pupil, left eye Absent red reflex, left eye secondary to mature cataract POSTOPERATIVE DIAGNOSIS: Same OPERATION: Cataract extraction using phacoemulsification with posterior chamber intraocular lens implant, left eye. Pupillary dilation and iris stabilization with pupillary expansion device Capsular staining with VisionBlue IOL: IOL Brine Room Laborer/Model: Aristides Clareon [id number] IOL Power: + 25.0 diopters IOL Serial Number: [id number] Optic Diameter: 6.0mm Haptic/Overall Diameter: 13.0mm PHACO INFO: Aristides Centurion Vision System with OZil and Active Fluidics Cumulative Dispersed Energy (CDE): 24.70 seconds SURGEON: Cayden Snow MD, JAQUELIN ANESTHESIA: Monitored Anesthesia Care (MAC), with local sub-tenon's anesthetic infiltration COMPLICATIONS: None SPECIMENS: None INDICATIONS FOR PROCEDURE: The patient is a 62-year-old lady with history of diminished visual acuity in her left eye, decreased to hand motions, and the presence of a mature white cataract. The option of cataract surgery was offered to the patient and she wished to proceed. Undilated pupil size is 2 mm, dilated pupil size is only 4 mm. See office notes for detailed information. PROCEDURE: The correct surgical eye was identified and marked as the left eye and the pupil was dilated in the preoperative area using mydriatics and cycloplegics. The dilated pupil size was 4 mm. The patient elected to proceed without oral sedation. The patient was brought to the operating room where cardiopulmonary monitoring was instituted and surgical time-out was performed, confirming the correct operative eye and IOL power. Topical anesthesia was administered and ophthalmic povidone-iodine 5% was instilled into the conjunctival fornices. The vidya-ocular area was prepped with Betadine 10% solution and draped in the usual sterile fashion for intraocular surgery, including an aperture drape. A Tegaderm transparent film dressing was cut in half and used to cover the lashes and lid margins. Care was taken to sequester the lashes and lid margins under the Tegaderm dressing. A lid speculum was placed between the lids of the operative eye and the Aristides LuxOR Revalia operating microscope was maneuvered into position. Gokul scissors were then used to make a conjunctival buttonhole approximately 6mm posterior to the limbus in the inferonasal quadrant. Blunt dissection was carried out to expose bare sclera, and a blunt-tipped sub-tenon?s anesthesia cannula was introduced and passed posteriorly along the globe where non- preserved plain lidocaine was injected into posterior sub-Tenon?s space. A sideport knife was used to make a paracentesis port. Intraocular phenylephrine/lidocaine was injected into the anterior chamber. The anterior chamber was then filled with cohesive viscoelastic. A keratome knife was used construct a two-plane clear corneal tunnel extending 2.0mm into clear cornea. A 7.0 mm pupillary expansion device was inserted into the pupillary space and engaged with the Koogler hook. The viscoelastic was then removed using the irrigation/aspiration handpiece. VisionBlue was then injected into the anterior chamber and painted over the lens capsule and allowed to sit for 30 to 40 seconds, before it was irrigated out with balanced salt solution. Viscoat was then used to fill the anterior chamber. A 25-gauge needle on a syringe was then used to enter the central anterior capsule and decompress the cataract. A flap was raised on the anterior capsule and capsulorhexis forceps were used to complete a continuous curvilinear capsulorhexis of 5.0 mm. A spira l technique was used to assess the risk of intra lenticular pressure. Balanced salt solution was then used to perform cortical cleaving hydrodissection and nuclear hydrodelineation until the lens could be freely rotated within the capsular bag. The lens nucleus was then disassembled and removed within the capsular bag and iris plane using phacoemulsification. A deep central groove was sculpted into the lens nucleus, and then rotated 180 degrees, and the groove continued. The lens was then cracked into 2 halves. Each half was then chopped into multiple small fragments and removed under add itional dispersive viscoelastic protection. Residual cortical material was removed using the irrigation/aspiration handpiece. The posterior capsule was carefully polished to remove as much residual lens epithelial cells as safely possible. The capsular bag was then inflated and the anterior chamber deepened with viscoelastic. The lens implant described above was inserted into the capsular bag using the Aristides Autonome Injector. A Kuglen hook was used to dial the IOL into position. The pupillary dimension device was then removed in the reverse order of its insertion. Residual viscoelastic was then removed first from posterior to the IOL, then from the anterior chamber using the I/A handpiece. The lens implant was noted to center nicely within the capsular bag. The incisions were stromally hydrated, and the anterior chamber was reformed using BSS. Then 0.5cc of moxifloxacin 1.0mg/ml were injected into the capsular bag and anterior chamber. The incisions were checked with a Weck spear and found to be secure. Several drops of ophthalmic povidone-iodine 5% were then applied to the eye followed by two drops of combination steroid/NSAID/antibiotic solution. The drapes were remov ed and a clear plastic protective eye shield was placed over the eye. The patient was then returned to Same Day Surgery in stable condition.
--- NOTE | 2023-09-08 13:56 | W.ANESPOSTOP ---
Postoperative Evaluation Date, Time and Location Date Performed: 09/08/23 Time Performed: 13:57 Patient Location: Day Surgery Unit Vital Signs Most Recent Imported Vital Signs: Most Recent Vital Signs Temp Pulse Resp BP Pulse Ox 36.4 C L 70 18 155/78 H 97 09/08/23 13:38 09/08/23 13:38 09/08/23 13:38 09/08/23 13:38 09/08/23 13:38 Pain Score Most Recent Pain Score: Most Recent Pain Score Pain Level 0 09/08/23 13:38 Assessment Mental Status: Awake (Alert & Oriented to Patient Baseline) Airway and Respiratory Function: Patent airway with normal (patient baseline) respiratory exam Cardiovascular Function: Hemodynamically Stable Hydration Status: Adequately Hydrated Nausea & Vomiting: No Nausea or Vomiting Pain: Pt. Denies Any Pain Peripheral Nerve Block: Patient did not receive a nerve block
== END 2023-09-08 14:08 | disposition home or self-care (01) ==
LOC: SUR 10:36
PROVIDERS: PCP Nurse Practitioner Family; Visit Provider Ophthalmology
PROC: (CPT 66982; principal; 2023-09-08 14:30)
DX: H25.042 Posterior subcapsular polar age-related cataract, left eye (principal); H25.012 Cortical age-related cataract, left eye; H25.12 Age-related nuclear cataract, left eye; I10 Essential (primary) hypertension; F17.210 Nicotine dependence, cigarettes, uncomplicated
CPT/HCPCS: 66982; 00123; V2632; J2003

== ENCOUNTER 2023-09-22 11:01 | Day surgery (SDC) | payer MEDICARE, MEDICAID, SELFPAY ==
[2023-09-22 12:07] VITALS: BP 142/84; PULSE 63; RESP 18; TEMP 36.5; O2SAT 97
--- NOTE | 2023-09-22 12:22 | ANES.PREOP_ITS ---
General Info Date of Service Date Performed: 09/22/23 Height: 5 ft 9 in Weight: 122.9 kg Body Mass Index (BMI): 40.0 Surgical Procedure: Operation Date: 09/22/23 14:25 Proposed Procedure Side Surgeon p Cataract Extraction with IOL Implant Right Cayden Snow MD Meds Allergies and Home Medications Allergies Allergy/AdvReac Type Severity Reaction Status Date / Time latex Allergy Severe rash Verified 09/22/23 11:50 venom-wasp Allergy Severe Anaphylaxis Verified 09/22/23 11:50 coconut Allergy Unknown facial Verified 09/22/23 11:50 swelling bee pollen Allergy . Verified 09/22/23 11:50 bee venom protein (honey bee) AdvReac Unknown . Verified 09/22/23 11:50 celecoxib AdvReac Unknown suicidal Verified 09/22/23 11:50 ideation Home Medication Medication Instructions Recorded cholecalciferol (vitamin D3) 1,250 50,000 unit PO QAM 08/12/18 mcg (50,000 unit) capsule potassium chloride 20 mEq 20 meq PO QAM 08/12/18 tablet,extended release sitagliptin phosphate 100 mg tablet 100 mg PO DAILY 08/12/18 triamcinolone acetonide 0.5 % 1 applic topical TID 08/12/18 topical ointment acetaminophen 325 mg tablet 650 mg PO TID 11/22/19 (Tylenol) aspirin 81 mg chewable tablet 81 mg PO DAILY 11/22/19 atorvastatin 80 mg tablet 80 mg PO DAILY 11/22/19 bupropion HCl 150 mg tablet,12 hr 150 mg PO BID 11/22/19 sustained-release carvedilol 25 mg tablet 25 mg PO BID 11/22/19 ferrous sulfate 324 mg (65 mg 324 mg PO DAILY 11/22/19 iron) tablet,delayed release insulin NPH isoph U-100 human 100 See Protocol subcut TID 11/22/19 unit/mL (3 mL) subcutaneous pen (Novolin N FlexPen) magnesium oxide 400 mg PO HS 11/22/19 melatonin 10 mg tablet 10 mg PO HS 11/22/19 metformin 1,000 mg tablet 500 mg PO BID 11/22/19 nystatin 100,000 unit/gram topical 1 applic topical PRN PRN 11/22/19 cream oxybutynin chloride 5 mg tablet 10 mg PO BID 11/22/19 paroxetine HCl 20 mg tablet 60 mg PO DAILY 11/22/19 quetiapine 25 mg tablet 25 mg PO HS 11/22/19 ropinirole 1 mg tablet 2 mg PO HS 11/22/19 albuterol sulfate 90 mcg/actuation 2 puff inhalation PRN PRN 06/26/20 aerosol inhaler omeprazole 40 mg capsule,delayed 40 mg PO DAILY 09/01/21 release pregabalin 100 mg capsule 100 mg PO TID 09/01/21 acetaminophen 500 mg tablet 1,000 mg PO TID 05/09/23 amlodipine 5 mg tablet 5 mg PO DAILY 08/16/23 fluticasone furoate 100 1 inh inhalation DAILY 08/16/23 mcg-vilanterol 25 mcg/dose inhalation powder (Breo Ellipta) furosemide 80 mg tablet 80 mg PO DAILY 08/16/23 insulin glargine 100 unit/mL 48 unit subcut HS 08/16/23 subcutaneous solution (Lantus U-100 Insulin) levothyroxine 175 mcg capsule 175 mcg PO DAILY 08/16/23 semaglutide 1 mg/dose (4 mg/3 mL) 1 mg subcut QWEEK 08/16/23 subcutaneous pen injector (Ozempic) Current Visit Medications: Current Medications Generic Name Dose Route Start Last Admin Trade Name Freq PRN Reason Stop Dose Admin Acetaminophen 1,000 mg 09/22/23 06:00 Acetaminophen 500 Mg Tab PO 10/22/23 05:59 Q4H PRN PRN Balanced Salt Solution 500 ml 09/22/23 06:00 Balanced Salt Soln.-Plus 500 Ml Bag OP 10/22/23 05:59 DIRECTED [facility] Miscellaneous Medication 0 ml 09/22/23 06:00 Prednisolone 1%, Moxifloxacin 0.5%, Bromfenac 0.09% 5ml Btl OD 10/22/23 05:59 DIRECTED [facility] Miscellaneous Medication 0 ml 09/22/23 06:00 09/22/23 12:22 Tropicam./Phenyleph. (1/2.5%) 10 Ml Btl OD 10/22/23 05:59 1 drp DIRECTED MADELEINE Administration Tetracaine HCl 0 ml 09/22/23 06:00 Tetracaine 0.5% 4 Ml Btl OD 10/22/23 05:59 DIRECTED [facility] PFSH Active Problems Active Problems: Problem Status Onset Code Posterior subcapsular age-related cataract, right eye H25.041 Nuclear age-related cataract, right eye H25.11 Hernia of anterior abdominal wall K43.9 Posterior subcapsular age-related cataract of left eye H25.042 Cortical age-related cataract, left eye H25.012 Nuclear age-related cataract, left eye H25.12 Recurrent UTI N39.0 Mixed incontinence N39.46 CAD (coronary artery disease), [place] coronary artery I25.10 Hypothyroidism (acquired) E03.9 Diabetes type 2, controlled E11.9 Urinary retention R33.9 Restless leg syndrome G25.81 Neuropathy G62.9 Depression F32.9 Hyperlipidemia E78.5 Insomnia G47.00 Tobacco dependence due to cigarettes F17.210 Chest pain R07.9 Altered mental status R41.82 Diabetes E11.9 H/O cervical spine surgery Z98.890 Urinary tract infection N39.0 Leukocytosis D72.829 CAD (coronary artery disease) I25.10 Tobacco abuse Z72.0 DVT prophylaxis COPD exacerbation J44.1 Spondylitis, cervical M46.92 NSTEMI (non-ST elevated myocardial infarction) I21.4 HTN (hypertension) I10 Medical History Medical History Dysuria Balance problem Tongue discoloration Diarrhea Anemia Bacteremia due to Gram-negative bacteria Acute UTI CAP (community acquired pneumonia) Morbid (severe) obesity due to excess calories Dehydration HCAP (healthcare-associated pneumonia) History of non-ST elevation myocardial infarction (NSTEMI) Nicotine dependence Urinary tract infection Acute pancreatitis Type 2 diabetes mellitus Adult hypothyroidism Benign neoplasm Acute on chronic diastolic (congestive) heart failure Localized edema 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 COPD (chronic obstructive pulmonary disease) NSTEMI (non-ST elevated myocardial infarction) CAD (coronary artery disease) Surgical History Surgical History S/P spinal surgery S/P PTCA (percutaneous transluminal coronary angioplasty) History of Hx of laminectomy Tobacco Smoking/Tobacco Use Status: Current every day Tobacco Type: cigarettes Smoking cigarettes per day: 2 Alcohol Alcohol Intake: never Substance Use Substance use: Occasionally Substance use type: marijuana Vital Signs and Lab Results Vital Signs Most Recent Vital Signs in EMR: Most Recent Vital Signs Temp Pulse Resp BP Pulse Ox 36.5 C 63 18 142/84 H 97 09/22/23 12:07 09/22/23 12:07 09/22/23 12:07 09/22/23 12:07 09/22/23 12:07 Point of Care Results Point of Care Results: Finger Stick Blood Glucose 197 09/22/23 11:57 Lab Results Blood Type / Crossmatch: No Data to Display Complete Blood Count: No Data to Display Complete Metabolic Panel: No Data to Display Liver Function Panel: No Data to Display Coagulation Panel: No Data to Display Cardiac Panel: No Data to Display Arterial Blood Gas: No Data to Display Venous Blood Gas: No Data to Display Pancreas Panel: No Data to Display Thyroid Panel: No Data to Display Infectious Disease: No Data to Display Blood Cultures: No Data to Display Toxicology Panel: No Data to Display Imaging and Studies Imaging and Studies Study information below may be from another EMR and interpreted by another provider. Please see original notes in EMR for more complete details. EKG Summary: EKG PATIENT NAME: Bailey Cary UNIT #: [id number] ORDERING PROVIDER: Gilbert Chavira M.D. PRIMARY CARE PROVIDER: TITA FONSECA NP DATE/TIME OF SERVICE: 10/28/21844 : 1960 PERFORMING LOCATION: [facility] APPROVED REPORT Exam: Resting ECG Reason for Exam: MT Patient Location: O HR:51 bpm ECG Measurements Heart Rate 51 AXIS WV 168 P 5 QRSd 109 QRS -19 QT 466 T57 QTc 430 Conclusion Sinus rhythm...normal P axis, V-rate 50- 99 Borderline left axis deviation...QRS axis (-15,-29) Borderline T abnormalities, anterior leads...T flat or neg, V2-V4 Poor R wave progression <Electronically signed by GILBERT CHAVIRA MD in OV> E-Sign Date: 10/28/21 E-Sign Time: 0950 Stress Test Summary: Bailey Cary 62 F 1960 Allergy/Adv: latex, venom-wasp, coconut, bee pollen, bee venom protein (honey bee), celecoxib Patient Name: Bailey Cary Unit #: [id number] Loc: Ordering Provider: Gilbert Chavira M.D. Status: [facility] Primary Care Provider: Tita Fonseca Date of Exam: 11/11/21 Sex: F Admission Date: 11/11/21 : 1960 Age: 61 APPROVED REPORT Exam: Pharmacologic Patient Location: Out-Patient Room/Bed: Stress Nurse: Queenie Faulkner RN Ordering Provider:GILBERT CHAVIRA, Contact Number: BMI: 41.34 Baseline Rhythm: Sinus Bradycardia Indications: Artherosclerotic heart disease of [place] coronary artery without angina pectoris. Medical History Medical History: CAD, Hypothryoidism, DM II, Neuropathy, Depression, HLD, Tobacco abuse, AMS, COPD exacerbation, NSTEMI, HTN, Acute on chronic CHF, Fibriomyalgia Cardiac Medications: Sitagliptin, Potassium chloride, Omeprazole, Metformin, Carvedilol, Symbicort, Atorvastatin, ASA, Amlodipine, Albuterol sulfate, Novolin, Lantus Allergies: Bee venum, coconut, latex, celocoxib Cardiac Risk Factors: CVD, COPD, HTN, Diabetes, Current smoker, HLD, Obesity Pretest Chest Pain Characteristics: none Exercise History: Sedentary Stress Test Details Test: Pharmacologic stress testing performed using 0.4 mg of regadenoson per 5 mL given IV over 10 seconds. Reason for pharmacologic stress test: physical limitation. Nuclear Acquisition: Rest Tc-99m/Stress Tc-99m 1 day Rest Isotope: Tc-99m Sestamibi. Dose: 14.7 Date: 11/11/2021 Injection Time: 0945 Stress Isotope: Tc-99m Sestamibi. Dose: 45.0 Date: 11/11/2021 Injection Time: 1126 HR Resting HR Supine: 53 bpmMax Heart Rate (APMHR): 159.886434 bpm Target HR (85% APMHR): 135.909629 bpm Max HR Achieved: 61 bpm % of APMHR: 38.36 Recovery HR: 61 bpm BP Resting BP Supine: 114/64 mmHg Max BP: 114/64 mmHg Recovery BP: 108/58 mmHg ECG Resting ECG: Sinus Bradycardia Stress ECG: Sinus Rhythm ST Change: No significant ST segment changes noted Arrhythmia: None Recovery ECG: Sinus Rhythm Recovery ST Change: No significant ST segment changes noted Recovery Arrhythmia: None Clinical Stress Symptoms: Dyspnea Rate Pressure Product: [id number] Stress ECG Conclusion 1. Resting electrocardiogram showed sinus rhythm, diffuse nondiagnostic ST-T abnormalities 2. The patient underwent pharmacologic stress with regadenoson 3. Peak heart rate achieved was 47% of predicted 4. Electrocardiographic portion of the test was nondiagnostic due to inadequate heart rate 5. See MPI report Stress Test Summary STAGEHRBPSymptomsNOTES [id number]/64 1 min post Lexiscan zwpkftsfk17577/56 3 min post Lexiscan euebmsskb87794/62 6 min post Lexiscan cfmlkctat46288/58 MPI Conclusion Technically suboptimal Within the limits of the study there is no evidence of myocardial ischemia or prior infarction EF 48%, wall motion appears normal Radiologist Interpretation Radiologist agrees with Button Sewer's Interpretation. Radiologist Interpretation by: Toney Morocho MD Interpretation Date/Time: 11/12/2021 08:44:58 Ordered By: Gilbert Chavira M.D. CC: Dictated By: Gilbert Chavira M.D. 11/11/21 1155 <Electronically signed by Gilbert Chavira M.D. in OV> 11/12/21 0849 Transcribed By: Gilbert Chavira MD This is privileged, confidential information intended only for the provider named. Any use or distribution by any person other than this provider is strictly prohibited. If you receive this report in error, please notify us immediately at [phone] and return the original report to us at the address above. Thank-you. Echocardiogram Summary: Patient Name: Bailey Cary Unit #: [id number] Loc: DI Ordering Provider: HenokBarb Status: REG CLI Primary Care Provider: Tita Fonseca Date of Exam: 07/17/23 Sex: F Admission Date: 07/17/23 : 1960 Age: 62 APPROVED REPORT EXAM: Comprehensive 2D, Doppler, and color-flow Echocardiogram Patient Location: Out-Patient Superintendent Laundry: oR Og RDCS (AE) Indications: Unstable angina dut to coronary arteriosclerosis, Pre operative exam, HTN, Smoker Other Information Study Quality: Fair. Technically limited study due to body habitus. Conclusion Normal left ventricular wall thickness and chamber size. Ejection fraction is 50-55%. Wall motion is normal Normal right ventricular size and systolic function Both atria are normal in size There is no structural or hemodynamically significant valvular disease Dilated ascending aorta measuring 4.06 cm Wall motion Left Ventricle The left ventricle is normal size. The left ventricular systolic function is normal. The left ventricular ejection fraction is within the normal range. There is normal left ventricular wall thickness. There is normal LV segmental wall motion. There is no ventricular septal defect visualized. LVEF is 50-55%. Right Ventricle The right ventricle is normal size. The right ventricular systolic function is normal. Atria The left atrium size is normal. The right atrium size is normal. The interatrial septum is intact with no evidence for an atrial septal defect. Aortic Valve Aortic valve is grossly normal in structure. There is no aortic valvular stenosis. Trace aortic regurgitation. Mitral Valve The mitral valve is normal in structure. No evidence of mitral valve stenosis. Trace mitral regurgitation. Tricuspid Valve The tricuspid valve is normal in structure. There is no tricuspid valve stenosis. Trace tricuspid regurgitation. Unable to assess PA pressure. Pulmonic Valve Pulmonic valve is not well visualized. There is no pulmonic valvular stenosis. There is no pulmonic valvular regurgitation. Great Vessels The aortic root is normal in size. The ascending aorta is moderately dilated. Aortic arch is normal in caliber. IVC is normal in size and collapses >50% with inspiration. Pericardium There is no pericardial effusion. 2D Dimensions IVSD d PLAX 0.95 cm F: 0.6-1.0Ao Root d 3.16 cm F: 2.7 - 3.3 LVPW d PLAX 0.89 cm F: 0.6 - 1.0Ao Asc Diam d 4.06 cm F: 2.3 - 3.1 LVID d PLAX 6.08 cm F: 3.8 - 5.2 LVDs 4.52 cm F: 2.2 - 3.5 LV EF Teichholz 49.7 % FS25.66 % LV EDV (Teich)185.8 mL LV ESV (Teich)93.5 mL Auto EF LV EDV A2X866.6 mLLV EDV M2X053.3 mLLV EDV BP128.4 mL LV ESV A4C60.9 mLLV ESV A2C64.8 mLLV ESV BP63.2 mL LVEF(%) A4C52.6 %LVEF(%) A2C50.3 %LVEF(%) BP50.8 % LV SV A4C67.7 mlLV SV A2C65.6 mlLV SV BP65.2 ml LV CO A4C3.3 L/minLV CO A2C3.3 L/minLV CO BP3.3 L/min HR A4C48.45 BPMHR A2C49.79 BPMLV EDV Index (BP) LV Strain Long Pk Overal Avg (s) 13.79 LA Volume LA Length A4C4.6 cmLA Length A2C5.4 cm LA Area A4C s 15.12 cm2LA Area A2C s 17.83 cm2 LA Vol A4C A-L42.15 mLLA Vol A2C A-L50.43 mLLA Vol Biplane A-L49.7 mL LA Vol/BSA A4C A-LLA Vol/BSA A2C A-LLA Vol/BSA BP A-L 21.1 mL/m2 LA Vol A4C MOD35.6 mLLA Vol A2C MOD46.5 mLLA Vol BP MOD43.5 mL RA Volume RA Area A4C12.6 cm2RA ESV A4C (A-L)29.0mLRA Vol/BSA A4C A-L RA Length A4C4.7 cmRA ESV A4C (MOD)27.7mL LV Diastology MV E' medial0.049 (>0.07 m/s)MV E Vmax 0.61 (0.4-1.3 m/s) MV E/E' MED12.47 (<14)MV A Vmax 0.85 (0.4-1.3 m/s) MV E' lateral0.066 (>0.1 m/s)E/A Ratio 0.7 MV E/E' LAT9.22 (<14) MV E' Average0.057 m/s MV E/E'(average)10.60 Aortic Valve AoV Vmax1.31 m/sLVOT Vmax 1.13 m/s AoV Peak Grad6.8 mmHgLVOT Peak Grad 5.1 mmHg AoV Area (Vmax)2.83 [id number] VTI0.301 m AoV VTI0.355 mLVOT Mean Grad 2.8 mmHg AoV Mean Mushtaq.0.91 m/sLVOT SV 98.82 mL AoV Mean Grad3.8 mmHgLVOT Diam s 2.00 cm AoV Area (VTI)2.79 cm2 Velocity Ratio 0.86 Mitral Valve MV DT 286 (160-240 msec) MV Vmax TIPS 0.81 m/s MV Mean Grad 1.0 (<2mmHg) MV VTI 0.317 m Pulmonary Valve PV Vmax 0.93 (0.5-1.5 m/s)RVOT Vmax 0.67 m/s PV Peak Grad 3.5 mmHgRVOT Peak Gr.1.8 mmHg PV Mean Vel0.68 m/sRVOT VTI0.213 m PV Mean Grad 2.0 mmHgRVOT Mean Gr.1.3 mmHg Tricuspid Valve RA Pressure 3.00 mmHg TV S'0.12 m/s Ordered By: Barb Whiting CC: Dictated By: Gilbert Chavira M.D. 07/17/231741 <Electronically signed by Gilbert Chavira M.D. in OV> 07/18/23 0829 Transcribed By: Gilbert Chavira MD 07/17/231741 This is privileged, confidential information intended only for the provider named. Any use or distribution by any person other than this provider is strictly prohibited. If you receive this report in error, please notify us immediately at [phone] and return the original report to us at the address above. Thank-you. Anesthesia Assessment and Plan Anesthesia History Personal History: Other Family History: No Family History of Anesthesia Complications Exercise Tolerance Exercise Tolerance: Metabolic Equivalents>4 Cardiac & Pulmonary Exam Cardiac Exam: Normal S1/S2 Heart Sounds Pulmonary Exam: Clear Bilateral Breath Sounds Implantable Cardiac Device Does patient have a Pacemaker or an ICD?: No Airway Exam Known Difficult Airway: No Mallampati Class: 2 Mouth Opening: Normal (> 3cm) Thyromental Distance: Greater than 3 cm Neck Range of Motion: Full ROM Neck Circumference: Thick Teeth Condition: Generalized Poor Dentition ASA Classification ASA Score: ASA 3 Emergency Case?: No NPO Status NPO Status: NPO Clears >2 hours, Solids >8 hours Anesthesia Plan Resuscitation Status: Full Code Anesthesia Technique: MAC Anesthesia Airway Planned: Natural Airway Monitors Used: Standard Monitors Preoperative Comments:: 63 yo female for repeat cataract removal. No MKO previously.
[2023-09-22 12:24] VITALS: BMI 40.0
[2023-09-22] MEDS: Duovisc Viscoelastic System EACH 1 EACH (13:33)
[2023-09-22] MEDS: Lidocaine 1% Pres-Free 5 ML VIAL (13:34)
[2023-09-22] MEDS: Povidone-Iodine Ophth 30 ML BTL (13:36)
[2023-09-22] MEDS: Balanced Salt Soln.-PLUS 500 ML BAG OP (13:37)
[2023-09-22] MEDS: Trypan Blue 0.06% 0.5 ML SYR (13:37)
[2023-09-22] MEDS: Tetracaine 0.5% 4 ML BTL OD (13:38)
[2023-09-22 13:56] VITALS: BP 159/91; PULSE 72; RESP 18; TEMP 36.1; O2SAT 97
--- NOTE | 2023-09-22 13:57 | W.PM.DSUDISC ---
Date of service: 09/22/23 Time of Service: 13:57 Discharge Plan Disposition Patient Disposition: Home Discharge Details Attending Provider: Cayden Snow Primary Care Provider: Barb Whiting Home Meds and New Rx's Prescriptions: No Action omeprazole 40 mg capsule,delayed release(DR/EC) 40 mg PO DAILY pregabalin 100 mg capsule 100 mg PO TID acetaminophen 500 mg tablet 1,000 mg PO TID amlodipine 5 mg tablet 5 mg PO DAILY furosemide 80 mg tablet 80 mg PO DAILY fluticasone furoate-vilanterol [Breo Ellipta] 100-25 mcg/dose blister with device 1 inh inhalation DAILY insulin glargine [Lantus U-100 Insulin] 100 unit/mL solution 48 unit SUBCUT HS Patient Comments: 36units HS 09/07/23 levothyroxine 175 mcg capsule 175 mcg PO DAILY Ozempic 1 mg/dose (4 mg/3 mL) pen injector 1 mg subcut QWEEK potassium chloride 20 mEq Tablet Extended Release 20 meq PO QAM sitagliptin phosphate 100 mg Tablet 100 mg PO DAILY triamcinolone acetonide 0.5 % Ointment 1 applic topical TID cholecalciferol (vitamin D3) 50,000 unit Capsule 50,000 unit PO QAM quetiapine 25 mg Tablet 25 mg PO HS bupropion HCl 150 mg Tablet Sustained-Release 12 Hr 150 mg PO BID atorvastatin 80 mg Tablet 80 mg PO DAILY carvedilol 25 mg Tablet 25 mg PO BID acetaminophen [Tylenol] 325 mg Tablet 650 mg PO TID Hold Instructions: Resume on 10/10/21. Hold while taking hydrocodone with acetaminophen ropinirole 1 mg Tablet 2 mg PO HS paroxetine HCl 20 mg Tablet 60 mg PO DAILY metformin 1,000 mg Tablet 500 mg PO BID nystatin 100,000 unit/gram Cream 1 applic TOPICAL PRN PRN aspirin 81 mg Tablet,Chewable 81 mg PO DAILY oxybutynin chloride 5 mg Tablet 10 mg PO BID Novolin N FlexPen 100 unit/mL (3 mL) Insulin Pen See Protocol SUBCUT TID Protocol: Custom Insulin Infusion Condition: Hyperglycemia Protocol Text: a. Independent double checks of all calculations, solution preparations, and pump rates are required. b. Discontinue subcutaneous insulin and any oral anti-hyperglycemic agents while on insulin infusion. c. Use low sorbing tubing (Nitroglycerin tubing) and flush with 20ml insulin infusion solution. d. Inline filters should NOT be used. e. Change insulin infusion bag every 24 hours. Rx Instructions: SLIDING SCALE ferrous sulfate 324 mg (65 mg iron) Tablet,Delayed Release (Dr/Ec) 324 mg PO DAILY melatonin 10 mg Tablet 10 mg PO HS magnesium oxide 400 mg magnesium Tablet 400 mg PO HS albuterol sulfate 90 mcg/actuation HFA aerosol inhaler 2 puff INHALATION PRN PRN Patient Comments: INHALE 1 TO 2 PUFFS BY MOUTH EVERY 4 TO 6 HOURS NEEDED FOR WHEEZING OR SHORTNESS OF BREATH Discharge Instructions Stand Alone Forms: DSU Post-Op Cataract, Danial Chapman (DSU) Discharge Orders Discharge Orders: Discharge Order (Routine); Ordered 09/22/23 Ordered By: Cayden Snow DS: Diagnosis Discharge Diagnosis (1) Posterior subcapsular age-related cataract, right eye: Status: Resolved (2) Nuclear age-related cataract, right eye: Status: Resolved (3) Cortical age-related cataract, right eye: Status: Resolved
--- NOTE | 2023-09-22 13:58 | ROE_ITS ---
Date of service: 09/22/23 Time of Service: 13:58 Operative Note Operative Note DATE OF PROCEDURE: 09/22/23 PRE-OP DIAGNOSIS: Nuclear/cortical/posterior subcapsular cataract, right eye Poorly dilating pupil, right eye POST-OP DIAGNOSIS: same PROCEDURE: Cataract extraction using phacoemulsification with intraocular lens implant, right eye Pupillary dilation and iris stabilization with pupil expansion device SURGEON: Cayden Snow ANESTHESIA TYPE: Local By Surgeon and MAC Refer to Anesthesia Record ESTIMATED BLOOD LOSS: 0 PATHOLOGY: none sent COMPLICATIONS: None Patient was transported to: same day Patient's condition: stable Implants: Aristides Clareon [id number] Indications: Progressive decreased vision due to cataract, right eye Procedure Description: CATARACT SURGERY OPERATIVE REPORT PREOPERATIVE DIAGNOSIS: Nuclear/cortical/posterior subcapsular cataract, right eye Poorly dilating pupil, right eye POSTOPERATIVE DIAGNOSIS: Same OPERATION: Cataract extraction using phacoemulsification with posterior chamber intraocular lens implant, right eye. Pupillary dilation and iris stabilization with pupillary expansion device IOL: IOL Svp Business Development/Model: Aristides Clareon [id number] IOL Power: + 24.5 diopters IOL Serial Number: [id number] Optic Diameter: 6.0mm Haptic/Overall Diameter: 13.0mm PHACO INFO: Aristides Centurion Vision System with OZil and Active Fluidics Cumulative Dispersed Energy (CDE): 5.13 seconds SURGEON: Cayden Snow MD, JAQUELIN ANESTHESIA: Monitored Anesthesia Care (MAC), with local sub-tenon's anesthetic infiltration COMPLICATIONS: None SPECIMENS: None INDICATIONS FOR PROCEDURE: The patient is a 63-year-old lady with history of mature white cataract of the left eye and a dense nuclear/cortical/posterior subcapsular cataract in the right eye. She has already undergone cataract surgery in the left eye and is doing well postoperatively. She now presents for cataract surgery in the right eye. Undilated pupil size is 1.5 to 2 mm. Dilated pupil size is only 4 mm. See office notes for detailed information. PROCEDURE: The correct surgical eye was identified and marked as the right eye and the pupil was dilated in the preoperative area using mydriatics and cyclopl egics. The dilated pupil size was 4.0 mm. The patient elected to proceed without oral sedation. The patient was brought to the operating room where cardiopulmonary monitoring was instituted and surgical time-out was performed, confirming the correct operative eye and IOL power. Topical anesthesia was administered and ophthalmic povidone-iodine 5% was instilled into the conjunctival fornices. The vidya-ocular area was prepped with Betadine 10% solution and draped in the usual sterile fashion for intraocular surgery, including an aperture drape. A Tegaderm transparent film dressing was cut in half and used to cover the lashes and lid margins. Care was taken to sequester the lashes and lid margins under the Tegaderm dressing. A lid speculum was placed between the lids of the operative eye and the Aristides LuxOR Revalia operating microscope was maneuvered into position. Gokul scissors were then used to make a conjunctival buttonhole approximately 6mm posterior to the limbus in the inferonasal quadrant. Blunt dissection was carried out to expose bare sclera, and a blunt-tipped sub-tenon?s anesthesia cannula was introduced and passed posteriorly along the globe where non-preser keya plain lidocaine was injected into posterior sub-Tenon?s space. A sideport knife was used to make a paracentesis port. VisionBlue was injected into the anterior chamber, and painted under the pupillary margin. Intraocular phenylephrine/lidocaine was injected into the anterior chamber. The anterior chamber was then filled with viscoelastic. Viscoat was used initially to protect the corneal endothelium due to the dense cataract. A 7.0 mm pupillary expansion device was inserted into the pupillary space and engaged with the Koogler hook. A keratome knife was used to construct a two--plane clear corneal tunnel extending 2.0mm into clear cornea. A flap was raised on the anterior capsule and capsulorhexis forceps were used to complete a continuous curvilinear capsulorhexis of 5.5 mm. Balanced salt solution was then used to perform cortical cleaving hydrodissection and nuclear hydrodelineation until the lens could be freely rotated within the capsular bag. The lens nucleus was then disassembled and removed within the capsular bag and iris plane using phacoemulsification. Residual cortical material was removed using the I/A handpiece. The posterior capsule was carefully polished to remove as much residual lens epithelial cells as safely possible. The capsular bag was then inflated and the anterior chamber deepened with cohesive viscoelastic. The lens implant described above was inserted into the capsular bag using the Aristides Autonome Injector. A Kuglen hook was used to dial the IOL into position. The pupil expansion device was then removed in the reverse order of its insertion. Residual viscoelastic was then removed first from posterior to the IOL, then from the anterior chamber using the I/A handpiece. The lens implant was noted to center nicely within the capsular bag. The incisions were stromally hydrated, and the anterior chamber was reformed using BSS. Then 0.5cc of moxifloxacin 1.0mg/ml were injected into the capsular bag and anterior chamber. The incisions were checked with a Weck spear and found to be secure. Several drops of ophthalmic povidone-iodine 5% were then applied to the eye followed by two drops of combination steroid/NSAID/antibiotic solution. The drapes were removed and a clear plastic protective eye shield was placed over the eye. The patient was then returned to Same Day Surgery in stable condition.
--- NOTE | 2023-09-22 14:04 | W.ANESPOSTOP ---
Postoperative Evaluation Date, Time and Location Date Performed: 09/22/23 Time Performed: 14:05 Patient Location: Day Surgery Unit Vital Signs Most Recent Imported Vital Signs: Most Recent Vital Signs Temp Pulse Resp BP Pulse Ox 36.1 C L 72 18 159/91 H 97 09/22/23 13:56 09/22/23 13:56 09/22/23 13:56 09/22/23 13:56 09/22/23 13:56 Pain Score Most Recent Pain Score: Most Recent Pain Score Pain Level 0 09/22/23 13:56 Assessment Mental Status: Awake (Alert & Oriented to Patient Baseline) Airway and Respiratory Function: Patent airway with normal (patient baseline) respiratory exam Cardiovascular Function: Hemodynamically Stable Hydration Status: Adequately Hydrated Nausea & Vomiting: No Nausea or Vomiting Pain: Pt. Denies Any Pain Peripheral Nerve Block: Patient did not receive a nerve block
== END 2023-09-22 14:14 | disposition home or self-care (01) ==
LOC: SUR 11:01
PROVIDERS: PCP Nurse Practitioner Family; Visit Provider Ophthalmology
PROC: (CPT 66982; principal; 2023-09-22 14:15)
DX: H25.041 Posterior subcapsular polar age-related cataract, right eye (principal); H25.11 Age-related nuclear cataract, right eye; H25.011 Cortical age-related cataract, right eye; J44.9 Chronic obstructive pulmonary disease, unspecified; I25.2 Old myocardial infarction; I10 Essential (primary) hypertension; E11.9 Type 2 diabetes mellitus without complications; E03.9 Hypothyroidism, unspecified; Z98.42 Cataract extraction status, left eye
CPT/HCPCS: 66982; 00123; V2632; J2003

== ENCOUNTER → 2023-09-27 07:45 | Outpatient (BNVA) | payer MEDICARE, MEDICAID, SELFPAY | PROVIDERS: PCP Nurse Practitioner Family; Referring Provider Nurse Practitioner Family; Visit Provider Surgery | DX: K46.9 Unspecified abdominal hernia without obstruction or gangrene (principal); Z68.41 Body mass index [BMI] 40.0-44.9, adult; F17.210 Nicotine dependence, cigarettes, uncomplicated; E11.65 Type 2 diabetes mellitus with hyperglycemia; J44.9 Chronic obstructive pulmonary disease, unspecified; R06.09 Other forms of dyspnea | CPT/HCPCS: 99214 ==

== ENCOUNTER 2023-10-18 13:37 | Outpatient (REF) | payer MEDICARE, MEDICAID, SELFPAY ==
[2023-10-18 16:21] LABS: Hemoglobin A1C 9.1 % (<5.7)
[2023-10-18 16:28] LABS: ALT 36 U/L (14-59); AST 25 U/L (15-37); Albumin 3.6 g/dL (3.4-5.0); Alkaline Phosphatase 111 U/L (46-116); Anion Gap 7.7 mmol/L (3-11); BUN 24 mg/dL (7-18); Bilirubin, Total 0.9 mg/dL (0.2-1.0); CO2 30.3 mmol/L (21.0-32.0); CREATININE 1.4 mg/dL (0.55-1.02); Calcium 9.3 mg/dL (8.5-10.1); Chloride 103 mmol/L (98-107); Estimated GFR 42.27 (mL/min/1.73m2); Glucose 188 mg/dL (74-106); Potassium 4.2 mmol/L (3.5-5.1); Sodium 141 mmol/L (136-145); TSH 20.97 uIU/Ml (0.36-3.74); Total Protein 7.9 g/dL (6.4-8.2)
== END 2023-10-18 13:38 | disposition home or self-care (01) ==
LOC: NCHCN 13:37
PROVIDERS: PCP Nurse Practitioner Family; Visit Provider Nurse Practitioner Family
DX: E11.9 Type 2 diabetes mellitus without complications (principal); I10 Essential (primary) hypertension
CPT/HCPCS: 80053; 83036; 84443

== ENCOUNTER 2024-01-18 12:46 | Outpatient (REF) | payer MEDICARE, MEDICAID, SELFPAY ==
--- OUTSIDE RECORDS SUMMARY | 2024-01-18 12:57 | XMS_ITS | Encounter Summary ---
Author Organization [facility] Address [address] [place] [address] Care Team Providers Care Disk Sharpener Name Role Phone Shaunna Bonilla MD Primary Care Provider [phone] Encounter Details Date Type Department Care Team (Late st Contact Info) Description 12/02/2015 Results Only [facility] [phone] Yulissa Zarate W, MINE ENGINEERING SUPERVISOR [address] [place] [phone] Social History Tobacco Use Types Packs/Day Years Used Date Smoking Tobacco: Never Assessed Sex and Gender Information Value Date Recorded Sex Assigned at Not on file Gender Identity Not on file Sexual Orientation Not on file documented as of this encounter Plan of Treatment Not on file documented as of this encounter Procedures Procedure Name Priority Date/Time Associated Diagnosis Comments PAP TEST- RESULT ONLY Routine 12/02/2015 0:00 EDT documented in this encounter Results * PAP TEST- RESULT ONLY (12/02/2015 0:00 EDT) Pathology Report: CYTOPATHOLOGY REPORT Reports generated via electronic interface contain original data; however they are lacking the format of the original report. Caution should be taken when reading/interpreti ng unformatted reports. Name: ? BAILEY CARY ? Accession #: ? [id number] ? : ? 1960 (Age: 55) ??F ?Collect Date: ? 12/02/2015 ? Location: ? [facility] ? Receive Date: ? 12/03/2015 ? Provider: YULISSA ZARATE MINE ENGINEERING SUPERVISOR Copy to: ? Final Report SPECIMEN ADEQUACY ? Satisfactory for Evaluation - transformation zone component present GENERAL CATEGORIZATION ? Negative for Intraepithelial Lesion or Malignancy ?? Last Menstrual Period: N/A Menstrual/Pregnanc y Status: ??Post Hormonal/Contracep tive status: None Specimen/Source: ??Pap Test, Cervix, ThinPrep Imaging System with manual evaluation Document reviewed and electronically signed by: ? Keren Johnson, CT(ASCP) ? Report ??Date: 12/15/2015 08:22 HPV with Pap Test ? Date Ordered: ? 12/15/2015 ? Status: ?? Signed Out ?Date Complete: ? 12/17/2015 ? By: ??System Interface ? Date Reported: ? 12/17/2015 ? Interpretation RESULT: Negative for HPV. No E6 or E7 mRNA is detected from HPV types 16,18,31,33,35, 39,45,51,52,56,58, 59,66, and 68 by nursing teacher mediated amplification. Comments Document reviewed and electronically signed by: ? System Interface ? Report date: 12/17/2015 By the signature above, the attending physician certifies that he/she has personally conducted a gross and/or microscopic examination of the described specimens and rendered or confirmed the above diagnosis. End of Report [facility] 12/02/2015 12/03/2015 Yulissa Zarate APRN PATHOLOGY ORDERABLES [facility] [address] [place] [address] documented in this encounter Visit Diagnoses Not on filedocumented in this encounter Care Teams Disk Sharpener Relationship Specialty Start Date End Date Shaunna Bonilla MD [address] [place] [phone] PCP - General 03/29/13 documented as of this encounter
--- OUTSIDE RECORDS SUMMARY | 2024-01-18 12:57 | XMS_ITS | Encounter Summary ---
Author Organization [facility] Address [address] [place] [address] Care Team Providers Care Bridge/Structure Inspection Team Leader Name Role Phone Shaunna Bonilla MD Primary Care Provider [phone] Encounter Details Date Type Department Care Team (Latest Contact Info) Description 09/26/2016 6:06 EDT - 09/26/2016 23:59 EDT Hospital Encounter [facility] [address] [place] [address] Unknown, Provider, Discharge Disposition: Home or Self Care Social History Tobacco Use Types Packs/Day Years Used Date Smoking Tobacco: Never Assessed Sex and Gender Information Value Date Recorded Sex Assigned at Not on file Gender Identity Not on file Sexual Orientation Not on file documented as of this encounter Discharge Disposition Disposition Code Departure Means Destination Home or Self Halfway documented in this encounter Plan of Treatment Not on file documented as of this encounter Visit Diagnoses Not on filedocumented in this encounter Care Teams Bridge/Structure Inspection Team Leader Relationship Specialty Start Date End Date Shaunna Bonilla MD [address] [place] [phone] PCP - General 03/29/13 documented as of this encounter
--- OUTSIDE RECORDS SUMMARY | 2024-01-18 12:57 | XMS_ITS | Encounter Summary ---
Author Organization [facility] Address [address] [place] [address] Care Team Providers Care Food Prep Worker Name Role Phone Unknown, Provider Primary Care Provider [phone] Encounter Details Date Type Department Care Team (Late st Contact Info) Description 03/22/2013 Results Only [facility] Services - [facility] ([facility] [address] [place], [place] [id number] Igor Dennison, DO [address] [place] [address] Social History Tobacco Use Types Packs/Day Years Used Date Smoking Tobacco: Never Assessed Sex and Gender Information Value Date Recorded Sex Assigned at Not on file Gender Identity Not on file Sexual Orientation Not on file documented as of this encounter Plan of Treatment Not on file documented as of this encounter Procedures Procedure Name Priority Date/Time Associated Diagnosis Comments SURGICAL PATHOLOGY Routine 03/22/2013 9:50 EDT documented in this encounter Results * SURGICAL PATHOLOGY (03/22/2013 9:50 EDT) Pathology Report: SURGICAL PATHOLOGY REPORT Reports generated via electronic interface contain original data; however they are lacking the format of the original report. Caution should be taken when reading/interpreting unformatted reports. Name: ? BAILEY CARY ? Accession #: ? [id number] ? : ? 1960 (Age: 52) ??F ? Collect Date: ? 03/22/2013 ? Location: ? [facility] ? Receive Date: ? 03/25/2013 ? Provider: IGOR DENNISON DO Copy to: REGINA RUBIO DO ? Final Pathologic Diagnosis: A. STOMACH, ANTRUM, BIOPSY: - ??Gastric antral mucosa with reactive gastropathy. See comment. - ??Immunostaining for Helicobacter pylori-like organisms is negative. B. ESOPHAGUS, 45 CM, BIOPSY: - ??Gastric type mucosa with chronic gastritis. See comment. - ??Immunostaining for Helicobacter pylori-like organisms is negative. - ??Negative for intestinal metaplasia, negative for dysplasia. Comment: Immunohistochemical stains were performed on this case to further characterize the lesion. ANTIBODY(CLONE)(BLOCK) :RESULT H pylori (Rabbit Monoclonal (SP48), [place]) (A1): negative H pylori (Rabbit Monoclonal (SP48), [place]) (B1): negative NOTE: ??One or more of the reagents used in immunohistochemical testing in this case may not have been cleared or approved by the U.S. Food and Drug Administration (FDA). ??The FDA has determined that such clearance or approval is not necessary. ??These tests are used for clinical purposes. ??They should not be regarded as investigational or for research. ??These reagents' performance characteristics have been determined by [facility]. ??The positive and negative controls worked appropriately. This laboratory is certified under the Clinical Laboratory Improvement Amendments of 1988 (CLIA-88) as qualified to perform high complexity clinical laboratory testing. Dr. Sutton 03/27/2013 10:03 AM ?? Document reviewed and electronically signed by: DENAE DEL TORO MD Report ??Date: 03/28/2013 11:56 By the signature above, the attending physician certifies that he/she has personally conducted a gross and/or microscopic examination of the described specimens and rendered or confirmed the above diagnosis. Specimen(s) Received: A. ?Antrum B. ? Esophageal junction 45 cm Clinical History: R/O H. pylori Gross Description: A. ?Received in formalin labelled with proper patient identification (initials L, T) and antrum is a single pink-solis tissue fragment (0.3 x 0.2 x 0.2 cm). ??Submitted intact in A1. B. ?Received in formalin labelled with proper patient identification (initials L, T) and esophageal junction 45 cm are two pink-solis tissues (0.1 x 0.1 x 0.1 cm and 0.2 x 0.2 x 0.2 cm). ??Entirely submitted in B1. Shae Flores 03/25/2013 10:01 AM End of Report [facility]OD[facility] 03/22/2013 9:50 EDT 03/25/2013 9:50 EDT Igor Dennison DO PATHOLOGY ORDERABLES Performing Organization Address City/State/[facility] Co de Phone Number MODESTO RODRIGUEZ [address] [place] [address] documented in this encounter Visit Diagnoses Not on filedocumented in this encounter Care Teams Food Prep Worker Relationship Specialty Start Date End Date Unknown, Provider, PCP - General 03/25/13 03/28/13 documented as of this encounter
--- OUTSIDE RECORDS SUMMARY | 2024-01-18 12:57 | XMS_ITS | Encounter Summary ---
Author Organization [facility] Address [address] [place] [address] Care Team Providers Care Senior Back End Java Developer Name Role Phone Shaunna Bonilla MD Primary Care Provider [phone] Encounter Details Date Type Department Care Team (Late st Contact Info) Description 08/16/2022 Lab Requisition [facility] Pathology & Laboratory Medicine - [address] [address] Radha Fonseca FNP [address] [place] [place], [place] [id number] Social History Tobacco Use Types Packs/Day Years Used Date Smoking Tobacco: Never Assessed Sex and Gender Information Value Date Recorded Sex Assigned at Not on file Gender Identity Not on file Sexual Orientation Not on file documented as of this encounter Plan of Treatment Not on file documented as of this encounter Procedures Procedure Name Priority Date/Time Associated Diagnosis Comments ORGANISM IDENTIFICATION AND SUSCEPTIBILITY Today 08/12/2022 17:46 EDT documented in this encounter Results * (ABNORMAL) ORGANISM IDENTIFICATION AND SUSCEPTIBILITY (08/12/2022 17:46 EDT) Organism ID Escherichia coli(A) VITEK SUSCEPTIBILITY 08/18/2022 9:38 EDT [facility] Comment: Use of cefazolin is only indicated in cases of uncomplicated UTIs. Cefazolin susceptibility results can be used to predict susceptibility results for the following oral cephalosporins when used for therapy of uncomplicated UTIs due to E.coli, K.pneumoniae, and P.mirabilis: cefaclor, cefdinir, cefpodoxime, cefprozil, cefuroxime, cephalexin, loracarbef. Cefdinir, cefpodoxime, and cefuroxime may be tested individually because some isolates may be susceptibile to these agents while testing resistance to cefazolin. Please note that only cefpodoxime and cephalexin are on the [facility] inpatient formulary. ? Organism (organism) URINE / Unknown 08/12/2022 17:46 EDT 08/16/2022 17:13 EDT Narrative Organism Antibiotic Method Susceptibility Escherichia coli Ampicillin VITEK SUSCEPTIBILITY >=32 ug/mL: Resistant Escherichia coli Cefazolin VITEK SUSCEPTIBILITY >=64 ug/mL: Resistant Escherichia coli Cefepime VITEK SUSCEPTIBILITY <=1 ug/mL: Susceptible Escherichia coli Ceftriaxone VITEK SUSCEPTIBILITY 16 ug/mL: Resistant Escherichia coli Ciprofloxacin VITEK SUSCEPTIBILITY >=4 ug/mL: Resistant Escherichia coli Ertapenem VITEK SUSCEPTIBILITY <=0.5 ug/mL: Susceptible Escherichia coli Meropenem VITEK SUSCEPTIBILITY <=0.25 ug/mL: Susceptible Escherichia coli Nitrofurantoin VITEK SUSCEPTIBILITY <=16 ug/mL: Susceptible Escherichia coli Piperacillin Tazobactam VITEK SUSCEPT IBILITY 8 ug/mL: Susceptible Escherichia coli Trimethoprim-Sulfame thox azole VITEK SUSCEPTIBILITY >=320 ug/mL: Resistant Radha Marian INSULATION WORKER APPRENTICE MICROBIOLOGY - GENER AL ORDERABLES [facility] [address] [place] [address] documented in this encounter Visit Diagnoses Not on filedocumented in this encounter Care Teams Senior Back End Java Developer Relationship Specialty Start Date End Date Shaunna Bonilla MD [address] [place] [phone] PCP - General 03/29/13 documented as of this encounter
--- OUTSIDE RECORDS SUMMARY | 2024-01-18 12:57 | XMS_ITS | Encounter Summary ---
Author Organization [facility] Address [address] [place] [address] Care Team Providers Care Mastic Floor Layer Name Role Phone Shaunna Bonilla MD Primary Care Provider [phone] Encounter Details Date Type Department Care Team (Late st Contact Info) Description 11/22/2019 Lab Requisition [facility] Pathology & Laboratory Medicine - [address] [address] Outr Resulting Lab, Provider Social History Tobacco Use Types Packs/Day Years Used Date Smoking Tobacco: Never Assessed Sex and Gender Information Value Date Recorded Sex Assigned at Not on file Gender Identity Not on file Sexual Orientation Not on file documented as of this encounter Plan of Treatment Not on file documented as of this encounter Procedures Procedure Name Priority Date/Time Associated Diagnosis Comments ZZCOVID-19 TEST [facility] LAB PCR Today 11/22/2019 20:55 EDT COVID-19 TESTING Routine 11/22/2019 20:5 5 EDT documented in this encounter Results * COVID-19 TEST [facility] PCR (11/22/2019 20:55 EDT) Swab ENTIRE NASOPHARYNX / Unknown 11/22/2019 20:55 EDT 11/23/2019 22:56 EDT Provider Outr Resulting Lab MICROBIOLOGY - GENERAL ORDERABLES [facility] [address] [place] [address] * COVID-19 TESTING (11/22/2019 20:55 EDT) COVID-19 rt-PCR Result Negative Negative 11/24/2019 11:55 EDT [facility] Comment: This test has not been FDA cleared or approved. This test has been authorized by FDA under an EUA for use by authorized laboratories. This test has been authorized only for detection of nucleic acid from 2019-nCoV, not for any other viruses or pathogens. This test is only authorized for the duration of the declaration that circumstances exist justifying the authorization of emergency use of in vitro diagnostic tests for detection and/or diagnosis of 2019-nCoV under section 564(b)(1) of Act, 21 U.S.C ?? 360bbb-3(b) (1), unless the authorization is terminated or revoked sooner. Negative results do not preclude 2019-nCoV infection and should not be used as the sole basis for treatment or other patient management decisions. Negative results must be combined with clinical observations, patient history, and epidemiological information. Performed on the Katalyst Surgicalher Fusion instrument Performing Lab [place] [facility] Lab 11/24/2019 11:55 EDT [facility] Swab 11/22/2019 20:5 5 EDT 11/23/2019 22:56 EDT Provider Outr Resulting Lab MICROBIOLOGY - GENERAL ORDERABLES [facility] [address] [place] [address] documented in this encounter Visit Diagnoses Not on filedocumented in this encounter Care Teams Mastic Floor Layer Relationship Specialty Start Date End Date Shanuna Bonilla MD [address] [place] [phone] PCP - General 03/29/13 documented as of this encounter
--- OUTSIDE RECORDS SUMMARY | 2024-01-18 12:57 | XMS_ITS | Encounter Summary ---
Author Organization [facility] Address [address] [place] [address] Care Team Providers Care Railway Yard Assistant Name Role Phone Shaunna Bonilla MD Primary Care Provider [phone] Encounter Details Date Type Department Care Team (Late st Contact Info) Description 09/26/2016 Results Only [facility]- PRISM [phone] Gayatri Ramey MD [address] [place] [phone] Social History Tobacco Use Types Packs/Day Years Used Date Smoking Tobacco: Never Assessed Sex and Gender Information Value Date Recorded Sex Assigned at Not on file Gender Identity Not on file Sexual Orientation Not on file documented as of this encounter Plan of Treatment Not on file documented as of this encounter Procedures Procedure Name Priority Date/Time Associated Diagnosis Comments SURGICAL PATHOLOGY Routine 09/26/2016 9:18 EDT documented in this encounter Results * SURGICAL PATHOLOGY (09/26/2016 9:18 EDT) Pathology Report: SURGICAL PATHOLOGY REPORT Reports generated via electronic interface contain original data; however they are lacking the format of the original report. Caution should be taken when reading/interpret ing unformatted reports. Name: ? BAILEY CARY ? Accession #: ? [id number] ? : ? 1960 (Age: 56) ??F ? Collect Date: ? 09/26/2016 ? [...] or confirmed the above diagnosis. Specimen(s) Received: Anal wart Clinical History: Not listed Gross Description: ? Received in formalin labelled with proper patient identification (initials L, T) and anal wart is a single solis-galan polypoid tissue (1.2 x 0.9 x 0.6 cm). The margin is inked black, the specimen is serially sectioned and entirely submitted in 1 and 2. KEREN Savage (ASCP) 09/27/2016 9:47 AM End of Report [facility] 09/26/2016 9:18 EDT 09/27/2016 9:18 EDT Gayatri Ramey MD PATHOLOGY ORDERABLES [facility] [address] [place] [address] documented in this encounter Visit Diagnoses Not on filedocumented in this encounter Care Teams Railway Yard Assistant Relationship Specialty Start Date End Date Shaunna Bonilla MD [address] [place] [phone] PCP - General 03/29/13 documented as of this encounter
--- OUTSIDE RECORDS SUMMARY | 2024-01-18 12:57 | XMS_ITS | Referral Summary ---
Author Organization [facility] Address [address] [place] [address] Care Team Providers Care Metal Machine Setter Name Role Phone Shaunna Bonilla MD Primary Care Provider [phone] Social History Tobacco Use Types Packs/Day Years Used Date Smoking Tobacco: Never Assessed Sex and Gender Information Value Date Recorded Sex Assigned at Not on file Gender Identity Not on file Sexual Orientation Not on file Plan of Treatment Not on file Care Teams Metal Machine Setter Relationship Specialty Start Date End Date Shaunna Bonilla MD [address] [place] [phone] PCP - General 03/29/13
--- OUTSIDE RECORDS SUMMARY | 2024-01-18 12:57 | XMS_ITS | Encounter Summary ---
Author Organization [facility] Address [address] [place] [address] Care Team Providers Care Group Contract Analyst Name Role Phone Shaunna Bonilla MD Primary Care Provider [phone] Encounter Details Date Type Department Care Team (Late st Contact Info) Description 11/24/2019 Lab Requisition [facility] Pathology & Laboratory Medicine - [address] [address] Outr Resulting Lab, Provider Social History Tobacco [...] on filedocumented in this encounter Care Teams Group Contract Analyst Relationship Specialty Start Date End Date Shaunna Bonilla MD [address] [place] [phone] PCP - General 03/29/13 documented as of this encounter
--- OUTSIDE RECORDS SUMMARY | 2024-01-18 12:57 | XMS_ITS | Clinical Summary ---
Author Organization [facility] Address [address] [place] [address] Care Team Providers Care Chef Under Name Role Phone Shaunna Bonilla MD Primary Care Provider [phone] Social History Tobacco Use Types Packs/Day Years Used Date Smoking Tobacco: Never Assessed Sex and Gender Information Value Date Recorded Sex Assigned at Not on file Gender Identity Not on file Sexual Orientation Not on file Plan of Treatment Health Maintenance Due Date Last Done Comments Hepatitis C Screen 1960 RSV Immunization ( o r 60+ Years) (1 - 1-dose 60+ series) 2020 COVID-19 Vaccine (2022-24 season) 2023 Care Teams Chef Under Relationship Specialty Start Date End Date Shaunna Bonilla MD [address] [place] [phone] PCP - General 03/29/13
--- OUTSIDE RECORDS SUMMARY | 2024-01-18 12:57 | XMS_ITS | Encounter Summary ---
Author Organization [facility] Address [address] [place] [address] Care Team Providers Care Activities Director Name Role Phone Unavailable Primary Care Provider Unavailabl e Encounter Details Date Type Department Care Team (Latest Contact Info) Description 03/22/2013 11:41 EDT - 03/22/2013 23:59 EDT Hospital Encounter [address] [address] Unknown, Provider, Discharge Disposition: Home or Self Care Social History Tobacco Use Types Packs/Day Years Used Date Smoking Tobacco: Never Assessed Sex and Gender Information Value Date Recorded Sex Assigned at Not on file Gender Identity Not on file Sexual Orientation Not on file documented as of this encounter Discharge Disposition Disposition Code Departure Means Destination Home or Self [facility] documented in this encounter Plan of Treatment Not on file documented as of this encounter Visit Diagnoses Not on filedocumented in this encounter
[2024-01-18 19:28] LABS: Abs Immature Grans 0.02 10^3/uL (0.0-0.06); Absolute Basophil Count 0.04 10^3/uL (0.0-0.2); Absolute Eosinophil Count 0.95 10^3/uL (0.0-0.7); Absolute Lymphocyte Count 1.23 10^3/uL (1.2-3.4); Absolute Monocyte Count 0.45 10^3/uL (0.1-0.8); Absolute Neutrophil Count 4.74 10^3/uL (1.2-6.7); Basophils % 0.5 %; Eosinophils % 12.8 %; HCT 42.2 % (36.0-46.0); Immature Grans % 0.3 %; Lymphocytes % 16.6 %; MCH 31.2 pg (27.0-33.0); MCHC 33.2 % (32.0-36.0); MCV 94 fL (80-95); MPV 10.7 fL (8.0-11.0); Monocytes % 6.1 %; Neutrophils % 63.7 %; Platelet Count 177 10^3/uL (130-400); RBC 4.49 10^6/uL (3.93-5.22); RDW 12.8 % (11.7-14.6); RDW-SD 44.1 fL; WBC 7.43 10^3/uL (4.4-10.8)
[2024-01-18 19:43] LABS: Iron 52 ug/dL (50-170); Total Iron Binding Capacity 259 ug/dL (250-450); Transferrin Sat 20 % (15-50)
[2024-01-18 20:09] LABS: ALT 30 U/L (14-59); AST 21 U/L (15-37); Albumin 3.4 g/dL (3.4-5.0); Alkaline Phosphatase 117 U/L (46-116); BUN 14 mg/dL (7-18); Bilirubin, Total 0.73 mg/dL (0.2-1.0); CREATININE 1.3 mg/dL (0.55-1.02); Calcium 8.9 mg/dL (8.5-10.1); Chloride 103 mmol/L (98-107); Estimated GFR 46.21 (mL/min/1.73m2); Ferritin 128 ng/mL (8-252); Folate 3.5 ng/mL (8.6-20.0); Glucose 134 mg/dL (74-106); Potassium 4.6 mmol/L (3.5-5.1); Sodium 141 mmol/L (136-145); TSH 2.98 uIU/Ml (0.36-3.74); Total Protein 7.3 g/dL (6.4-8.2); Vitamin B12 374 pg/mL (193-986)
[2024-01-18 20:28] LABS: FREE T4 1.24 ng/dL (0.76-1.46)
== END 2024-01-18 12:47 | disposition home or self-care (01) ==
LOC: NCHCN 12:46
PROVIDERS: PCP Nurse Practitioner Family; Visit Provider Nurse Practitioner Family
DX: N18.32 Chronic kidney disease, stage 3b (principal); E03.9 Hypothyroidism, unspecified; K13.79 Other lesions of oral mucosa
CPT/HCPCS: 80053; 87077; 82607; 82728; 82746; 83036; 83540; 83550; 84439; 84443; 85025; 87086; 87186

== ENCOUNTER 2024-01-19 04:58 | Emergency (ER) | payer MEDICARE, MEDICAID, SELFPAY ==
--- NOTE | 2024-01-19 05:00 | DI.RAD_ITS ---
Exam(s) XR KNEE RT 3V AP,LAT,RAFAEL XR TIB/FIB RT EXAM: XR KNEE RT 3V AP,LAT,RAFAEL CLINICAL HISTORY: fall, hit knee, pain. TECHNIQUE: 2D digital imaging was performed. Three views of the knee. Two views of the tibia and f ibula COMPARISON: CR,XR XR TIB/FIB RT from 01/19/2024 FINDINGS: BONES: No acute fracture is present. No bony destructive lesion is seen. JOINTS: The knee is normally aligned. There is no ankle mortise widening. The medial malleolus is n ot fully included in the field of view. No joint effusion is seen. Joint spaces are maintained. F aint chondrocalcinosis. SOFT TISSUE: Anterior soft tissue swelling. Vascular calcifications. IMPRESSION: Soft tissue swelling. No visible fracture. DATA REPOSITORY: RADIATION DOSE DELIVERED:
--- NOTE | 2024-01-19 05:00 | DI.CT_ITS ---
Exam(s) CT HEAD CERVICAL SPINE WO EXAM: CT HEAD CERVICAL SPINE WO CLINICAL HISTORY: fell, hit front of head. TECHNIQUE: Imaging Protocol: Axial computed tomography images with coronal and sagittal reformatted images were created and reviewed COMPARISON: CT CT HEAD WO from 08/12/2018 FINDINGS: Head CT Ventricles and Extra axial spaces: Normal in size and morphology for the patient's age. Hemorrhage: None. Cerebral parenchyma: No evidence of mass or acute infarct. Chronic calcification medial left frontal lobe. Old left thalamic lacunar infarct. Midline shift: None. Brainstem/Cerebellum: Normal. Calvarium: Normal. Visualized Paranasal sinuses/Mastoids: Clear. Soft tissues: Unremarkable. Cervical Spine CT BONES: Posterior fusion hardware from C4 through C7. Vertebral body heights are maintained. Alignmen t is normal. There is no evidence of acute fracture. Degenerative disc changes and facet degenerative changes are seen. Significant narrowing of the AP d imension of the canal secondary to endplate osteophytes at C3-4. SOFT TISSUES: No paraspinal hematoma. The airway appears intact. No pneumothorax is seen at the lung apices. The common carotid arteries deviate medially anterior to the cervical spine. I IMPRESSION: Head CT: No acute abnormality. C-spine CT: Degenerative and postsurgical changes, no acute abnormality. RADIATION DOSE DELIVERED: Total DLP DATA REPOSITORY: All CT scans at this facility are submitted to the National Radiology Data Registry (NRDR) Dose Index Registry (DIR) with the [employer] (ACR). RADIATION OPTIMIZATION: All CT scans at this facility use at least one of these dose optimization te chniques: automated exposure control; mA and/or kV adjustment per patient size (includes targeted exa ms where dose is matched to clinical indication); or iterative reconstruction.
[2024-01-19 05:01] VITALS: BP 140/68; PULSE 60; RESP 18; TEMP 36.9; O2SAT 98
--- OUTSIDE RECORDS SUMMARY | 2024-01-19 05:14 | XMS_ITS | Encounter Summary ---
Author Organization [facility] Address [address] [place] [address] Care Team Providers Care Dock Grader Name Role Phone Unavailable Primary Care Provider Unavailabl e Encounter Details Date Type Department Care Team (Latest Contact Info) Description 03/22/2013 11:41 EDT - 03/22/2013 23:59 EDT Hospital Encounter [address] [address] Unknown, Provider, Discharge Disposition: Home or Self [...]
--- OUTSIDE RECORDS SUMMARY | 2024-01-19 05:14 | XMS_ITS | Encounter Summary ---
Author Organization [facility] Address [address] [place] [address] Care Team Providers Care Solid Waste Management Engineer Name Role Phone Shaunna Bonilla MD Primary Care Provider [phone] Encounter Details Date Type Department Care Team (Latest Contact Info) Description 09/26/2016 6:06 EDT - 09/26/2016 23:59 EDT Hospital Encounter [facility] [address] [place] [address] Unknown, Provider, Discharge Disposition: Home or Self [...] on filedocumented in this encounter Care Teams Solid Waste Management Engineer Relationship Specialty Start Date End Date Shaunna Bonilla MD [address] [place] [phone] PCP - General 03/29/13 documented as of this encounter
--- OUTSIDE RECORDS SUMMARY | 2024-01-19 05:14 | XMS_ITS | Encounter Summary ---
Author Organization [facility] Address [address] [place] [address] Care Team Providers Care Filament Welder Name Role Phone Unknown, Provider Primary Care Provider [phone] Encounter Details Date Type Department Care Team (Late st Contact Info) Description 03/22/2013 Results Only [facility] Laboratory Services - [facility] ([facility]) [address] [place], [place] [address] Igor Dennison, DO [address] [place] [address] Social History Tobacco Use Types Packs/Day Years [...] ? BAILEY CARY ? Accession #: ? [id number] ? : ? 1960 (Age: 52) ??F [...] ANTIBODY(CLONE)(BLOCK) :RESULT H pylori (Rabbit Monoclonal (SP48), Hawkeye) (A1): negative H pylori (Rabbit Monoclonal (SP48), Hawkeye) (B1): negative NOTE: ??One or more of [...] reagents' performance characteristics have been determined by [facility]. ??The positive and negative controls worked appropriately. [...] Dennison DO PATHOLOGY ORDERABLES Performing Organization Address City/State/[facility] Co de Phone Number MODESTO RODRIGUEZ [address] [place] [address] documented in this encounter Visit Diagnoses Not on filedocumented in this encounter Care Teams Filament Welder Relationship Specialty Start Date End Date Unknown, Provider, PCP - General 03/25/13 03/28/13 documented as of this encounter
--- OUTSIDE RECORDS SUMMARY | 2024-01-19 05:14 | XMS_ITS | Encounter Summary ---
Author Organization [facility] Address [address] [place] [address] Care Team Providers Care Tool Grinding Machine Operator Name Role Phone Shaunna Bonilla MD Primary Care Provider [phone] Encounter Details Date Type Department Care Team (Late st Contact Info) Description 12/02/2015 Results Only [facility]- [facility] [phone] Yulissa Zarate W, COMMISSION AUDITOR [address] [place] [phone] Social History Tobacco Use Types Packs/Day Years [...] ? BAILEY CARY ? Accession #: ? [id number] ? : ? 1960 (Age: 55) ??F ?Collect Date: ? 12/02/2015 ? Location: ? [facility] ? Receive Date: ? 12/03/2015 ? Provider: YULISSA ZARATE COMMISSION AUDITOR Copy to: ? Final Report SPECIMEN ADEQUACY [...] types 16,18,31,33,35, 39,45,51,52,56,58, 59,66, and 68 by chemical detection expert mediated amplification. Comments Document reviewed and electronically signed by: ? System Interface ? Report date: 12/17/2015 By the signature above, the attending physician certifies that he/she has personally conducted a gross and/or microscopic examination of the described specimens and rendered or confirmed the above diagnosis. End of Report [facility] 12/02/2015 12/03/2015 Yulissa Zarate APRN PATHOLOGY ORDERABLES [facility] [address] [place] [address] documented in this encounter Visit Diagnoses Not on filedocumented in this encounter Care Teams Tool Grinding Machine Operator Relationship Specialty Start Date End Date Shaunna Bonilla MD [address] [place] [phone] PCP - General 03/29/13 documented as of this encounter
--- OUTSIDE RECORDS SUMMARY | 2024-01-19 05:14 | XMS_ITS | Encounter Summary ---
Author Organization [facility] Address [address] [place] [address] Care Team Providers Care Asp Net C Developer Name Role Phone Shaunna Bonilla MD Primary Care Provider [phone] Encounter Details Date Type Department Care Team (Late st Contact Info) Description 11/24/2019 Lab Requisition [facility] Pathology & Laboratory Medicine - [address] [address] Outr Resulting Lab, Provider Social History Tobacco [...] on filedocumented in this encounter Care Teams Asp Net C Developer Relationship Specialty Start Date End Date Shaunna Bonilla MD [address] [place] [phone] PCP - General 03/29/13 documented as of this encounter
--- OUTSIDE RECORDS SUMMARY | 2024-01-19 05:14 | XMS_ITS | Encounter Summary ---
Author Organization [facility] Address [address] [place] [address] Care Team Providers Care Spectral Scientist Name Role Phone Shaunna Bonilla MD Primary Care Provider [phone] Encounter Details Date Type Department Care Team (Late st Contact Info) Description 09/26/2016 Results Only [facility]- [facility] [phone] Gayatri Ramey MD [address] [place] [phone] Social History Tobacco Use Types Packs/Day Years [...] ? BAILEY CARY ? Accession #: ? [id number] ? : ? 1960 (Age: 56) ??F [...] (ASCP) 09/27/2016 9:47 AM End of Report [facility] 09/26/2016 9:18 EDT 09/27/2016 9:18 EDT Gayatri Ramey MD PATHOLOGY ORDERABLES [facility] [address] [place] [address] documented in this encounter Visit Diagnoses Not on filedocumented in this encounter Care Teams Spectral Scientist Relationship Specialty Start Date End Date Shaunna Bonilla MD [address] [place] [phone] PCP - General 03/29/13 documented as of this encounter
--- OUTSIDE RECORDS SUMMARY | 2024-01-19 05:14 | XMS_ITS | Referral Summary ---
Author Organization [facility] Address [address] [place] [address] Care Team Providers Care Blood Donor Recruiter Name Role Phone Shaunna Bonilla MD Primary Care Provider [phone] Social History Tobacco Use Types Packs/Day Years Used Date Smoking Tobacco: Never Assessed Sex and Gender Information Value Date Recorded Sex Assigned at Not on file Gender Identity Not on file Sexual Orientation Not on file Plan of Treatment Not on file Care Teams Blood Donor Recruiter Relationship Specialty Start Date End Date Shaunna Bonilla MD [address] [place] [phone] PCP - General 03/29/13
--- OUTSIDE RECORDS SUMMARY | 2024-01-19 05:14 | XMS_ITS | Clinical Summary ---
Author Organization [facility] Address [address] [place] [address] Care Team Providers Care Cotton Grower Name Role Phone Shaunna Bonilla MD Primary Care Provider [phone] Social History Tobacco Use Types Packs/Day Years [...] COVID-19 Vaccine (2022-24 season) 2023 Care Teams Cotton Grower Relationship Specialty Start Date End Date Shaunna Bonilla MD [address] [place] [phone] PCP - General 03/29/13
--- OUTSIDE RECORDS SUMMARY | 2024-01-19 05:14 | XMS_ITS | Encounter Summary ---
Author Organization [facility] Address [address] [place] [address] Care Team Providers Care Diesel Dinkey Engineer Name Role Phone Shaunna Bonilla MD Primary Care Provider [phone] Encounter Details Date Type Department Care Team (Late st Contact Info) Description 08/16/2022 Lab Requisition [facility] Pathology & Laboratory Medicine - [address] [address] Radha Fonseca FNP [address] [place], [place] [phone] Social History Tobacco Use Types Packs/Day Years [...] Escherichia coli(A) VITEK SUSCEPTIBILITY 08/18/2022 9:38 EDT [facility] Comment: Use of cefazolin is [...] only cefpodoxime and cephalexin are on the [facility] inpatient formulary. ? Organism (organism) URINE / [...] VITEK SUSCEPTIBILITY >=320 ug/mL: Resistant Radha Marian MAINTENANCE MECHANIC MILLWRIGHT MICROBIOLOGY - GENER AL ORDERABLES [facility] [address] [place] [address] documented in this encounter Visit Diagnoses Not on filedocumented in this encounter Care Teams Diesel Dinkey Engineer Relationship Specialty Start Date End Date Shaunna Bonilla MD [address] [place] [phone] PCP - General 03/29/13 documented as of this encounter
--- OUTSIDE RECORDS SUMMARY | 2024-01-19 05:14 | XMS_ITS | Encounter Summary ---
Author Organization [facility] Address [address] [place] [address] Care Team Providers Care Bottle Hop Name Role Phone Shaunna Bonilla MD Primary Care Provider [phone] Encounter Details Date Type Department Care Team (Late st Contact Info) Description 11/22/2019 Lab Requisition [facility] Pathology & Laboratory Medicine - [address] [address] Outr Resulting Lab, Provider Social History Tobacco [...] Outr Resulting Lab MICROBIOLOGY - GENERAL ORDERABLES [facility] [address] [place] [address] * COVID-19 TESTING (11/22/2019 20:55 EDT) COVID-19 rt-PCR Result Negative Negative 11/24/2019 11:55 EDT [facility] Comment: This test has not [...] history, and epidemiological information. Performed on the Scatter Labher Fusion instrument Performing Lab [place] [facility] Lab 11/24/2019 11:55 EDT [facility] Swab 11/22/2019 20:5 5 EDT 11/23/2019 22:56 EDT Provider Outr Resulting Lab MICROBIOLOGY - GENERAL ORDERABLES [facility] [address] [place] [address] documented in this encounter Visit Diagnoses Not on filedocumented in this encounter Care Teams Bottle Hop Relationship Specialty Start Date End Date Shaunna Bonilla MD [address] [place] [phone] PCP - General 03/29/13 documented as of this encounter
--- NOTE | 2024-01-19 05:37 | ED.GENADUL_ITS ---
Discharge Plan Disposition Patient Disposition: Home Condition: Good Discharge Details Clinical Impression: Laceration of right lower extremity, Fall Primary Care Provider: Barb Whiting ED Provider: Michael Lockwood Home Meds and New Rx's Prescriptions: No Action omeprazole 40 mg capsule,delayed release(DR/EC) 40 mg PO DAILY acetaminophen 500 mg tablet 1,000 mg PO TID amlodipine 5 mg tablet 5 mg PO DAILY furosemide 80 mg tablet 80 mg PO DAILY fluticasone furoate-vilanterol [Breo Ellipta] 100-25 mcg/dose blister with device 1 inh inhalation DAILY insulin glargine [Lantus U-100 Insulin] 100 unit/mL solution 48 unit SUBCUT HS Patient Comments: 36units HS 09/07/23 levothyroxine 175 mcg capsule 175 mcg PO DAILY Ozempic 1 mg/dose (4 mg/3 mL) pen injector 1 mg subcut QWEEK potassium chloride 20 mEq Tablet Extended Release 20 meq PO QAM triamcinolone acetonide 0.5 % Ointment 1 applic topical TID quetiapine 25 mg Tablet 25 mg PO HS bupropion HCl 150 mg Tablet Sustained-Release 12 Hr 150 mg PO BID atorvastatin 80 mg Tablet 80 mg PO DAILY carvedilol 25 mg Tablet 25 mg PO BID ropinirole 1 mg Tablet 2 mg PO HS paroxetine HCl 20 mg Tablet 60 mg PO DAILY nystatin 100,000 unit/gram Cream 1 applic TOPICAL PRN PRN aspirin 81 mg Tablet,Chewable 81 mg PO DAILY oxybutynin chloride 5 mg Tablet 10 mg PO BID Novolin N FlexPen 100 unit/mL (3 mL) Insulin Pen See Protocol SUBCUT TID Protocol: Custom Insulin Infusion Condition: Hyperglycemia Protocol Text: a. Independent double checks of all calculations, solution preparations, and pump rates are required. b. Discontinue subcutaneous insulin and any oral anti-hyperglycemic agents while on insulin infusion. c. Use low sorbing tubing (Nitroglycerin tubing) and flush with 20ml insulin infusion solution. d. Inline filters should NOT be used. e. Change insulin infusion bag every 24 hours. Rx Instructions: SLIDING SCALE ferrous sulfate 324 mg (65 mg iron) Tablet,Delayed Release (Dr/Ec) 324 mg PO DAILY melatonin 10 mg Tablet 10 mg PO HS magnesium oxide 400 mg magnesium Tablet 400 mg PO HS albuterol sulfate 90 mcg/actuation HFA aerosol inhaler 2 puff INHALATION PRN PRN Patient Comments: INHALE 1 TO 2 PUFFS BY MOUTH EVERY 4 TO 6 HOURS NEEDED FOR WHEEZING OR SHORTNESS OF BREATH Discharge Instructions Instructions: Stitches and patt Additional Instructions: At this time your laceration was stapled together. There is no evidence of fracture or bleed in your brain or on your right lower extremity on the imaging that was performed. Please return in 7 to 10 days to your family doctor or here to have your patt reevaluated for potential removal. Because of the nature of the laceration and its deep components, it may take additional time to heal and the patt may need to stay in longer potentially. Please keep the area clean and dry. Monitor closely for any redness, drainage or discharge. Do not soak the area. If you notice any worsening of your symptoms, or any new symptoms such as vomiting, diarrhea, fever, chills, shortness of breath, chest pain, numbness, weakness, or fainting , please return immediately to the emergency department for reevaluation. Please follow up with your primary care provider as soon as possible for reassessment and reevalua tion. As always, it was a pleasure participating in your medical care today. Referrals: Barb Whiting [Primary Care Provider] - Discharge Data Discharge Date/Time-TO BE ENTERED AT DEPARTURE: 01/19/24 07:33 HPI General Date/Time Provider Initiated Documentation: 01/19/24 05:00 . HPI Narrative: This is a pleasant 63-year-old female with a past medical history of previous cervical spine surgeries, coronary artery disease, hypothyroidism, diabetes mellitus type 2, high cholesterol, who takes a daily aspirin, whose tetanus has been updated in the last 5 years per patient, presents today for evaluation of laceration to her right lower extremity. Patient states that she got up this evening, and then tripped and her right leg caught on her walker which caused a laceration. She did hit her head on the floor. She had no loss of consciousness. She denies any pain in her arms or left lower extremity hips pelvis or chest. She does have mild pain in her right borrero where she lacerated her borrero. She is not on any blood thinners aside for the aspirin. She denies any other complaints at this time. Related Data Home Medications ?Medication ?Instructions ?Recorded ?Confirmed potassium chloride 20 mEq 20 meq PO QAM 08/12/18 01/19/24 tablet,extended release triamcinolone acetonide 0.5 % 1 applic topical TID 08/12/18 01/19/24 topical ointment aspirin 81 mg chewable tablet 81 mg PO DAILY 11/22/19 01/19/24 atorvastatin 80 mg tablet 80 mg PO DAILY 11/22/19 01/19/24 bupropion HCl 150 mg tablet,12 hr 150 mg PO BID 11/22/19 01/19/24 sustained-release carvedilol 25 mg tablet 25 mg PO BID 11/22/19 01/19/24 ferrous sulfate 324 mg (65 mg 324 mg PO DAILY 11/22/19 01/19/24 iron) tablet,delayed release insulin NPH isoph U-100 human 100 See Protocol subcut TID 11/22/19 01/19/24 unit/mL (3 mL) subcutaneous pen (Novolin N FlexPen) magnesium oxide 400 mg PO HS 11/22/19 01/19/24 melatonin 10 mg tablet 10 mg PO HS 11/22/19 01/19/24 nystatin 100,000 unit/gram topical 1 applic topical PRN PRN 11/22/19 01/19/24 cream oxybutynin chloride 5 mg tablet 10 mg PO BID 11/22/19 01/19/24 paroxetine HCl 20 mg tablet 60 mg PO DAILY 11/22/19 01/19/24 quetiapine 25 mg tablet 25 mg PO HS 11/22/19 01/19/24 ropinirole 1 mg tablet 2 mg PO HS 11/22/19 01/19/24 albuterol sulfate 90 mcg/actuation 2 puff inhalation PRN PRN 06/26/20 01/19/24 aerosol inhaler omeprazole 40 mg capsule,delayed 40 mg PO DAILY 09/01/21 01/19/24 release acetaminophen 500 mg tablet 1,000 mg PO TID 05/09/23 01/19/24 amlodipine 5 mg tablet 5 mg PO DAILY 08/16/23 01/19/24 fluticasone furoate 100 1 inh inhalation DAILY 08/16/23 01/19/24 mcg-vilanterol 25 mcg/dose inhalation powder (Breo Ellipta) furosemide 80 mg tablet 80 mg PO DAILY 08/16/23 01/19/24 insulin glargine 100 unit/mL 48 unit subcut HS 08/16/23 01/19/24 subcutaneous solution (Lantus U-100 Insulin) levothyroxine 175 mcg capsule 175 mcg PO DAILY 08/16/23 01/19/24 semaglutide 1 mg/dose (4 mg/3 mL) 1 mg subcut QWEEK 08/16/23 01/19/24 subcutaneous pen injector (Ozempic) Allergies Allergy/AdvReac Type Severity Reaction Status Date / Time latex Allergy Severe rash Verified 01/19/24 05:07 venom-wasp Allergy Severe Anaphylaxis Verified 01/19/24 05:07 coconut Allergy Unknown facial Verified 01/19/24 05:07 swelling bee pollen Allergy . Verified 01/19/24 05:07 bee venom protein (honey bee) AdvReac Unknown . Verified 01/19/24 05:07 celecoxib AdvReac Unknown suicidal Verified 01/19/24 05:07 ideation General Stated Complaint: Fall/Non TraumaCriteria GABBY: 3 Review of Systems All systems reviewed & are unremarkable except as noted in HPI and below Exam Narrative Exam Narrative: 1.Const: Well-nourished, Well-developed, appearing stated age 2.Eyes: PERRL, no conjunctival injection, and symmetrical lids. 3.ENT: Atraumatic external nose and ears. Moist MM. Neck: Symmetric, trachea midline, No thyromegaly. There is no evidence of raccoon eyes, steele sign, CSF rhinorrhea, mastoid tenderness, cranial crepitus, hemotympanum, exophthalmos, or hyphema. Patient demonstrates intact dentition with no signs of tooth avulsion or fracture, no signs of jaw deformity, no evidence of a LeFort's fracture, with an intact palate, nose and orbital region. There is no evidence of a nasal septal hematoma. No proptosis. Jaw closes symmetrically. Airway is clear. 4.CVS: +S1/S2, No murmurs or gallops. Peripheral pulses 2+ and equal in all extremities. Brisk capillary refill in all extremities. 5.RESP: Unlabored respiratory effort. Clear to auscultation bilaterally. No wheezes rales or rhonchi 6.GI: Soft, Nontender/Nondistended, No hepatosplenomegaly. No guarding or rebound. 7.MSK: Normocephalic, mild left sided paraspinal cervical spine tenderness. No midline tenderness. Patient states that the cervical spine pain is chronic. No chest wall tenderness or upper extremity tenderness. Right lower extremity demonstrates an 8 cm laceration on the right anterior borrero. Mild tenderness over the tibia and fibula as well as the knee in this area. Good range of motion otherwise. No active bleeding 8.Skin: 8 cm laceration to the right borrero. 9.Neuro: church secretary II-XII grossly intact. Sensation grossly intact, no focal neurologic deficits. 10.Psych: (AAO) x3. Appropriate mood and affect Course Vital Signs Vital signs: Vital Signs Temperature 36.9 C 01/19/24 05:01 Pulse 60 01/19/24 05:01 Respiratory Rate 18 01/19/24 05:01 Blood Pressure 140/68 01/19/24 05:01 Pulse Oximetry 98 01/19/24 05:01 Temperature 36.9 C 01/19/24 05:01 Temperature Source Temporal Artery Scan 01/19/24 05:01 Pulse 60 01/19/24 05:01 Respiratory Rate 18 01/19/24 05:01 Respiratory Effort Normal 01/19/24 05:06 Blood Pressure 140/68 01/19/24 05:01 Pulse Oximetry 98 01/19/24 05:01 Pain Level 5 01/19/24 05:01 Procedures Laceration Laceration 1: Site: lower extremity Side (If applicable): right Size (cm): 10 Description: linear Depth: simple, single layer Local anesthetic: Lidocaine 1% and with Epi Amount of anesthesia used (mL): 10 Pre-repair: wound explored, irrigated extensively, deep structures intact and extensive debridement Skin layer closed with: other (patt) Number of sutures: 12 Technique: simple, interrupted Subcutaneous layer closed with: vicryl Size: 4-0 Number of sutures: 2 Technique: simple, interrupted Medical Decision Making This is a pleasant 63-year-old female with a past medical history of previous cervical spine surgeries, coronary artery disease, hypothyroidism, diabetes mellitus type 2, high cholesterol, who takes a daily aspirin, whose tetanus has been updated in the last 5 years per patient, presents today for evaluation of laceration to her right lower extremity. Patient states that she got up this evening, and then tripped and her right leg caught on her walker which caused a laceration. She did hit her head on the floor. She had no loss of consciousness. She denies any pain in her arms or left lower extremity hips pelvis or chest. She does have mild pain in her right borrero where she lacerated her borrero. She is not on any blood thinners aside for the aspirin. She denies any other complaints at this time. Patient currently on Bactrim for urinary tract infection Exam demonstrates tenderness over the right knee and right borrero, no active bleeding at this time, however slow mild ooze is present. 9 cm laceration is present, with involvement of the subcutaneous tissues but no evidence of bony involvement that I can visualize. Due to the patient's age and the mechanism, we will get a CT scan of the head and C-spine as she did hit her head, although she is not on blood thinners. Will get an x-ray of the borrero and knee where she does have some mild pain and tenderness. Will monitor closely and reassess. On reassessment the patient feels well, CT scan is negative for acute process. The lacerations were sutured with 12 patt and 2 subcutaneous sutures. She tolerated this well. Patient feels well and would like to go home. She did get up and ambulate well without any significant difficulty. She has returned to her baseline. Tetanus is up-to-date. Patient will be discharged home. Hemodynamic stable. Discussed red flags which to return. I have extensively reviewed the treatment plan and discharge instructions with the patient. I have addressed all patient concerns at this time. The patient was made aware of what symptoms to monitor for that would warrant a return to the emergency department. Discussed the plan with the patient, they demonstrate verbal understanding and agreement with our assessment and plan at this time. The documentation in this chart was dictated using [employer] dictation software. Please excuse any dictation errors. FINDINGS: Bones/joints: The tibia is unremarkable. The fibula is unremarkable. No fracture identified. No abnormal osseous lesions. Soft tissues: Unremarkable. IMPRESSION: No evidence of fracture. Thank you for allowing us to participate in the care of your patient. Dictated and Authenticated by: Marvin Corley MD 01/19/2024 6:52 AM Eastern Time ([place] & [place]) FINDINGS: Bones/joints: The medial joint space is well maintained. The lateral joint space is well maintained. No fracture identified. Soft tissues: No knee joint effusion is present. IMPRESSION: No evidence of acute fracture or dislocation. Thank you for allowing us to participate in the care of your patient. Dictated and Authenticated by: Marvin Corley MD 01/19/2024 6:51 AM Eastern Time ([place] & [place]) FINDINGS: Brain: Normal. No hemorrhage. Unremarkable white matter. No mass effect. Cerebral ventricles: No ventriculomegaly. Paranasal sinuses: Visualized sinuses are unremarkable. No fluid levels. Mastoid air cells: Visualized mastoid air cells are well aerated. Bones: Unremarkable. No acute fracture. Soft tissues: Unremarkable. IMPRESSION: No acute intracranial abnormality FINDINGS: Bones: Posterior fusion at C4-T1. Normal alignment. No acute fracture or subluxation. No evidence of hardware failure. Lungs: Lung apices are normal. Soft tissues: Unremarkable. IMPRESSION: No fracture. Thank you for allowing us to participate in the care of your patient. Dictated and Authenticated by: Eusebio Martinez MD 01/19/2024 6:28 AM Eastern Time ([place] & [place]) Quality:SDOH Health Related Social Needs: No Data to Display PFSH All Active Problems (Updated 01/19/24 @ 22:56 by Michael Lockwood DO) Fall (Acute) Laceration of right lower extremity (Acute) Hernia of anterior abdominal wall (Acute) Recurrent UTI (Acute) Mixed incontinence (Acute) CAD (coronary artery disease), [place] coronary artery (Acute) Hypothyroidism (acquired) (Acute) Diabetes type 2, controlled (Chronic) Urinary retention (Acute) Restless leg syndrome (Acute) Neuropathy (Acute) Depression (Chronic) Hyperlipidemia (Acute) Insomnia (Acute) Tobacco dependence due to cigarettes (Chronic) Chest pain (Acute) Altered mental status (Acute) Diabetes (Chronic) H/O cervical spine surgery (Acute) Urinary tract infection (Acute) Leukocytosis (Acute) CAD (coronary artery disease) (Chronic) Tobacco abuse (Acute) DVT prophylaxis (Acute) COPD exacerbation (Acute) Spondylitis, cervical (Acute) NSTEMI (non-ST elevated myocardial infarction) (Acute) HTN (hypertension) (Chronic) Medical History Dysuria Balance problem Tongue discoloration Diarrhea Anemia Bacteremia due to Gram-negative bacteria Acute UTI CAP (community acquired pneumonia) Morbid (severe) obesity due to excess calories Dehydration HCAP (healthcare-associated pneumonia) History of non-ST elevation myocardial infarction (NSTEMI) Nicotine dependence Urinary tract infection Acute pancreatitis Type 2 diabetes mellitus Adult hypothyroidism Benign neoplasm Acute on chronic diastolic (congestive) heart failure Localized edema Atherosclerotic heart disease of [place] coronary artery with angina pectoris Spondylosis of cervical spine COPD (chronic obstructive pulmonary disease) NSTEMI (non-ST elevated myocardial infarction) CAD (coronary artery disease) Surgical History History of tubal ligation (~1989) S/P spinal surgery (~2018) rods in neck, cervical fusion S/P PTCA (percutaneous transluminal coronary angioplasty) (~2017) History of Hx of laminectomy Social History Smoking/Tobacco Use Status: Current every day Tobacco Type: cigarettes Tobacco: How many years used: 48 Smoking risk assessment performed?: Yes Alcohol Intake: never Drug use: Occasionally Substance use type: marijuana Housing: house Additional Social history: unable to assess privately
--- NOTE | 2024-01-19 06:29 | DI.VRAD_ITS ---
PROCEDURE INFORMATION: Exam: CT Head Without Contrast Exam date and time: 01/19/2024 5:35 AM Age: 63 years old Clinical indication: Injury or trauma; Fall; Blunt trauma (contusions or hematomas); Consciousness not specified; Injury details: Fell, hit front of head TECHNIQUE: Imaging protocol: Computed tomography of the head without contrast. COMPARISON: CT HEAD WO 12/08/2018 15:17 FINDINGS: Brain: Normal. No hemorrhage. Unremarkable white matter. No mass effect. Cerebral ventricles: No ventriculomegaly. Paranasal sinuses: Visualized sinuses are unremarkable. No fluid levels. Mastoid air cells: Visualized mastoid air cells are well aerated. Bones: Unremarkable. No acute fracture. Soft tissues: Unremarkable. IMPRESSION: No acute intracranial abnormality. PROCEDURE INFORMATION: Exam: CT Cervical Spine Without Contrast Exam date and time: 01/19/2024 5:35 AM Age: 63 years old Clinical indication: Injury or trauma; Fall; Blunt trauma (contusions or hematomas); Consciousness not specified; Injury details: Fell, hit front of head TECHNIQUE: Imaging protocol: Computed tomography of the cervical spine without contrast. COMPARISON: CT CHEST PE CTA 26/06/2020 17:46 FINDINGS: Bones: Posterior fusion at C4-T1. Normal alignment. No acute fracture or subluxation. No evidence of hardware failure. Lungs: Lung apices are normal. Soft tissues: Unremarkable. IMPRESSION: No fracture. Dictated and Authenticated by: Eusebio Martinez MD. Ordering:JABIER Rodriguez MD
--- NOTE | 2024-01-19 06:52 | DI.VRAD_ITS ---
PROCEDURE INFORMATION: Exam: XR Right Tibia and Fibula Exam date and time: 01/19/2024 5:24 AM Age: 63 years old Clinical indication: Injury or trauma; Fall; Blunt trauma; Lower leg; Right TECHNIQUE: Imaging protocol: Radiologic exam of the right tibia and fibula. Views: 2 views. COMPARISON: No relevant prior studies available. FINDINGS: Bones/joints: The tibia is unremarkable. The fibula is unremarkable. No fracture identified. No abnormal osseous lesions. Soft tissues: Unremarkable. IMPRESSION: No evidence of fracture. Dictated and Authenticated by: Marvin Corley MD. Ordering:JABIER Rodriguez MD
--- NOTE | 2024-01-19 06:52 | DI.VRAD_ITS ---
PROCEDURE INFORMATION: Exam: XR Right Knee Exam date and time: 01/19/2024 5:25 AM Age: 63 years old Clinical indication: Injury or trauma; Fall; Blunt trauma; Knee; Right TECHNIQUE: Imaging protocol: Radiologic exam of the right knee. Views: 3 views. COMPARISON: CR XR TIB/FIB RT 01/19/2024 5:24 AM FINDINGS: Bones/joints: The medial joint space is well maintained. The lateral joint space is well maintained. No fracture identified. Soft tissues: No knee joint effusion is present. IMPRESSION: No evidence of acute fracture or dislocation. Dictated and Authenticated by: Marvin Corley MD. Ordering:JABIER Rodriguez MD
[2024-01-19 07:33] VITALS: BP 169/77; PULSE 68; RESP 18; TEMP 36.9; O2SAT 94
== END 2024-01-19 07:33 | disposition home or self-care (01) ==
PROVIDERS: Emergency Provider Student in an Organized Health Care Education/Training Program; PCP Nurse Practitioner Family
DX: S81.811A Laceration without foreign body, right lower leg, initial encounter (principal); I25.119 Atherosclerotic heart disease of native coronary artery with unspecified angina pectoris; I25.2 Old myocardial infarction; E11.9 Type 2 diabetes mellitus without complications; J44.9 Chronic obstructive pulmonary disease, unspecified; F17.210 Nicotine dependence, cigarettes, uncomplicated; Z79.82 Long term (current) use of aspirin; Z79.4 Long term (current) use of insulin; Z79.85 Long-term (current) use of injectable non-insulin antidiabetic drugs; W01.198A Fall on same level from slipping, tripping and stumbling with subsequent striking against other object, initial encounter; Y93.89 Activity, other specified; Y92.013 Bedroom of single-family (private) house as the place of occurrence of the external cause
CPT/HCPCS: 12004; 73562; 99284; 70450; 72125; 73590; J2004

== ENCOUNTER 2024-01-21 15:43 | Emergency (ER) | payer MEDICARE, MEDICAID, SELFPAY ==
[2024-01-21 15:40] VITALS: BP 149/66; PULSE 63; RESP 18; TEMP 36.5; O2SAT 95
--- NOTE | 2024-01-21 15:45 | DI.RAD_ITS ---
Exam(s) XR SHOULDER RT COMPLETE 2+V EXAM: XR SHOULDER RT COMPLETE 2+V CLINICAL HISTORY: pain s/p fall. TECHNIQUE: 2D digital imaging was performed. Five views. COMPARISON: CR XR SHOULDER LT COMPLETE 2+V from 01/21/2024 FINDINGS: Exam extremely limited by under penetration. BONES: No acute fracture is present. No bony destructive lesion is seen. JOINTS: No dislocation present. Mild degenerative changes at the AC joint SOFT TISSUE: Normal. IMPRESSION: No acute abnormality. DATA REPOSITORY: RADIATION DOSE DELIVERED:
--- NOTE | 2024-01-21 15:45 | DI.RAD_ITS ---
Exam(s) XR SHOULDER LT COMPLETE 2+V EXAM: XR SHOULDER LT COMPLETE 2+V CLINICAL HISTORY: pain s/p fall. TECHNIQUE: 2D digital imaging was performed. Three views. COMPARISON: CR XR SHOULDER RT COMPLETE 2+V from 01/21/2024 FINDINGS: Exam limited by under penetration and metallic densities related to the patient's bra. BONES: No acute fracture is present. No bony destructive lesion is seen. JOINTS: No dislocation present. SOFT TISSUE: Calcific tendinosis. IMPRESSION: Calcific tendinosis. DATA REPOSITORY: RADIATION DOSE DELIVERED:
--- NOTE | 2024-01-21 15:45 | DI.CT_ITS ---
Exam(s) CT THORACIC SPINE WO EXAM: CT THORACIC SPINE WO CLINICAL HISTORY: upper back pain s/p fall. TECHNIQUE: Imaging Protocol: Axial computed tomography images with coronal and sagittal reformatted images were created and reviewed. CONTRAST MATERIAL: Noncontrast COMPARISON: No exams were available for comparison FINDINGS: Bones: No fractures or dislocations are seen. Hardware noted in cervical spine. Degenerative disc changes throughout with flowing osteophytes. Facet degenerative changes. No centr al canal stenosis. Soft tissues: The soft tissues of the chest are unremarkable. No large disk herniations are identifie d. IMPRESSION: Degenerative changes. No evidence of fracture. RADIATION DOSE DELIVERED: Total [facility] DATA REPOSITORY: All CT scans at this facility are submitted to the National Radiology Data Registry (NRDR) Dose Index Registry (DIR) with the [employer] (A[employer]). RADIATION OPTIMIZATION: All CT scans at this facility use at least one of these dose optimization te chniques: automated exposure control; mA and/or kV adjustment per patient size (includes targeted exa ms where dose is matched to clinical indication); or iterative reconstruction.
--- NOTE | 2024-01-21 15:50 | ED.GENADUL_ITS ---
Discharge Plan Disposition Patient Disposition: Home Condition: Stable Discharge Details Clinical Impression: Contusion of upper back, Contusion of right shoulder, Contusion of left shoulder Primary Care Provider: Barb Whiting ED Provider: Jan Giraldo Home Meds and New Rx's Prescriptions: Continued omeprazole 40 mg capsule,delayed release(DR/EC) 40 mg PO DAILY acetaminophen 500 mg tablet 1,000 mg PO TID amlodipine 5 mg tablet 5 mg PO DAILY furosemide 80 mg tablet 80 mg PO DAILY fluticasone furoate-vilanterol [Breo Ellipta] 100-25 mcg/dose blister with device 1 inh inhalation DAILY insulin glargine [Lantus U-100 Insulin] 100 unit/mL solution 48 unit SUBCUT HS Patient Comments: 36units HS 09/07/23 levothyroxine 175 mcg capsule 175 mcg PO DAILY Ozempic 1 mg/dose (4 mg/3 mL) pen injector 1 mg subcut QWEEK potassium chloride 20 mEq Tablet Extended Release 20 meq PO QAM triamcinolone acetonide 0.5 % Ointment 1 applic topical TID quetiapine 25 mg Tablet 25 mg PO HS bupropion HCl 150 mg Tablet Sustained-Release 12 Hr 150 mg PO BID atorvastatin 80 mg Tablet 80 mg PO DAILY carvedilol 25 mg Tablet 25 mg PO BID ropinirole 1 mg Tablet 2 mg PO HS paroxetine HCl 20 mg Tablet 60 mg PO DAILY nystatin 100,000 unit/gram Cream 1 applic TOPICAL PRN PRN aspirin 81 mg Tablet,Chewable 81 mg PO DAILY oxybutynin chloride 5 mg Tablet 10 mg PO BID Novolin N FlexPen 100 unit/mL (3 mL) Insulin Pen See Protocol SUBCUT TID Protocol: Custom Insulin Infusion Condition: Hyperglycemia Protocol Text: a. Independent double checks of all calculations, solution preparations, and pump rates are required. b. Discontinue subcutaneous insulin and any oral anti-hyperglycemic agents while on insulin infusion. c. Use low sorbing tubing (Nitroglycerin tubing) and flush with 20ml insulin infusion solution. d. Inline filters should NOT be used. e. Change insulin infusion bag every 24 hours. Rx Instructions: SLIDING SCALE ferrous sulfate 324 mg (65 mg iron) Tablet,Delayed Release (Dr/Ec) 324 mg PO DAILY melatonin 10 mg Tablet 10 mg PO HS magnesium oxide 400 mg magnesium Tablet 400 mg PO HS albuterol sulfate 90 mcg/actuation HFA aerosol inhaler 2 puff INHALATION PRN PRN Patient Comments: INHALE 1 TO 2 PUFFS BY MOUTH EVERY 4 TO 6 HOURS NEEDED FOR WHEEZING OR SHORTNESS OF BREATH sulfamethoxazole-trimethoprim 800-160 mg tablet 1 tab PO BID topiramate 25 mg tablet 25 mg PO DAILY Discharge Instructions Additional Instructions: Your imaging did not show any concerning findings If your stomach pain in a week follow-up with your primary care provider If you feel more ill or have severe worsening pain or difficulty breathing return to the emergency department for reevaluation HPI General Mode of arrival: EMS . Date/Time Provider Initiated Documentation: 01/21/24 15:44 . Limitations to Documentation: no limitations . Information obtained by: patient . History of Present Illness 63 year old F presents to the emergency department with the chief complaint of upper back pain, described as moderate, Quality is described as aching, and is localized to the back. Patient started experiencing this hour(s) (1) and it has been constant. No relieving factors improve symptom(s), No exacerbating factors reported . Patient notes denies fever/chills. Patient did receive the following treatments prior to arrival, none Related Data Home Medications ?Medication ?Instructions ?Recorded ?Confirmed potassium chloride 20 mEq 20 meq PO QAM 08/12/18 01/21/24 tablet,extended release triamcinolone acetonide 0.5 % 1 applic topical TID 08/12/18 01/21/24 topical ointment aspirin 81 mg chewable tablet 81 mg PO DAILY 11/22/19 01/21/24 atorvastatin 80 mg tablet 80 mg PO DAILY 11/22/19 01/21/24 bupropion HCl 150 mg tablet,12 hr 150 mg PO BID 11/22/19 01/21/24 sustained-release carvedilol 25 mg tablet 25 mg PO BID 11/22/19 01/21/24 ferrous sulfate 324 mg (65 mg 324 mg PO DAILY 11/22/19 01/21/24 iron) tablet,delayed release insulin NPH isoph U-100 human 100 See Protocol subcut TID 11/22/19 01/21/24 unit/mL (3 mL) subcutaneous pen (Novolin N FlexPen) magnesium oxide 400 mg PO HS 11/22/19 01/21/24 melatonin 10 mg tablet 10 mg PO HS 11/22/19 01/21/24 nystatin 100,000 unit/gram topical 1 applic topical PRN PRN 11/22/19 01/21/24 cream oxybutynin chloride 5 mg tablet 10 mg PO BID 11/22/19 01/21/24 paroxetine HCl 20 mg tablet 60 mg PO DAILY 11/22/19 01/21/24 quetiapine 25 mg tablet 25 mg PO HS 11/22/19 01/21/24 ropinirole 1 mg tablet 2 mg PO HS 11/22/19 01/21/24 albuterol sulfate 90 mcg/actuation 2 puff inhalation PRN PRN 06/26/20 01/21/24 aerosol inhaler omeprazole 40 mg capsule,delayed 40 mg PO DAILY 09/01/21 01/21/24 release acetaminophen 500 mg tablet 1,000 mg PO TID 05/09/23 01/21/24 amlodipine 5 mg tablet 5 mg PO DAILY 08/16/23 01/21/24 fluticasone furoate 100 1 inh inhalation DAILY 08/16/23 01/21/24 mcg-vilanterol 25 mcg/dose inhalation powder (Breo Ellipta) furosemide 80 mg tablet 80 mg PO DAILY 08/16/23 01/21/24 insulin glargine 100 unit/mL 48 unit subcut HS 08/16/23 01/21/24 subcutaneous solution (Lantus U-100 Insulin) levothyroxine 175 mcg capsule 175 mcg PO DAILY 08/16/23 01/21/24 semaglutide 1 mg/dose (4 mg/3 mL) 1 mg subcut QWEEK 08/16/23 01/21/24 subcutaneous pen injector (Ozempic) sulfamethoxazole 800 1 tab PO BID 01/21/24 01/21/24 mg-trimethoprim 160 mg tablet topiramate 25 mg tablet 25 mg PO DAILY 01/21/24 01/21/24 Allergies Allergy/AdvReac Type Severity Reaction Status Date / Time latex Allergy Severe rash Verified 01/21/24 15:45 venom-wasp Allergy Severe Anaphylaxis Verified 01/21/24 15:45 coconut Allergy Unknown facial Verified 01/21/24 15:45 swelling bee pollen Allergy . Verified 01/21/24 15:45 bee venom protein (honey bee) AdvReac Unknown . Verified 01/21/24 15:45 celecoxib AdvReac Unknown suicidal Verified 01/21/24 15:45 ideation General Stated Complaint: Orthopedic GABBY: 3 Review of Systems All systems reviewed & are unremarkable except as noted in HPI and below Constitutional Constitutional: Denies chills, Denies fever(s) and Denies weakness Cardiovascular Cardiovascular: Denies chest pain and Denies dyspnea Respiratory Respiratory: Denies cough and Denies dyspnea Gastrointestinal Gastrointestinal: Denies abdominal pain, Denies nausea and Denies vomiting Musculoskeletal Musculoskeletal: Denies joint swelling Neurologic Neurologic: Denies weakness Exam Const General: no acute distress Orientation: alert HENUT Head: normal to inspection Ears: external ears normal General nose exam: external nose normal Mouth: moist mucous membranes Eyes General: appearance normal, both eyes and all related structures Neck Neck: normal visual inspection Resp Effort & Inspection: normal respiratory effort and able to speak in complete sentences Cardio Rate: regular rate Skin General skin exam: no rashes or lesions noted Neuro General: patient alert and patient oriented x3 Extrem General: full ROM and capillary refill normal Psych Mental Status: mental status grossly normal Course Vital Signs Vital signs: Vital Signs Temperature 36.5 C 01/21/24 15:40 Pulse 63 01/21/24 15:40 Respiratory Rate 18 01/21/24 15:40 Blood Pressure 149/66 H 01/21/24 15:40 Pulse Oximetry 95 01/21/24 15:40 Temperature 36.5 C 01/21/24 15:40 Temperature Source Temporal Artery Scan 01/21/24 15:40 Pulse 63 01/21/24 15:40 Respiratory Rate 18 01/21/24 15:40 Respiratory Effort Normal, Non-Labored 01/21/24 15:49 Blood Pressure 149/66 H 01/21/24 15:40 Blood Pressure Position Sitting 01/21/24 15:40 Pulse Oximetry 95 01/21/24 15:40 Oxygen Delivery Method Room Air 01/21/24 15:40 Oxygen Flow Rate 0 01/21/24 15:40 Pain Level 8 01/21/24 15:47 Medical Decision Making 63-year-old female with a history of neuropathy, diabetes, hyperlipidemia, who comes in after a fall. She says she was doing laundry and was reaching into the machine to get the laundry when she stood up and fell landing on her upper back on her walker. She denies hitting her head or loss of consciousness. She has upper back pain and bilateral shoulder pain. Denies any headache, neck pain, lower back pain, chest or abdomen pain. She is alert and oriented on arrival speaking clearly. She has no signs of trauma to the head. She has no midline C-spine tenderness she does have some upper thoracic spinal tenderness. No lumbar spinal tenderness, has full range of motion of both shoulders but has pain over both lateral aspects of the shoulders with intact distal sensation and pulses. Suspect contusion but given shoulder and upper back pain will obtain x- rays and a CT of her thoracic spine. She has no chest or abdomen tenderness so do not feel additional imaging indicated. Imaging unremarkable and patient is stable sitting up in bed in no distress. She has no new pain elsewhere. She is stable for discharge and will follow-up with her PCP as needed and return precautions given Differential Diagnosis Differential Diagnosis: fracture, contusion, Imaging Data Radiologic Study: Attestation: I personally reviewed and interpreted this imaging study as follows: Imaging: X-Ray Radiologist's impression: No acute findings on both shoulder x-rays Radiologic Study #2: Attestation: I personally reviewed and interpreted this imaging study as follows: Imaging: CT Scan Radiologist's impression: No acute findings on Thoracic CT Quality:SDOH Health Related Social Needs: No Data to Display PFSH All Active Problems (Updated 01/21/24 @ 17:43 by Jan Giraldo MD) Contusion of left shoulder (Acute) Contusion of right shoulder (Acute) Contusion of upper back (Acute) Fall (Acute) Laceration of right lower extremity (Acute) Hernia of anterior abdominal wall (Acute) Recurrent UTI (Acute) Mixed incontinence (Acute) CAD (coronary artery disease), chip[place] coronary artery (Acute) Hypothyroidism (acquired) (Acute) Diabetes type 2, controlled (Chronic) Urinary retention (Acute) Restless leg syndrome (Acute) Neuropathy (Acute) Depression (Chronic) Hyperlipidemia (Acute) Insomnia (Acute) Tobacco dependence due to cigarettes (Chronic) Chest pain (Acute) Altered mental status (Acute) Diabetes (Chronic) H/O cervical spine surgery (Acute) Urinary tract infection (Acute) Leukocytosis (Acute) CAD (coronary artery disease) (Chronic) Tobacco abuse (Acute) DVT prophylaxis (Acute) COPD exacerbation (Acute) Spondylitis, cervical (Acute) NSTEMI (non-ST elevated myocardial infarction) (Acute) HTN (hypertension) (Chronic) Medical History Dysuria Balance problem Tongue discoloration Diarrhea Anemia Bacteremia due to Gram-negative bacteria Acute UTI CAP (community acquired pneumonia) Morbid (severe) obesity due to excess calories Dehydration HCAP (healthcare-associated pneumonia) History of non-ST elevation myocardial infarction (NSTEMI) Nicotine dependence Urinary tract infection Acute pancreatitis Type 2 diabetes mellitus Adult hypothyroidism Benign neoplasm Acute on chronic diastolic (congestive) heart failure Localized edema Atherosclerotic heart disease of [place] coronary artery with angina pectoris Spondylosis of cervical spine COPD (chronic obstructive pulmonary disease) NSTEMI (non-ST elevated myocardial infarction) CAD (coronary artery disease) Surgical History History of tubal ligation (~1989) S/P spinal surgery (~2018) rods in neck, cervical fusion S/P PTCA (percutaneous transluminal coronary angioplasty) (~2017) History of Hx of laminectomy Social History Smoking/Tobacco Use Status: Current every day Tobacco Type: cigarettes Tobacco: How many years used: 48 Smoking risk assessment performed?: Yes Alcohol Intake: never Drug use: Occasionally Substance use type: marijuana Housing: house Do you feel safe at home: Yes Do you feel safe in your relationship?: Yes Additional Social history: unable to assess privately
[2024-01-21] MEDS: Acetaminophen 500 MG TAB 1000 MG PO (15:55)
--- OUTSIDE RECORDS SUMMARY | 2024-01-21 16:12 | XMS_ITS | Encounter Summary ---
Author Organization [facility] Address [address] [place] [address] Care Team Providers Care Balloon Maker Name Role Phone Shaunna Bonilla MD Primary Care Provider [phone] Encounter Details Date Type Department Care Team (Late st Contact Info) Description 08/16/2022 Lab Requisition [facility] Pathology & Laboratory Medicine - [address] [address] Radha Fonseca FNP [address] [place], [place] [id number] Social History Tobacco Use Types Packs/Day Years [...] Escherichia coli(A) VITEK SUSCEPTIBILITY 08/18/2022 9:38 EDT [facility] Comment: Use of cefazolin [...] only cefpodoxime and cephalexin are on the [facility] inpatient formulary. ? Organism (organism) URINE [...] VITEK SUSCEPTIBILITY >=320 ug/mL: Resistant Radha Marian IMPROVEMENT ENGINEER MICROBIOLOGY - GENER AL ORDERABLES [facility] [address] [place] [address] documented in this encounter Visit Diagnoses Not on filedocumented in this encounter Care Teams Balloon Maker Relationship Specialty Start Date End Date Shaunna Bonilla MD [address] [place] [phone] PCP - General 03/29/13 documented as of this encounter
--- OUTSIDE RECORDS SUMMARY | 2024-01-21 16:12 | XMS_ITS | Encounter Summary ---
Author Organization [facility] Address [address] [place] [address] Care Team Providers Care Humanities Department Chair Name Role Phone Shaunna Bonilla MD Primary Care Provider [phone] Encounter Details Date Type Department Care Team (Late st Contact Info) Description 12/02/2015 Results Only [facility] [phone] Yulissa Zarate W, MIDDLE SCHOOL TUTOR [address] [place] [address] Social History Tobacco Use Types Packs/Day Years [...] ? BAILEY CARY ? Accession #: ? [id number] ? : ? 1960 (Age: 55) ??F ?Collect Date: ? 12/02/2015 ? Location: ? [facility] ? Receive Date: ? 12/03/2015 ? Provider: YULISSA ZARATE MIDDLE SCHOOL TUTOR Copy to: ? Final Report SPECIMEN ADEQUACY [...] types 16,18,31,33,35, 39,45,51,52,56,58, 59,66, and 68 by shrub planter mediated amplification. Comments Document reviewed and electronically signed by: ? System Interface ? Report date: 12/17/2015 By the signature above, the attending physician certifies that he/she has personally conducted a gross and/or microscopic examination of the described specimens and rendered or confirmed the above diagnosis. End of Report [facility] 12/02/2015 12/03/2015 Yulissa Zarate APRN PATHOLOGY ORDERABLES [facility] [address] [place] [address] documented in this encounter Visit Diagnoses Not on filedocumented in this encounter Care Teams Humanities Department Chair Relationship Specialty Start Date End Date Shaunna Bonilla MD [address] [place] [phone] PCP - General 03/29/13 documented as of this encounter
--- OUTSIDE RECORDS SUMMARY | 2024-01-21 16:12 | XMS_ITS | Clinical Summary ---
Author Organization [facility] Address [address] [place] [address] Care Team Providers Care Compensation Associate Name Role Phone Shaunna Bonilla MD Primary Care Provider [phone] Social History Tobacco Use Types Packs/Day Years [...] COVID-19 Vaccine (2022-24 season) 2023 Care Teams Compensation Associate Relationship Specialty Start Date End Date Shaunna Bonilla MD [address] [place] [phone] PCP - General 03/29/13
--- OUTSIDE RECORDS SUMMARY | 2024-01-21 16:12 | XMS_ITS | Encounter Summary ---
Author Organization Health system Address [address] [place] [address] Care Team Providers Care Flea Market Seller Name Role Phone Unavailable Primary Care Provider Unavailabl e Encounter Details Date Type Department Care Team (Latest Contact Info) Description 03/22/2013 11:41 EDT - 03/22/2013 23:59 EDT Hospital Encounter [address] [address] Unknown, Provider, Discharge Disposition: Home or Self Care Social History Tobacco Use Types Packs/Day Years Used Date Smoking Tobacco: Never Assessed Sex and Gender Information Value Date Recorded Sex Assigned at Not on file Gender Identity Not on file Sexual Orientation Not on file documented as of this encounter Discharge Disposition Disposition Code Departure Means Destination Home or Self Correction documented in this encounter Plan of Treatment Not on file documented as of this encounter Visit Diagnoses Not on filedocumented in this encounter
--- OUTSIDE RECORDS SUMMARY | 2024-01-21 16:12 | XMS_ITS | Encounter Summary ---
Author Organization [facility] Address [address] [place] [address] Care Team Providers Care Medical Concierge Name Role Phone Shaunna Bonilla MD Primary Care Provider [phone] Encounter Details Date Type Department Care Team (Late st Contact Info) Description 11/22/2019 Lab Requisition [facility] Pathology & Laboratory Medicine - [address] [address] Outr Resulting Lab, Provider Social History Tobacco [...] Outr Resulting Lab MICROBIOLOGY - GENERAL ORDERABLES [facility] [address] [place] [address] * COVID-19 TESTING (11/22/2019 20:55 EDT) COVID-19 rt-PCR Result Negative Negative 11/24/2019 11:55 EDT [facility] Comment: This test has not [...] history, and epidemiological information. Performed on the Qazzowher Fusion instrument Performing Lab [place] [facility] Lab 11/24/2019 11:55 EDT [facility] Swab 11/22/2019 20:5 5 EDT 11/23/2019 22:56 EDT Provider Outr Resulting Lab MICROBIOLOGY - GENERAL ORDERABLES [facility] [address] [place] [address] documented in this encounter Visit Diagnoses Not on filedocumented in this encounter Care Teams Medical Concierge Relationship Specialty Start Date End Date Shaunna Bonilla MD [address] [place] [phone] PCP - General 03/29/13 documented as of this encounter
--- OUTSIDE RECORDS SUMMARY | 2024-01-21 16:12 | XMS_ITS | Encounter Summary ---
Author Organization [facility] Address [address] [place] [address] Care Team Providers Care Education Managers Name Role Phone Shaunna Bonilla MD Primary Care Provider [phone] Encounter Details Date Type Department Care Team (Latest Contact Info) Description 09/26/2016 6:06 EDT - 09/26/2016 23:59 EDT Hospital Encounter [facility] [address] [place] [address] Unknown, Provider, Discharge Disposition: Home or Self Care Social History Tobacco Use Types Packs/Day Years Used Date Smoking Tobacco: Never Assessed Sex and Gender Information Value Date Recorded Sex Assigned at Not on file Gender Identity Not on file Sexual Orientation Not on file documented as of this encounter Discharge Disposition Disposition Code Departure Means Destination Home or Self Group Home documented in this encounter Plan of Treatment Not on file documented as of this encounter Visit Diagnoses Not on filedocumented in this encounter Care Teams Education Managers Relationship Specialty Start Date End Date Shaunna Bonilla MD [address] [place] [phone] PCP - General 03/29/13 documented as of this encounter
--- OUTSIDE RECORDS SUMMARY | 2024-01-21 16:12 | XMS_ITS | Encounter Summary ---
Author Organization [facility] Address [address] [place] [address] Care Team Providers Care Mobile Sales Assistant Name Role Phone Shaunna Bonilla MD Primary Care Provider [phone] Encounter Details Date Type Department Care Team (Late st Contact Info) Description 09/26/2016 Results Only [facility] [phone] Gayatri Ramey MD [address] [place] [address] Social History Tobacco Use Types Packs/Day Years [...] ? BAILEY CARY ? Accession #: ? [id number] ? : ? 1960 (Age: 56) ??F [...] (ASCP) 09/27/2016 9:47 AM End of Report [facility] 09/26/2016 9:18 EDT 09/27/2016 9:18 EDT Gayatri Ramey MD PATHOLOGY ORDERABLES [facility] [address] [place] [address] documented in this encounter Visit Diagnoses Not on filedocumented in this encounter Care Teams Mobile Sales Assistant Relationship Specialty Start Date End Date Shaunna Bonilla MD [address] [place] [phone] PCP - General 03/29/13 documented as of this encounter
--- OUTSIDE RECORDS SUMMARY | 2024-01-21 16:12 | XMS_ITS | Encounter Summary ---
Author Organization [facility] Address [address] [place] [address] Care Team Providers Care Fixed Wing Aircraft Flight Mechanic Name Role Phone Unknown, Provider Primary Care Provider [phone] Encounter Details Date Type Department Care Team (Late st Contact Info) Description 03/22/2013 Results Only [facility] Laboratory Services - [facility] [address] [place], [place] [address] Igor Dennison, DO [address] [place] [address] Social History Tobacco Use Types Packs/Day Years [...] ? BAILEY CARY ? Accession #: ? [id number] ? : ? 1960 (Age: 52) ??F [...] ANTIBODY(CLONE)(BLOCK) :RESULT H pylori (Rabbit Monoclonal (SP48), [place]) (A1): negative H pylori (Rabbit Monoclonal (SP48), [place]) (B1): negative NOTE: ??One or more of [...] reagents' performance characteristics have been determined by [facility]. ??The positive and negative controls worked [...] Dennison DO PATHOLOGY ORDERABLES Performing Organization Address City/State/[facility] Co de Phone Number MODESTO RODRIGUEZ [address] [place] [address] documented in this encounter Visit Diagnoses Not on filedocumented in this encounter Care Teams Fixed Wing Aircraft Flight Mechanic Relationship Specialty Start Date End Date Unknown, Provider, PCP - General 03/25/13 03/28/13 documented as of this encounter
--- OUTSIDE RECORDS SUMMARY | 2024-01-21 16:12 | XMS_ITS | Referral Summary ---
Author Organization [facility] Address [address] [place] [address] Care Team Providers Care Coding Technician Name Role Phone Shaunna Bonilla MD Primary Care Provider [phone] Social History Tobacco Use Types Packs/Day Years Used Date Smoking Tobacco: Never Assessed Sex and Gender Information Value Date Recorded Sex Assigned at Not on file Gender Identity Not on file Sexual Orientation Not on file Plan of Treatment Not on file Care Teams Coding Technician Relationship Specialty Start Date End Date Shaunna Bonilla MD [address] [place] [phone] PCP - General 03/29/13
--- OUTSIDE RECORDS SUMMARY | 2024-01-21 16:12 | XMS_ITS | Encounter Summary ---
Author Organization [facility] Address [address] [place] [address] Care Team Providers Care Neuropsychology Division Chief Name Role Phone Shaunna Bonilla MD Primary Care Provider [phone] Encounter Details Date Type Department Care Team (Late st Contact Info) Description 11/24/2019 Lab Requisition [facility] Pathology & Laboratory Medicine - [address] [address] Outr Resulting Lab, Provider Social History Tobacco [...] on filedocumented in this encounter Care Teams Neuropsychology Division Chief Relationship Specialty Start Date End Date Shaunna Bonilla MD [address] [place] [phone] PCP - General 03/29/13 documented as of this encounter
--- NOTE | 2024-01-21 17:42 | DI.VRAD_ITS ---
PROCEDURE INFORMATION: Exam: CT Thoracic Spine Without Contrast Exam date and time: 01/21/2024 4:27 PM Age: 63 years old Clinical indication: Other: Upper back pain S/P fall TECHNIQUE: Imaging protocol: Computed tomography of the thoracic spine without contrast. Radiation optimization: All CT scans at this facility use at least one of these dose optimization techniques: automated exposure control; mA and/or kV adjustment per patient size (includes targeted exams where dose is matched to clinical indication); or iterative reconstruction. COMPARISON: CT HEAD CERVICAL SPINE WO 01/19/2024 5:35 AM FINDINGS: Bones/joints: Posterolateral lower cervical and upper thoracic spine fusion hardware (C4 through T1). Normal spinal alignment. No acute fractures. Multilevel degenerative spondylosis changes. Soft tissues: Unremarkable. IMPRESSION: No acute findings. Dictated and Authenticated by: Dylan Albert MD. Ordering:HUDSON Montoya MD
--- NOTE | 2024-01-21 17:42 | DI.VRAD_ITS ---
PROCEDURE INFORMATION: Exam: XR Left Shoulder Exam date and time: 01/21/2024 4:19 PM Age: 63 years old Clinical indication: Shoulder; Left; Patient HX: Pain S/P fall TECHNIQUE: Imaging protocol: Radiologic exam of the left shoulder. Views: 2 or more views. COMPARISON: CT HEAD CERVICAL SPINE WO 01/19/2024 5:35 AM FINDINGS: Bones/joints: No dislocation or fracture. Degenerative changes of the glenohumeral and acromioclavicular joints. Soft tissues: Calcific deposit in the soft tissues adjacent to the humeral head. IMPRESSION: 1. No acute findings. 2. Rotator cuff calcific tendinitis. Dictated and Authenticated by: Dylan Albert MD. Ordering:HUDSON Montoya MD
--- NOTE | 2024-01-21 17:42 | DI.VRAD_ITS ---
PROCEDURE INFORMATION: Exam: XR Right Shoulder Exam date and time: 01/21/2024 4:12 PM Age: 63 years old Clinical indication: Shoulder; Right; Patient HX: Pain S/P fall TECHNIQUE: Imaging protocol: Radiologic exam of the right shoulder. Views: 2 or more views. COMPARISON: CT HEAD CERVICAL SPINE WO 01/19/2024 5:35 AM FINDINGS: Bones/joints: No dislocation or fracture. Degenerative changes of the acromioclavicular joint. Soft tissues: Normal. IMPRESSION: No acute findings. Dictated and Authenticated by: Dylan Albert MD. Ordering:HUDSON Montoya MD
[2024-01-21 17:50] VITALS: PULSE 65; RESP 18; O2SAT 97
== END 2024-01-21 17:52 | disposition home or self-care (01) ==
PROVIDERS: Emergency Provider Emergency Medicine; PCP Nurse Practitioner Family
DX: S20.222A Contusion of left back wall of thorax, initial encounter (principal); S40.012A Contusion of left shoulder, initial encounter; S40.011A Contusion of right shoulder, initial encounter; I25.119 Atherosclerotic heart disease of native coronary artery with unspecified angina pectoris; I25.2 Old myocardial infarction; E11.40 Type 2 diabetes mellitus with diabetic neuropathy, unspecified; J44.9 Chronic obstructive pulmonary disease, unspecified; E78.5 Hyperlipidemia, unspecified; Z79.82 Long term (current) use of aspirin; Z79.4 Long term (current) use of insulin; Z79.84 Long term (current) use of oral hypoglycemic drugs; Z79.85 Long-term (current) use of injectable non-insulin antidiabetic drugs; F17.210 Nicotine dependence, cigarettes, uncomplicated; W18.39XA Other fall on same level, initial encounter; Y93.E2 Activity, laundry; Y92.018 Other place in single-family (private) house as the place of occurrence of the external cause
CPT/HCPCS: 99284; 72128; 73030; 99283

== ENCOUNTER 2024-04-30 16:45 | Emergency (ER) | payer MEDICARE, MEDICAID, SELFPAY ==
[2024-04-30] VITALS (10 sets, daily range): BP systolic 125–186; BP diastolic 63–91; PULSE 50–67; RESP 16; TEMP 36.4; O2SAT 93–96
--- NOTE | 2024-04-30 17:00 | RT.EKG_ITS ---
APPROVED REPORT Exam: Resting ECG Reason for Exam: Weakness Patient Location: E HR:53 bpm ECG Measurements Heart Rate 53 AXIS [place] 212 P -12 QRSd 100 QRS -17 QT 427 T 91 QTc 402 Conclusion ken 53 normal axis flat t waves no stemi
--- NOTE | 2024-04-30 17:20 | ED.GENADUL_ITS ---
Discharge Plan Disposition Patient Disposition: Home Condition: Stable Discharge Details Clinical Impression: UTI (urinary tract infection), Weakness Primary Care Provider: Barb Whiting ED Provider: Rain Brown Home Meds and New Rx's Prescriptions: New cephalexin 500 mg tablet 500 mg PO BID 10 Days Qty: 20 0RF Continued pregabalin 100 mg capsule 100 mg PO TID omeprazole 40 mg capsule,delayed release(DR/EC) 40 mg PO DAILY acetaminophen 500 mg tablet 1,000 mg PO TID amlodipine 5 mg tablet 5 mg PO DAILY furosemide 80 mg tablet 80 mg PO DAILY insulin glargine [Lantus U-100 Insulin] 100 unit/mL solution 48 unit SUBCUT HS Patient Comments: 36units HS 09/07/23 levothyroxine 175 mcg capsule 175 mcg PO DAILY Ozempic 1 mg/dose (4 mg/3 mL) pen injector 1 mg subcut QWEEK potassium chloride 20 mEq Tablet Extended Release 20 meq PO QAM quetiapine 25 mg Tablet 25 mg PO HS bupropion HCl 150 mg Tablet Sustained-Release 12 Hr 150 mg PO BID atorvastatin 80 mg Tablet 80 mg PO DAILY carvedilol 25 mg Tablet 25 mg PO BID ropinirole 1 mg Tablet 2 mg PO HS paroxetine HCl 20 mg Tablet 60 mg PO DAILY aspirin 81 mg Tablet,Chewable 81 mg PO DAILY oxybutynin chloride 5 mg Tablet 10 mg PO BID Novolin N FlexPen 100 unit/mL (3 mL) Insulin Pen See Protocol SUBCUT TID Protocol: Custom Insulin Infusion Condition: Hyperglycemia Protocol Text: a. Independent double checks of all calculations, solution preparations, and pump rates are required. b. Discontinue subcutaneous insulin and any oral anti-hyperglycemic agents while on insulin infusion. c. Use low sorbing tubing (Nitroglycerin tubing) and flush with 20ml insulin infusion solution. d. Inline filters should NOT be used. e. Change insulin infusion bag every 24 hours. Rx Instructions: SLIDING SCALE ferrous sulfate 324 mg (65 mg iron) Tablet,Delayed Release (Dr/Ec) 324 mg PO DAILY magnesium oxide 400 mg magnesium Tablet 400 mg PO HS estradiol [Estrace] 0.01 % (0.1 mg/gram) cream 1 g vaginal .3xweek budesonide-formoterol [Symbicort] 80-4.5 mcg/actuation HFA aerosol inhaler 2 inh inhalation DAILY albuterol sulfate 90 mcg/actuation HFA aerosol inhaler 2 puff INHALATION PRN PRN Patient Comments: INHALE 1 TO 2 PUFFS BY MOUTH EVERY 4 TO 6 HOURS NEEDED FOR WHEEZING OR SHORTNESS OF BREATH Discharge Instructions Instructions: Urinary Tract Infection, Adult ED, Weakness ED Additional Instructions: At this time it appears you may be dehydrated and you do have a urinary tract infection. Please increase oral fluids. Take the antibiotic twice daily with yogurt or probiotic for the next 10 days. You were given the first dose here in the department and 2 tablets to go. The rest of the prescription was sent to the pharmacy on file. Follow up with primary care provider in 3-5 days. Return to ED sooner if any worsening weakness, fever or concerns. Referrals: Barb Whiting [Primary Care Provider] - 5 days HPI General Mode of arrival: EMS . Date/Time Provider Initiated Documentation: 04/30/24 16:47 . Limitations to Documentation: no limitations . Information obtained by: patient, family, RN notes reviewed and old records reviewed . HPI Narrative: 63-year-old female presents to the ER via EMS chief complaint of generalized weakness and possible UTI. Patient is here with family who states that they saw her yesterday and she was up and drinking coffee been her normal self and today began with a complete change. Noted dry mucous membranes and generalized weakness. Patient states that she fell yesterday getting into the transport van landing on her left knee. She denies any chest pain shortness of breath or c ough, denies any nausea vomiting diarrhea. She does have a past medical history of coronary artery disease, NSTEMI COPD, CHF, type 2 diabetes, hypothyroidism, morbid obesity. Patient lives at home with 24 hour caregivers who are here with her. Related Data Home Medications ?Medication ?Instructions ?Recorded ?Confirmed potassium chloride 20 mEq 20 meq PO QAM 08/12/18 04/30/24 tablet,extended release aspirin 81 mg chewable tablet 81 mg PO DAILY 11/22/19 04/30/24 atorvastatin 80 mg tablet 80 mg PO DAILY 11/22/19 04/30/24 bupropion HCl 150 mg tablet,12 hr 150 mg PO BID 11/22/19 04/30/24 sustained-release carvedilol 25 mg tablet 25 mg PO BID 11/22/19 04/30/24 ferrous sulfate 324 mg (65 mg 324 mg PO DAILY 11/22/19 04/30/24 iron) tablet,delayed release insulin NPH isoph U-100 human 100 See Protocol subcut TID 11/22/19 04/30/24 unit/mL (3 mL) subcutaneous pen (Novolin N FlexPen) magnesium oxide 400 mg PO HS 11/22/19 04/30/24 oxybutynin chloride 5 mg tablet 10 mg PO BID 11/22/19 04/30/24 paroxetine HCl 20 mg tablet 60 mg PO DAILY 11/22/19 04/30/24 quetiapine 25 mg tablet 25 mg PO HS 11/22/19 04/30/24 ropinirole 1 mg tablet 2 mg PO HS 11/22/19 04/30/24 albuterol sulfate 90 mcg/actuation 2 puff inhalation PRN PRN 06/26/20 04/30/24 aerosol inhaler omeprazole 40 mg capsule,delayed 40 mg PO DAILY 09/01/21 04/30/24 release acetaminophen 500 mg tablet 1,000 mg PO TID 05/09/23 04/30/24 amlodipine 5 mg tablet 5 mg PO DAILY 08/16/23 04/30/24 furosemide 80 mg tablet 80 mg PO DAILY 08/16/23 04/30/24 insulin glargine 100 unit/mL 48 unit subcut HS 08/16/23 04/30/24 subcutaneous solution (Lantus U-100 Insulin) levothyroxine 175 mcg capsule 175 mcg PO DAILY 08/16/23 04/30/24 semaglutide 1 mg/dose (4 mg/3 mL) 1 mg subcut QWEEK 08/16/23 04/30/24 subcutaneous pen injector (Ozempic) pregabalin 100 mg capsule 100 mg PO TID 04/18/24 04/30/24 budesonide-formoterol HFA 80 2 inh inhalation DAILY 04/30/24 04/30/24 mcg-4.5 mcg/actuation aerosol inhaler (Symbicort) cephalexin 500 mg tablet 500 mg PO BID 10 days #20 tabs 04/30/24 estradiol 0.01% (0.1 mg/gram) 1 g vaginal .3xweek 04/30/24 04/30/24 vaginal cream (Estrace) Previous Rx's ?Medication ?Instructions ?Recorded cephalexin 500 mg tablet 500 mg PO BID 10 days #20 tabs 04/30/24 Allergies Allergy/AdvReac Type Severity Reaction Status Date / Time latex Allergy Severe rash Verified 04/30/24 16:53 venom-wasp Allergy Severe Anaphylaxis Verified 04/30/24 16:53 coconut Allergy Unknown facial Verified 04/30/24 16:53 swelling bee pollen Allergy . Verified 04/30/24 16:53 metformin Allergy Unknown Verified 04/30/24 16:53 bee venom protein (honey bee) AdvReac Unknown . Verified 04/30/24 16:53 celecoxib AdvReac Unknown suicidal Verified 04/30/24 16:53 ideation General Stated Complaint: Urinary GABBY: 3 Review of Systems All systems reviewed & are unremarkable except as noted in HPI and below Constitutional Constitutional: Reports as per HPI, Reports fatigue and Reports weakness Neurologic Neurologic: Reports weakness Endocrine Endocrine: Reports fatigue Exam Narrative Exam Narrative: Constitutional: Alert and oriented x3. Appears older than stated age. She is alert and oriented x 3, she does have dry mucous membranes, she does appear chronically ill. Obese body habitus. Head: Normocephalic, no trauma. Eyes: Pupils PERRL, Red reflex noted, EOM's intact. Eyelids symmetrical without lesions, discharge, or swelling. ENT: Bilateral TM's WNL, External ear normal to inspection, no mastoid TTP, swelling, or erythema, Nasal turbinates WNL, no nasal discharge. Normal dentition, Posterior pharynx WNL, no exudate. Chest: RRR, Normal S1, S2, distal pulses intact. Resp: Lungs diminished to auscultation bilaterally, no wheezes, rales, or rhonchi. Abdomen: Soft, non-distended, Normoactive bowel sounds all 4 quads. Musculoskeletal: Unable to assess gait, does appear to have chronic peripheral vascular disease to the bilateral lower extremities. Skin: No suspicious rashes or lesions. Capillary refill less than 2 sec. Neurologic: Cranial nerves II-XII intact. Alert and oriented x 3. Motor: No deficits noted. Sensory: Intact bilaterally all 4 extremities. Hematologic/Lymphatic: No ecchymosis, no lymphadenopathy. Course Vital Signs Vital signs: Vital Signs Temperature 36.4 C L 04/30/24 16:46 Pulse 50 L 04/30/24 16:46 Respiratory Rate 16 04/30/24 16:46 Blood Pressure 125/79 12/03/24 16:46 Pulse Oximetry 95 12/03/24 16:46 Temperature 36.4 C L 04/30/24 16:46 Temperature Source Oral 04/30/24 16:46 Pulse 50 L 04/30/24 16:46 Respiratory Rate 16 04/30/24 16:46 Respiratory Effort Normal, Non-Labored 04/30/24 16:53 Blood Pressure 125/79 04/30/24 16:46 Pulse Oximetry 95 04/30/24 16:46 Oxygen Delivery Method Room Air 04/30/24 16:46 Oxygen Flow Rate 0 04/30/24 16:46 Pain Level 8 04/30/24 16:55 Comment pain low mid abd 04/30/24 16:46 Medical Decision Making 63-year-old female presents to the ER via EMS chief complaint of generalized weakness and possible UTI. Patient is here with family who states that they saw her yesterday and she was up and drinking coffee been her normal self and today began with a complete change. Noted dry mucous membranes and generalized weakness. Patient states that she fell yesterday getting into the transport van landing on her left knee. She denies any chest pain shortness of breath or cough, denies any nausea vomiting diarrhea. She does have a past medical history of coronary artery disease, NSTEMI COPD, CHF, type 2 diabetes, hypothyroidism, morbid obesity. Patient lives at home with 24 hour caregivers who are here with her. Workup ordered including CBC CMP, troponin EKG chest x-ray and urinalysis. CBC shows no leukocytosis, CMP shows sodium 142 potassium 4.6 BUN 33 creatinine 1.9 GFR is significantly lower at 29.3 however her creatinine usually runs around 1.2. Troponin within normal limits, urinalysis shows positive nitrates moderate leukocytes. Chest x-ray is at patient's baseline. Will give cephalexin 500 mg p.o. here in the department. Discharged with cephalexin given 2 tablets to go. Discussed home care with family who verbalized understanding. Patient discharged in hemodynamically stable condition. This text was generated using Trends[employer]ide[employer] system, please disregard any oddities of phrase or misspellings. Medical Records Medical records reviewed: Yes I reviewed the patient's medical records. Lab Data Lab results reviewed: Yes I reviewed the patient's lab results. Labs: 04/30/24 18:15 Urine - Reflex from Ua Urine Culture - Pending Laboratory Tests Range/Units 04/30/24 04/30/24 04/30/24 17:03 17:22 18:04 WBC (4.4-10.8) 10^3/uL 6.25 RBC (3.93-5.22) 10^6/uL 4.25 Hgb (11.2-15.7) g/dL 12.8 Hct (36.0-46.0) % 39.8 MCV (80-95) fL 94 MCH (27.0-33.0) pg 30.1 MCHC (32.0-36.0) % 32.2 RDW (11.7-14.6) % 12.8 Plt Count (130-400) 10^3/uL 157 MPV (8.0-11.0) fL 10.1 Immature Gran % % 0.2 Neutrophils % % 67.2 Lymphocytes % % 21.9 Monocytes % % 8.3 Eosinophils % % 2.1 Basophils % % 0.3 Nucleated RBC % (0.0-0.3) % 0.0 Absolute Neutrophils (1.2-6.7) 10^3/uL 4.20 Absolute Lymphocytes (1.2-3.4) 10^3/uL 1.37 Absolute Monocytes (0.1-0.8) 10^3/uL 0.52 Absolute Eosinophils (0.0-0.7) 10^3/uL 0.13 Absolute Basophils (0.0-0.2) 10^3/uL 0.02 Sodium (136-145) mmol/L 142 Potassium (3.5-5.1) mmol/L 4.6 Chloride (98-107) mmol/L 106 Carbon Dioxide (21.0-32.0) mmol/L 28.1 Anion Gap (3-11) mmol/L 7.9 BUN (7-18) mg/dL 33 H Creatinine (0.55-1.02) mg/dL 1.9 H Est GFR (CKD-EPI 2020) (mL/min/1.73m2) 29.30 Glucose (74-106) mg/dL 98 Calcium (8.5-10.1) mg/dL 8.9 Total Bilirubin (0.2-1.0) mg/dL 0.77 AST (15-37) U/L 20 ALT (14-59) U/L 32 Alkaline Phosphatase (46-116) U/L 127 H Troponin I (<or=51) ng/L < 4 Cancelled NT-Pro-B Natriuret Pep (<300) pg/mL 29 Total Protein (6.4-8.2) g/dL 7.6 Albumin (3.4-5.0) g/dL 3.3 L Urine Color (Yellow) Urine Clarity (Clear) Urine pH (5-8) Ur Specific [employer] (1.005-1.025) Urine Protein (Neg-Trace) mg/dL Urine Ketones (Negative) mg/dL Urine Blood (Negative) Urine Nitrite (Negative) Urine Bilirubin (Negative) Urine Urobilinogen (Up to 0.2) mg/dL Ur Leukocyte Esterase (Negative) Urine RBC (0-2) HPF Urine WBC (0-5) HPF Ur Epithelial Cells (Negative) HPF Urine Crystals (Negative) HPF Urine Bacteria (Negative) HPF Urine Casts (Negative) LPF Urine Mucus (Negative) Urine Other (Negative) Ur Culture Indicated? Urine Glucose (Negative) mg/dL Range/Units 04/30/24 18:15 WBC (4.4-10.8) 10^3/uL RBC (3.93-5.22) 10^6/uL Hgb (11.2-15.7) g/dL Hct (36.0-46.0) % MCV (80-95) fL MCH (27.0-33.0) pg MCHC (32.0-36.0) % RDW (11.7-14.6) % Plt Count (130-400) 10^3/uL MPV (8.0-11.0) fL Immature Gran % % Neutrophils % % Lymphocytes % % Monocytes % % Eosinophils % % Basophils % % Nucleated RBC % (0.0-0.3) % Absolute Neutrophils (1.2-6.7) 10^3/uL Absolute Lymphocytes (1.2-3.4) 10^3/uL Absolute Monocytes (0.1-0.8) 10^3/uL Absolute Eosinophils (0.0-0.7) 10^3/uL Absolute Basophils (0.0-0.2) 10^3/uL Sodium (136-145) mmol/L Potassium (3.5-5.1) mmol/L Chloride (98-107) mmol/L Carbon Dioxide (21.0-32.0) mmol/L Anion Gap (3-11) mmol/L BUN (7-18) mg/dL Creatinine (0.55-1.02) mg/dL Est GFR (CKD-EPI 2020) (mL/min/1.73m2) Glucose (74-106) mg/dL Calcium (8.5-10.1) mg/dL Total Bilirubin (0.2-1.0) mg/dL AST (15-37) U/L ALT (14-59) U/L Alkaline Phosphatase (46-116) U/L Troponin I (<or=51) ng/L NT-Pro-B Natriuret Pep (<300) pg/mL Total Protein (6.4-8.2) g/dL Albumin (3.4-5.0) g/dL Urine Color (Yellow) Yellow Urine Clarity (Clear) Sl Cloudy Urine pH (5-8) 6.[address] [employer] (1.005-1.025) 1.010 Urine Protein (Neg-Trace) mg/dL Negative Urine Ketones (Negative) mg/dL Negative Urine Blood (Negative) Trace-intact H Urine Nitrite (Negative) Positive H Urine Bilirubin (Negative) Negative Urine Urobilinogen (Up to 0.2) mg/dL 0.2 Ur Leukocyte Esterase (Negative) Moderate H Urine RBC (0-2) HPF 5-10 H Urine WBC (0-5) HPF >50 H Ur Epithelial Cells (Negative) HPF Negative Urine Crystals (Negative) HPF Negative Urine Bacteria (Negative) HPF Many Urine Casts (Negative) LPF Negative Urine Mucus (Negative) Negative Urine Other (Negative) Rare Renal Ur Culture Indicated? Yes Urine Glucose (Negative) mg/dL Negative Quality:[facility] Health Related Social Needs: No Data to Display PFSH All Active Problems (Updated 04/30/24 @ 18:58 by Rain Brown NP) Weakness (Acute) UTI (urinary tract infection) (Acute) Folic acid deficiency (Acute) Viral wart on toe (Acute) Peripheral neuropathy (Acute) CKD (chronic kidney disease) stage 3, GFR 30-59 ml/min (Acute) Hernia of anterior abdominal wall (Acute) Recurrent UTI (Acute) Mixed incontinence (Acute) CAD (coronary artery disease), [place] coronary artery (Acute) Hypothyroidism (acquired) (Acute) Diabetes type 2, controlled (Chronic) Urinary retention (Acute) Restless leg syndrome (Acute) Neuropathy (Acute) Depression (Chronic) Hyperlipidemia (Acute) Insomnia (Acute) Tobacco dependence due to cigarettes (Chronic) Chest pain (Acute) Altered mental status (Acute) Diabetes (Chronic) H/O cervical spine surgery (Acute) Urinary tract infection (Acute) Leukocytosis (Acute) CAD (coronary artery disease) (Chronic) Tobacco abuse (Acute) DVT prophylaxis (Acute) COPD exacerbation (Acute) Spondylitis, cervical (Acute) NSTEMI (non-ST elevated myocardial infarction) (Acute) HTN (hypertension) (Chronic) Medical History Chronic diarrhea Dysuria Balance problem Tongue discoloration Diarrhea Anemia Bacteremia due to Gram-negative bacteria Acute UTI CAP (community acquired pneumonia) Morbid (severe) obesity due to excess calories Dehydration HCAP (healthcare-associated pneumonia) History of non-ST elevation myocardial infarction (NSTEMI) Nicotine dependence Urinary tract infection Acute pancreatitis Type 2 diabetes mellitus Adult hypothyroidism Benign neoplasm Acute on chronic diastolic (congestive) heart failure Localized edema Atherosclerotic heart disease of [place] coronary artery with angina pectoris Spondylosis of cervical spine COPD (chronic obstructive pulmonary disease) NSTEMI (non-ST elevated myocardial infarction) CAD (coronary artery disease) Surgical History History of tubal ligation (~1989) S/P spinal surgery (~2018) rods in neck, cervical fusion S/P PTCA (percutaneous transluminal coronary angioplasty) (~2017) History of Hx of laminectomy Social History Smoking/Tobacco Use Status: Current every day Tobacco Type: cigarettes Tobacco: How many years used: 48 Smoking risk assessment performed?: Yes Alcohol Intake: never Drug use: Occasionally Substance use type: marijuana Housing: house Do you feel safe at home: Yes Do you feel safe in your relationship?: Yes Additional Social history: unable to assess privately
[2024-04-30 17:37] LABS: Abs Immature Grans 0.01 10^3/uL (0.0-0.06); Absolute Basophil Count 0.02 10^3/uL (0.0-0.2); Absolute Eosinophil Count 0.13 10^3/uL (0.0-0.7); Absolute Lymphocyte Count 1.37 10^3/uL (1.2-3.4); Absolute Monocyte Count 0.52 10^3/uL (0.1-0.8); Basophils % 0.3 %; Eosinophils % 2.1 %; HCT 39.8 % (36.0-46.0); HGB 12.8 g/dL (11.2-15.7); Immature Grans % 0.2 %; Lymphocytes % 21.9 %; MCH 30.1 pg (27.0-33.0); MCHC 32.2 % (32.0-36.0); MCV 94 fL (80-95); MPV 10.1 fL (8.0-11.0); Monocytes % 8.3 %; Neutrophils % 67.2 %; Platelet Count 157 10^3/uL (130-400); RBC 4.25 10^6/uL (3.93-5.22); RDW 12.8 % (11.7-14.6); RDW-SD 44.1 fL; WBC 6.25 10^3/uL (4.4-10.8)
--- NOTE | 2024-04-30 18:00 | RT.EKG_ITS ---
APPROVED REPORT Exam: Resting ECG Reason for Exam: [facility] Patient Location: E HR:61 bpm ECG Measurements Heart Rate 61 AXIS [place] [id number] P [id number] QRSd 107 QRS -41 QT 450 T [id number] QTc 453 Conclusion Atrial fibrillation 61 normal axis no stemi
[2024-04-30 18:01] LABS: ALT 32 U/L (14-59); AST 20 U/L (15-37); Albumin 3.3 g/dL (3.4-5.0); Alkaline Phosphatase 127 U/L (46-116); Anion Gap 7.9 mmol/L (3-11); BUN 33 mg/dL (7-18); Bilirubin, Total 0.77 mg/dL (0.2-1.0); CO2 28.1 mmol/L (21.0-32.0); CREATININE 1.9 mg/dL (0.55-1.02); Calcium 8.9 mg/dL (8.5-10.1); Chloride 106 mmol/L (98-107); Glucose 98 mg/dL (74-106); NT-proBNP 29 pg/mL (<300); Potassium 4.6 mmol/L (3.5-5.1); Sodium 142 mmol/L (136-145); Total Protein 7.6 g/dL (6.4-8.2)
[2024-04-30 18:02] LABS: Troponin I < 4 ng/L (<or=51)
--- NOTE | 2024-04-30 18:05 | DI.RAD_ITS ---
Exam(s) XR PORTABLE CHEST AP EXAM: XR PORTABLE CHEST AP CLINICAL HISTORY: Weakness TECHNIQUE: 2D digital imaging was performed of the chest. One image was obtained. An AP view was ob tained. COMPARISON: CR XR PORTABLE CHEST AP from 06/26/2020 FINDINGS: MEDIASTINUM: Normal. HEART: The heart is at the upper limits of normal in size given the AP projection. PULMONARY VASCULATURE: Normal. LUNGS: Clear. PLEURAL SPACE: No pleural effusion or pneumothorax. BONE:Within normal limits for the patient's age. There is again seen cervical spine surgery. OTHER FINDINGS:Normal. IMPRESSION: No acute pulmonary findings. DATA REPOSITORY: RADIATION DOSE DELIVERED:
[2024-04-30 18:33] LABS: Bilirubin Negative (Negative); Blood Trace-intact (Negative); Clarity Sl Cloudy (Clear); Glucose Negative (Negative); Ketones Negative (Negative); Leukocyte Esterase Moderate (Negative); Nitrite Positive (Negative); Urobilinogen 0.2 mg/dL (Up to 0.2)
[2024-04-30 18:41] LABS: Bacteria Many HPF (Negative); C & S Indicated? Yes; Casts Negative LPF (Negative); Crystals Negative HPF (Negative); Epithelial Cells Negative HPF (Negative); Mucus Negative (Negative); Other Cells Rare Renal (Negative); WBC >50 HPF (0-5)
[2024-04-30] MEDS: Cephalexin 500 MG CAP PO (19:07)
[2024-04-30] MEDS: Cephalexin 500 MG CAP, 2 CAPS/BTL PO (19:07)
== END 2024-04-30 19:18 | disposition home or self-care (01) ==
PROVIDERS: Emergency Provider Registered Nurse Emergency; PCP Nurse Practitioner Family
DX: N39.0 Urinary tract infection, site not specified (principal); R53.1 Weakness; I11.0 Hypertensive heart disease with heart failure; I50.33 Acute on chronic diastolic (congestive) heart failure; E11.22 Type 2 diabetes mellitus with diabetic chronic kidney disease; I25.119 Atherosclerotic heart disease of native coronary artery with unspecified angina pectoris; I25.2 Old myocardial infarction; Z79.4 Long term (current) use of insulin; Z79.85 Long-term (current) use of injectable non-insulin antidiabetic drugs; Z79.82 Long term (current) use of aspirin; F17.210 Nicotine dependence, cigarettes, uncomplicated
CPT/HCPCS: 80053; 87077; 93005; 99285; 71045; 81003; 81015; 83880; 84484; 85025; 87086; 87186; 93010; 99284

== ENCOUNTER 2024-06-12 16:43 | Outpatient (REF) | payer MEDICARE, MEDICAID, SELFPAY ==
--- OUTSIDE RECORDS SUMMARY | 2024-06-12 16:47 | XMS_ITS | Encounter Summary ---
Author Organization [facility] Address [address] [place] [address] Care Team Providers Care Manager Supply Name Role Phone Ashley Muniz MD Primary Care Provide r Unavailable Encounter Details Date Type Department Care Team (Late st Contact Info) Description 03/22/2013 Results Only [facility] Laboratory Services - [facility] ([facility]) [address] [place] [address] Igor Dennison, DO [address] [place] [address] Social History Tobacco Use Types Packs/Day Years Used Date Smoking Tobacco: Never Assessed Comments Unknown Sex and Gender Information Value Date Recorded Sex Assigned at Not on file Legal Sex Female 9:49 EDT Gender Identity Not on file Sexual Orientation [...] ? BAILEY CARY ? Accession #: ? [id number] ? : ? 1960 (Age: 52) ??F [...] ANTIBODY(CLONE)(BLOCK) :RESULT H pylori (Rabbit Monoclonal (SP48), [place]) (A1): negative H pylori (Rabbit Monoclonal (SP48), [place]) (B1): negative NOTE: ??One or more of [...] reagents' performance characteristics have been determined by [facility]. ??The positive and negative controls worked [...] 9:50 EDT Igor Dennison DO PATHOLOGY ORDERABLES Final Resul t [facility] [address] [place] [address] documented in this encounter Visit Diagnoses Not on filedocumented in this encounter Care Teams Manager Supply Relationship Specialty Start Date End Date Ashley Muniz MD PCP - General 03/25/13 documented as of this encounter
--- OUTSIDE RECORDS SUMMARY | 2024-06-12 16:47 | XMS_ITS | Encounter Summary ---
Author Organization [facility] Address [address] [place] [address] Care Team Providers Care Adventure Challenge Instructor Name Role Phone Shaunna Bonilla MD Primary Care Provider [phone] Encounter Details Date Type Department Care Team (Late st Contact Info) Description 11/24/2019 Lab Requisition [facility] Pathology & Laboratory Medicine - [address] [address] Outr Resulting Lab, Provider Social History Tobacco [...] on filedocumented in this encounter Care Teams Adventure Challenge Instructor Relationship Specialty Start Date End Date Shaunna Bonilla MD [address] [place] [phone] PCP - General 03/29/13 documented as of this encounter
--- OUTSIDE RECORDS SUMMARY | 2024-06-12 16:47 | XMS_ITS | Encounter Summary ---
Author Organization [facility] Address [address] [place] [address] Care Team Providers Care Fire Battalion Chief Name Role Phone Shaunna Bonilla MD Primary Care Provider [phone] Encounter Details Date Type Department Care Team (Late st Contact Info) Description 11/22/2019 Lab Requisition [facility] Pathology & Laboratory Medicine - [address] [address] Outr Resulting Lab, Provider Social History Tobacco [...] Priority Date/Time Associated Diagnosis Comments ZZCOVID-19 TEST [facility] PCR Today 11/22/2019 20:55 EDT COVID-19 TESTING Routine 11/22/2019 20:5 5 EDT documented in this encounter Results * COVID-19 TEST [facility] PCR (11/22/2019 20:55 EDT) Swab ENTIRE NASOPHARYNX / Unknown 11/22/2019 20:55 EDT 11/23/2019 22:56 EDT us Provider Outr Resulting Lab MICROBIOLOGY - GENER AL ORDERABLES Final Result [facility] [address] [place] [address] * COVID-19 TESTING (11/22/2019 20:55 EDT) COVID-19 rt-PCR Result Negative Negative 11/24/2019 11:55 EDT [facility] Comment: This test has [...] history, and epidemiological information. Performed on the [employer] Fusion instrument Performing Lab [place] [facility] 11/24/2019 11:55 EDT [facility] Swab 11/22/2019 20:5 5 EDT 11/23/2019 22:56 EDT us Provider Outr Resulting Lab MICROBIOLOGY - GENER AL ORDERABLES Final Result [facility] [address] [place] [address] documented in this encounter Visit Diagnoses Not on filedocumented in this encounter Care Teams Fire Battalion Chief Relationship Specialty Start Date End Date Shaunna Bonilla MD [address] [place] [phone] PCP - General 03/29/13 documented as of this encounter
--- OUTSIDE RECORDS SUMMARY | 2024-06-12 16:47 | XMS_ITS | Encounter Summary ---
Author Organization [facility] Address [address] [place] [address] Care Team Providers Care Clinical Psychiatrist Name Role Phone hSaunna Bonilla MD Primary Care Provider [phone] Encounter Details Date Type Department Care Team (Late st Contact Info) Description 08/16/2022 Lab Requisition [facility] Pathology & Laboratory Medicine - [address] [address] Radha Fonseca FNP [address] [place], [place] [id number] Social History Tobacco Use Types Packs/Day Years [...] Escherichia coli(A) VITEK SUSCEPTIBILITY 08/18/2022 9:38 EDT [facility] Comment: Use of cefazolin [...] only cefpodoxime and cephalexin are on the [facility] inpatient formulary. ? Organism (organism) URINE [...] azole VITEK SUSCEPTIBILITY >=320 ug/mL: Resistant Radha Larios DEMONSTRATOR SALES MICROBIOLOGY - GENERAL ORDERAB LES Final Result Performing Organization Address City/State/[place] Co de Phone Number [facility] [address] [place] [address] documented in this encounter Visit Diagnoses Not on filedocumented in this encounter Care Teams Clinical Psychiatrist Relationship Specialty Start Date End Date Shaunna Bonilla MD [address] [place] [phone] PCP - General 03/29/13 documented as of this encounter
--- OUTSIDE RECORDS SUMMARY | 2024-06-12 16:47 | XMS_ITS | Clinical Summary ---
Author Organization [facility] Address [address] [place] [address] Care Team Providers Care Superintendent Plant Protection Name Role Phone Shaunna Bonilla MD Primary Care Provider Social History Tobacco Use Types Packs/Day Years Used Date Smoking Tobacco: Never Assessed Comments Unknown Sex and Gender Information Value Date Recorded Sex Assigned at Not on file Legal Sex Female 9:49 EDT Gender Identity Not on file Sexual Orientation Not on file Plan of Treatment Health Maintenance Due Date Last Done Comments Hepatitis C Screen 1960 COVID-19 Vaccine (2023- season) 2024 RSV Immunization ( o r 60+ Years) (1 - 1-dose 75+ series) 09/18/2035 Care Teams Superintendent Plant Protection Relationship Specialty Start Date End Date Shaunna Bonilla MD [address] [place] [phone] PCP - General 03/29/13
--- OUTSIDE RECORDS SUMMARY | 2024-06-12 16:47 | XMS_ITS | Encounter Summary ---
Author Organization [facility] Address [address] [place] [address] Care Team Providers Care Aircraft Maintenance Supervisor Name Role Phone Shaunna Bonilla MD Primary Care Provider [phone] Encounter Details Date Type Department Care Team (Latest Contact Info) Description 09/26/2016 6:06 EDT - 09/26/2016 23:59 EDT Hospital Encounter [facility] [address] [place] [address] Ashley Muniz MD Discharge Disposition: Home or Self Care Social [...] Code Departure Means Destination Home or Self Assisted documented in this encounter Plan of Treatment Not on file documented as of this encounter Visit Diagnoses Not on filedocumented in this encounter Care Teams Aircraft Maintenance Supervisor Relationship Specialty Start Date End Date Shaunna Bonilla MD [address] [place] [phone] PCP - General 03/29/13 documented as of this encounter
--- OUTSIDE RECORDS SUMMARY | 2024-06-12 16:47 | XMS_ITS | Encounter Summary ---
Author Organization [facility] Address [address] [place] [address] Care Team Providers Care Histologist Technologist Name Role Phone Unavailable Primary Care Provider Unavailabl e Encounter Details Date Type Department Care Team (Latest Contact Info) Description 03/22/2013 11:41 EDT - 03/22/2013 23:59 EDT Hospital Encounter [address] [address] Ashley Muniz MD Discharge Disposition: Home or [...] Code Departure Means Destination Home or Self [facility] documented in this encounter Plan of Treatment Not on file documented as of this encounter Visit Diagnoses Not on filedocumented in this encounter
--- OUTSIDE RECORDS SUMMARY | 2024-06-12 16:47 | XMS_ITS | Encounter Summary ---
Author Organization [facility] Address [address] [place] [address] Care Team Providers Care Parking Meter Collector Name Role Phone Shaunna Bonilla MD Primary Care Provider [phone] Encounter Details Date Type Department Care Team (Late st Contact Info) Description 12/02/2015 Results Only [facility] [phone] Yulissa Zarate W, SETTER COLD ROLLING MACHINE [address] [place] [address] Social History Tobacco Use Types [...] ? BAILEY CARY ? Accession #: ? [id number] ? : ? 1960 (Age: 55) ??F ?Collect Date: ? 12/02/2015 ? Location: ? [facility] ? Receive Date: ? 12/03/2015 ? Provider: YULISSA ZARATE APRN Copy to: ? Final Report SPECIMEN ADEQUACY ? Satisfactory for Evaluation - transformation zone component present GENERAL CATEGORIZATION ? Negative for Intraepithelial Lesion or Malignancy ?? Last Menstrual Period: N/A Menstrual/Pregnanc y Status: ??Post Hormonal/Contracep tive status: None Specimen/Source: ??Pap Test, Cervix, ThinPrep Imaging System with manual evaluation Document reviewed and electronically signed by: ? Kreen Johnson, CT(ASCP) ? Report ??Date: 12/15/2015 08:22 HPV with Pap Test ? Date Ordered: ? 12/15/2015 ? Status: ?? Signed Out ?Date Complete: ? 12/17/2015 ? By: ??System Interface ? Date Reported: ? 12/17/2015 ? Interpretation RESULT: Negative for HPV. No E6 or E7 mRNA is detected from HPV types 16,18,31,33,35, 39,45,51,52,56,58, 59,66, and [address] mediated amplification. Comments Document reviewed and electronically signed by: ? System Interface ? Report date: 12/17/2015 By the signature above, the attending physician certifies that he/she has personally conducted a gross and/or microscopic examination of the described specimens and rendered or confirmed the above diagnosis. End of Report [facility] 12/02/2015 12/03/2015 us Yulissa Zarate SETTER COLD ROLLING MACHINE PATHOLOGY ORDERABLES Final R esult [facility] [address] [place] [address] documented in this encounter Visit Diagnoses Not on filedocumented in this encounter Care Teams Parking Meter Collector Relationship Specialty Start Date End Date Shaunna Bonilla MD [address] [place] [phone] PCP - General 03/29/13 documented as of this encounter
--- OUTSIDE RECORDS SUMMARY | 2024-06-12 16:47 | XMS_ITS | Encounter Summary ---
Author Organization [facility] Address [address] [place] [address] Care Team Providers Care Nurses Aide Name Role Phone Shaunna Bonilla MD Primary Care Provider [phone] Encounter Details Date Type Department Care Team (Late st Contact Info) Description 09/26/2016 Results Only [facility] [phone] Gayatri Ramey MD [address] [place] [address] Social History Tobacco Use Types Packs/Day Years [...] ? BAILEY CARY ? Accession #: ? [id number] ? : ? 1960 (Age: 56) ??F [...] (ASCP) 09/27/2016 9:47 AM End of Report [facility] 09/26/2016 9:18 EDT 09/27/2016 9:18 EDT us Gayatri Ramey MD PATHOLOGY ORDERABLES Final Resu lt [facility] [address] [place] [address] documented in this encounter Visit Diagnoses Not on filedocumented in this encounter Care Teams Nurses Aide Relationship Specialty Start Date End Date Shaunna Bonilla MD [address] [place] [phone] PCP - General 03/29/13 documented as of this encounter
--- OUTSIDE RECORDS SUMMARY | 2024-06-12 16:47 | XMS_ITS | Referral Summary ---
Author Organization [facility] Address [address] [place] [address] Care Team Providers Care Policy Change Clerk Name Role Phone Shaunna Bonilla MD Primary Care Provider [phone] Social History Tobacco Use Types Packs/Day Years Used Date Smoking Tobacco: Never Assessed Comments Unknown Sex and Gender Information Value Date Recorded Sex Assigned at Not on file Legal Sex Female 9:49 EDT Gender Identity Not on file Sexual Orientation Not on file Plan of Treatment Not on file Care Teams Policy Change Clerk Relationship Specialty Start Date End Date Shaunna Bonilla MD [address] [place] [phone] PCP - General 03/29/13
[2024-06-12 17:22] LABS: Bilirubin Negative (Negative); Blood Trace-intact (Negative); Clarity Clear (Clear); Glucose Negative (Negative); Ketones Negative (Negative); Leukocyte Esterase Moderate (Negative); Nitrite Positive (Negative); Specific Gravity 1.025 (1.005-1.025); Urobilinogen 0.2 mg/dL (Up to 0.2); pH 5.5 (5-8)
[2024-06-12 17:30] LABS: Bacteria Many HPF (Negative); C & S Indicated? No/Sq. Contamination; Crystals Negative HPF (Negative); Epithelial Cells Moderate HPF (Negative); Mucus Negative (Negative); RBC 0-2 HPF (0-2); WBC 20-50 HPF (0-5)
== END 2024-06-12 16:44 | disposition home or self-care (01) ==
LOC: NCHCN 16:43
PROVIDERS: PCP Nurse Practitioner Family; Visit Provider Nurse Practitioner Family
DX: N39.0 Urinary tract infection, site not specified (principal); B96.29 Other Escherichia coli [E. coli] as the cause of diseases classified elsewhere
CPT/HCPCS: 81003; 81015

== ENCOUNTER 2024-06-13 20:54 | Outpatient (REF) | payer MEDICARE, MEDICAID, SELFPAY ==
[2024-06-13 19:12] LABS: Abs Immature Grans 0.01 10^3/uL (0.0-0.06); Absolute Basophil Count 0.04 10^3/uL (0.0-0.2); Absolute Eosinophil Count 0.23 10^3/uL (0.0-0.7); Absolute Lymphocyte Count 1.55 10^3/uL (1.2-3.4); Absolute Monocyte Count 0.49 10^3/uL (0.1-0.8); Basophils % 0.7 %; Eosinophils % 4.2 %; HCT 41.8 % (36.0-46.0); HGB 13.3 g/dL (11.2-15.7); Immature Grans % 0.2 %; Lymphocytes % 28.1 %; MCHC 31.8 % (32.0-36.0); MCV 94 fL (80-95); MPV 10.8 fL (8.0-11.0); Monocytes % 8.9 %; Neutrophils % 57.9 %; Platelet Count 170 10^3/uL (130-400); RBC 4.43 10^6/uL (3.93-5.22); RDW 13.1 % (11.7-14.6); RDW-SD 45.1 fL; WBC 5.52 10^3/uL (4.4-10.8)
[2024-06-13 19:37] LABS: ALT 22 U/L (14-59); AST 18 U/L (15-37); Albumin 3.3 g/dL (3.4-5.0); Alkaline Phosphatase 136 U/L (46-116); Anion Gap 4.4 mmol/L (3-11); BUN 26 mg/dL (7-18); Bilirubin, Total 0.49 mg/dL (0.2-1.0); CO2 29.6 mmol/L (21.0-32.0); CREATININE 1.3 mg/dL (0.55-1.02); Calcium 9.2 mg/dL (8.5-10.1); Chloride 108 mmol/L (98-107); Estimated GFR 46.21 (mL/min/1.73m2); Folate > 20.0 ng/mL (8.6-20.0); Glucose 113 mg/dL (74-106); Potassium 4.6 mmol/L (3.5-5.1); Sodium 142 mmol/L (136-145); TSH (W/Ref FT4) 0.72 uIU/mL (0.36-3.74); Total Protein 7.6 g/dL (6.4-8.2)
--- OUTSIDE RECORDS SUMMARY | 2024-06-13 20:57 | XMS_ITS | Encounter Summary ---
Author Organization [facility] Address [address] [place] [address] Care Team Providers Care Beck Operator Name Role Phone Shaunna Bonilla MD Primary Care Provider [phone] Encounter Details Date Type Department Care Team (Latest Contact Info) Description 09/26/2016 6:06 EDT - 09/26/2016 23:59 EDT Hospital Encounter [facility] [address] [place] [address] Ashley Muniz MD Discharge Disposition: Home or [...] on filedocumented in this encounter Care Teams Beck Operator Relationship Specialty Start Date End Date Shaunna Bonilla MD [address] [place] [phone] PCP - General 03/29/13 documented as of this encounter
--- OUTSIDE RECORDS SUMMARY | 2024-06-13 20:57 | XMS_ITS | Referral Summary ---
Author Organization [facility] Address [address] [place] [address] Care Team Providers Care Joiner Helper Name Role Phone Shaunna Bonilla MD Primary Care Provider Social History Tobacco Use Types Packs/Day Years Used Date Smoking Tobacco: Never Assessed Comments Unknown Sex and Gender Information Value Date Recorded Sex Assigned at Not on file Legal Sex Female 9:49 EDT Gender Identity Not on file Sexual Orientation Not on file Plan of Treatment Not on file Care Teams Joiner Helper Relationship Specialty Start Date End Date Shaunna Bonilla MD [address] [place] [phone] PCP - General 03/29/13
--- OUTSIDE RECORDS SUMMARY | 2024-06-13 20:57 | XMS_ITS | Encounter Summary ---
Author Organization [facility] Address [address] [place] [address] Care Team Providers Care Fulfillment Specialist Name Role Phone Shaunna Bonilla MD Primary Care Provider [phone] Encounter Details Date Type Department Care Team (Late st Contact Info) Description 11/22/2019 Lab Requisition [facility] Pathology & Laboratory Medicine - [address] [address] Outr Resulting Lab, Provider Social History Tobacco [...] MICROBIOLOGY - GENER AL ORDERABLES Final Result [facility] [address] [place] [address] * COVID-19 TESTING (11/22/2019 20:55 EDT) COVID-19 rt-PCR Result Negative Negative 11/24/2019 11:55 EDT [facility] Comment: This test has not [...] history, and epidemiological information. Performed on the Virtual Webher Fusion instrument Performing Lab [place] [facility] 11/24/2019 11:55 EDT [facility] Swab 11/22/2019 20:5 5 EDT 11/23/2019 22:56 EDT us Provider Outr Resulting Lab MICROBIOLOGY - GENER AL ORDERABLES Final Result [facility] [address] [place] [address] documented in this encounter Visit Diagnoses Not on filedocumented in this encounter Care Teams Fulfillment Specialist Relationship Specialty Start Date End Date Shaunna Bonilla MD [address] [place] [phone] PCP - General 03/29/13 documented as of this encounter
--- OUTSIDE RECORDS SUMMARY | 2024-06-13 20:57 | XMS_ITS | Encounter Summary ---
Author Organization [facility] Address [address] [place] [address] Care Team Providers Care Hiv/Aids Care Nurse Name Role Phone Shaunna Bonilla MD Primary Care Provider [phone] Encounter Details Date Type Department Care Team (Late st Contact Info) Description 12/02/2015 Results Only [facility]- [facility] [phone] Yulissa Zarate W, ASSISTANT PASTRY CHEF [address] [place] [address] Social History Tobacco Use Types [...] ? BAILEY CARY ? Accession #: ? [id number] ? : ? 1960 (Age: 55) ??F [...] types 16,18,31,33,35, 39,45,51,52,56,58, 59,66, and 68 by elementary assistant principal mediated amplification. Comments Document reviewed and electronically signed by: ? System Interface ? Report date: 12/17/2015 By the signature above, the attending physician certifies that he/she has personally conducted a gross and/or microscopic examination of the described specimens and rendered or confirmed the above diagnosis. End of Report [facility] 12/02/2015 12/03/2015 us Yulissa Zarate ASSISTANT PASTRY CHEF PATHOLOGY ORDERABLES Final R esult [facility] [address] [place] [address] documented in this encounter Visit Diagnoses Not on filedocumented in this encounter Care Teams Hiv/Aids Care Nurse Relationship Specialty Start Date End Date Shaunna Bonilla MD [address] [place] [phone] PCP - General 03/29/13 documented as of this encounter
--- OUTSIDE RECORDS SUMMARY | 2024-06-13 20:57 | XMS_ITS | Encounter Summary ---
Author Organization [facility] Address [address] [place] [address] Care Team Providers Care Emergency Medical Service Manager Name Role Phone Shaunna Bonilla MD Primary Care Provider [phone] Encounter Details Date Type Department Care Team (Late st Contact Info) Description 11/24/2019 Lab Requisition [facility] Pathology & Laboratory Medicine - [address] [address] Outr Resulting Lab, Provider Social History Tobacco [...] on filedocumented in this encounter Care Teams Emergency Medical Service Manager Relationship Specialty Start Date End Date Shaunna Bonilla MD [address] [place] [phone] PCP - General 03/29/13 documented as of this encounter
--- OUTSIDE RECORDS SUMMARY | 2024-06-13 20:57 | XMS_ITS | Encounter Summary ---
Author Organization [facility] Address [address] [place] [address] Care Team Providers Care Screen Writer Name Role Phone Unavailable Primary Care Provider Unavailabl e Encounter Details Date Type Department Care Team (Latest Contact Info) Description 03/22/2013 11:41 EDT - 03/22/2013 23:59 EDT Hospital Encounter [address] [address] Ashley Muniz MD Discharge Disposition: Home or [...] Code Departure Means Destination Home or Self Long-Term documented in this encounter Plan of Treatment Not on file documented as of this encounter Visit Diagnoses Not on filedocumented in this encounter
--- OUTSIDE RECORDS SUMMARY | 2024-06-13 20:57 | XMS_ITS | Clinical Summary ---
Author Organization [facility] Address [address] [place] [address] Care Team Providers Care Garden Tractor Mechanic Name Role Phone Shaunna Bonilla MD Primary [...] - 1-dose 75+ series) 09/18/2035 Care Teams Garden Tractor Mechanic Relationship Specialty Start Date End Date Shaunna Bonilla MD [address] [place] [phone] PCP - General 03/29/13
--- OUTSIDE RECORDS SUMMARY | 2024-06-13 20:57 | XMS_ITS | Encounter Summary ---
Author Organization [facility] Address [address] [place] [address] Care Team Providers Care Wallpaper Hanger Helper Name Role Phone Shaunna Bonilla MD Primary Care Provider [phone] Encounter Details Date Type Department Care Team (Late st Contact Info) Description 08/16/2022 Lab Requisition [facility] Pathology & Laboratory Medicine - [address] [address] Radha Fonseca FNP [address] [place], [place] [phone] Social History Tobacco Use Types Packs/Day Years [...] Escherichia coli(A) VITEK SUSCEPTIBILITY 08/18/2022 9:38 EDT [facility] Comment: Use of [...] only cefpodoxime and cephalexin are on the [facility] inpatient formulary. ? Organism (organism) URINE [...] VITEK SUSCEPTIBILITY >=320 ug/mL: Resistant Radha Larios DUPLICATE MAKER MICROBIOLOGY - GENERAL ORDERAB LES Final Result Performing Organization Address City/State/[facility] Co de Phone Number [facility] [address] [place] [address] documented in this encounter Visit Diagnoses Not on filedocumented in this encounter Care Teams Wallpaper Hanger Helper Relationship Specialty Start Date End Date Shaunna Bonilla MD [address] [place] [phone] PCP - General 03/29/13 documented as of this encounter
--- OUTSIDE RECORDS SUMMARY | 2024-06-13 20:57 | XMS_ITS | Encounter Summary ---
Author Organization [facility] Address [address] [place] [address] Care Team Providers Care Manager Lan Name Role Phone Shaunna Bonilla MD Primary Care Provider [phone] Encounter Details Date Type Department Care Team (Late st Contact Info) Description 09/26/2016 Results Only [facility] [phone] Gayatri Ramey MD [address] [place] [address] Social History Tobacco Use Types Packs/Day Years [...] ? BAILEY CARY ? Accession #: ? [id number] ? : ? 1960 (Age: 56) ??F [...] (ASCP) 09/27/2016 9:47 AM End of Report [facility] 09/26/2016 9:18 EDT 09/27/2016 9:18 EDT us Gayatri Ramey MD PATHOLOGY ORDERABLES Final Resu lt [facility] [address] [place] [address] documented in this encounter Visit Diagnoses Not on filedocumented in this encounter Care Teams Manager Lan Relationship Specialty Start Date End Date Shaunna Bonilla MD [address] [place] [phone] PCP - General 03/29/13 documented as of this encounter
--- OUTSIDE RECORDS SUMMARY | 2024-06-13 20:57 | XMS_ITS | Encounter Summary ---
Author Organization [facility] Address [address] [place] [address] Care Team Providers Care Pharmaceutical Worker Name Role Phone Ashley Muniz MD Primary Care Provide r Unavailable Encounter Details Date Type Department Care Team (Late st Contact Info) Description 03/22/2013 Results Only [facility] Services - [facility] ([facility]) [address] [place] [address] Igor Dennison, DO [address] [place] [address] Social History Tobacco Use Types Packs/Day Years [...] ? BAILEY CARY ? Accession #: ? [id number] ? : ? 1960 (Age: 52) ??F [...] ANTIBODY(CLONE)(BLOCK) :RESULT H pylori ([employer]oclonal (SP48), [place]) (A1): negative H pylori ([employer]oclonal (SP48), [place]) (B1): negative NOTE: ??One or more of [...] reagents' performance characteristics have been determined by [facility]. ??The positive and negative controls [...] Final Resul t [facility] [address] [place] [address] documented in this encounter Visit Diagnoses Not on filedocumented in this encounter Care Teams Pharmaceutical Worker Relationship Specialty Start Date End Date Ashley Muniz MD PCP - General 03/25/13 documented as of this encounter
== END 2024-06-13 20:55 | disposition home or self-care (01) ==
LOC: NCHCN 20:54
PROVIDERS: PCP Nurse Practitioner Family; Visit Provider Nurse Practitioner Family
DX: E11.9 Type 2 diabetes mellitus without complications (principal); R82.90 Unspecified abnormal findings in urine
CPT/HCPCS: 80053; 87077; 82746; 84443; 85025; 87086; 87186

== ENCOUNTER → 2024-06-20 13:50 | Outpatient (BNVA) | payer MEDICARE, MEDICAID, SELFPAY | PROVIDERS: PCP Nurse Practitioner Family; Referring Provider Nurse Practitioner Family; Visit Provider Nurse Practitioner Gerontology | DX: R30.0 Dysuria (principal); N39.46 Mixed incontinence; N39.0 Urinary tract infection, site not specified | CPT/HCPCS: 99214 ==

== ENCOUNTER → 2024-07-16 11:02 | Outpatient (BNVA) | payer MEDICARE, MEDICAID, SELFPAY | PROVIDERS: PCP Nurse Practitioner Family; Referring Provider Nurse Practitioner Family; Visit Provider Podiatrist | DX: E11.42 Type 2 diabetes mellitus with diabetic polyneuropathy (principal); I73.89 Other specified peripheral vascular diseases; I87.2 Venous insufficiency (chronic) (peripheral); L60.3 Nail dystrophy; B35.1 Tinea unguium; N18.30 Chronic kidney disease, stage 3 unspecified; R60.0 Localized edema; G25.81 Restless legs syndrome; B07.0 Plantar wart; M79.671 Pain in right foot; M79.672 Pain in left foot | CPT/HCPCS: 11721; 93922; 99214 ==

== ENCOUNTER → 2024-09-18 13:25 | Outpatient (BNVA) | payer MEDICARE, MEDICAID, SELFPAY | PROVIDERS: PCP Nurse Practitioner Family; Visit Provider Nurse Practitioner Gerontology | DX: R30.0 Dysuria (principal); N39.46 Mixed incontinence; Z87.440 Personal history of urinary (tract) infections; Z74.09 Other reduced mobility | CPT/HCPCS: 99213 ==

== ENCOUNTER 2024-10-30 13:39 | Outpatient (REF) | payer MEDICARE, MEDICAID, SELFPAY ==
[2024-10-30 15:36] LABS: Bilirubin Negative (Negative); Blood Trace-intact (Negative); Clarity Cloudy (Clear); Glucose Negative (Negative); Ketones Negative (Negative); Leukocyte Esterase Large (Negative); Nitrite Negative (Negative); Specific Gravity 1.015 (1.005-1.025); Urobilinogen 0.2 mg/dL (Up to 0.2)
[2024-10-30 15:43] LABS: Bacteria Many HPF (Negative); Crystals Negative HPF (Negative); Epithelial Cells Few HPF (Negative); Mucus Trace (Negative); Other Cells Negative (Negative); WBC >50 HPF (0-5)
[2024-10-30 15:44] LABS: C & S Indicated? Yes; Casts Negative LPF (Negative)
== END 2024-10-30 13:40 | disposition home or self-care (01) ==
LOC: NCHCN 13:39
PROVIDERS: PCP Nurse Practitioner Family; Visit Provider Family Medicine
DX: I10 Essential (primary) hypertension (principal)
CPT/HCPCS: 87077; 81003; 81015; 82043; 82570; 87086; 87186

== ENCOUNTER → 2024-11-13 10:46 | Outpatient (BNVA) | payer MEDICARE, MEDICAID, SELFPAY | PROVIDERS: PCP Family Medicine; Referring Provider Family Medicine; Visit Provider Podiatrist | DX: E11.42 Type 2 diabetes mellitus with diabetic polyneuropathy (principal); I73.89 Other specified peripheral vascular diseases; I87.2 Venous insufficiency (chronic) (peripheral); B35.1 Tinea unguium; L60.3 Nail dystrophy; N18.30 Chronic kidney disease, stage 3 unspecified; R60.0 Localized edema; G25.81 Restless legs syndrome; L97.511 Non-pressure chronic ulcer of other part of right foot limited to breakdown of skin; R09.89 Other specified symptoms and signs involving the circulatory and respiratory systems; R20.8 Other disturbances of skin sensation; I83.93 Asymptomatic varicose veins of bilateral lower extremities; L65.9 Nonscarring hair loss, unspecified; R23.8 Other skin changes; L60.2 Onychogryphosis; L60.8 Other nail disorders | CPT/HCPCS: 11721 ==

== ENCOUNTER → 2024-12-04 13:37 | Outpatient (BNVA) | payer MEDICARE, MEDICAID, SELFPAY | PROVIDERS: PCP Family Medicine; Referring Provider Family Medicine; Visit Provider Podiatrist | DX: L97.511 Non-pressure chronic ulcer of other part of right foot limited to breakdown of skin (principal); L89.510 Pressure ulcer of right ankle, unstageable; E11.42 Type 2 diabetes mellitus with diabetic polyneuropathy; I73.89 Other specified peripheral vascular diseases; I87.2 Venous insufficiency (chronic) (peripheral); E11.22 Type 2 diabetes mellitus with diabetic chronic kidney disease; N18.30 Chronic kidney disease, stage 3 unspecified; B35.1 Tinea unguium; L60.3 Nail dystrophy; R60.0 Localized edema; G25.81 Restless legs syndrome; Z91.030 Bee allergy status | CPT/HCPCS: 99214 ==

== ENCOUNTER 2024-12-04 13:44 | Outpatient (REF) | payer MEDICARE, MEDICAID, SELFPAY ==
[2024-12-04 16:48] LABS: Anion Gap 8.8 mmol/L (3-11); BUN 21 mg/dL (7-18); CO2 28.2 mmol/L (21.0-32.0); Calcium 9.0 mg/dL (8.5-10.1); Chloride 106 mmol/L (98-107); Estimated GFR 38.67 (mL/min/1.73m2); Glucose 97 mg/dL (74-106); Potassium 3.8 mmol/L (3.5-5.1); Sodium 143 mmol/L (136-145)
== END 2024-12-04 13:45 | disposition home or self-care (01) ==
LOC: NCHCN 13:44
PROVIDERS: PCP Family Medicine; Visit Provider Family Medicine
DX: I10 Essential (primary) hypertension (principal)
CPT/HCPCS: 80048

== ENCOUNTER → 2024-12-24 11:07 | Outpatient (BNVA) | payer MEDICARE, MEDICAID, SELFPAY | PROVIDERS: PCP Family Medicine; Referring Provider Family Medicine; Visit Provider Podiatrist | DX: L89.610 Pressure ulcer of right heel, unstageable (principal); L60.0 Ingrowing nail; G25.81 Restless legs syndrome; E11.22 Type 2 diabetes mellitus with diabetic chronic kidney disease; E11.42 Type 2 diabetes mellitus with diabetic polyneuropathy; N18.30 Chronic kidney disease, stage 3 unspecified; I87.2 Venous insufficiency (chronic) (peripheral); I73.89 Other specified peripheral vascular diseases; B35.1 Tinea unguium; L60.3 Nail dystrophy; R60.0 Localized edema | CPT/HCPCS: 11720; 99213 ==

== ENCOUNTER → 2025-01-21 11:27 | Outpatient (BNVA) | payer MEDICARE, MEDICAID, SELFPAY | PROVIDERS: PCP Family Medicine; Referring Provider Family Medicine; Visit Provider Podiatrist | DX: L60.0 Ingrowing nail (principal); L60.3 Nail dystrophy; B35.1 Tinea unguium; E11.42 Type 2 diabetes mellitus with diabetic polyneuropathy; E11.621 Type 2 diabetes mellitus with foot ulcer; E11.22 Type 2 diabetes mellitus with diabetic chronic kidney disease; L97.511 Non-pressure chronic ulcer of other part of right foot limited to breakdown of skin; L89.890 Pressure ulcer of other site, unstageable; N18.30 Chronic kidney disease, stage 3 unspecified; I87.2 Venous insufficiency (chronic) (peripheral); R60.0 Localized edema; R09.89 Other specified symptoms and signs involving the circulatory and respiratory systems; R20.8 Other disturbances of skin sensation; I83.93 Asymptomatic varicose veins of bilateral lower extremities; R23.8 Other skin changes; L65.9 Nonscarring hair loss, unspecified; R23.4 Changes in skin texture; L60.2 Onychogryphosis; L60.8 Other nail disorders | CPT/HCPCS: 99213; 11721 ==

== ENCOUNTER → 2025-01-21 14:01 | Outpatient (BNVA) | payer MEDICARE, MEDICAID, SELFPAY | PROVIDERS: PCP Family Medicine; Visit Provider Nurse Practitioner Gerontology | DX: R30.0 Dysuria (principal); N39.46 Mixed incontinence; N39.0 Urinary tract infection, site not specified | CPT/HCPCS: 99213; 81002 ==

== ENCOUNTER 2025-01-21 17:57 | Outpatient (REF) | payer MEDICARE, MEDICAID, SELFPAY | END 2025-01-21 17:58 | disposition home or self-care (01) | LOC: LBN 17:57 | PROVIDERS: PCP Family Medicine; Visit Provider Nurse Practitioner Gerontology | DX: N39.0 Urinary tract infection, site not specified (principal) | CPT/HCPCS: 87077; 87086; 87186 ==